=== PATIENT | female | born 1950 | race Caucasian/White ===

== ENCOUNTER → 2022-03-08 15:12 | Outpatient (POV) | payer SELFPAY | PROVIDERS: Visit Provider Dermatology | DX: Z00.00 Encounter for general adult medical examination without abnormal findings (principal) ==

== ENCOUNTER → 2022-05-17 15:24 | Outpatient (POV) | payer SELFPAY | PROVIDERS: Visit Provider Dermatology | DX: Z00.00 Encounter for general adult medical examination without abnormal findings (principal) ==

== ENCOUNTER → 2022-08-16 09:55 | Outpatient (POV) | payer SELFPAY | PROVIDERS: Visit Provider Dermatology | DX: Z00.00 Encounter for general adult medical examination without abnormal findings (principal) ==

== ENCOUNTER → 2023-01-04 10:36 | Outpatient (CLI) | payer MEDICARE, SELFPAY | PROVIDERS: PCP Nurse Practitioner; Visit Provider Nurse Practitioner | DX: R01.1 Cardiac murmur, unspecified (principal) | CPT/HCPCS: 93306 ==

== ENCOUNTER 2023-02-28 13:03 | Emergency (ER) | payer MEDICARE, SELFPAY ==
[2023-02-28 13:04] VITALS: BP 136/81; PULSE 87; RESP 16; TEMP 36.6; O2SAT 100; BMI 21.6
--- NOTE | 2023-02-28 13:19 | CT_ITS ---
FINAL REPORT TECHNIQUE: Axial CT images of the face were obtained without contrast. Coronal reformatted images were also obtained. This study was performed with techniques to keep radiation doses as low as reasonably achievable, (ALARA). Individualized dose reduction techniques using automated exposure control or adjustment of mA and/or kV according to the patient''s size were employed. CLINICAL HISTORY: trauma, syncope, hit face on bath tub FINDINGS: There are bilateral nasal bone fractures. The left nasal bone fracture is comminuted and mildly inwardly displaced. The orbits are intact. There is a left maxillary tooth. Moderate degenerative changes are seen of the left TMJ. There is nasal soft tissue swelling. IMPRESSION: Bilateral nasal bone fractures. Reviewed, Interpreted and Dictated by Wilfredo Moncada III, MD Transcribed by Freda Hurtado Authenticated and [facility]
--- NOTE | 2023-02-28 13:19 | CT_ITS ---
FINAL REPORT CLINICAL HISTORY: trauma, syncope, hit face on bath tub FINDINGS: Axial images of the head were obtained without contrast. Coronal reformatted images were also obtained.This study was performed with techniques to keep radiation doses as low as reasonably achievable (ALARA). Individualized dose reduction techniques using automated exposure control or adjustment of mA and/or kV according to the patient's size were employed. There is no evidence of intracranial hemorrhage or mass. The ventricular size is within normal limits. There is no evidence of shift of the midline structures. No abnormal extra axial fluid collection is identified. There is a frontal scalp hematoma. IMPRESSION: No acute intracranial abnormality. Reviewed, Interpreted and Dictated by Wilfredo Moncada III, MD Transcribed by Freda Hurtado Authenticated and [facility]
--- NOTE | 2023-02-28 13:20 | HMH.EDGENADL ---
Discharge Plan Disposition Patient Disposition: Home, Self-Care Chief Complaint: Head Injury Prescriptions Prescriptions: No Action hfdohnilphkqshn-rmaavwaup-FH [Bromfed DM] 2-30-10 mg/5 mL syrup 5 ml PO Q4-6H PRN (Reason: cold symptoms) Qty: 240 0RF fluticasone propionate 50 mcg/actuation spray,suspension 1 spray intranasal DAILY Qty: 16 2RF Rx Instructions: administer into each nostril montelukast 10 mg tablet 10 mg PO DAILY Qty: 30 11RF cetirizine 10 mg tablet 10 mg PO DAILY Qty: 30 11RF moxifloxacin 400 mg tablet 400 mg PO DAILY 7 Days Qty: 7 0RF albuterol sulfate 90 mcg/actuation HFA aerosol inhaler 2 puff inhalation Q4-6H PRN Referrals Follow up/Referrals: Les Aguilar MD [Physician] - 03/07/23 (Patient with bilateral closed nasal bone fracture) Provider,Referral, [Primary Care Provider] - See instructions Clinical Impressions Clinical Impression: Closed fracture nasal bone Instructions Patient Instructions: Skull and Facial Fracture Discharge ED Provider: Juan Carlos Llamas General Adult HPI General Chief complaint: Head Injury Stated complaint: Fall 02/27 Facial bruising head pain Time Seen by Provider: 02/28/23 13:25 History of Present Illness HPI narrative: This is a 72-year-old female who is stated that she had done a bowel prep for colonoscopy became lightheaded fell and struck her face. Patient stated she may have have a momentary loss of consciousness but remembers everything. Patient denies any neck pain chest pain shortness of breath abdominal pain. Patient with bruising to the face and forehead. Patient denies any unilateral neurological deficits. Related Data Home Medications Medication Instructions Recorded Confirmed albuterol sulfate 90 mcg/actuation 2 puff inhalation Q4-6H PRN 01/26/23 01/26/23 aerosol inhaler Previous Rx's Medication Instructions Recorded csgcvdzivxrdwhs-qchtfjvosewhwoe-YR 5 ml PO Q4-6H PRN cold symptoms 01/26/23 2 mg-30 mg-10 mg/5 mL oral syrup #240 mL (Bromfed DM) cetirizine 10 mg tablet 10 mg PO DAILY #30 tabs 01/26/23 fluticasone propionate 50 1 spray intranasal DAILY #16 grams 01/26/23 mcg/actuation nasal spray,suspension montelukast 10 mg tablet 10 mg PO DAILY #30 tabs 01/26/23 moxifloxacin 400 mg tablet 400 mg PO DAILY 7 days #7 tabs 01/26/23 Allergies Allergy/AdvReac Type Severity Reaction Status Date / Time No Known Allergies Allergy Verified 01/26/23 11:26 [facility] Disclaimer: The information contained in this section may have been updated after the patient was seen, as this information can be updated by other users. Medical History Cardiac murmur Social History Smoking Status: Never smoker alcohol intake: never current occupational status: retired Travel in the last 8 weeks: Inside the [place] ROS Obtained: Yes All systems reviewed & no additional complaints except as documented Skin see HPI HEENT no runny nose sore throat Pulmonary no cough or shortness of breath Cardiovascular no chest pain pressure heaviness GI no abdominal pain nausea or vomiting no dysuria pyuria hematuria Musculoskeletal no neck or back pain Endocrine no polydipsia polyuria or polyphasia Psych no SI or HI The rest of the systems were reviewed and found to be negative Physical Exam Narrative Physical exam: Skin: Warm and dry HEENT: Normocephalic extract muscles are intact pupils are equal and reactive to light there is bilateral periorbital and nasal edema there is dried blood in bilateral nares no septal hematoma. Neck: Supple nontender Lungs: Clear to auscultation Heart: Regular rate and rhythm Abdomen: NABS soft nontender Extremities: No clubbing cyanosis or edema Neurologic: No unilateral weakness or numbness Lymphatic: No cervical or inguinal adenopathy Muscu
--- NOTE | 2023-02-28 13:31 | PC.NURSE ---
pt to radiology via wheelchair
[2023-02-28 14:00] VITALS: BP 142/79; PULSE 80; O2SAT 99
[2023-02-28 14:30] VITALS: BP 145/80; PULSE 75; O2SAT 98
--- NOTE | 2023-02-28 14:41 | PC.NURSE ---
rounded on pt and asked if they had any needs. pt had no needs at this time
[2023-02-28 15:00] VITALS: BP 135/71; PULSE 72; O2SAT 97
[2023-02-28 15:28] VITALS: BP 121/74; PULSE 84; RESP 16; TEMP 36.7; O2SAT 98
== END 2023-02-28 15:38 | disposition home or self-care (01) ==
PROVIDERS: Emergency Provider Emergency Medicine
DX: S02.2XXA Fracture of nasal bones, initial encounter for closed fracture (principal); R42 Dizziness and giddiness; W19.XXXA Unspecified fall, initial encounter; R01.1 Cardiac murmur, unspecified
CPT/HCPCS: 70450; 70486; 99284; 99285

== ENCOUNTER → 2023-05-23 09:17 | Outpatient (POV) | payer MEDICARE, SELFPAY | PROVIDERS: Visit Provider Dermatology | DX: Z00.00 Encounter for general adult medical examination without abnormal findings (principal) ==

== ENCOUNTER → 2023-08-29 11:15 | Outpatient (POV) | payer MEDICARE, SELFPAY | PROVIDERS: PCP Nurse Practitioner; Visit Provider Dermatology | DX: Z00.00 Encounter for general adult medical examination without abnormal findings (principal) ==

== ENCOUNTER 2024-08-20 11:00 | Outpatient (POV) | payer MEDICARE, SELFPAY ==
--- OUTSIDE RECORDS SUMMARY | 2024-08-21 07:03 | XMS_ITS | Encounter Summary ---
Author Organization [facility] Address [address] [place] [address] Care Team Providers Care Mica Washer Gluer Name Role Phone Unavailable Primary Care Provider Unavailabl e Reason for Visit * Reason Comments Injections Gelsyn #3 Encounter Details Date Type Department Care Team (Late st Contact Info) Description 08/08/2022 10:15 AM EST Office Visit [facility] [address] [place], [place] [id number] Rusty Quesada MD [address] [place], [place] [id number] Osteoarthritis of right knee, unspecified osteoarthritis type (Primary Dx) Social History Tobacco Use Types Packs/Day Years Used Date Smoking Tobacco: Never Smokeless Tobacco: Never Tobacco Cessation:Counseling Given: Not Answered Comments Unknown Sex and Gender Information Value Date Recorded Sex Assigned at Not on file Legal Sex Female 11:53 AM EDT Gender Identity Not on file Sexual Orientation Not on file documented as of this encounter Last Filed Vital Signs Vital Sign Reading Time Taken Comments Blood Pressure - - Pulse - - Temperature - - Respiratory Rate - - Oxygen Saturation - - Inhaled Oxygen Concentration - - Weight 59 kg (130 lb) 08/08/2022 10:01 AM EST Height 162.6 cm (5' 4 ) 08/08/2022 10:01 AM EST Body Mass Index 22.31 08/08/2022 10:01 AM EST documented in this encounter Progress Notes * Alida Villareal Supervisor [facility] - 08/08/2022 10:15 AM ESTAssociated Order(s): Large Joint Injection/Arthrocentesis: R knee Large Joint Injection/Arthrocentesis: R knee on 08/08/2022 10:15 AM Indications: pain Details: 22 G needle, ultrasound-guided anterolateral approach Medications: 2 mg sodium hyaluronate (viscosup) 16.8 mg/2 mL Outcome: tolerated well, no immediate complications Procedure, treatment alternatives, risks and benefits explained, specific risks discussed. Consent was given by the patient. Patient was prepped and draped in the usual sterile fashion. * Rusty Quesada MD - 08/08/2022 10:15 AM EST Gelsyn-3 No. 3 right knee Osteoarthritis right knee The patient returns today for their third and final right knee Visco supplementation injection. Therisks, benefits, and complications of the injections were again discussed in detail with the patient. The risks discussed include but are not limited to infection, skin reactions, hot swollen joints,and anaphylaxis. The patient gave verbal informed consent for the injection. The patient's skin wasprepped with 3 sterile gauze pads soaked with alcohol solution and the knee joint was injected [id number] intra-articularly under sterile conditions. Technique: Under sterile conditions a Son[employer] ultrasound unit with a variable frequency (6.0-15.0 MHz) linear transducer was used to localize the placement of a 22-gauge needle into the right knee joint. Findings: Successful needle placement for intra-articular Visco supplementation injection. Final images were taken and saved for permanent record. The patient tolerated the injection reasonably well. The patient was given instructions to ice of the knee and avoid strenuous activity for 24-48 hours. The patient was instructed to call the office immediately if there is increased pain, redness, warmth, fever, or chills. We will see the patient back on an as- needed basis from this point. Rusty Quesada MD documented in this encounter Plan of Treatment Not on file documented as of this encounter Procedures Procedure Name Priority Date/Time Associated Diagnosis Comments [place] ARTHROCENTESIS ASPIR&/INJ MAJOR JT/BURSA W/US Routine 08/08/2022 10:15 AM EST Osteoarthritis of right knee, unspecified osteoarthritis type documented in this encounter Results * MO ARTHROCENTESIS ASPIR&/INJ MAJOR JT/BURSA W/US (08/08/2022 10:15 AM EST) Narrative [facility] - 08/08/2022 10:15 AM EST Mono, Alida, Supervisor [facility] ? 08/08/2022 10:37 AM Large Joint Injection/Arthrocentesis: R knee on 08/08/2022 10:15 AM Indications: pain Details: 22 G needle, ultrasound-guided anterolateral approach Medications: 2 mg sodium hyaluronate (viscosup) 16.8 mg/2 mL Outcome: tolerated well, no immediate complications Procedure, treatment alternatives, risks and benefits explained, specific risks discussed. Consent was given by the patient. Patient was prepped and draped in the usual sterile fashion. us Rusty Quesada MD PROCEDURE/MINOR SURGICAL ORDERAB LES Final Result [facility] documented in this encounter Visit Diagnoses Diagnosis Osteoarthritis of right knee, unspecified osteoarthritis type- Primary documented in this encounter Administered Medications Inactive Administered Medications - up to 1 most recent administrations Medication Order MAR Action Action Date Dose Rate Site sodium hyaluronate (viscosup) Syrg 2 mg 2 mg, Intra-articular, ONCE PRN, 1 dose, Starting on Mon08/08/22 at 1015, Until Mon08/08/22 at 1015, Dx: 1. Osteoarthritis of right knee, unspecified osteoarthritis typeIndications:Osteoarthritis of right knee, unspecified osteoarthritis type Given 08/08/2022 10:15 AM EST 2 mg documented in this encounter
--- OUTSIDE RECORDS SUMMARY | 2024-08-21 07:03 | XMS_ITS | Encounter Summary ---
Author Organization [facility] Address [address] [place] [address] Care Team Providers Care Paradichlorobenzene Tender Name Role Phone Unavailable Primary Care Provider Unavailabl e Reason for Visit * Reason Comments Pain Encounter Details Date Type Department Care Team (Late st Contact Info) Description 03/02/2022 10:15 AM EDT Office Visit [facility] [address] [place] [address] Rusty Quesada MD [address] [place] [address] Osteoarthritis of right knee, unspecified osteoarthritis type (Primary Dx) Social History Tobacco Use Types Packs/Day Years Used Date Smoking Tobacco: Never Assessed Comments Unknown Sex and Gender Information Value Date Recorded Sex Assigned at Not on file Legal Sex Female 11:53 AM EDT Gender Identity Not on file Sexual Orientation Not on file documented as of this encounter Progress Notes * Rusty Quesada MD - 03/02/2022 10:15 AM EDTAssociated Order(s): Large Joint Injection/Arthrocentesis: R knee Post-Procedure Diagnose(s): Osteoarthritis of right knee, unspecified osteoarthritis type Large Joint Injection/Arthrocentesis: R knee on 03/02/2022 10:15 AM Indications: pain Details: 22 G needle, ultrasound-guided anterolateral approach Medications: 4 mL bupivacaine HCl 0.25 % (2.5 mg/mL); 80 mg triamcinolone acetonide 40 mg/mL; 4 mL lidocaine 1% 10 mg/mL (1 %) Outcome: tolerated well, no immediate complications Procedure, treatment alternatives, risks and benefits explained, specific risks discussed. Consent was given by the patient. Patient was prepped and draped in the usual sterile fashion. Diagnosis: Right knee osteoarthritis She returns to clinic today for right knee cortisone injection. She has had this treatment in the past with good pain relief. I discussed in detail the risks, benefits and complications of an injection which included but are not limited to infection, skin reactions, hot swollen joint, and anaphylaxis with the patient. The patient verbalized understanding and gave informed consent for the injection. The patient's knee was flexed to 90?? and the skin prepped using sterile alcohol solution. A sterile 22-gauge needle was inserted into the knee and the mixture of I discussed in detail the risks, benefits and complications of an injection which included but are not limited to infection, skin reactions, hot swollen joint, and anaphylaxis with the patient. The patient verbalized understanding and gave informed consent for the injection. The patient's knee was flexed to 90?? and the skin prepped using sterile alcohol solution. A sterile 22-gauge needle was inserted into the knee and the mixture of 4 mL of .25% bupivacaine, 4 mL of 1% lidocaine, and 80 mg of triamcinolone was injected under sterile technique. The needle was withdrawn and the puncture site sealed with a Band-Aid. Technique: Under sterile conditions a Son[employer] TVte ultrasound unit with a variable frequency (6.0-15.0 MHz) linear transducer was used to localize the placement of a 22-gauge needle into the right knee joint. Rusty Quesada MD Findings: Successful needle placement for knee injection. Final images were taken and saved for permanent record. The patient tolerated the injection well. The patient was instructed to call the office immediatelyif there is any pain, redness, warmth, fever, or chills. documented in this encounter Plan of Treatment Not on file documented as of this encounter Procedures Procedure Name Priority Date/Time Associated Diagnosis Comments [place] ARTHROCENTESIS ASPIR&/INJ MAJOR JT/BURSA W/US Routine 03/02/2022 10:15 AM EDT Osteoarthritis of right knee, unspecified osteoarthritis type documented in this encounter Results * [place] ARTHROCENTESIS ASPIR&/INJ MAJOR JT/BURSA W/US (03/02/2022 10:15 AM EDT) Narrative [facility] - 03/02/2022 10:15 AM EDT Rusty Quesada MD ? 03/02/2022 10:48 AM Large Joint Injection/Arthrocentesis: R knee on 03/02/2022 10:15 AM Indications: pain Details: 22 G needle, ultrasound-guided anterolateral approach Medications: 4 mL bupivacaine HCl 0.25 % (2.5 mg/mL); 80 mg triamcinolone acetonide 40 mg/mL; 4 mL lidocaine 1% 10 mg/mL (1 %) Outcome: tolerated well, no immediate complications Procedure, [...] MAR Action Action Date Dose Rate Site bupivacaine HCl (MARCAINE) 0.25 % (2.5 mg/mL) injection 4 mL 4 mL, Intra-articular, ONCE PRN, 1 dose, Starting on Mon03/02/22 at 1015, Until Mon03/02/22 at 1015, Dx: 1. Osteoarthritis of right knee, unspecified osteoarthritis typeIndications:Osteoarthritis of right knee, unspecified osteoarthritis type Given 03/02/2022 10:15 AM EDT 4 mL lidocaine 1% 10 mg/mL (1 %) injection 4 mL 4 mL, Intra-articular, ONCE PRN, 1 dose, Starting on Mon03/02/22 at 1015, Until 03/02/22 at 1015, Dx: 1. Osteoarthritis of right knee, unspecified osteoarthritis typeIndications:Osteoarthritis of right knee, unspecified osteoarthritis type Given 03/02/2022 10:15 AM EDT 4 mL triamcinolone acetonide (KENALOG-40) injection 80 mg 80 mg, Intra-articular, ONCE PRN, 1 dose, Starting on Mon03/02/22 at 1015, Until 6/15/22 at 1015, Dx: 1. Osteoarthritis of right knee, unspecified osteoarthritis typeIndications:Osteoarthritis of right knee, unspecified osteoarthritis type Given 03/02/2022 10:15 AM EDT 80 mg documented in this encounter Historical Medications * This list may reflect changes made after this encounter. predniSONE (DELTASONE) 20 mg Oral Tablet TAKE 1 TABLET BY MOUTH TWICE DAILY FOR 5 DAYS, THEN 1 TABLET ONCE DAILY FOR 5 DAYS 12/27/2021 levoFLOXacin (LEVAQUIN) 500 mg Oral Tablet TAKE 1 TABLET BY MOUTH EVERY 24 HOURS FOR 10 DAYS 12/27/2021 Brompheniramine-Pse udoeph-DM 2-30-10 mg/5 mL Oral Syrup TAKE 5 ML BY MOUTH 4 TIMES DAILY NEEDED FOR COUGH 12/27/2021 benzonatate (TESSALON) 200 mg Oral Capsule Take 200 mg by mouth 3 times daily as needed. for cough 12/27/2021 albuterol-ipratropi um (DUO-NEB) 0.5 mg-3 mg(2.5 mg base)/3 mL Inhl Solution for Nebulization Inhale 3 mL into the lungs. 09/25/2019 ibuprofen (ADVIL;MOTRIN) 200 mg Oral Tablet Take 400 mg by mouth nightly. 06/30/2010 aspirin 325 mg Oral Tablet Take 325 mg by mouth daily. cyanocobalamin 100 mcg Oral Tablet Take 500 mcg by mouth daily. albuterol (PROVENTIL HFA;VENTOLIN HFA) 90 mcg/actuation Inhl HFA Aerosol Inhaler Inhale 2 Puffs into the lungs every 6 hours as needed. 03/12/2019 added in this encounter
--- OUTSIDE RECORDS SUMMARY | 2024-08-21 07:03 | XMS_ITS | Encounter Summary ---
Author Organization [facility] Address [address] [place] [address] Care Team Providers Care Computer Technology Trainer Name Role Phone Unavailable Primary Care Provider Unavailabl e Reason for Visit * Reason Comments Injections last injection was 0 03/06/23 Encounter Details Date Type Department Care Team (Late st Contact Info) Description 06/26/2023 3:00 PM EDT Office Visit [place] [id number] [email or web address] [address] [place] [phone] Rusty Quesada MD [address] [place] [address] Osteoarthritis of right knee, unspecified osteoarthritis type [...] - - Weight 59 kg (130 lb) 06/26/2023 2:58 PM EDT Height 162.6 cm (5' 4 ) 06/26/2023 2:58 PM EDT Body Mass Index 22.31 06/26/2023 2:58 PM EDT documented in this encounter Progress Notes * Rusty Quesada MD - 06/26/2023 3:00 PM EDTAssociated Order(s): Large Joint Injection/Arthrocentesis: R knee Post-Procedure Diagnose(s): Osteoarthritis of right knee, unspecified osteoarthritis type Large Joint Injection/Arthrocentesis: R knee on 06/26/2023 3:00 PM Indications: pain Details: 22 G needle, ultrasound-guided anterolateral approach Medications: 4 mL BUPivacaine HCl 0.25 % (2.5 mg/mL); 80 mg triamcinolone acetonide 40 mg/mL; 4 mL lidocaine 20 mg/mL (2 %) Outcome: tolerated well, no immediate complications Procedure, treatment alternatives, risks and benefits explained, specific risks discussed. Consent was given by the patient. Patient was prepped and draped in the usual sterile fashion. Diagnosis: Right knee osteoarthritis She returns to clinic today for repeat right knee cortisone injection. She tolerates these injections well with good pain relief. Last injection was given in February with good pain relief. I discussed in [...] a Band-Aid. Technique: Under sterile conditions a [employer] ultrasound unit with a variable frequency (6.0-15.0 MHz) linear transducer was used to localize the placement of a 22-gauge needle into the right knee joint. Findings: Successful needle placement for knee injection. Final images were taken and saved for permanent record. The patient tolerated the injection well. The patient was instructed to call the office immediatelyif there is any pain, redness, warmth, fever, or chills. Rusty Quesada MD documented in this encounter Plan of Treatment Not on file documented as of this encounter Procedures Procedure Name Priority Date/Time Associated Diagnosis Comments [place] ARTHROCENTESIS ASPIR&/INJ MAJOR JT/BURSA W/US Routine 06/26/2023 3:00 PM EDT Osteoarthritis of right knee, unspecified osteoarthritis type documented in this encounter Results * [place] ARTHROCENTESIS ASPIR&/INJ MAJOR JT/BURSA W/US (06/26/2023 3:00 PM EDT) Narrative [facility] - 06/26/2023 3:00 PM EDT Rusty Quesada MD ? 06/26/2023 ??3:10 PM Large Joint Injection/Arthrocentesis: R knee on 06/26/2023 3:00 PM Indications: pain Details: 22 G needle, ultrasound-guided anterolateral approach Medications: 4 mL BUPivacaine HCl 0.25 % (2.5 mg/mL); 80 mg triamcinolone acetonide 40 mg/mL; 4 mL lidocaine 20 mg/mL (2 %) Outcome: tolerated well, no immediate complications [...] MAR Action Action Date Dose Rate Site BUPivacaine HCl (MARCAINE) 0.25 % (2.5 mg/mL) injection 4 mL 4 mL, Intra-articular, ONCE PRN, 1 dose, Starting on Mon06/26/23 at 1500, Until Mon06/26/23 at 1500, Dx: 1. Osteoarthritis of right knee, unspecified osteoarthritis typeIndications:Osteoarthritis of right knee, unspecified osteoarthritis type Given 06/26/2023 3:00 PM EDT 4 mL Right Knee lidocaine 20 mg/mL (2 %) injection 4 mL 4 mL, Intramuscular, ONCE PRN, 1 dose, Starting on Mon06/26/23 at 1500, Until Mon06/26/23 at 1500, Dx: 1. Osteoarthritis of right knee, unspecified osteoarthritis typeIndications:Osteoarthritis of right knee, unspecified osteoarthritis type Given 06/26/2023 3:00 PM EDT 4 mL Right Knee triamcinolone acetonide (KENALOG-40) injection 80 mg 80 mg, Intra-articular, ONCE PRN, 1 dose, Starting on Mon06/26/23 at 1500, Until Mon06/26/23 at 1500, Dx: 1. Osteoarthritis of right knee, unspecified osteoarthritis typeIndications:Osteoarthritis of right knee, unspecified osteoarthritis type Given 06/26/2023 3:00 PM EDT 80 mg Right Knee documented in this encounter Historical Medications * This list may reflect changes made after this encounter. montelukast (SINGULAIR) 10 mg Oral Tablet Take 10 mg by mouth daily. 05/30/2023 hydroxychloroquine (PLAQUENIL) 200 mg Oral Tablet Take 200 mg by mouth 2 times daily. 05/23/2023 cetirizine (ZYRTEC) 10 mg Oral Tablet Take 10 mg by mouth daily. 05/30/2023 added in this encounter
--- OUTSIDE RECORDS SUMMARY | 2024-08-21 07:03 | XMS_ITS | Encounter Summary ---
Author Organization [facility] Address [address] [place] [address] Care Team Providers Care Gravure Printing Machinist Name Role Phone Unavailable Primary Care Provider Unavailabl e Reason for Visit * Reason Comments Injections Encounter Details Date Type Department Care Team (Late st Contact Info) Description 06/21/2021 9:15 AM EDT Office Visit Massiel Pierre [address] [place] [address] Leonora Guzman PA [address] [place] [address] Acute pain of right knee (Primary Dx); Osteoarthritis of right knee, unspecified osteoarthritis type Social History Tobacco Use Types Packs/Day Years Used Date Smoking Tobacco: Never Assessed Comments Unknown Sex and Gender Information Value Date Recorded Sex Assigned at Not on file Legal Sex Female 11:53 AM EDT Gender Identity Not on file Sexual Orientation Not on file documented as of this encounter Progress Notes * Leonora Menjivar PA - 06/21/2021 9:15 AM EDT Chief Complaint Patient presents with ??? Right Knee - Injections Karlie Love returns to the clinic today for repeat right knee cortisone injection Diagnosis: Osteoarthritis right knee Updated x-rays of the right knee were taken today. 3 x-rays of the right knee taken today reveal moderate tricompartmental osteoarthritis with mild medial joint space narrowing and more advanced joint space narrowing to the patellofemoral compartment. Jfvq-cx-[id number] findings are seen at the patellofemoral compartment. Orders Placed This Encounter Procedures ??? XR KNEE RIGHT AP LATERAL AND SUNRISE STANDING Standing Status: Future Number of Occurrences: 1 Standing Expiration Date: 06/21/2022 Order Specific Question: Release to Patient Answer: Immediate ? ? [place] ARTHROCENTESIS ASPIR&/INJ MAJOR JT/BURSA W/US I discussed in detail the risks, benefits [...] and the mixture of 4 mL of 2% Carbocaine, 4 mL of 0.25% Marcaine, and 80 mg of Depo-Medrol was injected under sterile technique. The needle was withdrawn and the puncture site sealed with a Band-Aid. Technique: Under sterile conditions a [employer] ultrasound unit with a variable frequency (6.0-15.0 [...] documented in this encounter Plan of Treatment Scheduled Orders Name Type Priority Associated Diagnoses Orde r Schedule [place] ARTHROCENTESIS ASPIR&/INJ MAJOR JT/BURSA W/US [place] Charge Routine Acute pain of right knee Osteoarthritis of right knee, unspecified osteoarthritis type Ordered: 06/21/2021 documented as of this encounter Results * XR KNEE RIGHT AP LATERAL AND SUNRISE STANDING (06/21/2021 9:19 AM EDT) Arin Abdul - 06/21/2021 9:19 AM EDT Please see physician's note from office encounter for x-ray imaging result Result [facility] us Leonora HAWKINS IMBob DIAGNOSTIC IMAGING ORDERA BLES Final Result documented in this encounter Visit Diagnoses Diagnosis Acute pain of right knee- Primary Osteoarthritis of right knee, unspecified osteoarthritis type Acute pain of right knee documented in this encounter Administered Medications Inactive Administered Medications - up to 1 most recent administrations Medication Order MAR Action Action Date Dose Rate Site bupivacaine HCl (MARCAINE) 0.25 % (2.5 mg/mL) injection 10 mg 10 mg (4 mL), Intra-articular, ONCE, 1 dose, On Mon06/21/21 at 0930, Dx: 1. Osteoarthritis of right knee, unspecified osteoarthritis typeIndications:Osteoarthritis of right knee, unspecified osteoarthritis type Given 06/21/2021 9:56 AM EDT 10 mg lidocaine 1% 10 mg/mL (1 %) injection 4 mL 4 mL, Infiltration, ONCE, 1 dose, On Mon06/21/21 at 0930, Dx: 1. Osteoarthritis of right knee, unspecified osteoarthritis typeIndications:Osteoarthritis of right knee, unspecified osteoarthritis type Given 06/21/2021 9:56 AM EDT 4 mL triamcinolone acetonide (KENALOG-40) injection 80 mg 80 mg, Intra-articular, ONCE, 1 dose, On Mon06/21/21 at 0930, Dx: 1. Osteoarthritis of right knee, unspecified osteoarthritis typeIndications:Osteoarthritis of right knee, unspecified osteoarthritis type Given 06/21/2021 9:56 AM EDT 80 mg documented in this encounter
--- OUTSIDE RECORDS SUMMARY | 2024-08-21 07:03 | XMS_ITS | Encounter Summary ---
Author Organization [facility] Address [address] [place] [address] Care Team Providers Care Rapid Extractor Operator Name Role Phone Unavailable Primary Care Provider Unavailabl e Encounter Details Date Type Department Care Team (Late st Contact Info) Description 06/21/2021 9:30 AM EDT Ancillary Procedure Massiel Pierre [address] [place] [address] Leonora Guzman PA [address] [facility] [place] [address] Acute pain of right knee Social History Tobacco Use Types Packs/Day Years Used Date Smoking Tobacco: Never Assessed Comments Unknown Sex and Gender Information Value Date Recorded Sex Assigned at Not on file Legal Sex Female 11:53 AM EDT Gender Identity Not on file Sexual Orientation Not on file documented as of this encounter Plan of Treatment Not on file documented as of this encounter Procedures Procedure Name Priority Date/Time Associated Diagnosis Comments XR KNEE RIGHT AP LATERAL AND SUNRISE STANDING Routine 06/21/2021 9:19 AM EDT Acute pain of right knee documented in this encounter Results * XR KNEE RIGHT AP LATERAL AND SUNRISE STANDING (06/21/2021 9:19 AM EDT) Narrative Arin Mathias - 06/21/2021 9:19 AM EDT Please see physician's note from office encounter for x-ray imaging result Leonora HAWKINS IMG DIAGNOSTIC IMAGING ORDERA BLES Final Result documented in this encounter Visit Diagnoses Diagnosis Acute pain of right knee documented in this encounter
--- OUTSIDE RECORDS SUMMARY | 2024-08-21 07:03 | XMS_ITS | Encounter Summary ---
Author Organization [facility] Address [address] [place] [address] Care Team Providers Care Retail Presentation Specialist Name Role Phone Unavailable Primary Care Provider Unavailabl e Reason for Visit * Reason Comments Injections would like cortisone inj Encounter Details Date Type Department Care Team (Late st Contact Info) Description 03/01/2021 10:15 AM EDT Office Visit Massiel Pierre [address] [place] [address] Rusty Quesada MD [address] [place] [address] Osteoarthritis of right knee, unspecified osteoarthritis type (Primary Dx); Primary osteoarthritis of right knee Social History Tobacco Use Types Packs/Day Years Used Date Smoking Tobacco: Never Assessed Comments Unknown Sex and Gender Information Value Date Recorded Sex Assigned at Not on file Legal Sex Female 11:53 AM EDT Gender Identity Not on file Sexual Orientation Not on file documented as of this encounter Progress Notes * Rusty Quesada MD - 03/01/2021 10:15 AM EDT Chief Complaint Patient presents with ??? Right Knee - Injections would like cortisone inj Karlie Love returns to the clinic today for repeat right knee cortisone injection. She last receivedthis injection back in March 2020. This provided her with excellent pain relief. Diagnosis: Osteoarthritis right knee Orders Placed This Encounter Procedures ? ? [place] ARTHROCENTESIS ASPIR&/INJ MAJOR JT/BURSA W/US I discussed [...] a Band-Aid. Technique: Under sterile conditions a [employer] ultrasound unit with a variable frequency (6.0-15.0 [...] Type Priority Associated Diagnoses Orde r Schedule [place] ARTHROCENTESIS ASPIR&/INJ MAJOR JT/BURSA W/US [place] Charge Routine Osteoarthritis of right knee, unspecified osteoarthritis type Ordered: 03/01/2021 documented as of this encounter Visit Diagnoses Diagnosis Osteoarthritis of right knee, unspecified osteoarthritis type- Primary documented in this encounter Administered Medications Inactive Administered Medications - up to 1 most recent administrations Medication Order MAR Action Action Date Dose Rate Site bupivacaine HCl (MARCAINE) 0.5 % (5 mg/mL) injection 20 mg 20 mg (4 mL), Intra-articular, ONCE, 1 dose, On Mon03/01/21 at 1015, Dx: 1. Osteoarthritis of right knee, unspecified osteoarthritis typeIndications:Osteoarthritis of right knee, unspecified osteoarthritis type Given 03/01/2021 10:00 AM EDT 20 mg lidocaine 1% 10 mg/mL (1 %) injection 4 mL 4 mL, Intra-articular, ONCE, 1 dose, On Mon03/01/21 at 1015, Dx: 1. Osteoarthritis of right knee, unspecified osteoarthritis typeIndications:Osteoarthritis of right knee, unspecified osteoarthritis type Given 03/01/2021 10:01 AM EDT 4 mL triamcinolone acetonide (KENALOG-40) injection 80 mg 80 mg, Intra-articular, ONCE PRN, 1 dose, Starting on Mon03/01/21 at 1000, Until Mon03/01/21 at 1001, Inflammation, Dx: 1. Osteoarthritis of right knee, unspecified osteoarthritis typeIndications:Osteoarthritis of right knee, unspecified osteoarthritis type Given 03/01/2021 10:01 AM EDT 80 mg documented in this encounter
--- OUTSIDE RECORDS SUMMARY | 2024-08-21 07:03 | XMS_ITS | Encounter Summary ---
Author Organization [facility] Address [address] [place] [address] Care Team Providers Care Sales Assistants And Salespersons Name Role Phone Unavailable Primary Care Provider Unavailabl e Reason for Visit * Reason Comments Injections Encounter Details Date Type Department Care Team (Late st Contact Info) Description 09/22/2021 9:30 AM EST Office Visit Massiel Pierre [address] [place] [address] Rusty Quesada MD [address] [place] [address] Acute pain of right knee (Primary Dx); [...] Progress Notes * Rusty Quesada MD - 09/22/2021 9:30 AM EST Chief Complaint Patient presents with ??? Right Knee - Injections Karlie Love returns to the clinic today for repeat right knee cortisone injection. She has received these in the past with good pain relief. Her most recent injection was performed 3 months ago Diagnosis: Osteoarthritis right knee Orders Placed This Encounter Procedures ? ? [place] ARTHROCENTESIS ASPIR&/INJ MAJOR JT/BURSA W/US I discussed [...] a Band-Aid. Technique: Under sterile conditions a [employer] ultrasound unit with a variable frequency (6.0-15.0 [...] any pain, redness, warmth, fever, or chills. We also discussed viscosupplementation injections and she may return to begin these in the future if desired. Rusty Quesada MD documented in this encounter Plan of Treatment Scheduled Orders Name Type Priority Associated Diagnoses Orde r Schedule [place] ARTHROCENTESIS ASPIR&/INJ MAJOR JT/BURSA W/US [place] Charge Routine Acute pain of right knee Osteoarthritis of right knee, unspecified osteoarthritis type Ordered: 09/22/2021 documented as of this encounter Visit Diagnoses Diagnosis Acute pain of right knee- Primary Osteoarthritis of right knee, unspecified osteoarthritis type documented in this encounter Administered Medications Inactive Administered Medications - up to 1 most recent administrations Medication Order MAR Action Action Date Dose Rate Site bupivacaine HCl (MARCAINE) 0.25 % (2.5 mg/mL) injection 10 mg 10 mg (4 mL), Intra-articular, ONCE, 1 dose, On Mon09/22/21 at 0930, Dx: 1. Osteoarthritis of right knee, unspecified osteoarthritis typeIndications:Osteoarthritis of right knee, unspecified osteoarthritis type Given 09/22/2021 9:20 AM EST 10 mg lidocaine 1% 10 mg/mL (1 %) injection 4 mL 4 mL, Intra-articular, ONCE, 1 dose, On Mon09/22/21 at 0930, Dx: 1. Osteoarthritis of right knee, unspecified osteoarthritis typeIndications:Osteoarthritis of right knee, unspecified osteoarthritis type Given 09/22/2021 9:19 AM EST 4 mL triamcinolone acetonide (KENALOG-40) injection 80 mg 80 mg, Intra-articular, ONCE, 1 dose, On Mon09/22/21 at 0930, Dx: 1. Osteoarthritis of right knee, unspecified osteoarthritis typeIndications:Osteoarthritis of right knee, unspecified osteoarthritis type Given 09/22/2021 9:19 AM EST 80 mg documented in this encounter
--- OUTSIDE RECORDS SUMMARY | 2024-08-21 07:03 | XMS_ITS | Encounter Summary ---
Author Organization [facility] Address [address] [place] [address] Care Team Providers Care Security Assistant Name Role Phone Unavailable Primary Care Provider Unavailabl e Reason for Visit * Reason Onset Date Comments Injections 07/20/2022 Encounter Details Date Type Department Care Team (Late st Contact Info) Description 07/20/2022 [facility]phone [facility] [employer] [address] [place] [address] Alida Villareal Athletic Trainer Injections Social History Tobacco Use Types Packs/Day Years Used Date Smoking Tobacco: Never Smokeless Tobacco: Never Comments Unknown Sex and Gender Information Value Date Recorded Sex Assigned at Not on file Legal Sex Female 11:53 AM EDT Gender Identity Not on file Sexual Orientation Not on file documented as of this encounter Miscellaneous Notes * Telephone Encounter - Alida Villareal Athletic Trainer - 07/20/2022 12:19 PM EDT LVM for patient she was approved for right knee gelsyn. She can call back at her convenience to schedule her appointment documented in this encounter Plan of Treatment Not on file documented as of this encounter Visit Diagnoses Not on filedocumented in this encounter
--- OUTSIDE RECORDS SUMMARY | 2024-08-21 07:03 | XMS_ITS | Referral Summary ---
Author Organization [facility] Phone Care Team Providers Care Online Marketing Director Name Role Phone Unavailable Primary Care Provider Unavailabl e Encounters Date Type Department Care Team Description 06/12/2024 2:15 PM EDT Office Visit Massiel Pierre [address] [place] [address] Leonora Guzman PA Osteoarthritis of right knee, unspecified osteoarthritis type (Primary Dx) from Last 3 Months Allergies No known active allergies Medications albuterol (PROVENTIL HFA;VENTOLIN HFA) 90 mcg/actuation Inhl HFA Aerosol Inhaler Inhale 2 Puffs into the lungs every 6 hours as needed. 03/12/2019 Active cyanocobalamin 100 mcg Oral Tablet Take 500 mcg by mouth daily. Active aspirin 325 mg Oral Tablet Take 325 mg by mouth daily. Active ibuprofen (ADVIL;MOTRIN) 200 mg Oral Tablet Take 400 mg by mouth nightly. 06/30/2010 Active albuterol-ipratro pium (DUO-NEB) 0.5 mg-3 mg(2.5 mg base)/3 mL Inhl Solution for Nebulization Inhale 3 mL into the lungs. 09/25/2019 Active benzonatate (TESSALON) 200 mg Oral Capsule Take 200 mg by mouth 3 times daily as needed. for cough 12/27/2021 Active Brompheniramine-P seudoeph-DM 2-30-10 mg/5 mL Oral Syrup TAKE 5 ML BY MOUTH 4 TIMES DAILY NEEDED FOR COUGH 12/27/2021 Active levoFLOXacin (LEVAQUIN) 500 mg Oral Tablet TAKE 1 TABLET BY MOUTH EVERY 24 HOURS FOR 10 DAYS 12/27/2021 Active predniSONE (DELTASONE) 20 mg Oral Tablet TAKE 1 TABLET BY MOUTH TWICE DAILY FOR 5 DAYS, THEN 1 TABLET ONCE DAILY FOR 5 DAYS 12/27/2021 Active cetirizine (ZYRTEC) 10 mg Oral Tablet Take 10 mg by mouth daily. 05/30/2023 Active hydroxychloroquin e (PLAQUENIL) 200 mg Oral Tablet Take 200 mg by mouth 2 times daily. 05/23/2023 Active montelukast (SINGULAIR) 10 mg Oral Tablet Take 10 mg by mouth daily. 05/30/2023 Active codeine-guaiFENes in (ROBITUSSIN AC) 10-100 mg/5 mL Oral Liquid Take 5 mL by mouth every 6 hours as needed. 10/19/2023 Active Active Problems Problem Noted Date Diagnosed Date Bronchiectasis without complication 03/01/2022 Primary osteoarthritis of right knee 06/06/2017 Abnormal uterine bleeding 08/04/2011 Immunizations Name Administration Dates Next Due Influenza High Dose 06/14/2021,06/14/2017,2015 Influenza Seasonal Injectable PF 06/03/2020 Influenza Vaccine Trivalent Adjuvanted PF 2018,07/03/2018 Pneumococcal Conjugate Vaccine 13 Valent 019 Pneumococcal Polysaccharide 23 Valent 01/09/2018 Quadrivalent Influenza High Dose 06/08/2021 Tdap 06/14/2017,10/25/2012 Zoster Recombinant 01/09/2018 Social History Tobacco Use Types Packs/Day Years Used Date Smoking Tobacco: Never Smokeless Tobacco: Never Tobacco Cessation:Counseling Given: Not Answered Comments Unknown Sex and Gender Information Value Date Recorded Sex Assigned at Not on file Legal Sex Female 11:53 AM EDT Gender Identity Not on file Sexual Orientation Not on file Last Filed Vital Signs Vital Sign Reading Time Taken Comments Blood Pressure - - Pulse - - Temperature - - Respiratory Rate - - Oxygen Saturation - - Inhaled Oxygen Concentration - - Weight 59 kg (130 lb) 06/12/2024 2:06 PM EDT Height 162.6 cm (5' 4 ) 06/12/2024 2:06 PM EDT Body Mass Index 22.31 06/12/2024 2:06 PM EDT Plan of Treatment Not on file Procedures Procedure Name Priority Date/Time Associated Diagnosis Comments [place] ARTHROCENTESIS ASPIR&/INJ MAJOR JT/BURSA W/US Routine 06/12/2024 2:15 PM EDT Osteoarthritis of right knee, unspecified osteoarthritis type from Last 3 Months Results * [place] ARTHROCENTESIS ASPIR&/INJ MAJOR JT/BURSA W/US (06/12/2024 2:15 PM EDT) Narrative [facility] - 06/12/2024 2:15 PM EDT Mono, Alida, Bevel Operator ? 06/12/2024 ??2:18 PM Large Joint Injection/Arthrocentesis: R knee on 06/12/2024 2:15 PM Indications: pain Details: 22 G needle, [...] and draped in the usual sterile fashion. Leonora HAWKINS PROCEDURE/MINOR SURGICAL HUNTER AMBROSE Final Result [facility] from Last 3 Months Insurance [place]ICARE [place] PART B CLAIMS [facility]
--- OUTSIDE RECORDS SUMMARY | 2024-08-21 07:03 | XMS_ITS | Encounter Summary ---
Author Organization [facility] Address [address] [place] [address] Care Team Providers Care Police Investigator Name Role Phone Unavailable Primary Care Provider Unavailabl e Encounter Details Date Type Department Care Team (Late st Contact Info) Description 01/12/2024 9:00 AM EDT Ancillary Procedure [place] [id number] [employer] [address] [place] [phone] Leonora Guzman PA [address] [place], [place] [id number] Osteoarthritis of right knee, unspecified osteoarthritis type [...] RIGHT AP LATERAL AND SUNRISE STANDING Routine 01/12/2024 9:07 AM EDT Osteoarthritis of right knee, unspecified osteoarthritis type documented in this encounter Results * XR KNEE RIGHT AP LATERAL AND SUNRISE STANDING (01/12/2024 9:07 AM EDT) Arin Abdul - 01/12/2024 9:07 AM EDT Please see physician's note from office encounter for x-ray imaging result Leonora HAWKINS IMG DIAGNOSTIC IMAGING ORDERA BLES Final Result documented in this encounter Visit Diagnoses Diagnosis Osteoarthritis of right knee, unspecified osteoarthritis type documented in this encounter
--- OUTSIDE RECORDS SUMMARY | 2024-08-21 07:03 | XMS_ITS | Encounter Summary ---
Author Organization [facility] Address [address] [place] [address] Care Team Providers Care Railways Assistant Name Role Phone Unavailable Primary Care Provider Unavailabl e Reason for Visit * Reason Comments Follow-up Patient received cor tisone injection on 06/01/22. She states this provided relief till about 2 weeks ago the pain returned and reports having swelling in the knee. She states been having constant pain over anteromedial aspect of her patella and radiates down her leg into her foot. Encounter Details Date Type Department Care Team (Late st Contact Info) Description 07/18/2022 3:45 PM EDT Office Visit [address] [phone] Rusty Quesada MD [address] [place], [place] [id number] Osteoarthritis of right knee, unspecified osteoarthritis type [...] - - Weight 59 kg (130 lb) 07/18/2022 3:56 PM EDT Height 162.6 cm (5' 4 ) 07/18/2022 3:56 PM EDT Body Mass Index 22.31 07/18/2022 3:56 PM EDT documented in this encounter Progress Notes * Rusty Quesada MD - 07/18/2022 3:45 PM EDT CHIEF COMPLAINT: Chief Complaint Patient presents with ??? Right Knee - Follow-up Patient received cortisone injection on 06/01/22. She states this provided relief till about 2 weeks ago the pain returned and reports having swelling in the knee. She states been having constant pain over anteromedial aspect of her patella and radiates down her leg into her foot. HISTORY OF PRESENT ILLNESS: The patient is a 72 y.o. female This is a pleasant lady who we know very well. She has known osteoarthritis of her knees. She got aright knee injection back on 06/01/2022. It worked good for about 6 weeks but now is worn off. She having ongoing return of her medial sided knee pain she points directly medial femoral condyle as a site of discomfort. The contralateral leg is relatively good with minimal discomfort. She denies any low back pain. She denies any radiating pain. No past medical history on file. Work Status: The pain assessment was noted & is as follows: PAIN ASSESSMENT: Severity of Pain: 7 Quality of Pain: Aching, Dull Duration of Pain: Persistent Frequency of Pain: Constant Aggravating Factors: Exercise, Walking, Stairs Limiting Behavior: Some Relieving Factors: Ice, Rest Result of Injury: No] Work Status/Functionality: Past Medical History: Medical historyform was reviewed today & can be found in the media tab No past medical history on file. Past Surgical History: No past surgical history on file. Current Medications: Current Outpatient Medications: ??? albuterol (PROVENTIL HFA;VENTOLIN HFA) 90 mcg/actuation Inhl HFA Aerosol Inhaler, Inhale 2 Puffs into the lungs every 6 hours as needed., Disp: , Rfl: ??? albuterol-ipratropium (DUO-NEB) 0.5 mg-3 mg(2.5 mg base)/3 mL Inhl Solution for Nebulization, Inhale 3 mL into the lungs., Disp: , Rfl: ??? aspirin 325 mg Oral Tablet, Take 325 mg by mouth daily., Disp: , Rfl: ??? benzonatate (TESSALON) 200 mg Oral Capsule, Take 200 mg by mouth 3 times daily as needed. for cough, Disp: , Rfl: ??? Vftsbfuidhmqowc-Bgzklugpk-UK 2-30-10 mg/5 mL Oral Syrup, TAKE 5 ML BY MOUTH 4 TIMES DAILY NEEDED FOR COUGH, Disp: , Rfl: ??? cyanocobalamin 100 mcg Oral Tablet, Take 500 mcg by mouth daily., Disp: , Rfl: ??? ibuprofen (ADVIL;MOTRIN) 200 mg Oral Tablet, Take 400 mg by mouth nightly., Disp: , Rfl: ??? levoFLOXacin (LEVAQUIN) 500 mg Oral Tablet, TAKE 1 TABLET BY MOUTH EVERY 24 HOURS FOR 10 DAYS, Disp: , Rfl: ??? predniSONE (DELTASONE) 20 mg Oral Tablet, TAKE 1 TABLET BY MOUTH TWICE DAILY FOR 5 DAYS, THEN 1TABLET ONCE DAILY FOR 5 DAYS, Disp: , Rfl: Allergies: Patient has no known allergies. Social History: reports that she has never smoked. She has never used smokeless tobacco. Family History: No family history on file. REVIEW OF SYSTEMS: For new problems, a full review of systems will be foundscanned in the patient's chart. CONSTITUTIONAL: Denies unexplained weight loss, fevers, chills NEUROLOGICAL: Denies unsteady gait or progressive weakness SKIN: Denies skin changes, delayed healing,rash, itching PHYSICAL EXAM: Vitals: Height 5' 4 (1.626 m), weight 130 lb (59 kg). GENERAL EXAM: ?? General Apparence:Patient is adequately groomed with no evidence of malnutrition. ?? Orientation: The patient is oriented to time, place and person. ?? Mood & Affect:The patient's mood and affect are appropriate Right knee PHYSICAL EXAMINATION: ?? Inspection: Petite individual. She does have 1+ effusion. Mild varus alignment. ?? Palpation: She is tender directly on the medial femoral condyle and medial joint space. Nothing much laterally around the patella. ?? Range of Motion: Well-maintained at 0 to 135 degrees ?? Strength: 5/5 ?? Special Tests: No ligamentous instability ?? Skin: There are no rashes, ulcerations or lesions. ?? There are no distal dysvascular changes Gait & station: No ambulatory aid Additional Examinations: The left knee is good. No tenderness. No effusion. Good alignment. Normal stability. Diagnostic Testing: The following x rays were read and interpreted by myself 1. Previous x-rays demonstrate significant degenerative joint joint disease medial compartment. Orders No orders of the defined types were placed in this encounter. Assessment / Treatment Plan: 1. Advanced osteoarthritis of the right knee. Unfortunate the steroid just did not give her enough relief. Total treatment options and the next step in the algorithm would be to try some viscosupplementation injections. Were to go ahead and get her authorized for this. When she is authorized we will get all set to get those shots. 2. I did show her varus alignment to the knee and she understands the anatomy here. 3. Rusty Quesada MD documented in this encounter Plan of Treatment Not on file documented as of this encounter Visit Diagnoses Diagnosis Osteoarthritis of right knee, unspecified osteoarthritis type- Primary documented in this encounter
--- OUTSIDE RECORDS SUMMARY | 2024-08-21 07:03 | XMS_ITS | Encounter Summary ---
Author Organization [facility] Address [address] [place] [address] Care Team Providers Care Hogshead Dumper Name Role Phone Unavailable Primary Care Provider Unavailabl e Reason for Visit * Reason Comments Follow-up Patient received cor tisone injection last on 03/02/2022. Encounter Details Date Type Department Care Team (Late st Contact Info) Description 06/01/2022 10:15 AM EDT Office Visit [facility] [address] [place] [address] Rusty Quesada MD [address] [place] [address] Osteoarthritis of right knee, unspecified osteoarthritis type (Primary Dx) Social History Tobacco Use Types Packs/Day Years Used Date Smoking Tobacco: Never Assessed Comments Unknown Sex and Gender Information Value Date Recorded Sex Assigned at Not on file Legal Sex Female 11:53 AM EDT Gender Identity Not on file Sexual Orientation Not on file documented as of this encounter Progress Notes * Alida Villareal Map Colorer - 06/01/2022 10:15 AM EDTAssociated Order(s): Large Joint Injection/Arthrocentesis: R knee Large Joint Injection/Arthrocentesis: R knee on 06/01/2022 10:15 AM Indications: pain Details: 22 G [...] sterile fashion. * Rusty Quesada MD - 06/01/2022 10:15 AM EDT Osteoarthritis right knee I discussed in detail the risks, benefits [...] of 0.25% Marcaine, and 80 mg of triamcinolone was injected under sterile technique. The needle was withdrawn and the puncture site sealed with a Band-Aid. Technique: Under sterile conditions a [employer] ultrasound unit with a variable frequency (6.0-15.0 MHz) linear transducer was used to localize the placement of a 22-gauge needle into the Right knee joint. Findings: Successful needle placement for [...] Procedure Name Priority Date/Time Associated Diagnosis Comments [place] ARTHROCENTESIS ASPIR&/INJ MAJOR JT/BURSA W/US Routine 06/01/2022 10:15 AM EDT Osteoarthritis of right knee, unspecified osteoarthritis type documented in this encounter Results * AR ARTHROCENTESIS ASPIR&/INJ MAJOR JT/BURSA W/US (06/01/2022 10:15 AM EDT) Narrative [facility] - 06/01/2022 10:15 AM EDT Alida Villareal Athletic Trainer ? 06/01/2022 10:45 AM Large Joint Injection/Arthrocentesis: R knee on 06/01/2022 10:15 AM Indications: pain Details: 22 G [...] Intra-articular, ONCE PRN, 1 dose, Starting on Mon06/01/22 at 1015, Until Mon06/01/22 at 1015, Dx: 1. Osteoarthritis of right knee, unspecified osteoarthritis typeIndications:Osteoarthritis of right knee, unspecified osteoarthritis type Given 06/01/2022 10:15 AM EDT 4 mL lidocaine 20 mg/mL (2 %) injection (PF) 4 mL 4 mL, ONCE PRN, 1 dose, Starting on Mon06/01/22 at 1015, Until Mon06/01/22 at 1015, Dx: 1. Osteoarthritis of right knee, unspecified osteoarthritis typeIndications:Osteoarthritis of right knee, unspecified osteoarthritis type Given 06/01/2022 10:15 AM EDT 4 mL triamcinolone acetonide (KENALOG-40) injection 80 mg 80 mg, Intra-articular, ONCE PRN, 1 dose, Starting on Mon06/01/22 at 1015, Until Mon06/01/22 at 1015, Dx: 1. Osteoarthritis of right knee, unspecified osteoarthritis typeIndications:Osteoarthritis of right knee, unspecified osteoarthritis type Given 06/01/2022 10:15 AM EDT 80 mg documented in this encounter
--- OUTSIDE RECORDS SUMMARY | 2024-08-21 07:03 | XMS_ITS | Encounter Summary ---
Author Organization [facility] Address [address] [place] [address] Care Team Providers Care Shirring Machine Operator Automatic Name Role Phone Unavailable Primary Care Provider Unavailabl e Reason for Visit * Reason Comments Follow-up Encounter Details Date Type Department Care Team (Late st Contact Info) Description 03/06/2023 9:45 AM EDT Office Visit [facility] [address] [place] [phone] Rusty Quesada MD [address] [place], [place] [phone] Osteoarthritis of right knee, unspecified osteoarthritis type [...] - - Weight 59 kg (130 lb) 03/06/2023 9:43 AM EDT Height 162.6 cm (5' 4 ) 03/06/2023 9:43 AM EDT Body Mass Index 22.31 03/06/2023 9:43 AM EDT documented in this encounter Progress Notes * Rusty Quesada MD - 03/06/2023 9:45 AM EDTAssociated Order(s): Large Joint Injection/Arthrocentesis: R knee Post-Procedure Diagnose(s): Osteoarthritis of right knee, unspecified osteoarthritis type Large Joint Injection/Arthrocentesis: R knee on 03/06/2023 9:45 AM Indications: pain Details: 22 G needle, ultrasound-guided anterolateral approach Medications: 80 mg triamcinolone acetonide 40 mg/mL; 4 mL lidocaine 20 mg/mL (2 %); 4 mL BUPivacaine (PF) 0.25 % (2.5 mg/mL) Outcome: tolerated well, no immediate complications Procedure, treatment alternatives, risks and benefits explained, specific risks discussed. Consent was given by the patient. Patient was prepped and draped in the usual sterile fashion. Diagnosis: Osteoarthritis right knee She returns to clinic today for repeat right knee cortisone injections. Tolerates these injections well. She is also had treatment with viscosupplementation injections which worked for quite some time. I discussed in detail the risks, benefits [...] a Band-Aid. Technique: Under sterile conditions a [employer] ultrasound unit with a variable frequency (6.0-15.0 [...] Procedure Name Priority Date/Time Associated Diagnosis Comments [place] ARTHROCENTESIS ASPIR&/INJ MAJOR JT/BURSA W/US Routine 03/06/2023 9:45 AM EDT Osteoarthritis of right knee, unspecified osteoarthritis type documented in this encounter Results * XR KNEE RIGHT AP LATERAL AND SUNRISE STANDING (03/06/2023 10:03 AM EDT) Narrative RudyuserArin - 03/06/2023 10:03 AM EDT Please see physician's note from office encounter for x-ray imaging result us Rusty Quesada MD IMG DIAGNOSTIC IMAGING ORDERABLE S Final Result * [place] ARTHROCENTESIS ASPIR&/INJ MAJOR JT/BURSA W/US (03/06/2023 9:45 AM EDT) Narrative [facility] - 03/06/2023 9:45 AM EDT Rusty Quesada MD ? 03/06/2023 10:16 AM Large Joint Injection/Arthrocentesis: R knee on 03/06/2023 9:45 AM Indications: pain Details: 22 G needle, ultrasound-guided anterolateral approach Medications: 80 mg triamcinolone acetonide 40 mg/mL; 4 mL lidocaine 20 mg/mL (2 %); 4 mL BUPivacaine (PF) 0.25 % (2.5 mg/mL) Outcome: tolerated well, no immediate complications Procedure, treatment alternatives, risks and benefits explained, specific risks discussed. Consent was given by the patient. Patient was prepped and draped in the usual sterile fashion. us Rusty Quesada MD PROCEDURE/MINOR SURGICAL ORDERAB LES Final Result [facility] documented in this encounter Visit Diagnoses Diagnosis Osteoarthritis of right knee, unspecified osteoarthritis type- Primary Osteoarthritis of right knee, unspecified osteoarthritis type documented in this encounter Administered Medications Inactive Administered Medications - up to 1 most recent administrations Medication Order MAR Action Action Date Dose Rate Site BUPivacaine (PF) (MARCAINE) 0.25 % (2.5 mg/mL) injection 4 mL 4 mL, Intra-articular, ONCE PRN, 1 dose, Starting on Mon03/06/23 at 0945, Until Mon03/06/23 at 0945, Dx: 1. Osteoarthritis of right knee, unspecified osteoarthritis typeIndications:Osteoarthritis of right knee, unspecified osteoarthritis type Given 03/06/2023 9:45 AM EDT 4 mL Right Knee lidocaine 20 mg/mL (2 %) injection 4 mL 4 mL, Intramuscular, ONCE PRN, 1 dose, Starting on Mon03/06/23 at 0945, Until Mon03/06/23 at 0945, Dx: 1. Osteoarthritis of right knee, unspecified osteoarthritis typeIndications:Osteoarthritis of right knee, unspecified osteoarthritis type Given 03/06/2023 9:45 AM EDT 4 mL Right Knee triamcinolone acetonide (KENALOG-40) injection 80 mg 80 mg, Intra-articular, ONCE PRN, 1 dose, Starting on Mon03/06/23 at 0945, Until Mon03/06/23 at 0945, Dx: 1. Osteoarthritis of right knee, unspecified osteoarthritis typeIndications:Osteoarthritis of right knee, unspecified osteoarthritis type Given 03/06/2023 9:45 AM EDT 80 mg Right Knee documented in this encounter
--- OUTSIDE RECORDS SUMMARY | 2024-08-21 07:03 | XMS_ITS | Encounter Summary ---
Author Organization [facility] Address [address] [place] [address] Care Team Providers Care Warehouse Lead Name Role Phone Unavailable Primary Care Provider Unavailabl e Reason for Visit * Reason Comments Follow-up 1st Gelsyn Encounter Details Date Type Department Care Team (Late st Contact Info) Description 08/01/2022 10:15 AM EST Office Visit Massiel Pierre [address] [place], [place] [phone] Rusty Quesada MD [address] [place], [place] [phone] Osteoarthritis of right knee, unspecified osteoarthritis type [...] - - Weight 59 kg (130 lb) 08/01/2022 10:05 AM EST Height 162.6 cm (5' 4 ) 08/01/2022 10:05 AM EST Body Mass Index 22.31 08/01/2022 10:05 AM EST documented in this encounter Progress Notes * Alida Villareal Greenkeeper - 08/01/2022 10:15 AM ESTAssociated Order(s): Large Joint Injection/Arthrocentesis: R knee Large Joint Injection/Arthrocentesis: R knee on 08/01/2022 10:15 AM Indications: pain Details: 22 G needle, ultrasound-guided anterolateral approach Medications: 2 mg sodium hyaluronate (viscosup) 16.8 mg/2 mL Outcome: tolerated well, no immediate complications Procedure, treatment alternatives, risks and benefits explained, specific risks discussed. Consent was given by the patient. Patient was prepped and draped in the usual sterile fashion. * Rusty Quesada MD - 08/01/2022 10:15 AM EST Gelsyn-3 No. 2 right knee Osteoarthritis right knee The patient returns today for their second right knee Visco supplementation injection. The risks, benefits, and complications of the injections were again discussed in detail with the patient. The risks discussed included but are not limited to infection, skin reactions, hot swollen joints, and anaphylaxis. The patient gave verbal informed consent for the injection. The patient skin was prepped with 3 sterile gauze pads soaked with alcohol solution and the knee joint was injected with 2cc Gelsyn-3 intra-articularly under sterile conditions . Technique: Under sterile conditions a [employer] ultrasound unit with a variable frequency (6.0-15.0 MHz) linear transducer was used to localize the placement of a 22-gauge needle into the right knee joint. Findings: Successful needle placement for intra-articular Visco supplementation injection. Final images were taken and saved for permanent record. The patient tolerated the injection reasonably well. The patient was given instructions to ice the the knee and avoid strenuous activities for 24-48 hours. The patient was instructed to call the office immediately if there is increased pain, redness, warmth, fever, or chills. We will see the patient back in one week for the third injection. Rusty Quesada MD documented in this encounter Plan of Treatment Not on file documented as of this encounter Procedures Procedure Name Priority Date/Time Associated Diagnosis Comments [place] ARTHROCENTESIS ASPIR&/INJ MAJOR JT/BURSA W/US Routine 08/01/2022 10:15 AM EST Osteoarthritis of right knee, unspecified osteoarthritis type documented in this encounter Results * AL ARTHROCENTESIS ASPIR&/INJ MAJOR JT/BURSA W/US (08/01/2022 10:15 AM EST) Narrative [facility] - 08/01/2022 10:15 AM EST Leonora Berrios, Greenkeeper ? 08/01/2022 10:29 AM Large Joint Injection/Arthrocentesis: R knee on 08/01/2022 10:15 AM Indications: pain Details: 22 G [...] Intra-articular, ONCE PRN, 1 dose, Starting on Mon08/01/22 at 1015, Until Mon08/01/22 at 1015, Dx: 1. Osteoarthritis of right knee, unspecified osteoarthritis typeIndications:Osteoarthritis of right knee, unspecified osteoarthritis type Given 08/01/2022 10:15 AM EST 2 mg documented in this encounter
--- OUTSIDE RECORDS SUMMARY | 2024-08-21 07:03 | XMS_ITS | Encounter Summary ---
Author Organization [facility] Address [address] [place] [address] Care Team Providers Care Child Psychology Teacher Name Role Phone Unavailable Primary Care Provider Unavailabl e Reason for Visit * Reason Comments Follow-up Encounter Details Date Type Department Care Team (Late st Contact Info) Description 06/12/2024 2:15 PM EDT Office Visit Massiel Pierre [address] [place] [address] Leonora Guzman PA [address] [place], [place] [phone] Osteoarthritis of right knee, unspecified osteoarthritis type [...] Mass Index 22.31 06/12/2024 2:06 PM EDT documented in this encounter Progress Notes * Leonora Guzman PA - 06/12/2024 2:15 PM EDTAssociated Order(s): Large Joint Injection/Arthrocentesis: R knee Post-Procedure Diagnose(s): Osteoarthritis of right knee, unspecified osteoarthritis type Large Joint Injection/Arthrocentesis: R knee on 06/12/2024 [...] knee cortisone injection. She tolerates these injections well. Last injection was given in December with good pain relief. I discussed in [...] a Band-Aid. Technique: Under sterile conditions a [employer] ultrasound unit with a variable frequency (6.0-15.0 [...] type documented in this encounter Results * [place] ARTHROCENTESIS ASPIR&/INJ MAJOR JT/BURSA W/US (06/12/2024 2:15 PM EDT) Narrative [facility] - 06/12/2024 2:15 PM EDT Alida Villareal, Barrel Stave Inspector ? 06/12/2024 ??2:18 PM Large Joint Injection/Arthrocentesis: [...] usual sterile fashion. Leonora HAWKINS PROCEDURE/MINOR SURGICAL ORDE ARNOL Final Result [facility] documented in this encounter Visit Diagnoses Diagnosis Osteoarthritis of right knee, unspecified osteoarthritis type- Primary documented in this encounter Administered Medications Inactive Administered Medications - up to 1 most recent administrations Medication Order MAR Action Action Date Dose Rate Site BUPivacaine HCl (MARCAINE) 0.25 % (2.5 mg/mL) injection 4 mL 4 mL, Intra-articular, ONCE PRN, 1 dose, Starting on Mon06/12/24 at 1415, Until Mon06/12/24 at 1415, Dx: 1. Osteoarthritis of right knee, unspecified osteoarthritis typeIndications:Osteoarthritis of right knee, unspecified osteoarthritis type Given 06/12/2024 2:15 PM EDT 4 mL Right Knee lidocaine 20 mg/mL (2 %) injection 4 mL 4 mL, Intramuscular, ONCE PRN, 1 dose, Starting on Mon06/12/24 at 1415, Until Mon06/12/24 at 1415, Dx: 1. Osteoarthritis of right knee, unspecified osteoarthritis typeIndications:Osteoarthritis of right knee, unspecified osteoarthritis type Given 06/12/2024 2:15 PM EDT 4 mL Right Knee triamcinolone acetonide (KENALOG-40) injection 80 mg 80 mg, Intra-articular, ONCE PRN, 1 dose, Starting on Mon06/12/24 at 1415, Until Mon06/12/24 at 1415, Dx: 1. Osteoarthritis of right knee, unspecified osteoarthritis typeIndications:Osteoarthritis of right knee, unspecified osteoarthritis type Given 06/12/2024 2:15 PM EDT 80 mg Right Knee documented in this encounter
--- OUTSIDE RECORDS SUMMARY | 2024-08-21 07:03 | XMS_ITS | Clinical Summary ---
Author Organization [facility] Phone Care Team Providers Care Educational Paraprofessional Name Role Phone Unavailable Primary Care Provider Unavailabl e Allergies No known active allergies Medications albuterol [...] right knee 06/06/2017 Abnormal uterine bleeding 08/04/2011 Encounters Date Type Department Care Team Description 06/12/2024 2:15 PM EDT Office Visit Massiel Pierre [address] [place] [phone] Leonora Guzman PA Osteoarthritis of right knee, unspecified osteoarthritis type (Primary Dx) from Last 3 Months Immunizations Name Administration Dates Next Due Influenza [...] on file Sexual Orientation Not on file Obstetrics History Last Filed Vital Signs Vital Sign Reading Time Taken Comments Blood Pressure - - Pulse - - Temperature - - Respiratory Rate - - Oxygen Saturation - - Inhaled Oxygen Concentration - - Weight 59 kg (130 lb) 06/12/2024 2:06 PM EDT Height 162.6 cm (5' 4 ) 06/12/2024 2:06 PM EDT Body Mass Index 22.31 06/12/2024 2:06 PM EDT Plan of Treatment Health Maintenance Due Date Last Done Comments Wellness Exam Medicare 1952 Hepatitis C Screening 1968 Cologuard 1995 Colon Cancer Screening 1995 Colonoscopy 1995 FIT 1995 Sigmoidoscopy 1995 Virtual Colonography 1995 Bone Density Screening 2015 COVID-19 Vaccine ( season) 2024 08/14/2023, 07/11/2022, 08/27/2021, Additional history exists Influenza Vaccine (#1) 2024 , 06/07/2022, 06/14/2021, Additional history exists Breast Cancer Screening 01/03/2026 01/04/20 24, 01/04/2024, 07/15/2022, Additional history exists DTaP/TDaP/Td (3 - Td or Tdap) 06/14/2027 06/14/2017, 10/25/2012 Pneumococcal Vaccine 65+ Completed 01/30/2019, 12/18 Zoster Completed 08/14/2023, 01/09/2018 Hepatitis B Vaccine Aged Out No longe r eligible based on patient's age to complete this topic Procedures Procedure Name Priority Date/Time Associated Diagnosis Comments [place] ARTHROCENTESIS ASPIR&/INJ MAJOR JT/BURSA W/US Routine 06/12/2024 2:15 PM EDT Osteoarthritis of right knee, unspecified osteoarthritis type from Last 3 Months Results * [place] ARTHROCENTESIS ASPIR&/INJ MAJOR JT/BURSA W/US (06/12/2024 2:15 PM EDT) Narrative [facility] - 06/12/2024 2:15 PM EDT Alida Villareal, Security Public Safety Officer ? 06/12/2024 ??2:18 PM Large Joint Injection/Arthrocentesis: [...] Insurance MEDICARE [place] PART B [address]S [id number] [place] [address] [facility]
--- OUTSIDE RECORDS SUMMARY | 2024-08-21 07:03 | XMS_ITS | Encounter Summary ---
Author Organization [facility] Address [address] [place] [address] Care Team Providers Care Chronic Specialist Name Role Phone Unavailable Primary Care Provider Unavailabl e Reason for Visit * Reason Comments Injections last injection 06/26 Encounter Details Date Type Department Care Team (Late st Contact Info) Description 01/12/2024 8:45 AM EDT Office [facility] [employer] [address] [place] [phone] Leonora Guzman PA [address] [place] [address] Osteoarthritis of right knee, unspecified osteoarthritis type [...] - - Weight 59 kg (130 lb) 01/12/2024 8:49 AM EDT Height 162.6 cm (5' 4 ) 01/12/2024 8:49 AM EDT Body Mass Index 22.31 01/12/2024 8:49 AM EDT documented in this encounter Progress Notes * Leonora Guzman PA - 01/12/2024 8:45 AM EDTAssociated Order(s): Large Joint Injection/Arthrocentesis: R knee Post-Procedure Diagnose(s): Osteoarthritis of right knee, unspecified osteoarthritis type Large Joint Injection/Arthrocentesis: R knee on 01/12/2024 8:45 AM Indications: pain Details: 22 G needle, [...] clinic today for right knee cortisone injection. Last injection was given in June I discussed in detail the risks, benefits [...] a Band-Aid. Technique: Under sterile conditions a [employer] ultrasound unit with a variable frequency (6.0-15.0 [...] Procedure Name Priority Date/Time Associated Diagnosis Comments [place] ARTHROCENTESIS ASPIR&/INJ MAJOR JT/BURSA W/US Routine 01/12/2024 8:45 AM EDT Osteoarthritis of right knee, unspecified osteoarthritis type documented in this encounter Results * XR KNEE RIGHT AP LATERAL AND SUNRISE STANDING (01/12/2024 9:07 AM EDT) Narrative Arin Mathias - 01/12/2024 9:07 AM EDT Please see physician's note from office encounter for x-ray imaging result Leonora HAWKINS IMG DIAGNOSTIC IMAGING ORDERA BLES Final Result * [place] ARTHROCENTESIS ASPIR&/INJ MAJOR JT/BURSA W/US (01/12/2024 8:45 AM EDT) Narrative [facility] - 01/12/2024 8:45 AM EDT Leonora Guzman PA ? 01/12/2024 ??9:11 AM Large Joint Injection/Arthrocentesis: R knee on 01/12/2024 8:45 AM Indications: pain Details: 22 G needle, [...] draped in the usual sterile fashion. us Leonora HAWKINS PROCEDURE/MINOR SURGICAL ORDE RABLES Final Result [facility] documented in this encounter [...] Intra-articular, ONCE PRN, 1 dose, Starting on Mon01/12/24 at 0845, Until Mon01/12/24 at 0845, Dx: 1. Osteoarthritis of right knee, unspecified osteoarthritis typeIndications:Osteoarthritis of right knee, unspecified osteoarthritis type Given 01/12/2024 8:45 AM EDT 4 mL Right Knee lidocaine 20 mg/mL (2 %) injection 4 mL 4 mL, Intramuscular, ONCE PRN, 1 dose, Starting on Mon01/12/24 at 0845, Until Mon01/12/24 at 0845, Dx: 1. Osteoarthritis of right knee, unspecified osteoarthritis typeIndications:Osteoarthritis of right knee, unspecified osteoarthritis type Given 01/12/2024 8:45 AM EDT 4 mL Right Knee triamcinolone acetonide (KENALOG-40) injection 80 mg 80 mg, Intra-articular, ONCE PRN, 1 dose, Starting on Mon01/12/24 at 0845, Until Mon01/12/24 at 0845, Dx: 1. Osteoarthritis of right knee, unspecified osteoarthritis typeIndications:Osteoarthritis of right knee, unspecified osteoarthritis type Given 01/12/2024 8:45 AM EDT 80 mg Right Knee documented in this encounter Historical Medications * This list may reflect changes made after this encounter. codeine-guaiFENesi n (ROBITUSSIN AC) 10-100 mg/5 mL Oral Liquid Take 5 mL by mouth every 6 hours as needed. 10/19/2023 added in this encounter
--- OUTSIDE RECORDS SUMMARY | 2024-08-21 07:03 | XMS_ITS | Encounter Summary ---
Author Organization [facility] Address [address] [place] [address] Care Team Providers Care Gastroenterologist Name Role Phone Unavailable Primary Care Provider Unavailabl e Encounter Details Date Type Department Care Team (Late st Contact Info) Description 03/06/2023 10:00 AM EDT Ancillary Procedure [facility] [address] [place] [address] Rusty Quesada MD [address] [place] [address] Osteoarthritis of right knee, unspecified osteoarthritis type [...] RIGHT AP LATERAL AND SUNRISE STANDING Routine 03/06/2023 10:03 AM EDT Osteoarthritis of right knee, unspecified osteoarthritis type documented in this encounter Results * XR KNEE RIGHT AP LATERAL AND SUNRISE STANDING (03/06/2023 10:03 AM EDT) Narrative Arin Mathias - 03/06/2023 10:03 AM EDT Please see physician's note from office encounter for x-ray imaging result Rusty Quesada MD IMG DIAGNOSTIC IMAGING ORDERABLE S Final Result documented in this encounter Visit Diagnoses Diagnosis Osteoarthritis of right knee, unspecified osteoarthritis type documented in this encounter
--- OUTSIDE RECORDS SUMMARY | 2024-08-21 07:03 | XMS_ITS | Encounter Summary ---
Author Organization [facility] Address [address] [place] [address] Care Team Providers Care Policy Issue Clerk Name Role Phone Unavailable Primary Care Provider Unavailabl e Reason for Visit * Reason Comments Injections Gelsyn #1 Encounter Details Date Type Department Care Team (Late st Contact Info) Description 07/25/2022 10:45 AM EST Office Visit [facility] [address] [place], [place] [phone] Rusty Quesada MD [address] [place], [place] [phone] Osteoarthritis of right knee, unspecified osteoarthritis type [...] - - Weight 59 kg (130 lb) 07/25/2022 10:45 AM EST Height 162.6 cm (5' 4 ) 07/25/2022 10:45 AM EST Body Mass Index 22.31 07/25/2022 10:45 AM EST documented in this encounter Progress Notes * Alida Villareal Certified Pharmacy Technician - 07/25/2022 10:45 AM ESTAssociated Order(s): Large Joint Injection/Arthrocentesis: R knee Large Joint Injection/Arthrocentesis: R knee on 07/25/2022 10:45 AM Indications: pain Details: 22 G needle, ultrasound-guided anterolateral approach Medications: 2 mg sodium hyaluronate (viscosup) 16.8 mg/2 mL Outcome: tolerated well, no immediate complications Procedure, treatment alternatives, risks and benefits explained, specific risks discussed. Consent was given by the patient. Patient was prepped and draped in the usual sterile fashion. * Rusty Quesada MD - 07/25/2022 10:45 AM EST The patient is symptomatic from osteoarthritis of the right knee joint with documented radiologicalsigns of arthritis. The patient has also failed 3 months of conservative treatment including home exercise, education, Tylenol and/or NSAIDs use. The patient was offered a Visco supplementation today. Risks, benefits, and alternatives to the injections were discussed in detail with the patient. Therisks discussed included but are not limited to infection, skin reactions, hot swollen joints, and anaphylaxis. The patient gave verbal informed consent for the injection. The patient's skin was prepped with 3 sterile gauze pads soaked with alcohol solution and the knee joint was injected with 2cc G elsyn intra-articularly under sterile conditions. Technique: Under sterile conditions a [employer] ultrasound unit with a variable frequency (6.0-15.0 MHz) linear transducer was used to localize the placement of a 22-gauge needle into the right knee joint. Findings: Successful needle placement for intra-articular Visco supplementation injection. Final images were taken and saved for permanent record. The patient tolerated the injection reasonably well. The patient was given instructions to ice the kne and avoid strenuous activities for 24-48 hours. The patient was instructed to call the office immediately if there is increased pain, redness, warmth, fever, or chills. We will see the patient back in one week for their second injection. Rusty Quesada MD documented in this encounter Plan of Treatment Not on file documented as of this encounter Procedures Procedure Name Priority Date/Time Associated Diagnosis Comments GA ARTHROCENTESIS ASPIR&/INJ MAJOR JT/BURSA W/US Routine 07/25/2022 10:45 AM EST Osteoarthritis of right knee, unspecified osteoarthritis type documented in this encounter Results * GA ARTHROCENTESIS ASPIR&/INJ MAJOR JT/BURSA W/US (07/25/2022 10:45 AM EST) Narrative [facility] - 07/25/2022 10:45 AM EST Mono, Alida, Certified Pharmacy Technician ? 07/25/2022 11:50 AM Large Joint Injection/Arthrocentesis: R knee on 07/25/2022 10:45 AM Indications: pain Details: 22 G needle, [...] Intra-articular, ONCE PRN, 1 dose, Starting on Mon07/25/22 at 1045, Until Mon07/25/22 at 1045, Dx: 1. Osteoarthritis of right knee, unspecified osteoarthritis typeIndications:Osteoarthritis of right knee, unspecified osteoarthritis type Given 07/25/2022 10:45 AM EST 2 mg documented in this encounter
--- OUTSIDE RECORDS SUMMARY | 2024-08-21 07:03 | XMS_ITS | Clinical Summary ---
Author Organization [facility] Address [address] [place] [address] Care Team Providers Care Process Development Associate Name Role Phone None, None Primary Care Provider Yoav e Lyle Draper MD Unavailable Allergies No known active allergies Medications aspirin 325 mg PO tablet Take 325 mg by mouth daily. Active [place]-3 Fatty Acids-Vitamin E (FISH OIL) 1,000 mg PO Cap Take by mouth daily. Active ERGOCALCIFEROL, VITAMIN D2, (VITAMIN D PO) Take by mouth daily. Active MULTIVITAMIN PO Take by mouth daily. Active Active Problems Problem Noted Date Diagnosed Date Abnormal uterine bleeding 08/04/2011 Family History Medical History Relation Name Comments Anesthesia Complications Neg Hx Heart Problems Neg Hx Social History Tobacco Use Types Packs/Day Years Used Date Smoking Tobacco: Never Smokeless Tobacco: Never Alcohol Use Standard Drinks/Week Comments No 0 (1 standard drink = 0.6 oz pur e alcohol) Comments Unknown Sex and Gender Information Value Date Recorded Sex Assigned at Not on file Legal Sex Female 6:58 PM EST Gender Identity Not on file Sexual Orientation Not on file Last Filed Vital Signs Vital Sign Reading Time Taken Comments Blood Pressure 144/84 01/09/2012 12:47 PM EDT Pulse 64 01/09/2012 12:47 PM EDT Temperature 36.6 ??C (97.8 ??F) 08/04/2011 10:[address] Respiratory Rate 16 08/04/2011 10:53 AM EST Oxygen Saturation 100% 08/04/2011 10:53 AM EST Inhaled Oxygen Concentration - - Weight 57.2 kg (126 lb) 01/09/2012 12:47 PM EDT Height 162.6 cm (5' 4 ) 01/09/2012 12:47 PM EDT Body Mass Index 21.63 01/09/2012 12:47 PM EDT Plan of Treatment Not on [place] [address] AET Care Teams Process Development Associate Relationship Specialty Start Date End Date None, None [address] [place] [address] PCP - General 07/03/18 Lyle Draper MD [address] [facility] [place] [address] Obstetrics & Gynecology 09/25/22
--- OUTSIDE RECORDS SUMMARY | 2024-08-21 07:04 | XMS_ITS | Encounter Summary ---
Author Organization [facility] Address [address] [place] [address] Care Team Providers Care Promotions Assistant Name Role Phone Vinicio Calvert MD Primary Care Provider [phone] Reason for Visit * Reason Comments Follow-up 1 yr Bronchiectasis Encounter Details Date Type Department Care Team (Latest Contact Info) Description 03/09/2023 11:00 AM EDT Office Visit [facility] Pulmonary Critical Care and Sleep [address] [place] [phone] Salvador Woodard MD [address] [place] [phone] Bronchiectasis without complication (HCC) (Primary Dx); Mild intermittent asthma without complication Social History Tobacco Use Types Packs/Day Years Used Date Smoking Tobacco: Never Smokeless Tobacco: Never Tobacco Cessation:Counseling Given: Not Answered Alcohol Use Standard Drinks/Week Comments Yes 1 (1 standard drink = 0.6 oz pur e alcohol) Ocas AUDIT-C Answer Date Recorded Q1: How often do you have a drink containing alc ohol? Monthly or less 01/20/2022 Q2: How many drinks containi ng alcohol do you have on a typical day when you are drinking? 1 or 2 01/20/2022 Q3: How often do you have si x or more drinks on one occasion? Never 01/20/2022 Overall Financial Resource Strain (CARDIA) Answe r Date Recorded How hard is it for you to pa y for the very basics like food, housing, medical care, and heating? Not hard at all 01/20/2022 PHQ-2 Answer Date Recorded PHQ-9 Total Score 0 01/20/2022 Exercise Vital Sign Answer Date Recorde d On average, how many days pe r week do you engage in moderate to strenuous exercise (like a brisk walk)? 5 days 01/20/2022 On average, how many minutes do you engage in exercise at this level? 20 min 01/20/2022 Hunger Vital Sign Answer Date Recorded Within the past 12 months, y ou worried that your food would run out before you got the money to buy more. Never true 01/21/20 Within the past 12 months, t he food you bought just didn't last and you didn't have money to get more. Never true 01/20/2022 Sex and Gender Information Value Date Recorded Sex Assigned at Not on file Gender Identity Female 02/21/2022 9:41 AM EDT Sexual Orientation Not on file documented as of this encounter Last Filed Vital Signs Vital Sign Reading Time Taken Comments Blood Pressure 157/80 03/09/2023 10:54 AM EDT Pulse 63 03/09/2023 10:54 AM EDT Temperature 36.5 ??C (97.7 ??F) 03/09/2023 10:54 AM E DT Respiratory Rate 16 03/09/2023 10:54 AM EDT Oxygen Saturation 95% 03/09/2023 10:54 AM EDT RA Inhaled Oxygen Concentration - - Weight 59.1 kg (130 lb 6.4 oz) 03/09/2023 10:54 AM EDT Height 162.6 cm (5' 4 ) 03/09/2023 10:54 AM EDT Body Mass Index 22.38 03/09/2023 10:54 AM EDT documented in this encounter Patient Instructions * Patient Instructions* Tanna Baugh MA - 03/09/2023 11:15 AM EDT [facility] Communication: The following orders are received by verbal communication from Salvador Woodard MD Follow up [address] Woodard * Attachments The following attachments cannot be sent through Care Everywhere. * Bronchiectasis (Frisian) documented in this encounter Progress Notes * Tanna Baugh MA - 03/09/2023 11:15 AM EDT [facility] Communication: The following orders are received by verbal communication from Salvador Woodard MD Follow up [address] Woodard * Salvador Woodard MD - 03/09/2023 11:00 AM EDT [facility] Pulmonary Follow-up [address] [place] [address] Karlie Love (: 1950 ) is a 72 y.o. female here for an evaluation of Chief Complaint Patient presents with Follow-up 1 yr Bronchiectasis SUBJECTIVE/OBJECTIVE: Patient is a 72-year-old female with significant past medical history of bronchiectasis and mild intermittent asthma that presents to [facility] pulmonary clinic for follow-up visit. Patient has no complaints today. She denies any fever, chills, chest pain, shortness of breath, cough, nausea, vo miting, abdominal pain. She is only used her rescue inhaler 1-2 times in the past month. She has a history of bronchiectasis, she says that at times she will have cough with productive brownish sputum. She denies any blood in her sputum. She gets a respiratory infection once per year in which she will need steroids and antibiotics. She has no other complaints today. Per Dr. Bolden: Karlie is a 71 y.o. year old female here for follow-up. Her PCP is Dr. Vinicio Calvert. Karlie was being seen for bronchiectasis by Dr. Perez, last saw him on 02/23/2021. She was told to continue bronchodilators as needed, was told she would have a chronic cough. Antibiotic and steroid wasto be given as needed. She is a lifelong non-smoker. Her other medical issues include DJD of the right knee, colon polyps. Karlie lives with her in [place], [place]. 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 The patient is a non-smoker, lives locally with alcohol. He has moved from [place] and [place]. He thinks bronchiectasis was diagnosed by a concrete smoother in [place], [place]. The patient does not member having undergone CT chest or bronchoscopy, he thinks she had PFT. She thinks this resulted from a bad cold that started in her lungs and caused her bronchiectasis. The patient had another bout of infection, was seen by her primary care physician and underwent CXR and CT chest, was referred to Dr. Perez for bronchiectasis work-up. He had normal alpha-1 antitrypsin levels, immunog lobulin levels were normal. Allergy profile was positive, IgE was normal. The patient usually has no shortness of breath, has rare cough. She was in [place] between September and December. She developed respiratory infection in December, was treated with antibiotics 1 per PCP in [place], [place]. He was given 10 days of antibiotics and prednisone, then given prednisone and probably Advair Diskus. She feels well now. She denies allergic rhinitis or GE reflux. She eats well, denies weight gain or weight loss. She sleeps well. The rest of her ROS is negative. There is no other change in her medical orsurgical history since her last visit. Review of Systems Constitutional: Negative for activity change, appetite change, chills, diaphoresis and fatigue. HENT: Negative for congestion, sore throat and trouble swallowing. Eyes: Negative for pain, discharge, redness and itching. Respiratory: Negative for cough, shortness of breath, wheezing and stridor. Cardiovascular: Negative for chest pain, palpitations and leg swelling. Gastrointestinal: Negative for abdominal distention, abdominal pain, constipation, diarrhea, nauseaand vomiting. Endocrine: Negative for polydipsia, polyphagia and polyuria. Genitourinary: Negative for difficulty urinating. Musculoskeletal: Negative for back pain, myalgias and neck pain. Skin: Negative for color change. Neurological: Negative for dizziness, weakness and light-headedness. Psychiatric/Behavioral: Negative for agitation and behavioral problems. Vitals: 03/09/23 1054 BP: (!) 157/80 Pulse: 63 Resp: 16 Temp: 97.7 ??F (36.5 ??C) TempSrc: Temporal SpO2: 95% Weight: 130 lb 6.4 oz (59.1 kg) Height: 5' 4 (1.626 m) Physical Exam Constitutional: General: She is not in acute distress. Appearance: She is not toxic-appearing. HENT: Head: Normocephalic and atraumatic. Nose: Nose normal. Mouth/Throat: Pharynx: No oropharyngeal exudate. Eyes: General: No scleral icterus. Right eye: No discharge. Left eye: No discharge. Cardiovascular: Rate and Rhythm: Normal rate and regular rhythm. Heart sounds: No murmur heard. No friction rub. No gallop. Pulmonary: Effort: Pulmonary effort is normal. No respiratory distress. Breath sounds: No wheezing or rales. Abdominal: General: Abdomen is flat. Bowel sounds are normal. Palpations: Abdomen is soft. Musculoskeletal: General: Normal range of motion. Cervical back: Normal range of motion. Skin: General: Skin is warm and dry. Neurological: General: No focal deficit present. Mental Status: She is alert and oriented to person, place, and time. Psychiatric: Mood and Affect: Mood normal. Data CT chest with contrast 09/20/2019 No lymphadenopathy. No pericardial or pleural effusions. The lingula and right middle lobe bronchiectasis. PFT 02/13/2019 The FEV1 is 1.43 L or 61% predicted. The FEV1 to FVC ratio is 61. Postbronchodilator, the FEV1 changed to 1.6 L or 69% predicted. Total lung capacity is 108% predicted and diffusion is 78% predicted. ASSESSMENT: Encounter Diagnoses Name Primary? Bronchiectasis without complication (HCC) Yes Mild intermittent asthma without complication Plan: - Symptoms well-controlled currently for bronchiectasis. No repeat imaging needed at this time. Cont to monitor - Asthma mild, she has an Albuterol inhaler PRN for SOB, her symptoms are well controlled. - Has received Prevnar, Pneumovax, 2 doses of COVID-19 vaccine and 1 booster dose. Recommend annualflu shots - 1 year f/u Salvador Woodard MD documented in this encounter Plan of Treatment Upcoming Encounters Date Type Department Care Team (Late st Contact Info) Description 04/01/2025 10:00 AM EDT Office Visit [facility] Pulmonary Critical Care and Sleep [address] [place] [address] Salvador Woodard MD [address] [place], [place] [phone] 1 YFU lungs 04/21/2025 9:30 AM EDT Office Visit [facility] [address] [place] [place], [place] [phone] Vinicio Calvert MD [address] [place], [place] [phone] awv documented as of this encounter Visit Diagnoses Diagnosis Bronchiectasis without complication (HCC)- Primary Bronchiectasis without acute exacerbation Mild intermittent asthma without complication Unspecified asthma documented in this encounter Additional Health Concerns Assessment Noted Time A fall risk assessment has been complete d for the patient 01/20/2022 9:06 AM EDT documented as of this encounter Care Teams Promotions Assistant Relationship Specialty Start Date End Date Vinicio Calvert MD PCP - General Family Medicine 06/03/21 documented as of this encounter
--- OUTSIDE RECORDS SUMMARY | 2024-08-21 07:04 | XMS_ITS | Encounter Summary ---
Author Organization [facility] Address [address] [place] [address] Care Team Providers Care Invasive Physician Name Role Phone OVinicio Lutz MD Primary Care Provider [phone] Reason for Visit * Reason Onset Date Comments Cancelled Appointment 01/17/2022 Encounter Details Date Type Department Care Team (Late Contact Info) Description 01/17/2022 Telephone [facility] Pulmonary Critical Care and Sleep [address] [facility] [address] [place] [address] Dilia Perez MD Cancelled Appointment Social History Tobacco Use Types Packs/Day Years Used Date Smoking Tobacco: Never Smokeless Tobacco: Never Alcohol Use Standard Drinks/Week Comments Yes 1 (1 standard drink = 0.6 oz pur e alcohol) Ocas PHQ-2 Answer Date Recorded PHQ-9 Total Score 0 06/21/2021 Sex and Gender Information Value Date Recorded Sex Assigned at Not on file Gender Identity Female 02/21/2022 9:41 AM EDT Sexual Orientation Not on file COVID-19 Exposure Response Date Recorded In the last 10 days, have yo u been in contact with someone who was confirmed or suspected to have Coronavirus/COVID-19? No / Unsure 01/17/2022 9:40 AM EDT documented as of this encounter Plan of Treatment Upcoming Encounters Date Type Department Care Team (Late Contact Info) Description 04/01/2025 10:00 AM EDT Office Visit [facility] Pulmonary Critical Care and Sleep [address] [place], [place] [phone] Salvador Woodard MD [address] [place] [address] 1 YFU lungs 04/21/2025 9:30 AM EDT Office Visit [facility] [address] [facility] [facility] [place], [place] [phone] Vinicio Calvert MD [address] [place], [place] [phone] awv documented as of this encounter Visit Diagnoses Not on filedocumented in this encounter Additional Health Concerns Assessment Noted Time A fall risk assessment has been complete d for the patient 06/21/2021 10:50 AM EDT documented as of this encounter Care Teams Invasive Physician Relationship Specialty Start Date End Date Vinicio Calvert MD PCP - General Family Medicine 06/03/21 documented as of this encounter
--- OUTSIDE RECORDS SUMMARY | 2024-08-21 07:04 | XMS_ITS | Encounter Summary ---
Author Organization [facility] Address [address] [place] [address] Care Team Providers Care Onboarding Specialist Name Role Phone None, None Primary Care Provider Unavailabl e Encounter Details Date Type Department Care Team (Latest Contact Info) Description 01/27/2010 11:57 AM EDT - 01/27/2010 11:59 PM EDT Hospital Encounter [facility] Medical Office Building, [address] [place], [place] [phone] Lyle Draper MD [address] [facility] [place], [place] [phone] Screening Discharge Disposition: Home or Self Care Social History Tobacco Use Types Packs/Day Years [...] Procedure Name Priority Date/Time Associated Diagnosis Comments MAMM-SCREENING DIRECT DIGITAL Routine 01/27/2010 12:54 PM EDT Screening documented in this encounter Results * MAMM-SCREENING DIRECT DIGITAL (01/27/2010 12:54 PM EDT) Anatomical Region Laterality Modality Bilateral Mammography 02/01/2010 12:3 4 PM EDT Narrative 02/01/2010 3:48 PM EDT SCREENING MAMMOGRAM: 01/27/10 CLINICAL INDICATION: ??Screening, no current complaint. COMPARISON: ??Films dated 10/24/06 and 12/26/07 from [facility] in [place], [place]. Full field digital mammography was performed of both breasts. The study is reviewed with the R2 image frickertron checker. Bilateral Breast Findings: The breasts are heterogeneously dense, which lowers the sensitivity of mammography. There are no significant masses, calcifications or other abnormalities. Impression: Negative, no evidence of malignancy. Routine annual mammography is recommended. /cg Procedure Note Tana Strauss - 02/01/2010 SCREENING MAMMOGRAM: 01/27/10 CLINICAL INDICATION: Screening, no current complaint. COMPARISON: Films dated 10/24/06 and 12/26/07 from [facility] in [place], [place]. Full field digital mammography was performed of both breasts. The study isreviewed with the R2 image frickertron checker. Bilateral Breast Findings: The breasts are heterogeneously dense, which lowers the sensitivity ofmammography. There are no significant masses, calcifications or other abnormalities. Impression: Negative, no evidence of malignancy. Routine annual mammography isrecommended. /cg Lyle Draper MD IMG MAMMO ORDERABLES Anastasia l Result documented in this encounter Visit Diagnoses Diagnosis Screening Screening for unspecified condition documented in this encounter Care Teams Onboarding Specialist Relationship Specialty Start Date End Date None, None [address] [facility] [place] [address] PCP - General 01/27/10 07/25/11 documented as of this encounter
--- OUTSIDE RECORDS SUMMARY | 2024-08-21 07:04 | XMS_ITS | Encounter Summary ---
Author Organization [facility] Address [address] [place] [address] Care Team Providers Care Nurse Coordinator Name Role Phone Stewart Tejeda MD Primary Care Provider +1- [phone] Encounter Details Date Type Department Care Team (Latest Contact Info) Description 10/17/2013 10:43 AM EST - 10/17/2013 11:59 PM [facility] Hospital Encounter [facility], [address] [address] Other screening mammogram Discharge Disposition: Home or Self Care Social [...] on file documented as of this encounter Medications at Time of Discharge aspirin 325 mg PO tablet Take 325 mg by mouth daily. ERGOCALCIFEROL, VITAMIN D2, (VITAMIN D PO) Take by mouth daily. MULTIVITAMIN PO Take by mouth daily. [place]-3 Fatty Acids-Vitamin E (FISH OIL) 1,000 mg PO Cap Take by mouth daily. documented as of this encounter Plan of Treatment Not on file documented as of this encounter Procedures Procedure Name Priority Date/Time Associated Diagnosis Comments MAMM-SCREENING DIRECT DIGITAL Routine 10/17/2013 11:01 AM EST Other screening mammogram documented in this encounter Results * MAMM-SCREENING DIRECT DIGITAL (10/17/2013 11:01 AM EST) Anatomical Region Laterality Modality Bilateral Mammography Impressions 10/18/2013 11:09 AM EST ABNORMAL SCREENING MAMMOGRAM. ACR: ??0 LEFT ??NEED ADDITIONAL IMAGING WE WILL CONTACT THE PATIENT REGARDING THIS RECOMMENDATION THE CASE WAS DOUBLE READ BY THE IMAGE INTERVENTIONAL CARDIOLOGIST. ?? /gf Narrative 10/18/2013 11:09 AM EST 10/17/2013 BILATERAL DIGITAL SCREENING MAMMOGRAM: ?? COMPARISON: ??01/27/2010. The breasts are heterogeneously dense which limits the sensitivity of mammography. No change in a few faint microcalcifications in both breasts. ??No abnormal clusters of microcalcifications in either breast. ?? Partially imaged irregularity posterior along chest wall inner left breast on CC view without corresponding abnormality on MLO view and not seen on prior mammograms, uncertain if located in the breast or if only part of the left chest wall included on the CC view. ??The remainder of the bilateral mammogram is normal and unchanged. ?? Recommend additional diagnostic mammograms left breast to consist of exaggerated inner CC view and/or Catia view and 60 degree MLO view to attempt to include this region of the left breast in the orthogonal projection. ?? Procedure Note Peterson Frias MD - 10/18/2013 10/17/2013 BILATERAL DIGITAL SCREENING MAMMOGRAM: COMPARISON: 01/27/2010. The breasts are heterogeneously dense which limits the sensitivity ofmammography. No change in a few faint microcalcifications in both breasts. No abnormalclusters of microcalcifications in either breast. Partially imaged irregularity posterior along chest wall inner left breaston CC view without corresponding abnormality on MLO view and not seen onprior mammograms, uncertain if located in the breast or if only part ofthe left chest wall included on the CC view. The remainder of thebilateral mammogram is normal and unchanged. Recommend additional diagnostic mammograms left breast to consist ofexaggerated inner CC view and/or Catia view and 60 degree MLO view toattempt to include this region of the left breast in the orthogonalprojection. IMPRESSION: ABNORMAL SCREENING MAMMOGRAM. ACR: 0 LEFT NEED ADDITIONAL IMAGING WE WILL CONTACT THE PATIENT REGARDING THIS RECOMMENDATION THE CASE WAS DOUBLE READ BY THE IMAGE INTERVENTIONAL CARDIOLOGIST. /gf us Lyle Draper MD IMG MAMMO ORDERABLES Anastasia l Result documented in this encounter Visit Diagnoses Diagnosis Other screening mammogram documented in this encounter Care Teams Nurse Coordinator Relationship Specialty Start Date End Date Stewart Tejeda MD [address] [facility]. [facility] [place] [address] PCP - General Family Medicine 10/16/13 07/02/18 documented as of this encounter
--- OUTSIDE RECORDS SUMMARY | 2024-08-21 07:04 | XMS_ITS | Encounter Summary ---
Author Organization [facility] (Formerly [facility]) Address [address] [place] [address] Care Team Providers Care Accessioner Name Role Phone Pineda Cheema MD Primary Care Provider [phone]- [phone] Reason for Visit * Auth/Cert - Closed Specialty Diagnoses / Procedures Referred By Jean Claude hallman Referred To Contact Diagnoses Postmenopausal bleeding PMB Procedures HYSTEROSCOPY,W/ENDO BX Periop 8 Floor [address] [place] [address] Phone: tel: fax: Referral ID Status Reason Start Date Expiration Date Visits Re quested Visits Authorized [id number] Closed 1 1 Encounter Details Date Type Department Care Team (Latest Contact Info) Description 08/04/2011 12:10 AM [facility] - 08/04/2011 11:12 AM [facility] Encounter 8 Floor Same Day Surgery [address] [place] [address] Rani Diaz MD [address] [place], [place] [id number] Discharge Disposition: Home or Self Care Social [...] Sign Reading Time Taken Comments Blood Pressure 118/78 08/04/2011 10:53 AM EST Pulse 56 08/04/2011 10:53 AM EST Temperature 36.6 ??C (97.8 ??F) 08/04/2011 10:[address] Respiratory Rate 16 08/04/2011 10:53 AM EST Oxygen Saturation 100% 08/04/2011 10:53 AM EST Inhaled Oxygen Concentration - - Weight 56.2 kg (124 lb) 08/04/2011 7:33 AM EST Height 162.6 cm (5' 4 ) 08/04/2011 7:33 AM EST Body Mass Index 21.28 08/04/2011 7:33 AM EST documented in this encounter Discharge Summaries * Onbase, Scan - 08/05/2011 9:10 PM EST documented in this encounter Discharge Instructions * Discharge Instructions* Noemi South RN - 08/04/2011 10:[address] Rani Diaz at phone number [phone] Schedule your follow-up appointment for 1 month post-op. Call your doctor for any unusual problems or questions. Examples are: ?? Temperature above 100 degrees ?? Hives, rash, or itching ?? Inability to urinate ?? Unrelieved pain ?? Bleeding or discharge ?? A responsible person must accompany you home. ?? Do not drive for 24 hours. ?? Do not consume alcohol, tranquilizers, or sleeping pills for 24 hours, unless advised by your doctor to do so. ?? If your doctor did not prescribe a special diet, you may start with small amounts of liquids andadvance to a regular diet. If nausea or vomiting occurs, don't eat or drink for 2 hours, then progress slowly with liquids. ?? If you have received a scopolamine patch to prevent nausea, please remove in 24 hours. If you experience dizziness or blurred vision, remove patch. Restrictions on Activity: Rest 24-48 hours No tub baths, intercourse or tampons for 2 weeks Incision/Dressing Care: You may have some vaginal bleeding or spotting for 3-7 days Change pad as needed Call if saturating a pad in 30-60 minutes or less Other: Call with any questions or concerns Prescription given for Anaprox for pain/cramping. No Smoking. Information regarding smoking cessation and/or risk factors associated with tobacco products given. In order to promote a safe environment for all our patients, we are providing a list of the signs or symptoms that may occur as a result of a blood transfusion. You may or may not have received a transfusion during your hospital stay. Although rare, some people have a reaction to blood transfusions. Please call your doctor if you have any of the following signs or symptoms located on the back of this form. Post-Transfusion Instructions Acute reactions within 12-24 hours of transfusion: ?? Difficulty in breathing or swelling of the face and/or neck - Go to the nearest emergency room and tell the staff you have just had a blood transfusion. Please call your doctor if you have any of the signs or symptoms listed below: ?? Fever (report temperature 101 degrees F or above), chills, or shivering ?? Itching, rash, hives ?? Headache ?? Nausea, vomiting or diarrhea Delayed reactions up to 6 weeks after transfusion: ?? Redness, swelling or inflammation at the IV site ?? Sudden onset of cough ?? Backache or less urine output than is normal for you ?? Bruising or wounds that bleed (not present before transfusion) ?? Achy joints or muscle aches not related to exercise ?? Dizziness or confusion ?? Symptoms of post-transfusion hepatitis may not occur for weeks. Signs include jaundice (yellowing of skin or whites of eyes), nausea, loss of appetite, chest pain, vomiting, or abdominal pain. ?? Blood in urine, or any red or brown discoloration of urine If you have been diagnosed with Heart Failure, make a follow-up appointment with your physician or specialist. Incorporate activity and exercise into your schedule daily; weigh yourself daily; followa low sodium / low salt diet OR follow the specific activity, exercise, diet, and fluid restrictioninstructions given to you by your physician or specialist. Contact your physician or specialist if you notice worsening heart failure symptoms of difficulty breathing; increased swelling in your feet, ankles, legs, or belly; weight gain of 3 pounds or more in 24 hours OR you gain 5 pounds or more in 5 days. documented in this encounter Medications at Time of Discharge aspirin 325 mg PO tablet Take 325 mg by mouth daily. documented as of this encounter Progress Notes * On, 08/05/2011 9:10 PM EST documented in this encounter H&P Notes * On08/05/2011 9:10 PM EST documented in this encounter Miscellaneous Notes * Diagnostics - 08/07/2011 12:24 PM EST * Correspondence - 08/06/2011 10:02 PM EST * Orders - On08/05/2011 9:10 PM EST * Orders - 08/05/2011 9:10 PM EST * Labs - 08/05/2011 9:10 PM EST * Correspondence - 08/05/2011 9:10 PM EST * Consents - On08/05/2011 9:10 PM EST * Labs - On08/05/2011 12:11 PM EST * Op Note - Rani Diaz MD - 08/04/2011 9:28 AM EST [facility] PATIENT NAME: MARIAJOSE MCCARTHY MR #: [id number] DATE OF : 1950 ADMITTING: JOE Olsen ROOM #: 8 SDS ATTENDING: JOE Olsen NURSING UNIT: C8N SERVICE: GENESSI ADMIT DATE: 08/04/2011 PRIMARY: NONE NONE DISCHARGE DATE: REFERRING: DICTATED BY: RANI DIAZ DATE OF OPERATION: 08/04/2011 This report contains protected health information protected by law. If received in error please call [phone]. OPERATIVE REPORT PREOPERATIVE DIAGNOSIS: 1. Postmenopausal bleeding and fibroids. POSTOPERATIVE DIAGNOSIS: 1. Postmenopausal bleeding and fibroids. 2. Uterine polyps. PROCEDURES: 1. Dilatation and curettage. 2. Diagnostic hysteroscopy. 3. Polypectomy. DOUGHNUT FRYER: Rani Diaz M.D. ANESTHESIA: General. DETAILS OF PROCEDURE: The patient was brought to the operating room, where a general anesthetic wasadministered. She was then prepped and draped in the usual fashion for vaginal surgery. The uterus sounds to 10 cm in an anteflexed position. It is easily dilated. The hysteroscope was then used to visualize the entire endometrial cavity. Both tubal ostia are visualized. There does appear to be a polyp adjacent to the patient's left tubal ostia and evidence of uterine scarring for reasons unknown. The tissue itself otherwise appears to be normal. The polyp was removed and a curettage was then performed. There were no complications to any of these procedures, and the patient left the operatingroom to the recovery area with vital signs stable. Dict: *RANI LEA MD Auth: [email or web address] Orig. [facility] c: *RANI LEA MD, <Dictator> NONE NONE, <Primary Care> documented in this encounter Plan of Treatment Not on file documented as of this encounter Procedures Procedure Name Priority Date/Time Associated Diagnosis Comments DILATION AND CURETTAGE; HYSTEROSCOPY 08/04/2011 9:03 AM EST SAME PATH - SURGICAL PATHOLOGY 08/04/2011 12:00 AM EST documented in this encounter Results * PATH - SURGICAL PATHOLOGY (08/04/2011 12:00 AM EST) 08/04/2011 08/04/2011 Narrative [facility] - 08/05/2011 3:11 PM EST CASE: [id number] PATIENT: MARIAJOSE MCCARTHY Clinical History: ?? None Given Pre-Operative Diagnosis: PMB Post-Operative Diagnosis: ? Same Specimen(s) Submitted: ?? A. Endometrial curettings CPT Code(s): ?? 94092 X 1 Office Info: ?? [id number] FINAL DIAGNOSIS: Endometrium, curetting: - Simple hyperplasia showing no evidence of atypia or malignancy. 28140 WT/mr Gross Description: Received in formalin, labeled with the patient's name, is a 2.9 x 2.5 x 0.4-cm aggregate of [place] tissue, mucus and blood. Entirely submitted in 1 cassette. ? AG/dlw Microscopic Description: Microscopic examination was performed. Performing location for professional component: ??[facility], [address] [place] [address] RANI BRAVO MD Electronically signed 08/05/2011 Rani Diaz MD PATHOLOGY/CYTOLOGY [facility] Final Result [facility] [address] [place] [address] documented in this encounter Visit Diagnoses Diagnosis Abnormal uterine bleeding Unspecified disorder of menstruation and other abnormal bleeding from female genital tract documented in this encounter Administered Medications Inactive Administered Medications - up to 3 most recent administrations Medication Order MAR Action Action Date Dose Rate Site ketorolac (TORADOL) injection 30 mg 30 mg, Intravenous, PRE-OP ONCE, Starting on Hui 08/04/11 at 0000, For 1 day Given 08/04/2011 8:27 AM EST 30 mg lactated ringers irrigation solution 1,000 mL Irrigation, INTRA-OP (ON TRAY), Starting on Hui 08/04/11 at 0854, Until Hui 08/04/11 at 0929 Given 08/04/2011 9:17 AM EST 1,000 mL sodium chloride 0.9 % irrigation 1,000 mL Irrigation, INTRA-OP (ON TRAY), Starting on Hui 08/04/11 at 0854, Until Hui 08/04/11 at 0929 Given 08/04/2011 9:17 AM EST 1,000 mL sodium chloride infusion 0.9% 1,000 mL, Intravenous, PRE-OP CONTINUOUS, Starting on Hui 08/04/11 at 0000 New Bag 08/04/2011 7:59 AM EST 1,000 mL 125 mL/ hr documented in this encounter Active and Recently Administered Medications Times are shown in EST. Scheduled Medication Order 08/02/2011 08/03/2011 08/04/2011 ketorolac (TORADOL) injection 30 mg (CANCELED) 30 mg, Intravenous, PRE-OP ONCE, Starting on Hui 08/04/11 at 0000, For 1 day 0827 (Given - Provid er: Anastasiia Ibarra RN) lactated ringers irrigation solution 1,000 mL (CANCELED) Irrigation, INTRA-OP (ON TRAY), Starting on Hui 08/04/11 at 0854, Until Hui 08/04/11 at 0929 0917 (Given - Provid er: Any Crisostomo, RN - Comment: for hysteroscopy) sodium chloride 0.9 % irrigation 1,000 mL (CANCELED) Irrigation, INTRA-OP (ON TRAY), Starting on Hui 08/04/11 at 0854, Until Hui 08/04/11 at 0929 0917 (Given - Provid er: Any Crisostomo, RN - Comment: back table) Continuous Medication Order 08/02/2011 08/03/2011 08/04/2011 sodium chloride infusion 0.9% (CANCELED) 1,000 mL, Intravenous, PRE-OP CONTINUOUS, Starting on Hui 08/04/11 at 0000 0759 (New Bag - Prov ider: Anastasiia Ibarra RN)0905 (Volume Recorded - Provider: Elida Kwong CRNA)0929 (Volume Recorded - Provider: Elida Kwong CRNA) documented in this encounter Care Teams Accessioner Relationship Specialty Start Date End Date Pineda Cheema MD [address] [id number] PCP - General Family Medicine 07/26/11 10/15/13 documented as of this encounter
--- OUTSIDE RECORDS SUMMARY | 2024-08-21 07:04 | XMS_ITS | Encounter Summary ---
Author Organization [facility] Address [facility] [place] [address] Care Team Providers Care Liquor Blender Name Role Phone Pineda Cheema MD Primary Care Provider +1- [phone] Reason for Visit * Auth/Cert - Closed Specialty Diagnoses / Procedures Referred By Jean Claude hallman Referred To Contact Diagnoses Postmenopausal bleeding PMB Procedures HYSTEROSCOPY,W/ENDO BX Periop 8 Floor [address] [place] [address] Phone: tel: fax: Referral ID Status Reason Start Date Expiration Date Visits Re quested Visits Authorized [id number] Closed 1 1 Encounter Details Date Type Department Care Team (Late st Contact Info) Description 08/04/2011 9:10 AM EST - 08/04/2011 9:40 AM EST Surgery Periop 8 Floor [address] [place] [address] Rani Diaz MD [address] [facility] [place], [place] [id number] DILATON AND CURETTAGE; DIAGNOSTIC HYSTEROSCOPY Social History Tobacco Use Types Packs/Day Years [...] Sign Reading Time Taken Comments Blood Pressure 115/66 08/04/2011 9:32 AM EST Pulse 55 08/04/2011 9:32 AM EST Temperature 36.4 ??C (97.5 ??F) 08/04/2011 9:32 AM ES T Respiratory Rate 18 08/04/2011 9:32 AM EST Oxygen Saturation 100% 08/04/2011 9:32 AM EST Inhaled Oxygen Concentration - - [...] Call Dr. Rani Diaz at phone number [phone] Schedule your follow-up appointment for 1 month [...] On08/05/2011 9:10 PM EST * Orders - On, 08/05/2011 9:10 PM EST * Labs - 08/05/2011 9:10 PM EST * Correspondence - 08/05/2011 9:10 PM EST * Consents - On - 08/05/2011 9:10 PM EST * Labs - On08/05/2011 12:11 PM EST * Op Note - Rani Diaz MD - 08/04/2011 9:28 AM EST [facility] PATIENT NAME: MARIAJOSE MCCARTHY MR #: [id number] DATE OF : 1950 ADMITTING: JOE Olsen ROOM #: 8 SDS ATTENDING: JOE Olsen NURSING UNIT: C8N SERVICE: GENESIS ADMIT DATE: 08/04/2011 PRIMARY: NONE NONE DISCHARGE DATE: REFERRING: DICTATED BY: RANI DIAZ DATE OF OPERATION: 08/04/2011 This report contains protected health information protected by law. If received in error please call [phone]. OPERATIVE REPORT PREOPERATIVE DIAGNOSIS: 1. Postmenopausal bleeding and fibroids. POSTOPERATIVE DIAGNOSIS: 1. Postmenopausal bleeding and fibroids. 2. Uterine polyps. PROCEDURES: 1. Dilatation and curettage. 2. Diagnostic hysteroscopy. 3. Polypectomy. POLISHER EYEGLASS FRAMES: Rani Diaz M.D. ANESTHESIA: General. DETAILS OF [...] Dict: *RANI LEA MD Auth: [email or web address] Orig. [facility] c: *RANI LEA MD, <Dictator> [...] (08/04/2011 12:00 AM EST) 08/04/2011 08/04/2011 Narrative [facility] - 08/05/2011 3:11 PM EST CASE: [id number] PATIENT: MARIAJOSE MCCARTHY Clinical History: ?? None Given Pre-Operative Diagnosis: PMB Post-Operative Diagnosis: ? Same Specimen(s) Submitted: ?? A. Endometrial curettings CPT Code(s): ?? 18243 X 1 Office Info: ?? [id number] FINAL DIAGNOSIS: Endometrium, curetting: - Simple hyperplasia showing no evidence of atypia or malignancy. [id number] WT/mr Gross Description: Received in formalin, labeled with the patient's name, is a 2.9 x 2.5 x 0.4-cm aggregate of [place] tissue, mucus and blood. Entirely submitted in 1 cassette. ? AG/dlw Microscopic Description: Microscopic examination was performed. Performing location for professional component: ??[facility], [address] [place] [address] RANI BRAVO MD Electronically signed 08/05/2011 Rani Diaz MD PATHOLOGY/CYTOLOGY [facility] Final Result [facility] [address] [place] [address] documented in this encounter Visit Diagnoses Not on filedocumented in this encounter Administered Medications Inactive Administered [...] mL Irrigation, INTRA-OP (ON TRAY), Starting on Hiu 08/04/11 at 0854, Until Hui 08/04/11 at [...] CRNA) documented in this encounter Care Teams Liquor Blender Relationship Specialty Start Date End Date Pineda Cheema MD [address] [place] [address] PCP - General Family Medicine 07/26/11 10/15/13 documented as of this encounter
--- OUTSIDE RECORDS SUMMARY | 2024-08-21 07:04 | XMS_ITS | Encounter Summary ---
Author Organization [facility]habbir [facility] Address [address] [place] [address] Care Team Providers Care Throat Cutter Name Role Phone OVinicio Lutz MD Primary Care Provider [phone] Reason for Referral * Imaging (Routine) - Closed Specialty Diagnoses / Procedures Referred By Contac t Referred To Contact Radiology Diagnoses Encounter for screening mammogram for breast cancer Procedures HOUSTON DIGITAL SCREEN W OR WO CAD BILATERAL Lyle Draper MD [address] [facility] [address] [place] [address] Referral ID Status Reason Start Date Expiration Date Visits Re quested Visits Authorized [id number] Closed 07/15/2022 07/15/2023 1 1 Reason for Visit * Imaging (Routine) - Closed Specialty Diagnoses / Procedures Referred By Contac t Referred To Contact Radiology Diagnoses Encounter for screening mammogram for breast cancer Procedures HOUSTON DIGITAL SCREEN W OR WO CAD BILATERAL Lyle Draper MD [address] [facility] [address] [place] [address] Referral ID Status Reason Start Date Expiration Date Visits Re quested Visits Authorized [id number] Closed 07/15/2022 07/15/2023 1 1 Encounter Details Date Type Department Care Team (Latest Contact Info) Description 07/15/2022 8:48 AM EDT - 07/15/2022 11:59 PM EDT Hospital Encounter [facility] [place] [address] [place] [address] Encounter for screening mammogram for breast cancer Discharge Disposition: Home or Self Care Social [...] money to buy more. Never true 01/21/20 22 Within the past 12 months, t he food you bought just didn't last and you didn't have money to get more. Never true 01/20/2022 Sex and Gender Information Value Date Recorded Sex Assigned at Not on file Gender Identity Female 02/21/2022 9:41 AM EDT Sexual Orientation Not on file documented as of this encounter Medications at Time of Discharge Medication Sig Dispensed Refills Start Date End Date albuterol sulfate HFA (PROVENTIL HFA) 108 (90 Base) MCG/ACT inhalerIndications:Mild intermittent asthma without complication Inhale 2 puffs into the lungs every 6 hours as needed for Wheezing or Shortness of Breath 1 each 5 02/23/2022 Probiotic Product (PRO-BIOTIC BLEND PO) Take by mouth vitamin B-12 (CYANOCOBALAMIN) 100 MCG tablet Take 5 tablets by mouth daily ibuprofen (ADVIL;MOTRIN) 200 MG tablet Take 2 tablets by mouth nightly 06/30/2010 calcium carbonate (OSCAL) 500 MG TABS tablet Take 500 mg by mouth daily 03/09/2023 ipratropium-albuterol (DUONEB) 0.5-2.5 (3) MG/3ML SOLN nebulizer solutionIndications:Bron chiectasis with (acute) exacerbation (HCC) Inhale 3 mLs into the lungs every 6 hours as needed for Shortness of Breath 360 mL 11 09/25/2019 04/01/2024 Multiple Vitamin (MULTIVITAMIN PO) Take by mouth. 04/01/20 24 documented as of this encounter Plan of Treatment Upcoming Encounters Date Type Department Care Team (Late st Contact Info) Description 04/01/2025 10:00 AM EDT Office Visit [facility] Pulmonary Critical Care and Sleep [address] [facility] [address] [place] [address] Salvador Woodard MD [address] [address] 1 YFU lungs 04/21/2025 9:30 AM EDT Office Visit [facility] [address] [place] [address] O'Rosalba, Vinicio Brown MD [address] [place] [address] awv documented as of this encounter Procedures Procedure Name Priority Date/Time Associated Diagnosis Comments HOUSTON DIGITAL SCREEN W OR WO CAD BILATERAL Routine 07/15/2022 9:02 AM EDT Encounter for screening mammogram for breast cancer documented in this encounter Results * HOUSTON DIGITAL SCREEN W OR WO CAD BILATERAL (07/15/2022 9:02 AM EDT) Anatomical Region Laterality Modality Breast Bilateral Mammography 07/15/2022 1:23 PM EDT Impressions 07/15/2022 1:25 PM EDT Right breast: No mammographic evidence for malignancy. Left breast: No mammographic evidence for malignancy. BIRADS: BIRADS - CATEGORY 1 Negative, no evidence of malignancy. ??Normal interval follow-up is recommended in 12 months. OVERALL ASSESSMENT - NEGATIVE A letter of notification will be sent to the patient regarding the results. The [employer] recommends annual mammograms for women 40 years and older. Narrative 07/15/2022 1:25 PM EDT EXAMINATION: BILATERAL DIGITAL SCREENING MAMMOGRAM, 07/15/2022 TECHNIQUE: CC and MLO views of the left and right breasts were obtained. ??Computer aided detection was utilized in the interpretation of this exam. COMPARISON: 2020, 2019, 2017 HISTORY: Screening. FINDINGS: Breast density: The breasts are extremely dense, which lowers the sensitivity of mammography. Right breast: There is no dominant mass, suspicious microcalcification, or area of architectural distortion. Left breast: There is no dominant mass, suspicious microcalcification, or area of architectural distortion. Lyle Draper MD IMG MAMMOGRA PHY ORDERABLES documented in this encounter Visit Diagnoses Diagnosis Encounter for screening mammogram for breast cancer documented in this encounter Additional Health Concerns Assessment Noted Time A fall risk assessment has been complete d for the patient 01/20/2022 9:06 AM EDT documented as of this encounter Care Teams Throat Cutter Relationship Specialty Start Date End Date Vinicio Calvert MD PCP - General Family Medicine 06/03/21 documented as of this encounter
--- OUTSIDE RECORDS SUMMARY | 2024-08-21 07:04 | XMS_ITS | Encounter Summary ---
Author Organization [facility] Address [address] [place] [address] Care Team Providers Care Collar Turner Operator Name Role Phone Vinicio Calvert MD Primary Care Provider [phone] Reason for Referral * Other (Routine) - Closed Specialty Diagnoses / Procedures Referred By Contsheila hallman Referred To Contact Radiology Diagnoses Encounter for screening mammogram for malignant neoplasm of breast Procedures HOUSTON ROLA DIGITAL SCREEN BILATERAL Vinicio Calvert MD [address] [place] [address] Referral ID Status Reason Start Date Expiration Date Visits Re quested Visits Authorized [id number] Closed 01/04/2024 01/03/2025 1 1 Reason for Visit * Other (Routine) - Closed Specialty Diagnoses / Procedures Referred By Contsheila t Referred To Contact Radiology Diagnoses Encounter for screening mammogram for malignant neoplasm of breast Procedures HOUSTON ROLA DIGITAL SCREEN BILATERAL Vinicio Calvert MD [address] [place] [address] Referral ID Status Reason Start Date Expiration Date Visits Re quested Visits Authorized [id number] Closed 01/04/2024 01/03/2025 1 1 Encounter Details Date Type Department Care Team (Latest Contact Info) Description 01/04/2024 3:22 PM EDT - 01/04/2024 11:59 PM EDT Hospital Encounter [facility] [address] [place] [phone] Encounter for screening mammogram for malignant neoplasm of breast Discharge Disposition: Home or Self Care Social History Tobacco Use Types Packs/Day Years Used Date Smoking Tobacco: Never Smokeless Tobacco: Never Alcohol Use Standard Drinks/Week Comments Yes 1 (1 standard drink = 0.6 oz pur e alcohol) Ocas AUDIT-C Answer Date Recorded Q1: How often do you have a drink containing alc ohol? 2-3 times a week 03/16/2023 Q2: How many drinks containi ng alcohol do you have on a typical day when you are drinking? 1 or 2 03/16/2023 Q3: How often do you have si x or more drinks on one occasion? Never 03/16/2023 Overall Financial Resource Strain (CARDIA) Answe r Date Recorded How hard is it for you to pa y for the very basics like food, housing, medical care, and heating? Not hard at all 01/20/2022 PHQ-2 Answer Date Recorded PHQ-9 Total Score 0 03/16/2023 Exercise Vital Sign Answer Date Recorde d On average, how many days pe r week do you engage in moderate to strenuous exercise (like a brisk walk)? 2 days 03/16/2023 On average, how many minutes do you engage in exercise at this level? 30 min 03/16/2023 Hunger Vital Sign Answer Date Recorded Within [...] - - Weight 59 kg (130 lb) 01/04/2024 3:32 PM EDT Height 162.6 cm (5' 4 ) 01/04/2024 3:32 PM EDT Body Mass Index 22.31 01/04/2024 3:32 PM EDT documented in this encounter Medications at Time [...] Take 2 tablets by mouth nightly 06/30/2010 cetirizine (ZYRTEC) 10 MG tablet Take 1 tablet by mouth daily 02/21/2023 04/01/2024 montelukast (SINGULAIR) 10 MG tablet Take 1 tablet by mouth daily 02/21/2023 04/01/2024 ipratropium-albuterol (DUONEB) 0.5-2.5 (3) MG/3ML SOLN nebulizer [...] Description 04/01/2025 10:00 AM EDT Office Visit [facility] Pulmonary Critical Care and Sleep [address] [facility] [address] [place] [address] Salvador Woodard MD [address] [facility] [address] [place] [address] 1 YFU lungs 04/21/2025 9:30 AM EDT Office Visit [facility] [address] [place] [address] Vinicio Calvert MD [address] [place] [address] awv documented as of this encounter Procedures Procedure Name Priority Date/Time Associated Diagnosis Comments HOUSTON ROLA DIGITAL SCREEN BILATERAL Routine 01/04/2024 3:43 PM EDT Encounter for screening mammogram for malignant neoplasm of breast documented in this encounter Results * HOUSTON ROLA DIGITAL SCREEN BILATERAL (01/04/2024 3:43 PM EDT) Anatomical Region Laterality Modality Breast Bilateral Mammography 01/04/2024 3:47 PM EDT Impressions 01/04/2024 4:03 PM EDT No definite mammographic evidence of malignancy. BIRADS: BIRADS - CATEGORY 1 Negative, no evidence of malignancy. Normal interval follow-up is recommended in 12 months. OVERALL ASSESSMENT - NEGATIVE A letter of notification will be sent to the patient regarding the results. The [employer] and the [employer] recommend annual mammograms for women 40 years and older. Narrative 01/04/2024 4:03 PM EDT EXAMINATION: SCREENING DIGITAL BILATERAL MAMMOGRAM WITH TOMOSYNTHESIS, 01/04/2024 TECHNIQUE: Screening mammography of the bilateral breasts was performed with tomosynthesis. ??2D standard and 3D tomosynthesis combination imaging performed through both breasts in the MLO and CC projection. ??Computer aided detection was utilized in the interpretation of this exam. COMPARISON: [id number] HISTORY: Screening. FINDINGS: The breasts are heterogenously dense, which may obscure small masses. There are no suspicious abnormalities. There has been no significant interval change. Vinicio Calvert MD IMG MAMMOGRAPHY ORDSlick AMBROSE documented in this encounter Visit Diagnoses Diagnosis Encounter for screening mammogram for malignant neoplasm of breast Other screening mammogram documented in this encounter Additional Health Concerns Assessment Noted Time A fall risk assessment has been complete d for the patient 03/16/2023 9:11 AM EDT documented as of this encounter Care Teams Collar Turner Operator Relationship Specialty Start Date End Date Vinicio Calvert MD PCP - General Family Medicine 06/03/21 documented as of this encounter
--- OUTSIDE RECORDS SUMMARY | 2024-08-21 07:04 | XMS_ITS | Encounter Summary ---
Author Organization [facility] Address [address] [place] [address] Care Team Providers Care Rn Emergency Room Name Role Phone OVinicio Lutz MD Primary Care Provider [phone] Reason for Visit * Reason Comments Medicare AWV Encounter Details Date Type Department Care Team (Late st Contact Info) Description 01/20/2022 9:00 AM EDT Telemedicine [facility] [address] [place] [phone] Mariano Nevarez MD [address] [place] [phone] Medicare annual wellness visit, subsequent (Primary Dx) Social History Tobacco Use Types [...] AM EDT documented as of this encounter Patient Instructions * Patient Instructions* Harper Zhang LPN - 01/20/2022 9:04 AM EDT Personalized Preventive Plan for Karlie Love - 01/20/2022 Medicare offers a range of preventive health benefits. Some of the tests and screenings are paid infull while other may be subject to a deductible, co- insurance, and/or copay. Some of these benefits include a comprehensive review of your medical history including lifestyle, illnesses that may run in your family, and various assessments and screenings as appropriate. After reviewing your medical record and screening and assessments performed today your provider mayhave ordered immunizations, labs, imaging, and/or referrals for you. A list of these orders (if applicable) as well as your Preventive Care list are included within your After Visit Summary for your review. Other Preventive Recommendations: ?? A preventive eye exam performed by an eyelet punch operator is recommended every 1-2 years to screen for glaucoma; cataracts, macular degeneration, and other eye disorders. ?? A preventive dental visit is recommended every 6 months. ?? Try to get at least 150 minutes of exercise per week or 10,000 steps per day on a pedometer . ?? Order or download the FREE Exercise & Physical Activity: Your Everyday Guide from [employer] [place] [employer]. Call or search [employer] [place] [employer] online. ?? You need 6828-4993 mg of calcium and 0332-7543 IU of vitamin D per day. It is possible to meet your calcium requirement with diet alone, but a vitamin D supplement is usually necessary to meet this goal. ?? When exposed to the sun, use a sunscreen that protects against both UVA and UVB radiation with an SPF of 30 or greater. Reapply every 2 to 3 hours or after sweating, drying off with a towel, or swimming. ?? Always wear a seat belt when traveling in a car. Always wear a helmet when riding a bicycle or motorcycle. documented in this encounter Progress Notes * Mariano Nevarez MD - 01/20/2022 9:04 AM EDT Medicare Annual Wellness Visit Karlie Love is here for Medicare AWV Assessment & Plan Medicare annual wellness visit, subsequent Recommendations for Preventive Services Due: see orders and patient instructions/AVS. Recommended screening schedule for the next 5-10 years is provided to the patient in written form: see Patient Instructions/AVS. No follow-ups on file. Subjective Patient's complete Health Risk Assessment and screening values have been reviewed and are found in Flowsheets. The following problems were reviewed today and where indicated follow up appointments were made and/or referrals ordered. Positive Risk Factor Screenings with Interventions: General Health and ACP: General In general, how would you say your health is?: Very Good In the past 7 days, have you experienced any of the following: New or Increased Pain, New or Increased Fatigue, Loneliness, Social Isolation, Stress or Anger?: No Do you get the social and emotional support that you need?: Yes Do you have a Living Will?: Yes Advance Directives Power of Hvac Tech Living Will ACP-Advance Directive ACP-Power of Hvac Tech Not on File Not on File Not on File Not on File General Health Risk Interventions: No Living Will: ACP documents already completed- patient asked to provide copy to the office Objective Patient-Reported Vitals Patient-Reported Systolic (Top): 130 mmHg Patient-Reported Diastolic (Bottom): 76 mmHg Patient-Reported Pulse: 74 Patient-Reported Weight: 128 lbs No Known Allergies Prior to Visit Medications Medication Sig Taking? Authorizing Provider calcium carbonate (OSCAL) 500 MG TABS tablet Take 500 mg by mouth daily Historical ProviderMD Probiotic Product (PRO-BIOTIC BLEND PO) Take by mouth Historical ProviderMD ipratropium-albuterol (DUONEB) 0.5-2.5 (3) MG/3ML SOLN nebulizer solution Inhale 3 mLs into the lungs every 6 hours as needed for Shortness of Breath Dilia Perez MD albuterol sulfate HFA (PROVENTIL HFA) 108 (90 Base) MCG/ACT inhaler Inhale 2 puffs into the lungs every 6 hours as needed for Wheezing or Shortness of Breath Analia William MD Multiple Vitamin (MULTIVITAMIN PO) Take by mouth. Historical Provider, vitamin B-12 (CYANOCOBALAMIN) 100 MCG tablet Take 500 mcg by mouth daily. Historical Provider, ibuprofen (ADVIL;MOTRIN) 200 MG tablet Take 400 mg by mouth nightly. Historical Provider, MD [place] (Including outside providers/suppliers regularly involved in providing care): Patient Care Team: Vinicio Calvert MD as PCP - General (Family Medicine) Lyle Draper as PCP - OBGYN (Obstetrics & Gynecology) Vinicio Calvert MD as PCP - [facility] Empaneled Provider Reviewed and updated this visit: Allergies Meds Karlie A Kate, was evaluated through a synchronous (real-time) telephone encounter. The patient (or guardian if applicable) is aware that this is a billable service. Verbal consent to proceed has beenobtained within the past 12 months. The visit was conducted pursuant to the emergency declaration under the [place] Act and the National Emergencies Act, 1135 waiver authority and the Coronavirus Preparedness and Response Supplemental Appropriations Act. Patient identification was verified, and a caregiver was present when appropriate. The patient was located in a state where the provider was credentialed to provide care. --Harper Zhang LPN on 01/20/2022 at 9:14 AM An electronic signature was used to authenticate this note. I, Harper Zhang LPN, 01/20/2022, performed the documented evaluation under the direct supervision of the attending physician. This encounter was performed under MARIANO parra MD???s, direct supervision, 01/20/2022. documented in this encounter Plan of Treatment Upcoming Encounters Date Type Department Care Team (Late st Contact Info) Description 04/01/2025 10:00 AM EDT Office Visit [facility] Pulmonary Critical Care and Sleep [address] [facility] [address] [place] [phone] Salvador Woodard MD [address] [facility] [address] [place] [address] 1 YFU lungs 04/21/2025 9:30 AM EDT Office Visit [facility] [address] [place] [address] Vinicio Calvert MD [address] [place], [place] [phone] awv documented as of this encounter Visit Diagnoses Diagnosis Medicare annual wellness visit, subsequent- Primary Routine general medical examination at a health care facility documented in this encounter Additional Health Concerns Assessment Noted Time A fall risk assessment has been complete d for the patient 01/20/2022 9:06 AM EDT documented as of this encounter Care Teams Rn Emergency Room Relationship Specialty Start Date End Date Vinicio Calvert MD PCP - General Family Medicine 06/03/21 documented as of this encounter
--- OUTSIDE RECORDS SUMMARY | 2024-08-21 07:04 | XMS_ITS | Encounter Summary ---
Author Organization [facility] Address [address] [place] [address] Care Team Providers Care Nozzle Worker Name Role Phone Pineda Cheema MD Primary Care Provider [phone] Reason for Visit * Auth/Cert - Closed Specialty Diagnoses / Procedures Referred By Jean Claude hallman Referred To Contact Diagnoses Postmenopausal bleeding PMB Procedures HYSTEROSCOPY,W/ENDO BX Periop 8 Floor [address] [place] [address] Phone: tel: fax: Referral ID Status Reason Start Date Expiration Date Visits Re quested Visits Authorized [id number] Closed 1 1 Encounter Details Date Type Department Care Team (Late st Contact Info) Description 08/04/2011 9:06 AM EST Anesthesia Event Periop 8 Floor [address] [place] [address] Juan Carlos Jha MD [address] [facility] Anesthesia Department [place], [place] [id number] Anesthesia Record Procedure Summary Procedure Name Responsible Anesthesiologist Anesthesia Start Time Anesthesia Stop Time DILATON AND CURETTAGE; DIAGNOSTIC HYSTEROSCOPY Juan Carlos Jha MD 08/04/11 0906 08/04/11 0933 Events Date Time Event Comment 08/04/2011 0821 0906 An Start 0907 An Start Data 0908 An Induction 0909 LMA 0917 Procedure Start 09 Procedure End 09 an stop data 0933 An End Meds Name Total fentanyl 50 mcg propofol 200 mg lidocaine 2% 60 mg ondansetron (PF) 4 mg dexamethasone 8 mg sodium chloride infusion 0.9% 400 mL * Agents Name O2 N2O Air Sevoflurane (exp) * Blood No blood administrations on file. Lines, Drains, and Airways Type Details Placement Removal Surgical Incision Nursing Assessment (LDA) 08/04/11; Vagina; 10/18/13; 0653 08/04/11 0000 by Any Crisostomo RN 10/18/13 0653 by Autodiscontinue, Discharge Peripheral IV Size: 20 G; Length: 1.16 inches; Orientation: Right; Location: Antecubital; Inserted by: brenden; Attempts: 1; Local anesthetic: None 08/04/11 0758 by Anastasiia Ibarra RN 08/04/11 1057 by Noemi South RN documented in this encounter Social History Tobacco Use Types Packs/Day Years [...] on file documented as of this encounter OR Notes * Anesthesia Postprocedure Evaluation - Elida Kwong CRNA - 08/04/2011 9:33 AM EST Post Anesthesia Evaluation Anesthesia Type: general Date of Surgery: 08/04/2011 Surgeon(s): Lyle Draper MD [facility] is stable with no current apparent anesthetic complications. Vitals reviewed and accepted. [x] Cardiorespiratory status is acceptable. [x] Pt responding verbally and following commands to acceptable level. [x] Temperature acceptable [x] Hydration status is acceptable [x] Patient's pain is being adequately managed [x] Patient is nausea free * Anesthesia Preprocedure Evaluation - Juan Carlos Jha MD - 08/04/2011 8:20 AM EST Date of Surgery: 08/04/2011 Surgeon(s): Lyle Draper MD Scheduled Procedure(s): DILATION AND CURETTAGE; HYSTEROSCOPY Patient summary reviewed and Nursing notes reviewed Anesthesia type: general Risks, benefits, and alternatives discussed with patient. No hx of anesthetic complications patient appropriate for plan NPO status reinforced Mallampati: II ASA 2 documented in this encounter Plan of Treatment Not on file documented as of this encounter Visit Diagnoses Not on filedocumented in this encounter Administered Medications Inactive Administered Medications - up to 3 most recent administrations Medication Order MAR Action Action Date Dose Rate Site ANESTHESIA-PROPOFOL 10 MG/ML INJECTION INTRA-OP PRN, Starting on Hui 08/04/11 at 0908, Anesthesia Intra-op, FOR ANESTHESIA USE ONLY Given 08/04/2011 9:08 AM EST 200 mg dexamethasone (DECADRON) injection INTRA-OP PRN, Starting on Hui 08/04/11 at 0911, Anesthesia Intra-op Given 08/04/2011 9:11 AM EST 8 mg fentanyl (SUBLIMAZE) injection INTRA-OP PRN, Severe Pain Intensity (7-10), Starting on Hui 08/04/11 at 0908, Anesthesia Intra-op Given 08/04/2011 9:08 AM EST 50 mcg lidocaine 2 % injection INTRA-OP PRN, Starting on Hui 08/04/11 at 0908, Anesthesia Intra-op Given 08/04/2011 9:08 AM EST 60 mg ondansetron (PF) (ZOFRAN) injection INTRA-OP PRN, Starting on Hui 08/04/11 at 0920, Anesthesia Intra-op Given 08/04/2011 9:20 AM EST 4 mg documented in this encounter Care Teams Nozzle Worker Relationship Specialty Start Date End Date Pineda Cheema MD [address] [place], [place] [phone] PCP - General Family Medicine 07/26/11 10/15/13 documented as of this encounter
--- OUTSIDE RECORDS SUMMARY | 2024-08-21 07:04 | XMS_ITS | Encounter Summary ---
Author Organization [facility] Address [address] [place] [id number] Care Team Providers Care Electronic News Gathering Editor Name Role Phone Stewart Tejeda MD Primary Care Provider [phone] Encounter Details Date Type Department Care Team (Latest Contact Info) Description 03/28/2016 10:00 AM EDT - 03/28/2016 11:59 PM EDT Hospital Encounter [facility], [place] [address] [place] [address] [phone] Lyle Draper MD [address] [place], [place] [phone] Visit for screening mammogram Discharge Disposition: Home or Self [...] daily. MULTIVITAMIN PO Take by mouth daily. Edwards-3 Fatty Acids-Vitamin E (FISH OIL) 1,000 mg PO Cap Take by mouth daily. documented as of this encounter Plan of Treatment Not on file documented as of this encounter Procedures Procedure Name Priority Date/Time Associated Diagnosis Comments MAMM-SCREENING DIRECT DIGITAL Routine 03/28/2016 10:21 AM EDT Visit for screening mammogram documented in this encounter Results * MAMM-SCREENING DIRECT DIGITAL (03/28/2016 10:21 AM EDT) Anatomical Region Laterality Modality Bilateral Mammography Impressions 03/29/2016 3:23 PM EDT NEGATIVE MAMMOGRAM. BI-RADS CATEGORY: 2. RECOMMENDATION: ROUTINE MAMMOGRAPHIC FOLLOWUP. THE STUDY WAS REVIEWED WITH COMPUTER-AIDED DETECTION. /skb Narrative 03/29/2016 3:23 PM EDT 03/28/2016 MAMMOGRAM WITH CAD: Parenchyma are heterogeneously dense, limiting mammographic sensitivity. There are some benign-appearing calcifications of both breasts. No suspicious mass or clustered microcalcifications have developed in either breast when compared to prior studies, the most recent 02/11/2015. Lyle Draper MD IMG MAMMO ORDERABLES Anastasia l Result documented in this encounter Visit Diagnoses Diagnosis Visit for screening mammogram Other screening mammogram documented in this encounter Care Teams Electronic News Gathering Editor Relationship Specialty Start Date End Date Stewart Tejeda MD [address] [place] [address] [place] [address] PCP - General Family Medicine 10/16/13 07/02/18 documented as of this encounter
--- OUTSIDE RECORDS SUMMARY | 2024-08-21 07:04 | XMS_ITS | Encounter Summary ---
Author Organization [facility] Address [address] [place] [address] Care Team Providers Care Script Manager Name Role Phone OVinicio Lutz MD Primary Care Provider [phone] Encounter Details Date Type Department Care Team (Late st Contact Info) Description 03/16/2023 Orders Only [facility] Drawsite [address] [place] [address] Loretta Rios Screening, lipid; Medicare annual wellness visit, subsequent Social History Tobacco Use Types Packs/Day Years [...] Description 04/01/2025 10:00 AM EDT Office Visit [facility] Pulmonary Critical Care and Sleep [address] [facility] [address] [place] [address] Salvador Woodard MD [address] [facility] [address] [place] [address] 1 YFU lungs 04/21/2025 9:30 AM EDT Office Visit [facility] [address] [facility] [address] O'Rosalba, Vinicio Brown MD [address] [place] [address] awv documented as of this encounter Procedures Procedure Name Priority Date/Time Associated Diagnosis Comments LIPID, FASTING Routine 03/16/2023 9:54 AM EDT Screening, lipid COMPREHENSIVE METABOLIC PANEL Routine 03/16/2023 9:54 AM EDT Medicare annual wellness visit, subsequent documented in this encounter Results * Comprehensive Metabolic Panel (03/16/2023 9:54 AM EDT) Sodium 139 136 - 145 mmol/L 03/16/2023 4:54 PM [facility] Potassium 4.3 3.5 - 5.1 mmol/L 03/16/2023 4:54 PM [facility] Chloride 101 99 - 110 mmol/L 03/16/2023 4:54 PM [facility] CO2 28 21 - 32 mmol/L 03/16/2023 4:54 PM [facility] Anion Gap 10 3 - 16 03/16/2023 4:54 PM [facility] Glucose 90 70 - 99 mg/dL 03/16/2023 4:54 PM [facility] BUN 10 7 - 20 mg/dL 03/16/2023 4:54 PM [facility] Creatinine 0.8 0.6 - 1.2 mg/dL 03/16/2023 4:54 PM [facility] Est, Glom Filt Rate >60 >60 03/16/2023 4:54 PM [facility] Comment: Pediatric calculator link https://www.kidney.org/professionals/kdoqi/gfr_calculatorped Effective Jun 20, 2022 These results are not intended for use in patients <18 years of age. ??eGFR results are calculated without a race factor using the 2020 CKD-EPI equation. ??Careful clinical correlation is recommended, particularly when comparing to results calculated using previous equations. The CKD-EPI equation is less accurate in patients with extremes of muscle mass, extra-renal metabolism of creatinine, excessive creatinine ingestion, or following therapy that affects renal tubular secretion. Calcium 9.4 8.3 - 10.6 mg/dL 03/16/2023 4:54 PM [facility] Total Protein 6.8 6.4 - 8.2 g/dL 03/16/2023 4:54 PM [facility] Albumin 4.6 3.4 - 5.0 g/dL 03/16/2023 4:54 PM [facility] Albumin/Globulin Ratio 2.1 1.1 - 2.2 03/16/2023 4:54 PM [facility] Total Bilirubin 0.5 0.0 - 1.0 mg/dL 03/16/2023 4:54 PM EDT [facility] Alkaline Phosphatase 92 40 - 129 U/L 03/16/2023 4:54 PM EDT [facility] ALT 29 10 - 40 U/L 03/16/2023 4:54 PM EDT [facility] AST 21 15 - 37 U/L 03/16/2023 4:54 PM EDT [facility] BLOOD SPECIMEN / Unknown 03/16/2023 9:54 AM EDT 03/16/2023 3:19 PM EDT Vinicio Calvert MD CHEMISTRY ORDERABLES [facility] [address] [phone] * (ABNORMAL) Lipid, Fasting (03/16/2023 9:54 AM EDT) Cholesterol, Fasting 283(H) 0 - 199 mg/dL 03/16/2023 4:54 PM EDT [facility] Triglyceride, Fasting 165(H) 0 - 150 mg/dL 03/16/2023 4:54 PM EDT [facility] HDL 66(H) 40 - 60 mg/dL 03/16/2023 4:54 PM EDT [facility] LDL Calculated 184(H) <100 mg/dL 03/16/2023 4:54 PM EDT [facility] VLDL Cholesterol Calculated 33 Not Established mg/dL 03/16/2023 4:54 PM EDT [facility] BLOOD SPECIMEN / Unknown 03/16/2023 9:54 AM EDT 03/16/2023 3:19 PM EDT Vinicio Calvert MD CHEMISTRY ORDERABLES [facility] [address] [phone] documented in this encounter Visit Diagnoses Diagnosis Screening, lipid Screening for lipoid disorders Medicare annual wellness visit, subsequent Routine general medical examination at a health care facility documented in this encounter Additional Health Concerns Assessment Noted Time A fall risk assessment has been complete d for the patient 03/16/2023 9:11 AM EDT documented as of this encounter Care Teams Script Manager Relationship Specialty Start Date End Date Vinicio Calvert MD PCP - General Family Medicine 06/03/21 documented as of this encounter
--- OUTSIDE RECORDS SUMMARY | 2024-08-21 07:04 | XMS_ITS | Clinical Summary ---
Author Organization [facility] Address [address] [place] [address] Care Team Providers Care Chemical Laboratory Technician Name Role Phone Vinicio Calvert MD Primary Care Provider [phone] Allergies No known active allergies Medications Medication Sig Dispensed Refills Start Date End Date Status vitamin B-12 (CYANOCOBALAMIN) 100 MCG tablet Take 5 tablets by mouth daily Active ibuprofen (ADVIL;MOTRIN) 200 MG tablet Take 2 tablets by mouth nightly 06/30/2010 Active Probiotic Product (PRO-BIOTIC BLEND PO) Take by mouth Active albuterol sulfate HFA (PROVENTIL HFA) 108 (90 Base) MCG/ACT inhalerIndications:Mil d intermittent asthma without complication Inhale 2 puffs into the lungs every 6 hours as needed for Wheezing or Shortness of Breath 1 each 5 02/23/2022 Active fluticasone (FLONASE) 50 MCG/ACT nasal spray USE 1 SPRAY(S) IN EACH NOSTRIL ONCE DAILY 03/06/2024 Active Active Problems Problem Noted Date Diagnosed Date Primary osteoarthritis of right knee 06/06/2017 Bronchiectasis without complication Encounters Date Type Department Care Team Description 05/22/2024 9:30 AM EDT Procedure visit [facility] [address] [place] [address] Vinicio Calvert MD Skin tags, multiple acquired (Primary Dx); Screen for colon cancer; Pain, unspecified from Last 3 Months Immunizations Name Administration Dates Next Due COVID-19, PFIZER PURPLE top, DILUTE for use, (age 12 y+), 30mcg/0.3mL 01/21/2021,12/31/2020 Hepatitis A Adult (Vaqta) 06/26/2017 Influenza Vaccine, unspecified formulation 06/17 Influenza Whole 06/18/2010 Influenza, FLUAD, (age 65 y+ ), IM, Trivalent PF, 0.5mL 06/26/2019,07/03/2018 Influenza, FLUZONE High Dose , (age 65 y+), IM, Trivalent PF, 0.5mL 06/14/2021,06/14/2017,06/17/2016 Pneumococcal, PCV-13, PREVNA R 13, (age 6w+), IM, 0.5mL 01/30/2019 Pneumococcal, PPSV23, PNEUMO VAX 23, (age 2y+), SC/IM, 0.5mL 01/09/2018 TDaP, ADACEL (age 10y-64y), BOOSTRIX (age 10y+), IM, 0.5mL 06/14/2017,10/25/2012 Zoster Recombinant (Shingrix) 01/09/2018 Family History Medical History Relation Name Comments High Blood Pressure Brother Fantasma Wolff Other Father Fantasma Wolff Respiratory i ssues Breast Cancer Mother Saray Wolff Cancer Mother Saray Wolff Breast Diabetes Mother Saray Wolff High Blood Pressure Mother Saray Wolff High Blood Pressure Sister Lise Wolff Relation Name Status Comments Brother Fantasma Wolff Father Fantasma Wolff (Age 72) Mother Saray Wolff (Age 85) s/p fall w ith brain hemorrhage Sister Lise Wolff Social History Tobacco Use Types Packs/Day Years Used Date Smoking Tobacco: Never Smokeless Tobacco: Never Tobacco Cessation:Counseling Given: Not Answered Alcohol Use Standard Drinks/Week Comments Yes 1 (1 standard drink = 0.6 oz pur e alcohol) Ocas AUDIT-C Answer Date Recorded Q1: How often do you have a drink containing alc ohol? Monthly or less 04/15/2024 Q2: How many drinks containi ng alcohol do you have on a typical day when you are drinking? 1 or 2 04/15/2024 Q3: How often do you have si x or more drinks on one occasion? Never 04/15/2024 Overall Financial Resource Strain (CARDIA) Answe r Date Recorded How hard is it for you to pa y for the very basics like food, housing, medical care, and heating? Not hard at all 04/15/2024 PHQ-2 Answer Date Recorded PHQ-9 Total Score 0 04/15/2024 Exercise Vital Sign Answer Date Recorde d On average, how many days pe r week do you engage in moderate to strenuous exercise (like a brisk walk)? 4 days 04/15/2024 On average, how many minutes do you engage in exercise at this level? 30 min 04/15/2024 Hunger Vital Sign Answer Date Recorded Within the past 12 months, y ou worried that your food would run out before you got the money to buy more. Never true 04/15/20 24 Within the past 12 months, t he food you bought just didn't last and you didn't have money to get more. Never true 04/15/2024 PRAPARE - Transportation Answer Date Re corded Lack of Transportation (Medical) Not on file 04/15/2024 In the past 12 months, has l ack of transportation kept you from meetings, work, or from getting things needed for daily living? No 04/15/2024 Housing Stability Vital Sign Answer Adan e Recorded Unable to Pay for Housing in the Last Year Not o n file 04/15/2024 Number of Places Lived in the Last Year Not on f ile 04/15/2024 In the last 12 months, was t here a time when you did not have a steady place to sleep or slept in a fci (including now)? No 04/15/2024 Food Insecurity Answer Date Recorded Within the past 12 months, y ou worried that your food would run out before you got the money to buy more. 1 04/15/2024 Within the past 12 months, t he food you bought just didn't last and you didn't have money to get more. 1 04/15/2024 Sex and Gender Information Value Date Recorded Sex Assigned at Not on file Gender Identity Female 02/21/2022 9:41 AM EDT Sexual Orientation Not on file Last Filed Vital Signs Vital Sign Reading Time Taken Comments Blood Pressure 144/62 05/22/2024 9:30 AM EDT Pulse 75 05/22/2024 9:30 AM EDT Temperature 36.4 ??C (97.5 ??F) 04/01/2024 12:58 PM E DT Respiratory Rate 16 04/01/2024 12:58 PM EDT Oxygen Saturation 97% 05/22/2024 9:30 AM EDT Inhaled Oxygen Concentration - - Weight 57.6 kg (127 lb) 05/22/2024 9:30 AM EDT Height 162.6 cm (5' 4 ) 05/22/2024 9:30 AM EDT Body Mass Index 21.8 05/22/2024 9:30 AM EDT Plan of Treatment Upcoming Encounters Date Type Department Care Team (Late st Contact Info) Description 04/01/2025 10:00 AM EDT Office Visit [facility] Pulmonary Critical Care and Sleep [address] [facility] [address] [place] [address] [phone] Salvador Woodard MD [address] [facility] [address] [place] [address] [phone] 1 YFU lungs 04/21/2025 9:30 AM EDT Office Visit [facility] [address] [place], [place] [id number] O'Rosalba, Vinicio Brown MD [address] [facility] [place], [place] [phone] awv Health Maintenance Due Date Last Done Comments FIT/FOBT: Average risk 1995 Fecal-DNA (Cologuard): Average risk 1995 Sigmoidoscopy/CT colonography 1995 Colonoscopy 08/01/2021 08/01/2011 (Prev iously completed), 08/01/2011 Colorectal Cancer Screen 08/01/2021 Flu vaccine (#1) 04/18/2024 06/07/2023, , 06/07/2022, Additional history exists COVID-19 Vaccine ( season) 2024 08/14/2023, 07/11/2022, 01/21/2021, Additional history exists Breast cancer screen 01/03/2025 01/04/2024, 07/15/2022, 06/03/2021, Additional history exists Depression Screen 04/15/2025 04/15/2024, 04/15/2024 Annual Wellness Visit (Medicare) 04/18/2025 04/17/2024, 03/16/2023, 01/20/2022 DTaP/Tdap/Td vaccine (3 - Td or Tdap) 06/14/2027 06/14/2017, 10/25/2012 Lipids 04/17/2029 04/17/2024, 02/17, 01/30/2019, Additional history exists DEXA (modify frequency per FRAX score) Addressed 11/16/2015 (Postponed) Overridden with t he intention of not completing the topic Hepatitis A vaccine Aged Out 06/26/2017 No longe r eligible based on patient's age to complete this topic Hepatitis C screen Completed 06/26/2017 Pneumococcal 65+ years Vaccine Completed 01/30/2019, 01/09/2018 Respiratory Syncytial Virus (RSV) or age 60 yrs+ Completed 08/14/2023 Shingles vaccine Completed 08/14/2023, 01/09/2018 Hepatitis B vaccine Aged Out No longe r eligible based on patient's age to complete this topic Hib vaccine Aged Out No longer eligi ble based on patient's age to complete this topic Meningococcal (ACWY) vaccine Aged Out No longer eligible based on patient's age to complete this topic Polio vaccine Aged Out No longer elig ible based on patient's age to complete this topic Procedures Procedure Name Priority Date/Time Associated Diagnosis Comments REMOVAL OF SKIN TAGS Routine 05/22/2024 3:19 PM EDT Skin tags, multiple acquired Pain, unspecified LIPID, FASTING Routine 04/17/2024 10:03 AM EDT Screening, lipid [place] [facility] DIGITAL SCREEN BILATERAL Routine 01/04/2024 3:43 PM EDT Encounter for screening mammogram for malignant neoplasm of breast HEPATITIS PANEL, ACUTE Routine 06/26/2017 11:49 AM EDT Encounter for hepatitis C screening test for low risk patient from Last 3 Months or Most Recently Relevant to Health Maintenance Results * (ABNORMAL) Lipid, Fasting (04/17/2024 10:03 AM EDT) Cholesterol, Fasting 247(H) 0 - 199 mg/dL 04/17/2024 4:38 PM EDT [facility] Triglyceride, Fasting 109 0 - 150 mg/dL 04/17/2024 4:38 PM EDT [facility] HDL 82(H) 40 - 60 mg/dL 04/17/2024 4:38 PM EDT [facility] LDL Cholesterol 143(H) <100 mg/dL 4:38 PM EDT [facility] VLDL Cholesterol Calculated 22 Not Established mg/dL 04/17/2024 4:38 PM EDT [facility] Blood BLOOD SPECIMEN / Unknown 04/17/2024 10:03 AM EDT 04/17/2024 4:06 PM EDT Vinicio Calvert MD CHEMISTRY ORDERABLES [facility] [address] [phone] * [place]A DIGITAL SCREEN BILATERAL (01/04/2024 [...] to the patient regarding the results. The [place] [employer] and the [place] [employer] recommend annual mammograms for [...] in the interpretation of this exam. COMPARISON: 2014 [id number] HISTORY: Screening. FINDINGS: The breasts are heterogenously dense, which may obscure small masses. There are no suspicious abnormalities. There has been no significant interval change. Vinicio Calvert MD IMG MAMMOGRAPHY [facility] * HEPATITIS PANEL, ACUTE (06/26/2017 11:49 AM EDT) Hep A IgM Non-reacti ve Non-reacti ve 06/26/2017 10:07 PM EDT [facility] Hep B Core Ab, IgM Non-reacti ve Non-reacti ve 06/29/2017 5:46 AM EDT [facility] Hep B S Ag Interp Non-reacti ve Non-reacti ve 06/26/2017 10:07 PM EDT [facility] Hep C Ab Interp Non-reacti ve Non-reacti ve 06/29/2017 5:46 AM EDT [facility] BLOOD SPECIMEN / Unknown 06/26/2017 11:49 AM EDT 06/26/2017 3:28 PM EDT Narrative [facility] - 06/29/2017 6:05 AM EDT Performed at: [facility] [address] [facility] ??[place] [address] ?? Stewart Tejeda MD IMMUNOLOGY ORDERABL ES [facility] [place] [address], [facility] [phone] from Last 3 Months or Most Recently Relevant to Health Maintenance Advance Directives Healthcare Agents on File Name Relationship Healthcare Agent Relationship Communication Fantasma Love Spouse Primary Decision Maker [email or web address] Desirae Mayfield Child Secondary Decision Maker Care Teams Chemical Laboratory Technician Relationship Specialty Start Date End Date ONelda, Vinicio Brown MD PCP - General Family Medicine 06/03/21
--- OUTSIDE RECORDS SUMMARY | 2024-08-21 07:04 | XMS_ITS | Encounter Summary ---
Author Organization [facility] Address [address] [place] [address] Care Team Providers Care Bolt Sorter Name Role Phone OVinicio Lutz MD Primary Care Provider [phone] Reason for Referral * Medication Prior Authorization - Closed Specialty Diagnoses / Procedures Referred By Jean Claude hallman Referred To Contact Diagnoses Mild intermittent asthma without complication Kenji Bolden MD [address] [place] [address] Referral ID Status Reason Start Date Expiration Date Visits Re quested Visits Authorized [id number] Closed 1 1 Reason for Visit * Reason Comments Follow-up 6 mo FU Bronchiectas is former Chris pt. Encounter Details Date Type Department Care Team (Late st Contact Info) Description 02/23/2022 2:00 PM EDT Office Visit [facility] Critical Care and Sleep [address] [place] [address] Kenji Bolden MD [address] [place] [address] Bronchiectasis without complication (HCC) (Primary Dx); Mild [...] Sign Reading Time Taken Comments Blood Pressure 137/74 02/23/2022 1:45 PM EDT Pulse 75 02/23/2022 1:45 PM EDT Temperature 36 ??C (96.8 ??F) 02/23/2022 1:45 PM EDT Respiratory Rate 16 02/23/2022 1:45 PM EDT Oxygen Saturation 96% 02/23/2022 1:45 PM EDT RA Inhaled Oxygen Concentration - - Weight 58.8 kg (129 lb 9.6 oz) 02/23/2022 1:45 P M EDT Height 162.6 cm (5' 4 ) 02/23/2022 1:45 PM EDT Body Mass Index 22.25 02/23/2022 1:45 PM EDT documented in this encounter Patient Instructions * Patient Instructions* Nicole Ch LPN - 02/23/2022 2:43 PM EDT Remember to bring a list of pulmonary medications and any CPAP or BiPAP machines to your next appointment with the office. Please keep all of your future appointments scheduled by [facility] office. Out of respect for other patients and providers, you may be asked to reschedule your appointment if you arrive later than your scheduled appointment time. Appointments cancelled less than 24hrs in advance will be considered a no show. Patients with three missed appointments within 1 year or four missed appointments within 2 years can be dismissed from the practice. Please be aware that our physicians are required to work in the Intensive Care Unit at [facility]. Your appointment may need to be rescheduled if they are designated to work during your appointment time. You may receive a survey regarding the care you received during your visit. Your input is valuable to us. We encourage you to complete and return your survey. We hope you will choose us in the future for your healthcare needs. Pt instructed of all future appointment dates & times, including radiology, labs, procedures & referrals. If procedures were scheduled preparation instructions provided. Instructions on future appointments with [facility] were given. documented in this encounter Progress Notes * Nicole Ch LPN - 02/23/2022 2:43 PM EDT MA Communication: The following orders are received by verbal communication from Kenji Bolden MD Orders include: FU 1 yr * Kenji Bolden MD - 02/23/2022 1:44 PM EDT Pulmonary Outpatient Note Kenji Bolden MD 02/23/2022 1. Bronchiectasis without complication (HCC) 2. Mild intermittent asthma without complication ASSESSMENT/PLAN: Bronchiectasis. Likely idiopathic. Does have intermittent infections/flares. CT images reviewed with the patient. Mild asthma. Mild intermittent wheezing, could be related to bronchiectasis. He does not use bronchodilators. Her nebulizer solution has but he has not been using it. Refill her albuterol inhaler which he also uses uncomplicated Prophylaxis. Has received Prevnar, Pneumovax, 2 doses of COVID-19 vaccine and 1 booster dose. Recommend second booster dose when due, annual flu shots RTC 1 year, call earlier if symptomatic No orders of the defined types were placed in this encounter. Return in about 1 year (around 02/23/2023). Chief Complaint: Follow-up (6 mo FU Bronchiectasis former Chris pt.) HPI: Karlie is a 71 y.o. year old [...] colon polyps. Karlie lives with her in [place], [place]. 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 The patient is a non-smoker, lives locally with alcohol. He has moved from [place] and [place]. He thinks bronchiectasis was diagnosed by a industrial gas servicer supervisor in [place], [place]. The patient does not member having [...] breath, has rare cough. She was in [place] between September and December. She developed respiratory infection in December, was treated with antibiotics 1 per PCP in [place], [place]. He was given 10 days of antibiotics and prednisone, then given prednisone and probably Advair Diskus. She feels well now. She denies allergic rhinitis or GE reflux. She eats well, denies weight gain or weight loss. She sleeps well. The rest of her ROS is negative. There is no other change in her medical orsurgical history since her last visit. CT chest 10/03/2019 Mediastinum: Mild prominence of the central pulmonary arteries. ??No mediastinal adenopathy. ??Central airways appear clear. ?? Lungs/pleura: Chronic bronchiectasis within the inferior lingula with volume loss. ??This appears worsened in the interval. ??Volume loss is present within the medial segment of the right middle lobe. ??There are innumerable centrilobular type central airways nodules present throughout the right lung. Similar-appearing centrilobular type nodules are seen throughout the left lung. ??Multifocal peripheral areas of mild consolidation or volume loss within the posterior subpleural dependent aspect of the left lower lobe. Focal mild patchy consolidation posterior left upper lobe adjacent to the uppermost portion of the major fissure. ??Mild bronchiectasis anteroinferior left upper lobe with peripheral mucus plugging. ?? Upper Abdomen: Limited evaluation without acute finding detected. ?? Soft Tissues/Bones: Mild degenerative changes about the spine. ??No axillary adenopathy is appreciated. ? Impression When compared to prior CT scan referenced above, bronchiectasis within the right middle lobe and lingula has worsened. ??There is bronchiectasis in the periphery of the anteroinferior left upper lobe with mucus plugging. ?? Innumerable scattered centrilobular type nodules are present bilaterally in the lungs. ??This suggest a chronic airways mediated infectious or inflammatory process. ??Focal mild area of patchy consolidation posterior left upper lobe. ??Left lower lobe subpleural opacities may represent atelectasis or areas of consolidation. ?? Considering the constellation of findings described above, atypical infection such as LUKAS is considered. ??Fungal infection is considered. ??Clinical correlation is recommended. ??Consider pulmonology consultation. ?? PFT 02/13/2019 The FEV1 is 1.43 L or 61% predicted. The FEV1 to FVC ratio is 61. Postbronchodilator, the FEV1 changed to 1.6 L or 69% predicted. Total lung capacity is 108% predicted and diffusion is 78% predicted. Past Medical History: Diagnosis Date ??? Bronchiectasis 2005 PFT 06/27 with mild obsctruction and not reversible ??? Colon polyp 2006 q 3 years Past Surgical History: Procedure Laterality Date ??? APPENDECTOMY ??? COLONOSCOPY ??? COLONOSCOPY 08/01/11 normal ??? HERNIA REPAIR inguinal Social History Tobacco Use ??? Smoking status: Never Smoker ??? Smokeless tobacco: Never Used Substance Use Topics ??? Alcohol use: Yes Alcohol/week: 1.0 standard drink Types: 1 Glasses of wine per week Comment: Ocas Family History Problem Relation Age of Onset ??? Cancer Mother 71 Breast ??? Diabetes Mother ??? High Blood Pressure Mother ??? Breast Cancer Mother ??? Other Father Respiratory issues ??? High Blood Pressure Sister ??? High Blood Pressure Brother Current Outpatient Medications: ??? albuterol sulfate HFA (PROVENTIL HFA) 108 (90 Base) MCG/ACT inhaler, Inhale 2 puffs into the lungs every 6 hours as needed for Wheezing or Shortness of Breath, Disp: 1 each, Rfl: 5 ??? calcium carbonate (OSCAL) 500 MG TABS tablet, Take 500 mg by mouth daily, Disp: , Rfl: ??? Probiotic Product (PRO-BIOTIC BLEND PO), Take by mouth, Disp: , Rfl: ??? ipratropium-albuterol (DUONEB) 0.5-2.5 (3) MG/3ML SOLN nebulizer solution, Inhale 3 mLs into the lungs every 6 hours as needed for Shortness of Breath, Disp: 360 mL, Rfl: 11 ??? Multiple Vitamin (MULTIVITAMIN PO), Take by mouth., Disp: , Rfl: ??? vitamin B-12 (CYANOCOBALAMIN) 100 MCG tablet, Take 500 mcg by mouth daily., Disp: , Rfl: ??? ibuprofen (ADVIL;MOTRIN) 200 MG tablet, Take 400 mg by mouth nightly., Disp: , Rfl: Patient has no known allergies. Vitals: 02/23/22 1345 BP: 137/74 Site: Left Upper Arm Position: Sitting Cuff Size: Medium Adult Pulse: 75 Resp: 16 Temp: 96.8 ??F (36 ??C) TempSrc: Temporal SpO2: 96% Weight: 129 lb 9.6 oz (58.8 kg) Height: 5' 4 (1.626 m) Review of Systems Constitutional: Negative for appetite change, chills, diaphoresis, fatigue and fever. HENT: Negative for congestion, nosebleeds, postnasal drip, rhinorrhea, sinus pressure, sneezing, sore throat, trouble swallowing and voice change. Eyes: Negative for discharge, redness, itching and visual disturbance. Respiratory: Positive for cough. Negative for apnea, choking, chest tightness, shortness of breath,wheezing and stridor. Cardiovascular: Negative for chest pain, palpitations and leg swelling. Gastrointestinal: Negative for abdominal distention, abdominal pain, blood in stool, constipation, diarrhea, nausea and vomiting. Endocrine: Negative for polyuria. Genitourinary: Negative for decreased urine volume, difficulty urinating, dysuria, enuresis, frequency, hematuria and urgency. Musculoskeletal: Negative for arthralgias, back pain, gait problem, joint swelling and myalgias. Skin: Negative for rash. Allergic/Immunologic: Negative for environmental allergies and immunocompromised state. Neurological: Negative for dizziness, tremors, seizures, weakness, light- headedness and headaches. Hematological: Does not bruise/bleed easily. Psychiatric/Behavioral: Negative for agitation, behavioral problems, confusion, hallucinations and sleep disturbance. All other systems reviewed and are negative. Physical Exam Vitals reviewed. Constitutional: General: She is not in acute distress. Appearance: She is well-developed. She is not ill-appearing, toxic-appearing or diaphoretic. Comments: Pleasant, small built HENT: Head: Normocephalic and atraumatic. Nose: Nose normal. No congestion or rhinorrhea. Mouth/Throat: Mouth: Mucous membranes are moist. Pharynx: Oropharynx is clear. No oropharyngeal exudate or posterior oropharyngeal erythema. Comments: Class III airway Eyes: General: No scleral icterus. Right eye: No discharge. Left eye: No discharge. Conjunctiva/sclera: Conjunctivae normal. Pupils: Pupils are equal, round, and reactive to light. Neck: Thyroid: No thyromegaly. Vascular: No JVD. Trachea: No tracheal deviation. Cardiovascular: Rate and Rhythm: Normal rate and regular rhythm. Heart sounds: Murmur (Soft ejection systolic murmur left lower sternal region) heard. No friction rub. No gallop. Pulmonary: Effort: Pulmonary effort is normal. No respiratory distress. Breath sounds: Normal breath sounds. No stridor. No wheezing or rales (Few scattered crackles). Abdominal: Palpations: Abdomen is soft. Tenderness: There is no abdominal tenderness. There is no guarding or rebound. Musculoskeletal: Right lower leg: No edema. Left lower leg: No edema. Lymphadenopathy: Cervical: No cervical adenopathy. Skin: General: Skin is warm and dry. Coloration: Skin is not jaundiced or pale. Findings: No bruising, erythema, lesion or rash. Neurological: General: No focal deficit present. Mental Status: She is alert and oriented to person, place, and time. Gait: Gait normal. Psychiatric: Mood and Affect: Mood normal. Behavior: Behavior normal. documented in this encounter Plan of Treatment Upcoming Encounters Date Type Department Care Team (Late st Contact Info) Description 04/01/2025 10:00 AM EDT Office Visit [facility] Critical Care and Sleep [address] [place] [id number] Salvador Woodard MD [address] [address] 1 YFU lungs 04/21/2025 9:30 AM EDT Office Visit [facility] [address] [place] [address] Vinicio Calvert MD [address] [place] [address] awv documented as of this encounter Visit Diagnoses Diagnosis Bronchiectasis without complication (HCC)- Primary Bronchiectasis without acute exacerbation Mild intermittent asthma without complication Unspecified asthma documented in this encounter Additional Health Concerns Assessment Noted Time A fall risk assessment has been complete d for the patient 01/20/2022 9:06 AM EDT documented as of this encounter Care Teams Bolt Sorter Relationship Specialty Start Date End Date Vinicio Calvert MD PCP - General Family Medicine 06/03/21 documented as of this encounter
--- OUTSIDE RECORDS SUMMARY | 2024-08-21 07:04 | XMS_ITS | Encounter Summary ---
Author Organization [facility] Address [address] [place] [address] Care Team Providers Care Business Support Associate Name Role Phone Vinicio Calvert MD Primary Care Provider [phone] Reason for Visit * Reason Comments Medicare AWV Encounter Details Date Type Department Care Team (Late st Contact Info) Description 03/16/2023 9:30 AM EDT Office Visit [facility] [address] [place], [place] [id number] Vinicio Calvert MD [address] [place] [address] Medicare annual wellness visit, subsequent (Primary Dx); Screening, lipid Social History Tobacco Use Types Packs/Day Years [...] Sign Reading Time Taken Comments Blood Pressure 138/72 03/16/2023 9:08 AM EDT Pulse 77 03/16/2023 9:08 AM EDT Temperature - - Respiratory Rate - - Oxygen Saturation 96% 03/16/2023 9:08 AM EDT Inhaled Oxygen Concentration - - Weight 59 kg (130 lb) 03/16/2023 9:08 AM EDT Height 162.6 cm (5' 4 ) 03/16/2023 9:08 AM EDT Body Mass Index 22.31 03/16/2023 9:08 AM EDT documented in this encounter Patient Instructions * Patient Instructions* Vinicio Calvert MD - 03/16/2023 9:18 AM EDT Images from the original note were not included. A Healthy Heart: Care Instructions Your Care Instructions Coronary artery disease, also called heart disease, occurs when a substance called plaque builds upin the vessels that supply oxygen-rich blood to your heart muscle. This can narrow the blood vessels and reduce blood flow. A heart attack happens when blood flow is completely blocked. A high-fat diet, smoking, and other factors increase the risk of heart disease. Your doctor has found that you have a chance of having heart disease. You can do lots of things to keep your heart healthy. It may not be easy, but you can change your diet, exercise more, and quit smoking. These steps really work to lower your chance of heart disease. Follow-up care is a stallworth part of your treatment and safety. Be sure to make and go to all appointments, and call your doctor if you are having problems. It's also a good idea to know your test resultsand keep a list of the medicines you take. How can you care for yourself at home? Diet ?? Use less salt when you cook and eat. This helps lower your blood pressure. Taste food before salting. Add only a little salt when you think you need it. With time, your taste buds will adjust to less salt. ?? Eat fewer snack items, fast foods, canned soups, and other high-salt, high- fat, processed foods. ?? Read food labels and try to avoid saturated and trans fats. They increase your risk of heart disease by raising cholesterol levels. ?? Limit the amount of solid fat-butter, margarine, and shortening-you eat. Use olive, peanut, or canola oil when you cook. Bake, broil, and steam foods instead of frying them. ?? Eat a variety of fruit and vegetables every day. Dark green, deep orange, red, or yellow fruits and vegetables are especially good for you. Examples include spinach, carrots, peaches, and berries. ?? Foods high in fiber can reduce your cholesterol and provide important vitamins and minerals. High-fiber foods include whole-grain cereals and breads, oatmeal, beans, brown rice, citrus fruits, andapples. ?? Eat lean proteins. Heart-healthy proteins include seafood, lean meats and poultry, eggs, beans, peas, nuts, seeds, and soy products. ?? Limit drinks and foods with added sugar. These include candy, desserts, and soda pop. Lifestyle changes ?? If your doctor recommends it, get more exercise. Walking is a good choice. Bit by bit, increase the amount you walk every day. Try for at least 30 minutes on most days of the week. You also may want to swim, bike, or do other activities. ?? Do not smoke. If you need help quitting, talk to your doctor about stop- smoking programs and medicines. These can increase your chances of quitting for good. Quitting smoking may be the most important step you can take to protect your heart. It is never too late to quit. ?? Limit alcohol to 2 drinks a day for men and 1 drink a day for women. Too much alcohol can cause health problems. ?? Manage other health problems such as diabetes, high blood pressure, and high cholesterol. If youthink you may have a problem with alcohol or drug use, talk to your doctor. Medicines ?? Take your medicines exactly as prescribed. Call your doctor if you think you are having a problem with your medicine. ?? If your doctor recommends aspirin, take the amount directed each day. Make sure you take aspirinand not another kind of pain reliever, such as acetaminophen (Tylenol). When should you call for help? Call 911 if you have symptoms of a heart attack. These may include: ?? Chest pain or pressure, or a strange feeling in the chest. ?? Sweating. ?? Shortness of breath. ?? Pain, pressure, or a strange feeling in the back, neck, jaw, or upper belly or in one or both shoulders or arms. ?? Lightheadedness or sudden weakness. ?? A fast or irregular heartbeat. After you call 911, the general machine operator may tell you to chew 1 adult-strength or 2 to 4 low-dose aspirin. Wait for an ambulance. Do not try to drive yourself. Watch closely for changes in your health, and be sure to contact your doctor if you have any problems. Where can you learn more? Go to https://www.[employer].net/patientEd and enter F075 to learn more about A Healthy Heart: Care Instructions. Current as of: May 25, 2022?Content Version: 13.7 ?? [employer]. Care instructions adapted under license by [employer]. If you have questions about a medical condition or this instruction, always ask your healthcare professional. [employer] disclaims any warranty or liability for your use of this information. Personalized Preventive Plan for Karlie Love - 03/16/2023 Medicare offers a range of preventive health [...] Summary for your review. Other Preventive Recommendations: A preventive eye exam performed by an customer advisor specialist is recommended every 1-2 years to screen for glaucoma; cataracts, macular degeneration, and other eye disorders. A preventive dental visit is recommended every 6 months. Try to get at least 150 minutes of exercise per week or 10,000 steps per day on a pedometer . Order or download the FREE Exercise & Physical Activity: Your Everyday Guide from [employer]. Call or search [employer] online. You need 1104-3336 mg of calcium and 4652-5118 IU of vitamin D per day. It is possible to meet yourcalcium requirement with diet alone, but a vitamin D supplement is usually necessary to meet this goal. When exposed to the sun, use a sunscreen that protects against both UVA and UVB radiation with an SPF of 30 or greater. Reapply every 2 to 3 hours or after sweating, drying off with a towel, or swimming. Always wear a seat belt when traveling in a car. Always wear a helmet when riding a bicycle or motorcycle. documented in this encounter Progress Notes * Vinicio Calvert MD - 03/16/2023 9:17 AM EDT Medicare Annual Wellness Visit Karlie Love is here for Medicare AWV Assessment & Plan Medicare annual wellness visit, subsequent - Comprehensive Metabolic Panel; Future Screening, lipid - Lipid, Fasting; Future Recommendations for Preventive Services Due: see orders [...] ordered. Positive Risk Factor Screenings with Interventions: Safety: Do you have either shower bars, grab bars, non-slip mats or non-slip surfaces in your shower or bathtub?: (!) No Interventions: See AVS for additional education material See A/P for plan and any pertinent orders Objective Vitals: 03/16/23 0908 BP: 138/72 Pulse: 77 SpO2: 96% Weight: 130 lb (59 kg) Height: 5' 4 (1.626 m) Body mass index is 22.31 kg/m??. General Appearance: alert and oriented to person, place and time, well developed and well- nourished, in no acute distress Skin: warm and dry, no rash or erythema Head: normocephalic and atraumatic Eyes: pupils equal, round, and reactive to light, extraocular eye movements intact, conjunctivae normal ENT: tympanic membrane, external ear and ear canal normal bilaterally, nose without deformity, nasal mucosa and turbinates normal without polyps Neck: supple and non-tender without mass, no thyromegaly or thyroid nodules, no cervical lymphadenopathy Pulmonary/Chest: clear to auscultation bilaterally- no wheezes, rales or rhonchi, normal air movement, no respiratory distress Cardiovascular: normal rate, regular rhythm, normal S1 and S2, no murmurs, rubs, clicks, or gallops, distal pulses intact, no carotid bruits Abdomen: soft, non-tender, non-distended, normal bowel sounds, no masses or organomegaly Extremities: no cyanosis, clubbing or edema Musculoskeletal: normal range of motion, no joint swelling, deformity or tenderness Neurologic: reflexes normal and symmetric, no cranial nerve deficit, gait, coordination and speech normal No Known Allergies Prior to Visit Medications Medication Sig Taking? Authorizing Provider cetirizine (ZYRTEC) 10 MG tablet Take 1 tablet by mouth daily Yes Historical Provider, albuterol sulfate HFA (PROVENTIL HFA) 108 (90 Base) MCG/ACT inhaler Inhale 2 puffs into the lungs every 6 hours as needed for Wheezing or Shortness of Breath Yes Kenji Bolden MD Probiotic Product (PRO-BIOTIC BLEND PO) Take by mouth Yes Historical Provider, Multiple Vitamin (MULTIVITAMIN PO) Take by mouth. Yes Historical Provider, vitamin B-12 (CYANOCOBALAMIN) 100 MCG tablet Take 5 tablets by mouth daily Yes Historical Provider, ibuprofen (ADVIL;MOTRIN) 200 MG tablet Take 2 tablets by mouth nightly Yes Historical Provider, montelukast (SINGULAIR) 10 MG tablet Take 1 tablet by mouth daily Patient not taking: Reported on 03/16/2023 Historical Provider, ipratropium-albuterol (DUONEB) 0.5-2.5 (3) MG/3ML SOLN nebulizer solution Inhale 3 mLs into the lungs every 6 hours as needed for Shortness of Breath Patient not taking: Reported on 03/16/2023 Dilia Perez MD [facility] (Including outside providers/suppliers regularly involved in providing care): Patient Care Team: Vinicio Calvert MD as PCP - General (Family Medicine) Lyle Draper (Inactive) as PCP - OBGYN (Obstetrics & Gynecology) Vinicio Calvert MD as PCP - Empaneled Provider Reviewed and updated this visit: Tobacco Allergies Meds Problems Med Hx Surg Hx Soc Hx Fam Hx documented in this encounter Plan of Treatment Upcoming Encounters Date Type Department Care Team (Late st Contact Info) Description 04/01/2025 10:00 AM EDT Office Visit [facility] Pulmonary Critical Care and Sleep [facility] [address] [place] [id number] Salvador Woodard MD [address] [facility] [address] [place] [id number] YFU lungs 04/21/2025 9:30 AM EDT Office Visit [facility] [address] [facility] [place], [place] [phone] Vinicio Calvert MD [address] [place], [place] [phone] awv documented as of this encounter Results * (ABNORMAL) Lipid, Fasting (03/16/2023 9:54 AM EDT) Cholesterol, Fasting 283(H) 0 - 199 mg/dL 03/16/2023 4:54 PM EDT [facility] Triglyceride, Fasting 165(H) 0 - 150 mg/dL 03/16/2023 4:54 PM EDT [facility] HDL 66(H) 40 - 60 mg/dL 03/16/2023 4:54 PM EDT [facility] LDL Calculated 184(H) <100 mg/dL 03/16/2023 4:54 PM EDT [facility] VLDL Cholesterol Calculated 33 Not Established mg/dL 03/16/2023 4:54 PM EDT [facility] BLOOD SPECIMEN / Unknown 03/16/2023 9:54 AM EDT 03/16/2023 3:19 PM EDT Vinicio Calvert MD CHEMISTRY ORDERABLES [facility] [address] [phone] * Comprehensive Metabolic Panel (03/16/2023 9:54 AM EDT) Sodium 139 136 - 145 mmol/L 03/16/2023 4:54 PM EDT [facility] Potassium 4.3 3.5 - 5.1 mmol/L 03/16/2023 4:54 PM T [facility] Chloride 101 99 - 110 mmol/L 03/16/2023 4:54 PM T [facility] CO2 28 21 - 32 mmol/L 03/16/2023 4:54 PM T [facility] Anion Gap 10 3 - 16 03/16/2023 4:54 PM EDT [facility] Glucose 90 70 - 99 mg/dL 03/16/2023 4:54 PM EDT [facility] BUN 10 7 - 20 mg/dL 03/16/2023 4:54 PM T [facility] Creatinine 0.8 0.6 - 1.2 mg/dL 03/16/2023 4:54 PM [facility] Est, Rene Filt Rate >60 >60 03/16/2023 4:54 PM [facility] Comment: Pediatric calculator link https://www.kidney.org/professionals/kdoqi/gfr_calculatorped Effective [...] 8.3 - 10.6 mg/dL 03/16/2023 4:54 PM [facility] Total Protein 6.8 6.4 - 8.2 g/dL 03/16/2023 4:54 PM [facility] Albumin 4.6 3.4 - 5.0 g/dL 03/16/2023 4:54 PM [facility] Albumin/Globulin Ratio 2.1 1.1 - 2.2 03/16/2023 4:54 PM [facility] Total Bilirubin 0.5 0.0 - 1.0 mg/dL 03/16/2023 4:54 PM [facility] Alkaline Phosphatase 92 40 - 129 U/L 03/16/2023 4:54 PM [facility] ALT 29 10 - 40 U/L 03/16/2023 4:54 PM [facility] AST 21 15 - 37 U/L 03/16/2023 4:54 PM [facility] BLOOD SPECIMEN / Unknown 03/16/2023 9:54 AM EDT 03/16/2023 3:19 PM EDT Vinicio Calvert MD CHEMISTRY ORDERABLES [facility] [address] [facility] [phone] documented in this encounter Visit Diagnoses Diagnosis Medicare annual wellness visit, subsequent- Primary Routine general medical examination at a health care facility Screening, lipid Screening for lipoid disorders documented in this encounter Additional Health Concerns Assessment Noted Time A fall risk assessment has been complete d for the patient 03/16/2023 9:11 AM EDT documented as of this encounter Care Teams Business Support Associate Relationship Specialty Start Date End Date Vinicio Calvert MD PCP - General Family Medicine 06/03/21 documented as of this encounter
--- OUTSIDE RECORDS SUMMARY | 2024-08-21 07:04 | XMS_ITS | Encounter Summary ---
Author Organization [facility] Address [address] [place] [address] Care Team Providers Care Pipe Fitter Gas Pipe Name Role Phone Vinicio Calvert MD Primary Care Provider [phone] Reason for Referral * Eval and Treat (Routine) - Open Specialty Diagnoses / Procedures Referred By Jean Claude hallman Referred To Contact Gastroenterology Diagnoses Screen for colon cancer Vinicio Calvert MD [address] [place] [address] Pablo Jenkins MD [address], [address] [place] [address] Referral ID Status Reason Start Date Expiration Date V isits Requested Visits Authorized [id number] Open Specialty Services Required 05/22/2024 11/18/2024 1 1 Scheduling Instructions [facility] Question Answer Reason For External Referral? Clin[facility] Integrated Network ([facility]A) Referral Reason Screening Colonoscopy Comments The patient can be scheduled with any member of the group, including the provider with the first available appointments. Reason for Visit * Reason Comments Procedure Skin tag removal Encounter Details Date Type Department Care Team (Latest Contact Info) Description 05/22/2024 9:30 AM EDT Procedure visit [facility] [address] [place], [place] [phone] O'Rosalba, Vinicio Brown MD [address] [place] [address] Skin tags, multiple acquired (Primary Dx); Screen for colon cancer; Pain, unspecified Social History Tobacco Use Types Packs/Day Years [...] place to sleep or slept in a intermediate (including now)? No 04/15/2024 Food Insecurity Answer [...] Pulse 75 05/22/2024 9:30 AM EDT Temperature - - Respiratory Rate - - Oxygen Saturation 97% 05/22/2024 9:30 AM EDT Inhaled Oxygen Concentration - - Weight 57.6 kg (127 lb) 05/22/2024 9:30 AM EDT Height 162.6 cm (5' 4 ) 05/22/2024 9:30 AM EDT Body Mass Index 21.8 05/22/2024 9:30 AM EDT documented in this encounter Progress Notes * Vinicio Calvert MD - 05/22/2024 3:18 PM EDT Skin Tag Removal Procedure Note Pre-operative Diagnosis: Classic skin tags (acrochordon) Post-operative Diagnosis: Classic skin tags (acrochordon) Locations:left, right antecubital area Indications: two classic skin tags that are painful and getting caught on items Anesthesia: Lidocaine 1% with epinephrine without added sodium bicarbonate Procedure Details The risks (including bleeding and infection) and benefits of the procedure and Verbal informed consent obtained. Using sterile iris scissors, multiple skin tags were snipped off at their bases after cleansing with Betadine. Bleeding was controlled by pressure. Findings: Pathognomonic benign lesions not sent for pathological exam. Condition: Stable Complications: none. Plan: 1. Instructed to keep the wounds dry and covered for 24-48h and clean thereafter. 2. Warning signs of infection were reviewed. 3. Recommended that the patient use OTC acetaminophen as needed for pain. 4. Return as needed. documented in this encounter Plan of Treatment Upcoming Encounters Date Type Department Care Team (Late st Contact Info) Description 04/01/2025 10:00 AM EDT Office Visit [facility] Pulmonary Critical Care and Sleep [address] [place], [place] [id number] Salvador Woodard MD [address] [facility] [address] [place] [phone] [id number] YFU lungs 04/21/2025 9:30 AM EDT Office Visit [facility] [address] [place], [place] [phone] Vinicio Calvert MD [address] [facility] [place] [address] awv Scheduled Referrals Name Type Priority Associated Diagnoses Orde r Schedule SMILEY - Pablo Jenkins MD, Gastroenterology [facility] Outpatient Referral Routine Screen for colon cancer Ordered: 05/22/2024 documented as of this encounter Procedures Procedure Name Priority Date/Time Associated Diagnosis Comments REMOVAL OF SKIN TAGS Routine 05/22/2024 3:19 PM E DT Skin tags, multiple acquired Pain, unspecified documented in this encounter Visit Diagnoses Diagnosis Skin tags, multiple acquired- Primary Screen for colon cancer Special screening for malignant neoplasms, colon Pain, unspecified documented in this encounter Additional Health Concerns Assessment Noted Time A fall risk assessment has been complete d for the patient 04/15/2024 9:00 AM EDT documented as of this encounter Care Teams Pipe Fitter Gas Pipe Relationship Specialty Start Date End Date Vinicio Calvert MD PCP - General Family Medicine 06/03/21 documented as of this encounter
--- OUTSIDE RECORDS SUMMARY | 2024-08-21 07:04 | XMS_ITS | Encounter Summary ---
Author Organization [facility] Address [address] [place] [address] Care Team Providers Care Semiconductor Development Technician Name Role Phone Pineda Cheema MD Primary Care Provider [phone] Reason for Visit * Auth/Cert - Closed Specialty Diagnoses / Procedures Referred By Jean Claude hallman Referred To Contact Procedures [facility] [address] [place] [address] Phone: tel: fax: Referral ID Status Reason Start Date Expiration Date Visits Re quested Visits Authorized Closed Encounter Details Date Type Department Care Team (Latest Contact Info) Description 01/09/2012 12:13 PM EDT - 01/09/2012 11:59 PM EDT Hospital Encounter [facility] [address] [place] [address] Nonspecific abnormal electrocardiogram (ECG) (EKG) Discharge Disposition: Home or Self Care Social [...] Pulse 64 01/09/2012 12:47 PM EDT Temperature - - Respiratory Rate - - Oxygen Saturation - - Inhaled Oxygen Concentration - - Weight 57.2 kg (126 lb) 01/09/2012 12:47 PM EDT Height 162.6 cm (5' 4 ) 01/09/2012 12:47 PM EDT Body Mass Index 21.63 01/09/2012 12:47 PM EDT documented in this encounter Medications at Time of Discharge aspirin 325 mg PO tablet Take 325 mg by mouth daily. ERGOCALCIFEROL, VITAMIN D2, (VITAMIN D PO) Take by mouth daily. MULTIVITAMIN PO Take by mouth daily. [place]-3 Fatty Acids-Vitamin E (FISH OIL) 1,000 mg PO Cap Take by mouth daily. documented as of this encounter Plan of Treatment Not on file documented as of this encounter Procedures Procedure Name Priority Date/Time Associated Diagnosis Comments EXERCISE STRESS ECHO PRN CONTR/BUBBLE/3D Routine 01/09/2012 1:16 PM EDT Nonspecific abnormal electrocardiogram (ECG) (EKG) documented in this encounter Results * EXERCISE STRESS ECHO PRN CONTR/BUBBLE (01/09/2012 1:16 PM EDT) Anatomical Region Laterality Modality Cardiac Ultrasou nd 01/09/2012 12:3 2 PM EDT Narrative 01/09/2012 1:32 PM EDT [facility] Medical Records Department [address] [place] [address] Office [phone] Fax Stress Echocardiography Patient: ?Kate, Karlie Gender: ? F MR #: ? [id number] Age: ?61 Account: ?[id number] : ?1950 Study Date: 01/09/2012 Room: BP: ? 144 / 84 Referring Physician: Interpreting Physician: Denys Vanegas MD ATTENDING ?? Pineda Cheema ?Denys Vanegas MD PERFORMING ??Denys Vanegas MD CITRIX ARCHITECT ?Elizabeth Steve Procedure:EXERCISE ?? Order:EXERCISE ?? Accession STRESS ECHO PRN ?STRESS ECHO PRN ??Number:[id number] CONTR/BUBBLE ? CONTR/BUBBLE Facility: ??[facility] Indications: ?? Abnormal EKG 794.31. ECG. ? Abnormal. Study data: ?? Study status: ??Routine. ??Consent: ??The risks, benefits, and alternatives to the procedure were explained to the patient and informed consent was obtained. Procedure: ??Initial setup. A baseline ECG was recorded. Intravenous access was obtained. Surface ECG leads and manual cuff blood pressure measurements were monitored. Treadmill exercise testing was performed using the Paco protocol. The patient exercised for 9 min 30 sec, to protocol stage 4, to a maximal work rate of 13.5mets. Exercise was terminated due to achievement of target heart rate. Transthoracic stress echocardiography. Images were captured at baseline, peak exercise, and recovery. ??Study completion: ??There were no complications. ?Paco protocol. Stress echocardiography. ??Height: ??Height: 64in. Weight: ??Weight: 126lb. ??Body mass index: ??BMI: 21.7kg/m^2. Body surface area: ?BSA: 1.61m^2. ??Blood pressure: 144/84. ??Patient status: ??Outpatient. Study Conclusions - Stress ECG conclusions: The stress ECG was negative for ??ischemia. Impressions: ??Negative BRADLEY for evidence of inducible ischemia by ECG or echocardiography Good exercise capacity for age No chest pain with exercise Cardiac Anatomy Baseline ECG: ??Normal. Stress protocol: + +---+---------+--------+ Stage ? HR BP (mmHg) Symptoms + +---+---------+--------+ Baseline ? 64 144/84 ?? None ? + +---+---------+--------+ Stage 1 ? 87 152/74 ?? -------- + +---+---------+--------+ Stage 2 ? 114 164/70 ?? -------- + +---+---------+--------+ Stage 3 ? 154 164/74 ?? -------- + +---+---------+--------+ Stage 4 ? 159 --------- -------- + +---+---------+--------+ Recovery; 2 min 98 168/80 ?? -------- + +---+---------+--------+ Stress results: ?? Maximal heart rate during stress was 159bpm. The maximal predicted heart rate was 143bpm.The target heart rate was achieved. Stress ECG: ?? The stress ECG was negative for ischemia. Baseline: LV size was normal. LV global systolic function was normal. The estimated LV ejection fraction was 55% to 60%. Normal wall motion; no LV regional wall motion abnormalities. Peak stress: LV size was reduced appropriately. LV global systolic function was normal. The estimated LV ejection fraction was >65%. Normal wall motion; no LV regional wall motion abnormalities. Reviewed and confirmed by Denys Vanegas MD [id number] Procedure Note Denys Vanegas MD - 01/09/2012 [facility] Medical Records Department [address] [place] [address] Office [phone] Fax Stress Echocardiography Patient: Karlie Love Gender: F MR #: [id number] Age: 61 Account: [id number] : 1950 Study Date: 01/09/2012 Room: BP: 144 / 84 Referring Physician: Interpreting Physician: Denys Vanegas MD ATTENDING Pineda Cheema ORDERING Denys Vanegas MD PERFORMING Denys Vanegas MD CITRIX ARCHITECT Elizabeth Wilson Procedure:EXERCISE Order:EXERCISE Accession STRESS ECHO PRN STRESS ECHO PRN Number:[id number] CONTR/BUBBLE CONTR/BUBBLE Facility: [facility] Indications: Abnormal EKG 794.31. ECG. Abnormal. Study data: Study status: Routine. Consent: The risks, benefits, and alternatives to the procedure were explained to the patient and informed consent was obtained. Procedure: Initial setup. A baseline ECG was recorded. Intravenous access was obtained. Surface ECG leads and manual cuff blood pressure measurements were monitored. Treadmill exercise testing was performed using the Paco protocol. The patient exercised for 9 min 30 sec, to protocol stage 4, to a maximal work rate of 13.5mets. Exercise was terminated due to achievement of target heart rate. Transthoracic stress echocardiography. Images were captured at baseline, peak exercise, and recovery. Study completion: There were no complications. Paco protocol. Stress echocardiography. Height: Height: 64in. Weight: Weight: 126lb. Body mass index: BMI: 21.7kg/m^2. Body surface area: BSA: 1.61m^2. Blood pressure: 144/84. Patient status: Outpatient. Study Conclusions - Stress ECG conclusions: The stress ECG was negative for ischemia. Impressions: Negative BRADLEY for evidence of inducible ischemia by ECG or echocardiography Good exercise capacity for age No chest pain with exercise Cardiac Anatomy Baseline ECG: Normal. Stress protocol: + +---+---------+--------+ Stage HR BP (mmHg) Symptoms + +---+---------+--------+ Baseline 64 144/84 None + +---+---------+--------+ Stage 1 87 152/74 -------- + +---+---------+--------+ Stage 2 114 164/70 -------- + +---+---------+--------+ Stage 3 154 164/74 -------- + +---+---------+--------+ Stage 4 159 --------- -------- + +---+---------+--------+ Recovery; 2 min 98 168/80 -------- + +---+---------+--------+ Stress results: Maximal heart rate during stress was 159bpm. The maximal predicted heart rate was 143bpm.The target heart rate was achieved. Stress ECG: The stress ECG was negative for ischemia. Baseline: LV size was normal. LV global systolic function was normal. The estimated LV ejection fraction was 55% to 60%. Normal wall motion; no LV regional wall motion abnormalities. Peak stress: LV size was reduced appropriately. LV global systolic function was normal. The estimated LV ejection fraction was >65%. Normal wall motion; no LV regional wall motion abnormalities. Reviewed and confirmed by Denys Vanegas MD [id number] Denys Vanegas MD CARDNT STRESS ORDERABLES Edite d Result - Final documented in this encounter Visit Diagnoses Diagnosis Nonspecific abnormal electrocardiogram (ECG) (EKG) documented in this encounter Care Teams Semiconductor Development Technician Relationship Specialty Start Date End Date Pineda Cheema MD [address] [place], [place] [id number] PCP - General Family Medicine 07/26/11 10/15/13 documented as of this encounter
--- OUTSIDE RECORDS SUMMARY | 2024-08-21 07:04 | XMS_ITS | Encounter Summary ---
Author Organization [facility] Address [address] [place] [address] Care Team Providers Care Phone Operator Name Role Phone None, None Primary Care Provider Unavailabl e Encounter Details Date Type Department Care Team (Latest Contact Info) Description 07/24/2018 9:19 AM EST - 07/24/2018 11:59 PM [facility] Hospital Encounter [facility], [address] [id number] Lyle Draper MD [address] [place] [address] Encounter for screening mammogram for malignant neoplasm [...] daily. MULTIVITAMIN PO Take by mouth daily. [place]-3 Fatty Acids-Vitamin E (FISH OIL) 1,000 mg PO Cap Take by mouth daily. documented as of this encounter Plan of Treatment Not on file documented as of this encounter Procedures Procedure Name Priority Date/Time Associated Diagnosis Comments MAMM-SCREENING DIRECT DIGITAL Routine 07/24/2018 9:48 AM EST Encounter for screening mammogram for malignant neoplasm of breast documented in this encounter Results * MAMM-SCREENING DIRECT DIGITAL (07/24/2018 9:48 AM EST) Anatomical Region Laterality Modality Bilateral Mammography 07/24/2018 3:46 PM EST Impressions 07/24/2018 3:48 PM EST IMPRESSION: No direct or indirect evidence of malignancy is seen on the current study. BI-RADS CATEGORY: 2 - BENIGN RECOMMENDED FOLLOW-UP: Bilateral Follow up Mamm in 1 Yr. This study was performed and interpreted using full-field digital mammographic and computer-aided detection. The [employer] recommends annual screening mammography for women age 40 and above. Please note that mammography is not 100% accurate in diagnosing breast cancer. A routine breast examination is recommended to correlate with mammographic findings. Signed By: Vinicio Gould MD 07/24/2018 3:48 PM EST MAMM-SCREENING DIRECT DIGITAL REASON FOR EXAMINATION: Screening COMPARISON: Prior studies most recent 2016 LIMITATIONS OF EXAM: No significant limitations. DENSITY: The breasts are heterogeneously dense, which may obscure small masses. FINDINGS: Computer aided detection assisted in the interpretation of the mammogram. There are some benign-appearing calcifications both breasts No suspicious mass, architectural distortion or groupings of suspicious calcifications are seen. Procedure Note Vinicio Gould MD - 07/24/2018 MAMM-SCREENING DIRECT DIGITAL REASON FOR EXAMINATION: Screening COMPARISON: Prior studies recent 2016 LIMITATIONS OF EXAM: No significant limitations. DENSITY: The breasts are heterogeneously dense, which may obscure smallmasses. FINDINGS: Computer aided detection assisted in the interpretation of the mammogram.There are some benign-appearing calcifications both breasts No suspiciousmass, architectural distortion or groupings of suspicious calcificationsare seen. IMPRESSION: No direct or indirect evidence of malignancy is seen on the currentstudy. BI-RADS CATEGORY: 2 - BENIGN RECOMMENDED FOLLOW-UP: Bilateral Follow up Mamm in 1 Yr. This study was performed and interpreted using full-field digitalmammographic and computer-aided detection. The [employer] recommends annual screening mammographyfor women age 40 and above. Please note that mammography is not 100% accurate in diagnosing breastcancer. A routine breast examination is recommended to correlate withmammographic findings. Signed By: Vinicio Gould MD Lyle Draper MD IMG MAMMO ORDERABLES Anastasia l Result documented in this encounter Visit Diagnoses Diagnosis Encounter for screening mammogram for malignant neoplasm of breast Other screening mammogram documented in this encounter Care Teams Phone Operator Relationship Specialty Start Date End Date None, None [address] [place] [address] PCP - General 07/03/18 documented as of this encounter
--- OUTSIDE RECORDS SUMMARY | 2024-08-21 07:04 | XMS_ITS | Encounter Summary ---
Author Organization [facility] Address [address] [place] [address] Care Team Providers Care Level Glass Forming Machine Operator Name Role Phone Vinicio Calvert MD Primary Care Provider [phone] Encounter Details Date Type Department Care Team (Late st Contact Info) Description 04/17/2024 Orders Only [facility] Medicine [address] [place] [address] Vinicio Calvert MD [address] [place] [address] Medicare annual wellness visit, subsequent; Screening, lipid Social History Tobacco Use Types [...] place to sleep or slept in a usp (including now)? No 04/15/2024 Food Insecurity Answer [...] Description 04/01/2025 10:00 AM EDT Office Visit [facility] Pulmonary Critical Care and Sleep [address] [place], [place] [id number] Salvador Woodard MD [address] [place] [address] 1 YFU lungs 04/21/2025 9:30 AM EDT Office Visit [facility] [address] [place] [address] Vinicio Calvert MD [address] [place] [address] awv documented as of this encounter Procedures Procedure Name Priority Date/Time Associated Diagnosis Comments LIPID, FASTING Routine 04/17/2024 10:03 AM EDT Screening, lipid COMPREHENSIVE METABOLIC PANEL Routine 04/17/2024 10:03 AM EDT Medicare annual wellness visit, subsequent documented in this encounter Results * (ABNORMAL) Lipid, Fasting (04/17/2024 10:03 AM EDT) Cholesterol, Fasting 247(H) 0 - 199 mg/dL 04/17/2024 4:38 PM EDT [facility] Triglyceride, Fasting 109 0 - 150 mg/dL 04/17/2024 4:38 PM EDT [facility] HDL 82(H) 40 - 60 mg/dL 04/17/2024 4:38 PM EDT [facility] LDL Cholesterol 143(H) <100 mg/dL 4 4:38 PM EDT [facility] VLDL Cholesterol Calculated 22 Not Established mg/dL 04/17/2024 4:38 PM EDT [facility] Blood BLOOD SPECIMEN / Unknown 04/17/2024 10:03 AM EDT 04/17/2024 4:06 PM EDT Vinicio Calvert MD CHEMISTRY ORDERABLES [facility] [address] [facility] [place] [id number] [phone] * Comprehensive Metabolic Panel (04/17/2024 10:03 AM EDT) Sodium 141 136 - 145 mmol/L 04/17/2024 4:38 PM [facility] Potassium 4.1 3.5 - 5.1 mmol/L 04/17/2024 4:38 PM [facility] Chloride 102 99 - 110 mmol/L 04/17/2024 4:38 PM [facility] CO2 27 21 - 32 mmol/L 04/17/2024 4:38 PM [facility] Anion Gap 12 3 - 16 04/17/2024 4:38 PM [facility] Glucose 85 70 - 99 mg/dL 04/17/2024 4:38 PM [facility] BUN 13 7 - 20 mg/dL 04/17/2024 4:38 PM [facility] Creatinine 0.7 0.6 - 1.2 mg/dL 04/17/2024 4:38 PM [facility] Est, Glom Filt Rate >90 >60 04/17/2024 4:38 PM [facility] Comment: Pediatric calculator link https://www.kidney.org/professionals/kdoqi/gfr_calculatorped Effective [...] secretion. Calcium 9.4 8.3 - 10.6 mg/dL 04/17/2024 4:38 PM [facility] Total Protein 6.9 6.4 - 8.2 g/dL 04/17/2024 4:38 PM [facility] Albumin 4.4 3.4 - 5.0 g/dL 04/17/2024 4:38 PM EDT [facility] Albumin/Globulin Ratio 1.8 1.1 - 2.2 04/17/2024 4:38 PM EDT [facility] Total Bilirubin 0.6 0.0 - 1.0 mg/dL 04/17/2024 4:38 PM EDT [facility] Alkaline Phosphatase 83 40 - 129 U/L 04/17/2024 4:38 PM EDT [facility] ALT 19 10 - 40 U/L 04/17/2024 4:38 PM EDT [facility] AST 17 15 - 37 U/L 04/17/2024 4:38 PM EDT [facility] Blood BLOOD SPECIMEN / Unknown 04/17/2024 10:03 AM EDT 04/17/2024 4:06 PM EDT Vinicio Calvert MD CHEMISTRY ORDERABLES [facility] [address] [phone] documented in this encounter Visit Diagnoses Diagnosis Medicare annual wellness visit, subsequent Routine general medical examination at a health care facility Screening, lipid Screening for lipoid disorders documented in this encounter Additional Health Concerns Assessment Noted Time A fall risk assessment has been complete d for the patient 04/15/2024 9:00 AM EDT documented as of this encounter Care Teams Level Glass Forming Machine Operator Relationship Specialty Start Date End Date Vinicio Calvert MD PCP - General Family Medicine 06/03/21 documented as of this encounter
--- OUTSIDE RECORDS SUMMARY | 2024-08-21 07:04 | XMS_ITS | Encounter Summary ---
Author Organization The Address [address] [place] [address] Care Team Providers Care Sack Department Supervisor Name Role Phone Stewart Tejeda MD Primary Care Provider [phone] Encounter Details Date Type Department Care Team (Latest Contact Info) Description 07/04/2017 1:55 PM EDT - 07/04/2017 11:59 PM EDT Hospital Encounter [facility] [address] [place] [phone] Lyle Draper MD [address] [place], [place] [phone] Visit for screening mammogram Discharge Disposition: Home [...] daily. MULTIVITAMIN PO Take by mouth daily. [place]-3 Fatty Acids-Vitamin E (FISH OIL) 1,000 mg PO Cap Take by mouth daily. documented as of this encounter Plan of Treatment Not on file documented as of this encounter Procedures Procedure Name Priority Date/Time Associated Diagnosis Comments MAMM-SCREENING DIRECT DIGITAL Routine 07/04/2017 2:27 PM EDT Visit for screening mammogram documented in this encounter Results * MAMM-SCREENING DIRECT DIGITAL (07/04/2017 2:27 PM EDT) Anatomical Region Laterality Modality Bilateral Mammography Impressions 07/05/2017 10:11 AM EDT NEGATIVE. ?? NORMAL INTERVAL FOLLOW-UP. BI-RADS: 1. RECOMMEND ROUTINE SCREENING MAMMOGRAPHY. THE CASE WAS REVIEWED WITH COMPUTER-AIDED DETECTION. /dw Narrative 07/05/2017 10:11 AM EDT 07/04/2017 SCREENING MAMMOGRAPHY: Compared to 2015 and priors. The breasts are extremely dense, which lowers the sensitivity of mammography. No direct or indirect signs of malignancy. No change is noted. The [employer] and the [employer] recommend annual screening mammography for women age forty and above. us Lyle Draper MD IMG MAMMO ORDERABLES Anastasia l Result documented in this encounter Visit Diagnoses Diagnosis Visit for screening mammogram Other screening mammogram documented in this encounter Care Teams Sack Department Supervisor Relationship Specialty Start Date End Date Stewart Tejeda MD [address] [facility] [place] [address] PCP - General Family Medicine 10/16/13 07/02/18 documented as of this encounter
--- OUTSIDE RECORDS SUMMARY | 2024-08-21 07:04 | XMS_ITS | Encounter Summary ---
Author Organization [facility] Address [address] [place] [address] Care Team Providers Care Ornament Stitcher Name Role Phone Vinicio Calvert MD Primary Care Provider [phone] Reason for Referral * Eval and Treat (Routine) - Closed Specialty Diagnoses / Procedures Referred By Contsheila t Referred To Contact Obstetrics & Gynecology / Obstetrics and Gynecology Diagnoses Medicare annual wellness visit, subsequent Vinicio Calvert MD [address] [place] [address] Payal Edouard, DO [address] [facility] [address] [place] [address] Referral ID Status Reason Start Date Expiration Date V isits Requested Visits Authorized [id number] Closed Specialty Services Required 04/17/2024 04/17/2025 1 1 Scheduling Instructions [facility] Obstetrics and Gynecology Comments The patient can be scheduled with any member of the group, including the provider with the first available appointments. Reason for Visit * Reason Comments Medicare AWV Encounter Details Date Type Department Care Team (Latest Contact Info) Description 04/17/2024 9:30 AM EDT Office Visit [facility] [address] [place] [address] O'Rosalba, Vinicio Brown MD [address] [place] [address] Medicare annual wellness visit, subsequent (Primary Dx); Bronchiectasis without complication (HCC); Primary osteoarthritis of right knee; Screening, lipid Social History Tobacco Use Types [...] place to sleep or slept in a long term (including now)? No 04/15/2024 Food Insecurity Answer [...] Sign Reading Time Taken Comments Blood Pressure 130/70 04/17/2024 9:21 AM EDT Pulse 71 04/17/2024 9:21 AM EDT Temperature - - Respiratory Rate - - Oxygen Saturation 97% 04/17/2024 9:21 AM EDT Inhaled Oxygen Concentration - - Weight 57.2 kg (126 lb) 04/17/2024 9:21 AM EDT Height 162.6 cm (5' 4 ) 04/17/2024 9:21 AM EDT Body Mass Index 21.63 04/17/2024 9:21 AM EDT documented in this encounter Patient Instructions * Patient Instructions* OVinicio Lutz MD - 04/17/2024 9:35 AM EDT Images from the original note were not included. A Healthy Heart: Care Instructions Overview Coronary artery disease, also called heart disease, [...] have a chance of having heart disease. A heart- healthy lifestyle canhelp keep your heart healthy and prevent heart disease. This lifestyle includes eating healthy, being active, staying at a weight that's healthy for you, and not smoking or using tobacco. It also includes taking medicines as directed, managing other health conditions, and trying to get a healthy amount of sleep. Follow-up care is a stallworth part of [...] levels. ?? Limit the amount of solid fat--butter, margarine, and shortening--you eat. Use olive, peanut, orcanola oil when you cook. Bake, broil, and [...] These include candy, desserts, and soda pop. Heart-healthy lifestyle ?? If your doctor recommends it, get more exercise. For many people, walking is a good choice. Or you may want to swim, bike, or do other activities. Bit by bit, increase the time you're active everyday. Try for at least 30 minutes on most days of the week. ?? Try to quit or cut back on using tobacco and other nicotine products. This includes smoking and vaping. If you need help quitting, talk to your doctor about stop-smoking programs and medicines. These can increase your chances of quitting for good. Quitting is one of the most important things youcan do to protect your heart. It is never too late to quit. Try to avoid secondhand smoke too. ?? Stay at a weight that's healthy for you. Talk to your doctor if you need help losing weight. ?? Try to get 7 to 9 hours of sleep each night. ?? Limit alcohol to 2 drinks a [...] irregular heartbeat. After you call 911, the car retarder operator may tell you to chew 1 adult-strength or 2 to 4 low-dose aspirin. Wait for an ambulance. Do not try to drive yourself. Watch closely for changes in your health, and be sure to contact your doctor if you have any problems. Where can you learn more? Go to https://www.[employer].net/patientEd and enter F075 to learn more about A Healthy Heart: Care Instructions. Current as of: March 11, 2023 Content Version: 14.1 ?? [employer]. Care instructions adapted under license by [employer]. If you have questions about a medical condition or this instruction, always ask your healthcare professional. [employer] disclaims any warranty or liability for your use of this information. Personalized Preventive Plan for Karlie Love - 04/17/2024 Medicare offers a range of preventive health [...] A preventive eye exam performed by an eyeglass lens generator is recommended every 1-2 years to screen for glaucoma; cataracts, macular degeneration, and other eye disorders. A preventive dental visit is recommended every 6 months. Try to get at least 150 minutes of exercise per week or 10,000 steps per day on a pedometer . Order or download the FREE Exercise & Physical Activity: Your Everyday Guide from [employer]. Call or search [employer] online. You need 9011-5784 mg of calcium and 5240-8471 IU of vitamin D per day. It [...] Progress Notes * Vinicio Calvert MD - 04/17/2024 9:35 AM EDT Medicare Annual Wellness Visit Karlie Love is here for Medicare AWV Assessment & Plan Medicare annual wellness visit, subsequent - Rachel - Payal Edouard, , Obstetrics, [place] - Comprehensive Metabolic Panel; Future Bronchiectasis without complication (HCC) Primary osteoarthritis of right knee Screening, lipid - Lipid, Fasting; Future Recommendations for Preventive Services Due: see orders and patient instructions/AVS. Recommended screening schedule for the next 5-10 years is provided to the patient in written form: see Patient Instructions/AVS. No follow-ups on file. Subjective The following acute and/or chronic problems were also addressed today: Doing well, does have arthritis of right knee and follows with pulmonary for bronchiectasis. Stable Patient's complete Health Risk Assessment and screening values have been reviewed and are found in Flowsheets. The following problems were reviewed today and where indicated follow up appointments were made and/or referrals ordered. No Positive Risk Factors identified today. Objective Vitals: 04/17/24 0921 BP: 130/70 Pulse: 71 SpO2: 97% Weight: 57.2 kg (126 lb) Height: 1.626 m (5' 4 ) Body mass index is 21.63 kg/m??. General Appearance: alert and oriented to [...] Visit Medications Medication Sig Taking? Authorizing Provider fluticasone (FLONASE) 50 MCG/ACT nasal spray USE 1 SPRAY(S) IN EACH NOSTRIL ONCE DAILY Yes Provider, MD Angelia albuterol sulfate HFA (PROVENTIL HFA) 108 (90 Base) MCG/ACT inhaler Inhale 2 puffs into the lungs every 6 hours as needed for Wheezing or Shortness of Breath Yes Kenji Bolden MD Probiotic Product (PRO-BIOTIC BLEND PO) Take by mouth Yes ProviderAngelia MD vitamin B-12 (CYANOCOBALAMIN) 100 MCG tablet Take 5 tablets by mouth daily Yes ProviderAngelia MD ibuprofen (ADVIL;MOTRIN) 200 MG tablet Take 2 tablets by mouth nightly Yes Provider, MD Angelia CareTeam (Including outside providers/suppliers regularly involved in providing care): Patient Care Team: Vinicio Calvert MD as PCP - General (Family Medicine) Lyle Draper MD as PCP - OBGYN (Obstetrics & Gynecology) Vinicio Calvert MD as PCP - Empaneled Provider Reviewed and updated this visit: Tobacco Allergies Meds Problems Med Hx Surg Hx Soc Hx Fam Hx documented in this encounter Plan of Treatment Upcoming Encounters Date Type Department Care Team (Late st Contact Info) Description 04/01/2025 10:00 AM EDT Office Visit [facility] Pulmonary Critical Care and Sleep [address] [facility] [address] [place] [phone] Salvador Woodard MD [address] [facility] [address] [place] [address] 1 YFU lungs 04/21/2025 9:30 AM EDT Office Visit [facility] Family Medicine [address] [place] [address] Vinicio Calvert MD [address] [place] [address] awv Scheduled Referrals Name Type Priority Associated Diagnoses Orde r Schedule Payal Benitez DO, Obstetrics, [facility] Outpatient Referral Routine Medicare annual wellness visit, subsequent Ordered: 04/17/2024 documented as of this encounter Results * Comprehensive Metabolic Panel (04/17/2024 10:03 AM EDT) Sodium 141 136 - 145 mmol/L 04/17/2024 4:38 PM [facility] Potassium 4.1 3.5 - 5.1 mmol/L 04/17/2024 4:38 PM [facility] Chloride 102 99 - 110 mmol/L 04/17/2024 4:38 PM [facility] CO2 27 21 - 32 mmol/L 04/17/2024 4:38 PM [facility] Anion Gap 12 3 - 16 04/17/2024 4:38 PM [facility] Glucose 85 70 - 99 mg/dL 04/17/2024 4:38 PM [facility] BUN 13 7 - 20 mg/dL 04/17/2024 4:38 PM [facility] Creatinine 0.7 0.6 - 1.2 mg/dL 04/17/2024 4:38 PM [facility] Est, Glom Filt Rate >90 >60 04/17/2024 4:38 PM [facility] Comment: Pediatric calculator link https://www.kidney.org/professionals/kdoqi/gfr_calculatorped Effective [...] 8.3 - 10.6 mg/dL 04/17/2024 4:38 PM [facility] Total Protein 6.9 6.4 - 8.2 g/dL 04/17/2024 4:38 PM [facility] Albumin 4.4 3.4 - 5.0 g/dL 04/17/2024 4:38 PM [facility] Albumin/Globulin Ratio 1.8 1.1 - 2.2 04/17/2024 4:38 PM [facility] Total Bilirubin 0.6 0.0 - 1.0 mg/dL 04/17/2024 4:38 PM EDT [facility] Alkaline Phosphatase 83 40 - 129 U/L 04/17/2024 4:38 PM EDT [facility] ALT 19 10 - 40 U/L 04/17/2024 4:38 PM EDT [facility] AST 17 15 - 37 U/L 04/17/2024 4:38 PM EDT [facility] Blood BLOOD SPECIMEN / Unknown 04/17/2024 10:03 AM EDT 04/17/2024 4:06 PM EDT Vinicio Calvert MD CHEMISTRY ORDERABLES [facility] [address] [phone] * (ABNORMAL) Lipid, Fasting (04/17/2024 10:03 AM EDT) Cholesterol, Fasting 247(H) 0 - 199 mg/dL 04/17/2024 4:38 PM EDT [facility] Triglyceride, Fasting 109 0 - 150 mg/dL 04/17/2024 4:38 PM T [facility] HDL 82(H) 40 - 60 mg/dL 04/17/2024 4:38 PM EDT [facility] LDL Cholesterol 143(H) <100 mg/dL 4:38 PM EDT [facility] VLDL Cholesterol Calculated 22 Not Established mg/dL 04/17/2024 4:38 PM EDT [facility] Blood BLOOD SPECIMEN / Unknown 04/17/2024 10:03 AM EDT 04/17/2024 4:06 PM EDT Vinicio Calvert MD CHEMISTRY ORDERABLES [facility] [address] [phone] documented in this encounter Visit Diagnoses Diagnosis Medicare annual wellness visit, subsequent- Primary Routine general medical examination at a health care facility Bronchiectasis without complication (HCC) Bronchiectasis without acute exacerbation Primary osteoarthritis of right knee Primary localized osteoarthrosis, lower leg Screening, lipid Screening for lipoid disorders documented in this encounter Additional Health Concerns Assessment Noted Time A fall risk assessment has been complete d for the patient 04/15/2024 9:00 AM EDT documented as of this encounter Care Teams Ornament Stitcher Relationship Specialty Start Date End Date Vinicio Calvert MD PCP - General Family Medicine 06/03/21 documented as of this encounter
--- OUTSIDE RECORDS SUMMARY | 2024-08-21 07:04 | XMS_ITS | Encounter Summary ---
Author Organization [facility] Address [address] [place] [address] Care Team Providers Care Associate Dean Name Role Phone Vinicio Calvert MD Primary Care Provider [phone] Reason for Referral * Eval and Treat (Routine) - Closed Specialty Diagnoses / Procedures Referred By Jean Claude hallman Referred To Contact Gastroenterology Diagnoses Screen for colon cancer Vinicio Calvert MD [address] [place] [address] Pablo Jenkins MD [address] [place] [address] [address] [place] [address] Referral ID Status Reason Start Date Expiration Date V isits Requested Visits Authorized [id number] Closed Specialty Services Required 01/17/2022 07/16/2022 1 1 Scheduling Instructions [facility] - Pablo Jenkins MD [address] [place] [address] [address] [place], [place] [address] Question Answer Reason For External Referral? [facility] Integrated Network (PINA) Referral Reason Screening Colonoscopy Comments The patient can be scheduled with any member of the group, including the provider with the first available appointments. Reason for Visit * Reason Comments 6 Month Follow-Up Encounter Details Date Type Department Care Team (Latest Contact Info) Description 01/17/2022 10:00 AM EDT Office Visit [facility] Medicine [address] [facility] [place] [address] Vinicio Calvert MD [address] [place] [address] Bronchiectasis without complication (HCC) (Primary Dx); Screen for colon cancer Social History Tobacco Use Types Packs/Day Years [...] AM EDT documented as of this encounter Last Filed Vital Signs Vital Sign Reading Time Taken Comments Blood Pressure 130/76 01/17/2022 9:47 AM EDT Pulse 74 01/17/2022 9:47 AM EDT Temperature - - Respiratory Rate - - Oxygen Saturation 95% 01/17/2022 9:47 AM EDT Inhaled Oxygen Concentration - - Weight 58.1 kg (128 lb) 01/17/2022 9:47 AM EDT Height 162.6 cm (5' 4 ) 01/17/2022 9:47 AM EDT Body Mass Index 21.97 01/17/2022 9:47 AM EDT documented in this encounter Progress Notes * OVinicio Lutz MD - 01/25/2022 4:16 PM EDT Karlie Love (: 1950) is a 71 y.o. female,Established patient, here for evaluation of the following chief complaint(s): 6 Month Follow-Up ASSESSMENT/PLAN: 1. Bronchiectasis without complication (HCC) Controlled continue current medication 2. Screen for colon cancer - [facility] - Pablo Jenkins [facility] No follow-ups on file. Subjective SUBJECTIVE/OBJECTIVE: Karlie Love is a 71 y.o. female. Patient presents with: 6 Month Follow-Up 71-year-old female who presents for follow-up of bronchiectasis. She has been fairly stable recently. Has not had any significant shortness of breath or productive cough recently. She is stable on her medications. She is denying any other significant issues. She does need screening for colon cancer. The patients PMH, surgical history, family history, medications, allergies were all reviewed and updated as appropriate today. Review of Systems Objective Physical Exam Vitals and nursing note reviewed. Constitutional: Appearance: Normal appearance. She is well-developed. HENT: Head: Normocephalic and atraumatic. Right Ear: External ear normal. Left Ear: External ear normal. Nose: Nose normal. Eyes: Conjunctiva/sclera: Conjunctivae normal. Pupils: Pupils are equal, round, and reactive to light. Cardiovascular: Rate and Rhythm: Normal rate and regular rhythm. Heart sounds: Normal heart sounds. Pulmonary: Effort: Pulmonary effort is normal. Breath sounds: Normal breath sounds. Abdominal: General: Bowel sounds are normal. Palpations: Abdomen is soft. Musculoskeletal: General: Normal range of motion. Cervical back: Normal range of motion and neck supple. Skin: General: Skin is dry. Neurological: Mental Status: She is alert and oriented to person, place, and time. Deep Tendon Reflexes: Reflexes are normal and symmetric. Psychiatric: Behavior: Behavior normal. Thought Content: Thought content normal. Judgment: Judgment normal. An electronic signature was used to authenticate this note. --Vinicio Calvert MD documented in this encounter Plan of Treatment Upcoming Encounters Date Type Department Care Team (Late st Contact Info) Description 04/01/2025 10:00 AM EDT Office Visit [facility] Pulmonary Critical Care and Sleep [address] [facility] [address] [place] [address] Salvador Woodard MD [address] [address] 1 YFU lungs 04/21/2025 9:30 AM EDT Office Visit [facility] [address] [place] [address] Vinicio Calvert MD [address] [place] [address] awv Scheduled Referrals Name Type Priority Associated Diagnoses Orde r Schedule AFL - Pablo Jenkins MD, Gastroenterology [facility] Outpatient Referral Routine Screen for colon cancer Ordered: 01/17/2022 documented as of this encounter Visit Diagnoses Diagnosis Bronchiectasis without complication (HCC)- Primary Bronchiectasis without acute exacerbation Screen for colon cancer Special screening for malignant neoplasms, colon documented in this encounter Additional Health Concerns Assessment Noted Time A fall risk assessment has been complete d for the patient 06/21/2021 10:50 AM EDT documented as of this encounter Care Teams Associate Dean Relationship Specialty Start Date End Date O'Vinicio Navarrete MD PCP - General Family Medicine 06/03/21 documented as of this encounter
--- OUTSIDE RECORDS SUMMARY | 2024-08-21 07:04 | XMS_ITS | Encounter Summary ---
Author Organization [facility] Address [address] [place] [address] Care Team Providers Care Missile Technician Name Role Phone Vinicio Calvert MD Primary Care Provider [phone] Reason for Visit * Reason Comments Follow-up 1 yr Bronchiectasis Encounter Details Date Type Department Care Team (Latest Contact Info) Description 04/01/2024 1:00 PM EDT Office Visit [facility] Pulmonary Critical Care and Sleep [address] [facility] [address] [place] [phone] Salvador Woodard MD [address] [facility] [address] [place] [phone] Bronchiectasis without complication (HCC) (Primary Dx); Mild [...] Sign Reading Time Taken Comments Blood Pressure 168/82 04/01/2024 12:58 PM EDT Pulse 75 04/01/2024 12:58 PM EDT Temperature 36.4 ??C (97.5 ??F) 04/01/2024 12:58 PM E DT Respiratory Rate 16 04/01/2024 12:58 PM EDT Oxygen Saturation 96% 04/01/2024 12:58 PM EDT RA Inhaled Oxygen Concentration - - Weight 56.8 kg (125 lb 4 oz) 04/01/2024 12:58 PM EDT Height 162.6 cm (5' 4 ) 04/01/2024 12:58 PM EDT Body Mass Index 21.5 04/01/2024 12:58 PM EDT documented in this encounter Patient Instructions * Patient Instructions* Karo Pierre MA - 04/01/2024 1:14 PM EDT Remember to bring a list of pulmonary medications and any CPAP or BiPAP machines to your next appointment with the office. Please keep all of your future appointments scheduled by [facility] office. Out of respect for other [...] work in the Intensive Care Unit at [facility]. Your appointment may need to be rescheduled [...] instructions provided. Instructions on future appointments with [facility] were given. In the next few weeks, you will be receiving a survey from [facility] regarding your visit today.We would greatly appreciate it if you would take just a few minutes to fill that out. It is very important to us that our patients receive top notch care and our surveys help keep us accountable. However, if your experience was not a good one, we want to hear about that as well. This is a stallworth way we can keep track of problems and strive to correct any for future visits. Again, we appreciate your time and thank you for choosing [facility]! STEPHANIE Huddleston documented in this encounter Progress Notes * Karo Pierre MA - 04/01/2024 1:14 PM EDT [facility] Communication: The following orders are received by verbal communication from Salvador Woodard MD Orders include: follow up in 1 year * Salvador Woodard MD - 04/01/2024 1:05 PM EDT [facility] Pulmonary Follow-up [address] [place] [address] Karlie Love (: 1950 ) is a 74 y.o. female here for an evaluation of Chief Complaint Patient presents with Follow-up 1 yr Bronchiectasis SUBJECTIVE/OBJECTIVE: Patient is a 74-year-old female with significant past medical history of bronchiectasis and mild intermittent asthma that presents to [facility] pulmonary clinic for follow-up visit. Patient has no complaints today. She denies any fever, chills, chest pain, shortness of breath, cough, nausea, vo miting, abdominal pain. She reports less than 3 infections in the past year for her bronchiectasis.She is still using her albuterol as needed for shortness of breath. She says that she rarely uses her rescue inhaler. Review of Systems Constitutional: Negative for activity [...] Negative for agitation and behavioral problems. Vitals: 04/01/24 1258 BP: (!) 168/82 Pulse: 75 Resp: 16 Temp: 97.5 ??F (36.4 ??C) TempSrc: Oral SpO2: 96% Weight: 56.8 kg (125 lb 4 oz) Height: 1.626 m (5' 4 ) Physical Exam Constitutional: General: She is not [...] - Symptoms well-controlled currently for bronchiectasis. No recent infections - Cont Albuterol PRN for SOB - Has received Prevnar, Pneumovax, Recommend annual flu shots - 1 year f/u Salvador Woodard MD documented in this encounter Plan of Treatment Upcoming Encounters Date Type Department Care Team (Late st Contact Info) Description 04/01/2025 10:00 AM EDT Office Visit [facility] Pulmonary Critical Care and Sleep [address] [facility] [address] [place] [address] Salvador Woodard MD [address] [facility] [address] [place] [phone] 1 YFU lungs 04/21/2025 9:30 AM EDT Office Visit [facility] [address] [facility] [place] [address] O'Rosalba, Vinicio Brown MD [address] [place], [place] [phone] awv documented as of this encounter Visit Diagnoses Diagnosis Bronchiectasis without complication (HCC)- Primary Bronchiectasis without acute exacerbation Mild intermittent asthma without complication Unspecified asthma documented in this encounter Additional Health Concerns Assessment Noted Time A fall risk assessment has been complete d for the patient 03/16/2023 9:11 AM EDT documented as of this encounter Care Teams Missile Technician Relationship Specialty Start Date End Date Vinicio Calvert MD PCP - General Family Medicine 06/03/21 documented as of this encounter
--- OUTSIDE RECORDS SUMMARY | 2024-08-21 07:04 | XMS_ITS | Encounter Summary ---
Author Organization [facility] Address [address] [place] [address] Care Team Providers Care Analytics Architect Name Role Phone Stewart Tejeda MD Primary Care Provider [phone]- [phone] Encounter Details Date Type Department Care Team (Latest Contact Info) Description 02/11/2015 11:13 AM EDT - 02/11/2015 11:59 PM EDT Hospital Encounter [facility], [address] [address] Other screening mammogram Discharge Disposition: [...] daily. MULTIVITAMIN PO Take by mouth daily. [place]-3 Fatty Acids-Vitamin E (FISH OIL) 1,000 mg PO Cap Take by mouth daily. documented as of this encounter Plan of Treatment Not on file documented as of this encounter Procedures Procedure Name Priority Date/Time Associated Diagnosis Comments MAMM-SCREENING DIRECT DIGITAL Routine 02/11/2015 12:00 PM EDT Other screening mammogram documented in this encounter Results * MAMM-SCREENING DIRECT DIGITAL (02/11/2015 12:00 PM EDT) Anatomical Region Laterality Modality Bilateral Mammography Impressions 02/12/2015 8:18 AM EDT ??NEGATIVE MAMMOGRAPHY. ?? ASSESSMENT: ??BI-RADS 1. ?? RECOMMENDATION: ??NORMAL INTERVAL FOLLOWUP. ?? /DB Narrative 02/12/2015 8:18 AM EDT 02/11/2015 FULL FIELD DIGITAL SCREENING MAMMOGRAPHY: ?? FINDINGS: ?? COMPARISON: ??With studies dating back to 01/27/2010. ?? The breasts are heterogeneously dense, which may obscure small masses. ?? There is no suspicious mass or architectural distortion. ?? There are no suspicious groupings of microcalcifications. ?? Scattered benign calcifications are unchanged. ?? The study was reviewed with computer-aided detection. ?? Procedure Note Andrew Graham MD - 02/12/2015 02/11/2015 FULL FIELD DIGITAL SCREENING MAMMOGRAPHY: FINDINGS: COMPARISON: With studies dating back to 01/27/2010. The breasts are heterogeneously dense, which may obscure small masses.There is no suspicious mass or architectural distortion. There are no suspicious groupings of microcalcifications. Scattered benign calcifications are unchanged. The study was reviewed with computer-aided detection. IMPRESSION: NEGATIVE MAMMOGRAPHY. ASSESSMENT: BI-RADS 1. RECOMMENDATION: NORMAL INTERVAL FOLLOWUP. /DB us Services Nonstaff Imaging IMG MAMMO ORDERABLES F inal Result documented in this encounter Visit Diagnoses Diagnosis Other screening mammogram documented in this encounter Care Teams Analytics Architect Relationship Specialty Start Date End Date Stewart Tejeda MD [address] [facility] [place] [address] PCP - General Family Medicine 10/16/13 07/02/18 documented as of this encounter
--- OUTSIDE RECORDS SUMMARY | 2024-08-21 07:04 | XMS_ITS | Encounter Summary ---
Author Organization [facility] Address [address] [place] [address] Care Team Providers Care Class C Driver Name Role Phone OVinicio Lutz MD Primary Care Provider Encounter Details Date Type Department Care Team (Latest Contact Info) Description 01/17/2022 Travel Social History Tobacco Use Types Packs/Day Years [...] Upcoming Encounters Date Type Department Care Team ( st Contact Info) Description 04/01/2025 10:00 AM EDT Office Visit [facility] Pulmonary Critical Care and Sleep [address] [facility] [address] [place], [place] [id number] Salvador Woodard MD [address] [place] [address] 1 YFU lungs 04/21/2025 9:30 AM EDT Office Visit [facility] [address] [facility] [place] [address] Vinicio Calvert MD [address] [place], [place] [id number] awv documented as of this encounter Visit Diagnoses Not on filedocumented in this encounter Additional Health Concerns Assessment Noted Time A fall risk assessment has been complete d for the patient 06/21/2021 10:50 AM EDT documented as of this encounter Care Teams Class C Driver Relationship Specialty Start Date End Date Vinicio Calvert MD PCP - General Family Medicine 06/03/21 documented as of this encounter
--- OUTSIDE RECORDS SUMMARY | 2024-08-21 07:04 | XMS_ITS | Encounter Summary ---
Author Organization [facility] Address [address] [place] [address] Care Team Providers Care Cistern Room Working Supervisor Name Role Phone Stewart Tejeda MD Primary Care Provider [phone]- [phone] Encounter Details Date Type Department Care Team (Latest Contact Info) Description 11/05/2013 12:48 PM EST - 11/05/2013 11:59 PM [facility] Hospital Encounter [facility] Medical Office Building, [address] [place], [place] [id number] Lyle Draper MD [address] [place] [address] Abnormal mammogram Discharge Disposition: Home or Self Care [...] daily. MULTIVITAMIN PO Take by mouth daily. [place]-3 Fatty Acids-Vitamin E (FISH OIL) 1,000 mg PO Cap Take by mouth daily. documented as of this encounter Plan of Treatment Not on file documented as of this encounter Procedures Procedure Name Priority Date/Time Associated Diagnosis Comments MAMM-DIAG LEFT Routine 11/05/2013 1:54 PM EST Abnormal mammogram documented in this encounter Results * MAMM-DIAG DIRECT DIGITAL LT (11/05/2013 1:54 PM EST) Anatomical Region Laterality Modality Left Mammography Impressions 11/05/2013 8:16 PM EST BENIGN FINDINGS. ACR: ??1 RECOMMENDATION: ??Follow up in 1 year. /pac Narrative 11/05/2013 8:16 PM EST 11/05/13 LEFT DIAGNOSTIC MAMMOGRAM: HISTORY: ??Abnormal screening mammogram, additional view, asymmetry. Additional diagnostic mammograms left breast in comparison to the left breast screening mammograms 10/17/13 and 2009 do not confirm an abnormality posterior, inner left breast. Therefore, prior questioned finding consistent with chest wall on prior CC view. No direct or indirect findings of malignancy. ??No significant change. Recommend routine bilateral mammogram in 1 year. Findings and recommendation conveyed to patient at time of current exam. ?? Procedure Note Peterson Frias MD - 11/05/2013 11/05/13 LEFT DIAGNOSTIC MAMMOGRAM: HISTORY: Abnormal screening mammogram, additional view, asymmetry. Additional diagnostic mammograms left breast in comparison to the leftbreast screening mammograms 10/17/13 and 2009 do not confirm anabnormality posterior, inner left breast. Therefore, prior questionedfinding consistent with chest wall on prior CC view. No direct or indirect findings of malignancy. No significant change. Recommend routine bilateral mammogram in 1 year. Findings and recommendation conveyed to patient at time of current exam. IMPRESSION: BENIGN FINDINGS. ACR: 1 RECOMMENDATION: Follow up in 1 year. /pac us Lyle Draper MD IMG MAMMO ORDERABLES Anastasia l Result documented in this encounter Visit Diagnoses Diagnosis Abnormal mammogram Abnormal mammogram, unspecified documented in this encounter Care Teams Cistern Room Working Supervisor Relationship Specialty Start Date End Date Stewart Tejeda MD [address] [place] [address] PCP - General Family Medicine 10/16/13 07/02/18 documented as of this encounter
--- OUTSIDE RECORDS SUMMARY | 2024-08-21 07:05 | XMS_ITS | Encounter Summary ---
Author Organization [facility] Address [address] [place] [address] Care Team Providers Care Bakery Associate Name Role Phone Vinicio Calvert MD Primary Care Provider [phone] Reason for Visit * Reason Comments Established New Doctor ME pt Encounter Details Date Type Department Care Team (Latest Contact Info) Description 06/21/2021 11:00 AM EDT Office Visit [facility] Medicine [address] [place], [place] [phone] Vinicio Calvert MD [address] [place] [address] Bronchiectasis without complication (HCC) Social History Tobacco Use Types Packs/Day Years [...] Exposure Response Date Recorded In the last month, have you been in contact with someone who was confirmed or suspected to have Coronavirus / COVID-19? No / Unsure 06/21/2021 10:39 AM EDT documented as of this encounter Last Filed Vital Signs Vital Sign Reading Time Taken Comments Blood Pressure 138/86 06/21/2021 11:05 AM EDT Pulse 71 06/21/2021 10:48 AM EDT Temperature - - Respiratory Rate - - Oxygen Saturation 97% 06/21/2021 10:48 AM EDT Inhaled Oxygen Concentration - - Weight 57.6 kg (127 lb) 06/21/2021 10:48 AM EDT Height 162.6 cm (5' 4 ) 06/21/2021 10:48 AM EDT Body Mass Index 21.8 06/21/2021 10:48 AM EDT documented in this encounter Progress Notes * O'Rosalba, Vinicio Brown MD - 07/03/2021 7:48 AM EDT Karlie Love (: 1950) is a 71 y.o. female,Established patient, here for evaluation of the following chief complaint(s): Established New Doctor (ME pt ) ASSESSMENT/PLAN: 1. Bronchiectasis without complication (HCC) Stable continue current medications. No follow-ups on file. Subjective SUBJECTIVE/OBJECTIVE: Karlie Love is a 71 y.o. female. Patient presents with: Established New Doctor: ME pt 71-year-old patient who is here to establish care. She was previously a patient of [facility]. She has been doing well recently without significant problems. She does have a history of bronchiectasis. She has been followed by pulmonary. She needs to reestablish with her pulmonary because her previous pulmonary doctor has left. No other significant problems. She currently denies any significant cough shortness of breath or productive sputum. The patients PMH, surgical history, family history, [...] Description 04/01/2025 10:00 AM EDT Office Visit [facility] Pulmonary Critical Care and Sleep [address] [facility] [address] [place] [phone] Salvador Woodard MD [address] [facility] [address] [place] [address] 1 YFU lungs 04/21/2025 9:30 AM EDT Office Visit [facility] [address] [place] [address] Vinicio Calvert MD [address] [place] [address] awv documented as of this encounter Visit Diagnoses Diagnosis Bronchiectasis without complication (HCC) Bronchiectasis without acute exacerbation documented in this encounter Additional Health Concerns Assessment Noted Time A fall risk assessment has been complete d for the patient 06/21/2021 10:50 AM EDT documented as of this encounter Care Teams Bakery Associate Relationship Specialty Start Date End Date Vinicio Calvert MD PCP - General Family Medicine 06/03/21 documented as of this encounter
--- OUTSIDE RECORDS SUMMARY | 2024-08-21 07:05 | XMS_ITS | Encounter Summary ---
Author Organization [facility] Address [address] [facility] [place] [address] Care Team Providers Care Funeral Pre Arrangement Counselor Name Role Phone Analia William MD Primary Care Provider [phone] Reason for Visit * Outpatient Service (Routine) - Closed Specialty Diagnoses / Procedures Referred By Contsheila t Referred To Contact Radiology Procedures HC X-RAY CHEST 2 VIEWS Analia William MD [address] [facility] [address] [place] [address] [facility] Imaging Radiology [address] [place] [address] Referral ID Status Reason Start Date Expiration Date Visits Re quested Visits Authorized [id number] Closed 01/30/2019 01/30/2020 1 1 Encounter Details Date Type Department Care Team (Latest Contact Info) Description 01/30/2019 12:20 PM EDT - 01/30/2019 11:59 PM EDT Hospital Encounter [facility] [place] [facility] Rad[facility] [address] [place] [address] Chronic cough Discharge Disposition: Home or Self Care Social History Tobacco Use Types Packs/Day Years Used Date Smoking Tobacco: Never Smokeless Tobacco: Never Alcohol Use Standard Drinks/Week Comments Yes 1 (1 standard drink = 0.6 oz pur e alcohol) Ocas Sex and Gender Information Value Date Recorded Sex Assigned at Not on file Gender Identity Female 02/21/2022 9:41 AM EDT Sexual Orientation Not on file documented as of this encounter Medications at Time of Discharge Medication Sig Dispensed Refills Start Date End Date vitamin B-12 (CYANOCOBALAMIN) 100 MCG tablet Take 5 tablets by mouth daily ibuprofen (ADVIL;MOTRIN) 200 MG tablet Take 2 tablets by mouth nightly 06/30/2010 Multiple Vitamin (MULTIVITAMIN PO) Take by mouth. 04/01/20 24 documented as of this encounter Plan of Treatment Upcoming Encounters Date Type Department Care Team (Late st Contact Info) Description 04/01/2025 10:00 AM EDT Office Visit [facility] Pulmonary Critical Care and Sleep [address] [facility] [address] [place] [phone] Salvador Woodard MD [address] [facility] [address] [place] [phone] 1 YFU lungs 04/21/2025 9:30 AM EDT Office Visit [facility] [address] [facility] [place], [place] [phone] O'Rosalba, Vinicio Brown MD [address] [place], [place] [phone] awv documented as of this encounter Procedures Procedure Name Priority Date/Time Associated Diagnosis Comments XR CHEST STANDARD TWO VW Routine 01/30/2019 12:25 PM EDT Chronic cough documented in this encounter Results * XR CHEST STANDARD (2 VW) (01/30/2019 12:25 PM EDT) Anatomical Region Laterality Modality Chest Computed Radiogr aphy Thoracic structure (body structure) 01/30/2019 12:59 PM EDT Impressions 01/30/2019 1:01 PM EDT Scarring in the lingula and right mid lung is unchanged dating back to 2014. No acute cardiopulmonary disease. Narrative 01/30/2019 1:01 PM EDT EXAMINATION: TWO XRAY VIEWS OF THE CHEST 01/30/2019 12:20 pm COMPARISON: Radiograph 04/10/2015 HISTORY: ORDERING SYSTEM PROVIDED HISTORY: Chronic cough TECHNOLOGIST PROVIDED HISTORY: Reason for exam:->chronic cough Ordering Physician Provided Reason for Exam: chronic cough FINDINGS: Cardiomediastinal silhouette is within normal limits. ??No pneumothorax or effusion. ??Scarring in the right mid lung and lingula is similar to prior chest CT. ??No acute osseous abnormality. Procedure Note Swapnil Aragon III, MD - 01/30/2019 EXAMINATION: TWO XRAY VIEWS OF THE CHEST 01/30/2019 12:20 pm COMPARISON: Radiograph 04/10/2015 HISTORY: ORDERING SYSTEM PROVIDED HISTORY: Chronic cough TECHNOLOGIST PROVIDED HISTORY: Reason for exam:->chronic cough Ordering Physician Provided Reason for Exam: chronic cough FINDINGS: Cardiomediastinal silhouette is within normal limits. No pneumothoraxor effusion. Scarring in the right mid lung and lingula is similar toprior chest CT. No acute osseous abnormality. IMPRESSION: Scarring in the lingula and right mid lung is unchanged dating back [id number]. No acute cardiopulmonary disease. Analia William MD IMG DIAGNOSTIC IMAG ING ORDERABLES documented in this encounter Visit Diagnoses Diagnosis Chronic cough Cough documented in this encounter Additional Health Concerns Assessment Noted Time A fall risk assessment has been complete d for the patient 06/26/2017 11:24 AM EDT documented as of this encounter Care Teams Funeral Pre Arrangement Counselor Relationship Specialty Start Date End Date Analia William MD PCP - General Family Medicine 01/30/19 06/04/20 documented as of this encounter
--- OUTSIDE RECORDS SUMMARY | 2024-08-21 07:05 | XMS_ITS | Encounter Summary ---
Author Organization [facility] Address [address] [place] [address] Care Team Providers Care Livery Car Driver Name Role Phone Analia William MD Primary Care Provider [phone]- [phone] Reason for Visit * Reason Onset Date Comments Cancelled Appointment 01/17/2020 Encounter Details Date Type Department Care Team (Late st Contact Info) Description 01/17/2020 Telephone [facility] Pulmonary Critical Care and Sleep [address] [place] [address] Dilia Perez MD Cancelled Appointment Social History Tobacco Use Types Packs/Day Years Used Date Smoking Tobacco: Never Smokeless Tobacco: Never Alcohol Use Standard Drinks/Week Comments Yes 1 (1 standard drink = 0.6 oz pur e alcohol) Ocas PHQ-2 Answer Date Recorded PHQ-2 Score 0 03/12/2019 Sex and Gender Information Value Date Recorded Sex Assigned at Not on file Gender Identity Female 02/21/2022 9:41 AM EDT Sexual Orientation Not on file documented as of this encounter Plan of Treatment Upcoming Encounters Date Type Department Care Team (Late st Contact Info) Description 04/01/2025 10:00 AM EDT Office Visit [facility] Pulmonary Critical Care and Sleep [address] [facility] [address] [place], [place] [phone] Salvador Woodard MD [address] [place] [address] 1 YFU lungs 04/21/2025 9:30 AM EDT Office Visit [facility] [address] [place] [address] O'Rosalba, Vinicio Brown MD [address] [place] [address] awv documented as of this encounter Visit Diagnoses Not on filedocumented in this encounter Additional Health Concerns Assessment Noted Time A fall risk assessment has been complete d for the patient 03/12/2019 1:03 PM EDT documented as of this encounter Care Teams Livery Car Driver Relationship Specialty Start Date End Date Analia William MD PCP - General Family Medicine 01/30/19 06/04/20 documented as of this encounter
--- OUTSIDE RECORDS SUMMARY | 2024-08-21 07:05 | XMS_ITS | Encounter Summary ---
Author Organization Juan Raineyshabbir Sell[facility]jah [facility] Address [address] [place] [address] Care Team Providers Care Steamtable Attendant Railroad Name Role Phone Analia William MD Primary Care Provider Encounter Details Date Type Department Care Team (Latest Contact Info) Description 09/25/2019 10:26 AM EST - 09/25/2019 11:59 PM [facility] Hospital Encounter [place] [facility] [address] [place] [address] Bronchiectasis with (acute) exacerbation (HCC); Recurrent respiratory infection Discharge Disposition: Home or Self Care Social [...] Sig Dispensed Refills Start Date End Date Probiotic Product (PRO-BIOTIC BLEND PO) Take by mouth vitamin B-12 (CYANOCOBALAMIN) 100 MCG tablet Take 5 tablets by mouth daily ibuprofen (ADVIL;MOTRIN) 200 MG tablet Take 2 tablets by mouth nightly 06/30/2010 ipratropium-albuterol (DUONEB) 0.5-2.5 (3) MG/3ML SOLN nebulizer solutionIndications:Bro nchiectasis with (acute) exacerbation (HCC) Inhale 3 mLs into the lungs every 6 hours as needed for Shortness of Breath 360 mL 11 09/25/2019 04/01/2024 albuterol sulfate HFA (PROVENTIL HFA) 108 (90 Base) MCG/ACT inhalerIndications:Mild intermittent asthma without complication Inhale 2 puffs into the lungs every 6 hours as needed for Wheezing or Shortness of Breath 1 Inhaler 2 03/12/2019 02/23/2022 Multiple Vitamin (MULTIVITAMIN PO) Take by mouth. 04/01/20 24 documented as of this encounter Plan of Treatment Upcoming Encounters Date Type Department Care Team (Late st Contact Info) Description 04/01/2025 10:00 AM EDT Office Visit [facility] Pulmonary Critical Care and Sleep [address] [phone] Salvador Woodard MD [address] [address] 1 YFU lungs 04/21/2025 9:30 AM EDT Office Visit [facility] [address] [facility] [place], [place] [phone] Vinicio Calvert MD [address] [facility] [place], [place] [phone] awv documented as of this encounter Procedures Procedure Name Priority Date/Time Associated Diagnosis Comments [id number] W/ PHENOTYPE Routine 09/25/2019 10:27 AM EST Bronchiectasis with (acute) exacerbation (HCC) Recurrent respiratory infection RESPIRATORY ALLERGEN PROFILE Routine 09/25/2019 10:27 AM EST Bronchiectasis with (acute) exacerbation (HCC) Recurrent respiratory infection CBC WITH AUTO DIFFERENTIAL Routine 09/25/2019 10:27 AM EST Bronchiectasis with (acute) exacerbation (HCC) Recurrent respiratory infection IGG, IGA, IGM Routine 09/25/2019 10:27 AM EST Bronchiectasis with (acute) exacerbation (HCC) Recurrent respiratory infection documented in this encounter Results * (ABNORMAL) Respiratory allergen profile (09/25/2019 10:27 AM EST) IgE 42 <=214 kU/L 09/27/2019 10:41 AM EST [facility] Comment: REFERENCE INTERVAL: Immunoglobulin E, Serum Access complete set of age- and/or gender-specific reference intervals for this test in the [facility] Test Directory ([employer]). Cat Dander IgE <0.10 <=0.34 kU/L 09/27/2019 10:41 AM EST [facility] Dog Dander IgE <0.10 <=0.34 kU/L 09/27/2019 10:41 AM EST [facility] Allergen Mouse Epithelial <0.10 <=0.34 kU/L 09/27/2019 10:41 AM EST [facility] Aspergillus fumigatus IgE <0.10 <=0.34 kU/L 09/27/2019 10:41 AM EST [facility] Hormodendrum Hordei IgE <0.10 <=0.34 kU/L 09/27/2019 10:41 AM EST [facility] Allergen Fungi/Mold, M. racemosus IGE <0.10 <=0.34 kU/L 09/27/2019 10:41 AM EST [facility] ALLERGEN PENICILLIUM NOTATUM <0.10 <=0.34 kU/L 09/27/2019 10:41 AM EST [facility] Bermuda Grass IgE 0.37(H) <=0.34 kU/L 09/27/2019 10:41 AM EST [facility] Pineda Grass, IgE 0.38(H) <=0.34 kU/L 09/27/2019 10:41 AM EST [facility] Lithuanian Cockroach IgE 0.29 <=0.34 kU/L 09/27/2019 10:41 AM EST [facility] D. farinae IgE <0.10 <=0.34 kU/L 09/27/2019 10:41 AM EST [facility] Mite Dust Pteronyssinus IgE <0.10 <=0.34 kU/L 09/27/2019 10:41 AM EST [facility] Allergen Birch IgE <0.10 <=0.34 kU/L 09/27/2019 10:41 AM EST [facility] Nielsville IgE 0.21 <=0.34 kU/L 09/27/2019 10:41 AM EST [facility] Kerr IgE 0.23 <=0.34 kU/L 09/27/2019 10:41 AM EST [facility] Elm IgE 0.22 <=0.34 kU/L 09/27/2019 10:41 AM EST [facility] Allergen Mountain Iola 0.16 <=0.34 kU/L 09/27/2019 10:41 AM EST [facility] Adamsville Tree IgE 0.28 <=0.34 kU/L 09/27/2019 10:41 AM EST [facility] Pecan Tree IgE 0.15 <=0.34 kU/L 09/27/2019 10:41 AM EST [facility] Allergen Tree [place] 0.32 <=0.34 kU/L 09/27/2019 10:41 AM EST [facility] Pepin Tree IgE 0.26 <=0.34 kU/L 09/27/2019 10:41 AM EST [facility] Allergen, Tree, White Rashad IgE 0.35(H) <=0.34 kU/L 09/27/2019 10:41 AM EST [facility] Allergen White Medora Tree, IGE 0.19 <=0.34 kU/L 09/27/2019 10:41 AM EST [facility] Common-Short Ragweed IgE 0.33 <=0.34 kU/L 09/27/2019 10:41 AM EST [facility] Rough Pigweed IgE 0.33 <=0.34 kU/L 09/27/2019 10:41 AM EST [facility] East Timorese Thistle IgE 0.37(H) <=0.34 kU/L 09/27/2019 10:41 AM EST [facility] Sheep Wynnedale IgE 0.41(H) <=0.34 kU/L 09/27/2019 10:41 AM EST [facility] Comment: Performed by [facility], [facility] [place][note 2] [facility], [facility] [place] [address] [email or web address], Valeriano Butler MD, Lab. Director ALLERGEN SEE NOTE See Note 01/10/2 020 10:43 AM EST [facility] Comment: REFERENCE INTERVAL: Allergen, Interpretation Less than 0.10 kU/L......Class 0.....No significant level detected 0.10-0.34 kU/L...........Class 0/1...Clinical relevance undetermined 0.35-0.70 kU/L...........Class 1.....Low 0.71-3.50 kU/L...........Class 2.....Moderate 3.51-17.50 kU/L..........Class 3.....High 17.51-50.00 kU/L.........Class 4.....Very High 50.01-100.00 kU/L........Class 5.....Very High Greater than 100.00kU/L..Class 6.....Very High Allergen results of 0.10-0.34 kU/L are intended for specialist use as the clinical relevance is undetermined. Even though increasing ranges are reflective of increasing concentrations of allergen-specific IgE, these concentrations may not correlate with the degree of clinical response or skin testing results when challenged with a specific allergen. The correlation of allergy laboratory results with clinical history and in vivo reactivity to specific allergens is essential. A negative test may not rule out clinical allergy or even anaphylaxis. Performed by [facility], [address] [place] [id number] [email or web address], Valeriano Butler MD, Lab. Director BLOOD SPECIMEN / Unknown 09/25/2019 10:27 AM EST 09/25/2019 11:29 AM EST Narrative [facility] - 09/27/2019 12:43 PM EST Referred out by: [facility] [address] [place] [address], ??[place] [address] ?? Dilia Perez MD IMMUNOLOGY ORDERABLE S [facility] [address] [place] [address] [facility] [address] [place] [address] * Lwuki-4-Resqjvbfrjx w Phenotype (09/25/2019 10:27 AM EST) A-1 Antitrypsin 153 90 - 200 mg/dL 09/28/2019 5:59 PM EST [facility] Comment:To convert to umol/L , multiply mg/dL by 0.185 A-1 Antitrypsin Pheno M1M1 09/28/2019 5:59 PM EST [facility] Comment: The patient appears to have a normal phenotype. All M alleles (including subtypes M1, M2, and M3) produce normal serum concentrations of qpmvk-4-ohkflnun inhibitor and are not associated with clinical disease. Caution in interpretation is advised if the patient has been transfused within the previous 21 days. Performed by [facility], [address] [place] [address] [email or web address], Valeriano Butler MD, Lab. Director BLOOD SPECIMEN / Unknown 09/25/2019 10:27 AM EST 09/25/2019 11:29 AM EST Narrative [facility] - 09/28/2019 7:59 PM EST Referred out by: [facility] [address] [place] [address], ??[place] [address] ?? Dilia Perez MD CHEMISTRY ORDERABLES [facility] [address] [place] [address] [facility] [address] [place] [address] * IGG, IGA, IGM (09/25/2019 10:27 AM EST) IgA 168.0 70.0 - 400.0 mg/dL 09/25/2019 4:59 PM EST [facility] IgG 1021.0 700.0 - 1600.0 mg/dL 09/25/2019 4:59 PM [facility] IgM 98.0 40.0 - 230.0 mg/dL 09/25/2019 4:59 PM [facility] BLOOD SPECIMEN / Unknown 09/25/2019 10:27 AM EST 09/25/2019 4:41 PM EST Narrative [facility] - 09/25/2019 5:16 PM EST Performed at: [facility] [address] [facility], ??[place] [address] ?? Dilia Perez MD IMMUNOLOGY ORDERABLE S [facility] [address] [place] [address], [facility] [phone] * CBC Auto Differential (09/25/2019 10:27 AM EST) WBC 6.8 4.0 - 11.0 K/uL 09/25/2019 5:01 PM [facility] RBC 4.56 4.00 - 5.20 M/uL 09/25/2019 5:01 PM [facility] Hemoglobin 14.5 12.0 - 16.0 g/dL 09/25/2019 5:01 PM [facility] Hematocrit 42.7 36.0 - 48.0 % 09/25/2019 5:01 PM [facility] MCV 93.7 80.0 - 100.0 fL 09/25/2019 5:01 PM [facility] MCH 31.7 26.0 - 34.0 pg 09/25/2019 5:01 PM [facility] MCHC 33.8 31.0 - 36.0 g/dL 09/25/2019 5:01 PM [facility] RDW 13.1 12.4 - 15.4 % 09/25/2019 5:01 PM [facility] Platelets 225 135 - 450 K/uL 09/25/2019 5:01 PM [facility] MPV 7.9 5.0 - 10.5 fL 09/25/2019 5:01 PM [facility] Neutrophils % 62.9 % 09/25/2019 5:01 PM [facility] Lymphocytes % 26.1 % 09/25/2019 5:01 PM [facility] Monocytes % 9.1 % 09/25/2019 5:01 PM [facility] Eosinophils % 1.2 % 09/25/2019 5:01 PM [facility] Basophils % 0.7 % 09/25/2019 5:01 PM [facility] Neutrophils Absolute 4.3 1.7 - 7.7 K/uL 09/25/2019 5:01 PM [facility] Lymphocytes Absolute 1.8 1.0 - 5.1 K/uL 09/25/2019 5:01 PM [facility] Monocytes Absolute 0.6 0.0 - 1.3 K/uL 09/25/2019 5:01 PM [facility] Eosinophils Absolute 0.1 0.0 - 0.6 K/uL 09/25/2019 5:01 PM [facility] Basophils Absolute 0.0 0.0 - 0.2 K/uL 09/25/2019 5:01 PM [facility] BLOOD SPECIMEN / Unknown 09/25/2019 10:27 AM EST 09/25/2019 4:47 PM EST Narrative [facility] - 09/25/2019 5:03 PM EST Performed at: [facility] [address] [place] [address], ??[place] [address] ?? Dilia Perez MD HEMATOLOGY ORDERABLE S [facility] [address] [place] [address] documented in this encounter Visit Diagnoses Diagnosis Bronchiectasis with (acute) exacerbation (HCC) Recurrent respiratory infection Other diseases of respiratory system, not elsewhere classified documented in this encounter Additional Health Concerns Assessment Noted Time A fall risk assessment has been complete d for the patient 03/12/2019 1:03 PM EDT documented as of this encounter Care Teams Steamtable Attendant Railroad Relationship Specialty Start Date End Date Analia William MD PCP - General Family Medicine 01/30/19 06/04/20 documented as of this encounter
--- OUTSIDE RECORDS SUMMARY | 2024-08-21 07:05 | XMS_ITS | Encounter Summary ---
Author Organization Juan Raineyshabbir [employer] [facility] Address [address] [place] [address] Care Team Providers Care Manager Environmental Affairs Name Role Phone Analia William MD Primary Care Provider [phone] Encounter Details Date Type Department Care Team (Latest Contact Info) Description 09/23/2019 1:29 PM EST - 09/23/2019 11:59 PM [facility] Hospital Encounter [place] [facility] [address] [place] [address] Bronchiectasis without complication (HCC) Discharge Disposition: Home or Self Care Social [...] Take 2 tablets by mouth nightly 06/30/2010 albuterol sulfate HFA (PROVENTIL HFA) 108 (90 [...] Description 04/01/2025 10:00 AM EDT Office Visit [facility] Pulmonary Critical Care and Sleep [address] [facility] [address] [place] [address] Salvador Woodard MD [address] [facility] [address] [place] [id number] 1 YFU lungs 04/21/2025 9:30 AM EDT Office Visit [facility] [address] [place], [place] [address] Lziz'Vinicio Navarrete MD [address] [place], [place] [phone] awv documented as of this encounter Procedures Procedure Name Priority Date/Time Associated Diagnosis Comments CREATININE STAT 09/23/2019 1:37 PM EST Bronchiectasis without complication (HCC) documented in this encounter Results * Creatinine, Serum (09/23/2019 1:37 PM EST) Creatinine 0.7 0.6 - 1.2 mg/dL 09/23/2019 1:51 PM EST [facility] GFR Non- >60 >60 09/23/2019 1:51 PM EST [facility] Comment: >60 mL/min/1.73m2 EGFR, calc. for ages 18 and older using the MDRD formula (not corrected for weight), is valid for stable renal function. GFR >60 >60 09/23/2019 1:51 PM EST [facility] Comment: Chronic Kidney Disease: less than 60 ml/min/1.73 sq.m. ?Kidney Failure: less than 15 ml/min/1.73 sq.m. Results valid for patients 18 years and older. BLOOD SPECIMEN / Unknown 09/23/2019 1:37 PM EST 09/23/2019 1:44 PM EST Narrative [facility] - 09/23/2019 1:56 PM EST Performed at: [facility] [address] [facility], ??[place] [address] ?? Analia William MD CHEMISTRY ORDERABLE S Performing Organization Address City/State/[facility] Co de Phone Number [facility] [address] [place], [place] [phone] [place] [address] documented in this encounter Visit Diagnoses Diagnosis Bronchiectasis without complication (HCC) Bronchiectasis without acute exacerbation documented in this encounter Additional Health Concerns Assessment Noted Time A fall risk assessment has been complete d for the patient 03/12/2019 1:03 PM EDT documented as of this encounter Care Teams Manager Environmental Affairs Relationship Specialty Start Date End Date Analia William MD PCP - General Family Medicine 01/30/19 06/04/20 documented as of this encounter
--- OUTSIDE RECORDS SUMMARY | 2024-08-21 07:05 | XMS_ITS | Encounter Summary ---
Author Organization [facility] Address [address] [place] [address] Care Team Providers Care Machine Overhauler Name Role Phone Vinicio Calvert MD Primary Care Provider [phone] Encounter Details Date Type Department Care Team (Latest Contact Info) Description 06/21/2021 Travel Social History Tobacco Use Types Packs/Day [...] Encounters Date Type Department Care Team ( Contact Info) Description 04/01/2025 10:00 AM EDT Office Visit [facility] Pulmonary Critical Care and Sleep [address] [place], [place] [phone] Salvador Woodard MD [address] [place], [place] [phone] 1 YFU lungs 04/21/2025 9:30 AM EDT Office Visit [facility] [address] [place] [address] Vinicio Calvert MD [address] [place], [place] [phone] awv documented as of this encounter Visit Diagnoses Not on filedocumented in this encounter Additional Health Concerns Assessment Noted Time A fall risk assessment has been complete d for the patient 06/21/2021 10:50 AM EDT documented as of this encounter Care Teams Machine Overhauler Relationship Specialty Start Date End Date Vinicio Calvert MD PCP - General Family Medicine 06/03/21 documented as of this encounter
--- OUTSIDE RECORDS SUMMARY | 2024-08-21 07:05 | XMS_ITS | Encounter Summary ---
Author Organization [facility] Address [address] [place] [address] Care Team Providers Care Assembly Worker Name Role Phone Unavailable Primary Care Provider Unavailabl e Encounter Details Date Type Department Care Team (Latest Contact Info) Description 02/23/2021 Travel Social History Tobacco Use Types Packs/Day [...] have Coronavirus / COVID-19? No / Unsure 02/23/2021 10:46 AM EDT documented as of this encounter Plan of Treatment Upcoming Encounters Date Type Department Care Team (Late st Contact Info) Description 04/01/2025 10:00 AM EDT Office Visit [facility] Pulmonary Critical Care and Sleep [address] [place] [address] Salvador Woodard MD [address] [place] [address] 1 YFU lungs 04/21/2025 9:30 AM EDT Office Visit [facility] [address] [place], [place] [address] O'Rosalba, Vinicio Brown MD [address] [place] [address] awv documented as of this encounter Visit Diagnoses Not on filedocumented in this encounter Additional Health Concerns Assessment Noted Time A fall risk assessment has been complete d for the patient 03/12/2019 1:03 PM EDT documented as of this encounter
--- OUTSIDE RECORDS SUMMARY | 2024-08-21 07:05 | XMS_ITS | Encounter Summary ---
Author Organization [facility] Address [address] [place] [address] Care Team Providers Care Rental Sales Associate Name Role Phone Unavailable Primary Care Provider Unavailabl e Reason for Visit * Reason Onset Date Comments Cancelled Appointment 09/29/2020 Encounter Details Date Type Department Care Team (Late st Contact Info) Description 09/29/2020 Telephone [facility] Pulmonary Critical Care and Sleep [address] [place] [address] Dilia Perez MD Cancelled Appointment Social History [...] Description 04/01/2025 10:00 AM EDT Office Visit [facility] Pulmonary Critical Care and Sleep [address] [facility] [address] [place], [place] [phone] Salvador Woodard MD [address] [facility] [address] [place], [place] [phone] 1 YFU lungs 04/21/2025 9:30 AM EDT Office Visit [facility] [address] [place] [address] O'Rosalba, Vinicio Brown MD [address] [place] [address] awv documented as of this encounter Visit Diagnoses Not on filedocumented in this encounter Additional Health Concerns Assessment Noted Time A fall risk assessment has been complete d for the patient 03/12/2019 1:03 PM EDT documented as of this encounter
--- OUTSIDE RECORDS SUMMARY | 2024-08-21 07:05 | XMS_ITS | Encounter Summary ---
Author Organization [facility] Address [address] [place] [address] Care Team Providers Care Music Engraver Name Role Phone Analia William MD Primary Care Provider [phone] Reason for Referral * Imaging (Routine) - Closed Specialty Diagnoses / Procedures Referred By Jean Claude hallman Referred To Contact Radiology Diagnoses Primary osteoarthritis of right knee Procedures US ARTHR/ASP/INJ MAJOR JNT/BURSA RIGHT Irmauset, ROSS Gautam [address] [place] [address] Referral ID Status Reason Start Date Expiration Date Visits Re quested Visits Authorized [id number] Closed 03/30/2020 03/30/2021 1 1 Reason for Visit * Reason Comments Injections RIGHT KNEE CORTISONE INJ Encounter Details Date Type Department Care Team (Late st Contact Info) Description 03/30/2020 1:45 PM EDT Nurse Only [facility] [address] [place], [place] [phone] Aileen Gomez PA [address] [place] [address] Primary osteoarthritis of right knee (Primary Dx) Social History Tobacco Use Types [...] on file documented as of this encounter Patient Instructions * Patient Instructions* Aileen Gomez PA - 03/30/2020 1:45 PM EDT I have reviewed the provider's instructions with the patient, answering all questions to her satisfaction. documented in this encounter Progress Notes * Aileen Gomez PA - 03/30/2020 1:44 PM EDT Right knee cortisone injection visit only Osteoarthritis of the RIGHT knee I discussed in detail the risks, [...] a Band-Aid. Technique: Under sterile conditions a SonShoplocal ultrasound unit with a variable frequency (6.0-15.0 [...] Description 04/01/2025 10:00 AM EDT Office Visit [facility] Pulmonary Critical Care and Sleep [address] [facility] [address] [place] [address] Salvador Woodard MD [address] [facility] [address] [place], [place] [phone] 1 YFU lungs 04/21/2025 9:30 AM EDT Office Visit [facility] [address] [place], [place] [phone] O'Rosalba, Vinicio Brown MD [address] [place], [place] [phone] awv documented as of this encounter Procedures Procedure Name Priority Date/Time Associated Diagnosis Comments US ARTHROCENTESIS INJECTION MAJOR JOINT RT Routine 03/30/2020 1:49 PM EDT Primary osteoarthritis of right knee documented in this encounter Results * US ARTHR/ASP/INJ MAJOR JNT/BURSA RIGHT (03/30/2020 1:49 PM EDT) Narrative [facility] - 03/30/2020 1:49 PM EDT Radiology result is complete; follow up with provider / physician office for radiology results Leonora THORNTON US ORDERABLES [facility] documented in this encounter Visit Diagnoses Diagnosis Primary osteoarthritis of right knee- Primary Primary localized osteoarthrosis, lower leg documented in this encounter Administered Medications Inactive Administered Medications - up to 3 most recent administrations Medication Order MAR Action Action Date Dose Rate Site bupivacaine (MARCAINE) 0.25 % injection 75 mg 75 mg (30 mL), Intra-artICUlar, ONCE, 1 dose, On Mon03/30/20 at 1400 Given 03/30/2020 1:36 PM EDT 75 mg Knee Right lidocaine 1 % injection 20 mL 20 mL, Intra-artICUlar, ONCE, 1 dose, On Mon03/30/20 at 1400 Given 03/30/2020 1:37 PM EDT 20 mLs Knee Right methylPREDNISolone acetate (DEPO-MEDROL) injection 80 mg 80 mg, Intra-artICUlar, ONCE, 1 dose, On Mon03/30/20 at 1400 Given 03/30/2020 1:37 PM EDT 80 mg Knee Right documented in this encounter Additional Health Concerns Assessment Noted Time A fall risk assessment has been complete d for the patient 03/12/2019 1:03 PM EDT documented as of this encounter Care Teams Music Engraver Relationship Specialty Start Date End Date Analia William MD PCP - General Family Medicine 01/30/19 06/04/20 documented as of this encounter
--- OUTSIDE RECORDS SUMMARY | 2024-08-21 07:05 | XMS_ITS | Encounter Summary ---
Author Organization [facility] Address [address] [place] [address] Care Team Providers Care Commercial Front Load Driver Name Role Phone Analia William MD Primary Care Provider [phone]- [phone] Reason for Referral * Imaging (Routine) - Closed Specialty Diagnoses / Procedures Referred By Contac t Referred To Contact Radiology Diagnoses Bronchiectasis without complication (HCC) Procedures CT CHEST W CONTRAST Analia William MD [address] [place] [id number] Referral ID Status Reason Start Date Expiration Date Visits Re quested Visits Authorized [id number] Closed 09/20/2019 09/19/2020 1 1 Reason for Visit * Reason Onset Date Comments Other 09/20/2019 Encounter Details Date Type Department Care Team (Late st Contact Info) Description 09/20/2019 Telephone [facility] [address] [place] [address] [address] [place] [address] Analia William MD [address] [place] [address] Other Social History Tobacco Use Types Packs/Day Years [...] 04/01/2025 10:00 AM EDT Office Visit [facility] [address] [facility] [address] [place], [place] [id number] Salvador Woodard MD [address] [facility] [address] [place] [id number] YFU lungs 04/21/2025 9:30 AM EDT Office Visit [facility] [address] [facility] [place], [place] [id number] O'Rosalba, Vinicio Brown MD [address] [facility] [place], [place] [id number] awv documented as of this encounter Results * CT CHEST W CONTRAST (09/23/2019 2:18 PM EST) Anatomical Region Laterality Modality Chest Computed Tomogra phy 09/23/2019 2:26 PM EST Impressions 09/23/2019 5:19 PM EST When compared to prior CT scan referenced above, bronchiectasis within the right middle lobe and lingula has worsened. ??There is bronchiectasis in the periphery of the anteroinferior left upper lobe with mucus plugging. Innumerable scattered centrilobular type nodules are present bilaterally in the lungs. ??This suggest a chronic airways mediated infectious or inflammatory process. ??Focal mild area of patchy consolidation posterior left upper lobe. ??Left lower lobe subpleural opacities may represent atelectasis or areas of consolidation. Considering the constellation of findings described above, atypical infection such as LUKAS is considered. ??Fungal infection is considered. ??Clinical correlation is recommended. ??Consider pulmonology consultation. Narrative 09/23/2019 5:19 PM EST EXAMINATION: CT OF THE CHEST WITH CONTRAST 09/23/2019 2:07 pm TECHNIQUE: CT of the chest was performed with the administration of intravenous contrast. Multiplanar reformatted images are provided for review. Dose modulation, iterative reconstruction, and/or weight based adjustment of the mA/kV was utilized to reduce the radiation dose to as low as reasonably achievable. COMPARISON: 02/22/2016 HISTORY: ORDERING SYSTEM PROVIDED HISTORY: Bronchiectasis without complication (HCC) TECHNOLOGIST PROVIDED HISTORY: Reason for Exam: recent bronchial infection-recurring bronchiectasis-chronic cough Acuity: Acute Type of Exam: Ongoing Additional signs and symptoms: non-smoker Relevant Medical/Surgical History: no surg FINDINGS: Mediastinum: Mild prominence of the central pulmonary arteries. ??No mediastinal adenopathy. ??Central airways appear clear. Lungs/pleura: Chronic bronchiectasis within the inferior lingula [...] left upper lobe with peripheral mucus plugging. Upper Abdomen: Limited evaluation without acute finding detected. Soft Tissues/Bones: Mild degenerative changes about the spine. ??No axillary adenopathy is appreciated. Procedure Note Pablo Asencio MD - 09/23/2019 EXAMINATION: CT OF THE CHEST WITH CONTRAST 09/23/2019 2:07 pm TECHNIQUE: CT of the chest was performed with the administration of intravenous contrast. Multiplanar reformatted images are provided for review. Dose modulation, iterative reconstruction, and/or weight based adjustment ofthe mA/kV was utilized to reduce the radiation dose to as low as reasonably achievable. COMPARISON: 02/22/2016 HISTORY: ORDERING SYSTEM PROVIDED HISTORY: Bronchiectasis without complication(HCC) TECHNOLOGIST PROVIDED HISTORY: Reason for Exam: recent bronchial xipmlinsb-aiwrpnmlbfhaqdfyhpmlfko-jiqfgnx cough Acuity: Acute Type of Exam: Ongoing Additional signs and symptoms: non-smoker Relevant Medical/Surgical History: no surg FINDINGS: Mediastinum: Mild prominence of the central pulmonary arteries. No mediastinal adenopathy. Central airways appear clear. Lungs/pleura: Chronic bronchiectasis within the inferior lingula withvolume loss. This appears worsened in the interval. Volume loss is presentwithin the medial segment of the right middle lobe. There are innumerable centrilobular type central airways nodules present throughout the rightlung. Similar-appearing centrilobular type nodules are seen throughout theleft lung. Multifocal peripheral areas of mild consolidation or volume loss within the posterior subpleural dependent aspect of the left lower lobe. Focal mild patchy consolidation posterior left upper lobe adjacent tothe uppermost portion of the major fissure. Mild bronchiectasisanteroinferior left upper lobe with peripheral mucus plugging. Upper Abdomen: Limited evaluation without acute finding detected. Soft Tissues/Bones: Mild degenerative changes about the spine. Noaxillary adenopathy is appreciated. IMPRESSION: When compared to prior CT scan referenced above, bronchiectasis withinthe right middle lobe and lingula has worsened. There is bronchiectasis inthe periphery of the anteroinferior left upper lobe with mucus plugging. Innumerable scattered centrilobular type nodules are present bilaterallyin the lungs. This suggest a chronic airways mediated infectious or inflammatory process. Focal mild area of patchy consolidation posteriorleft upper lobe. Left lower lobe subpleural opacities may representatelectasis or areas of consolidation. Considering the constellation of findings described above, atypicalinfection such as LUKAS is considered. Fungal infection is considered. Clinical correlation is recommended. Consider pulmonology consultation. Analia William MD IMG CT ORDERABLES documented in this encounter Visit Diagnoses Diagnosis Bronchiectasis without complication (HCC)- Primary Bronchiectasis without acute exacerbation Bronchiectasis without complication (HCC) Bronchiectasis without acute exacerbation documented in this encounter Additional Health Concerns Assessment Noted Time A fall risk assessment has been complete d for the patient 03/12/2019 1:03 PM EDT documented as of this encounter Care Teams Commercial Front Load Driver Relationship Specialty Start Date End Date Analia William MD PCP - General Family Medicine 01/30/19 06/04/20 documented as of this encounter
--- OUTSIDE RECORDS SUMMARY | 2024-08-21 07:05 | XMS_ITS | Encounter Summary ---
Author Organization [facility] Address [address] [address] Care Team Providers Care Team Facilitator Name Role Phone Analia William MD Primary Care Provider [phone]- [phone] Reason for Referral * Imaging (Routine) - Closed Specialty Diagnoses / Procedures Referred By Jean Claude hallman Referred To Contact Radiology Diagnoses Breast cancer screening Procedures HOUSTON DIGITAL SCREEN W OR WO CAD BILATERAL HOUSTON SCREENING W CAD BILATERAL 2 VW Analia William MD [address] [place] [address] Referral ID Status Reason Start Date Expiration Date Visits Re quested Visits Authorized [id number] Closed 09/20/2019 09/19/2020 1 1 Reason for Visit * Imaging (Routine) - Closed Specialty Diagnoses / Procedures Referred By Jean Claude hallman Referred To Contact Radiology Diagnoses Breast cancer screening Procedures HOUSTON DIGITAL SCREEN W OR WO CAD BILATERAL [place]STON SCREENING W CAD BILATERAL 2 VW Analia William MD [address] [place] [address] Referral ID Status Reason Start Date Expiration Date Visits Re quested Visits Authorized [id number] Closed 09/20/2019 09/19/2020 1 1 Encounter Details Date Type Department Care Team (Latest Contact Info) Description 02/26/2020 2:55 PM EDT - 02/26/2020 11:59 PM EDT Hospital Encounter [facility] [address] [place] [address] Breast cancer screening Discharge Disposition: Home or Self Care Social [...] have Coronavirus / COVID-19? No / Unsure 02/26/2020 2:49 PM EDT documented as of this encounter Medications at [...] Description 04/01/2025 10:00 AM EDT Office Visit [facility] Critical Care and Sleep [address] [place] [address] Salvador Woodard MD [address] [facility] [address] [place] [address] 1 YFU lungs 04/21/2025 9:30 AM EDT Office Visit [facility] [address] [place] [address] O'Vinicio Navarrete MD [address] [place] [address] awv documented as of this encounter Procedures Procedure Name Priority Date/Time Associated Diagnosis Comments HOUSTON DIGITAL SCREEN W OR WO CAD BILATERAL Routine 02/26/2020 3:17 PM EDT Breast cancer screening documented in this encounter Results * HOUSTON DIGITAL SCREEN W OR WO CAD BILATERAL (02/26/2020 3:17 PM EDT) Anatomical Region Laterality Modality Breast Bilateral Mammography 02/28/2020 8:22 AM EDT Impressions 02/28/2020 8:24 AM EDT No mammographic evidence of malignancy. BIRADS: BIRADS - CATEGORY 1 Negative, no evidence of malignancy. ??Normal interval follow-up is recommended in 12 months. OVERALL ASSESSMENT - NEGATIVE A letter of notification will be sent to the patient regarding the results. [employer] recommends annual mammograms for women 40 years and older. Narrative 02/28/2020 8:24 AM EDT EXAMINATION: BILATERAL DIGITAL SCREENING MAMMOGRAM 02/26/2020 TECHNIQUE: CC and MLO views of the left and right breasts were obtained. ??Computer aided detection was utilized in the interpretation of this exam. COMPARISON: 2017, 2016, 2016 HISTORY: Screening. FINDINGS: The breasts are heterogeneously dense, which may obscure small masses. Within that limitation, there is no dominant mass, suspicious microcalcification, or area of architectural distortion. Procedure Note Domenica Barron MD - 02/28/2020 EXAMINATION: BILATERAL DIGITAL SCREENING MAMMOGRAM 02/26/2020 TECHNIQUE: CC and MLO views of the left and right breasts were obtained. Computeraided detection was utilized in the interpretation of this exam. COMPARISON: 2017, 2016, 2015 HISTORY: Screening. FINDINGS: The breasts are heterogeneously dense, which may obscure small masses.Within that limitation, there is no dominant mass, suspicious microcalcification,or area of architectural distortion. IMPRESSION: No mammographic evidence of malignancy. BIRADS: BIRADS - CATEGORY 1 Negative, no evidence of malignancy. Normal interval follow-up is recommended in 12 months. OVERALL ASSESSMENT - NEGATIVE A letter of notification will be sent to the patient regarding theresults. [employer] recommends annual mammograms for women40 years and older. Analia William MD IMG MAMMOGRAPHY ORD ERABLES documented in this encounter Visit Diagnoses Diagnosis Breast cancer screening Breast screening, unspecified documented in this encounter Additional Health Concerns Assessment Noted Time A fall risk assessment has been complete d for the patient 03/12/2019 1:03 PM EDT documented as of this encounter Care Teams Team Facilitator Relationship Specialty Start Date End Date Analia William MD PCP - General Family Medicine 01/30/19 06/04/20 documented as of this encounter
--- OUTSIDE RECORDS SUMMARY | 2024-08-21 07:05 | XMS_ITS | Encounter Summary ---
Author Organization [facility] Address [address] [place] [address] Care Team Providers Care Rail Operator Name Role Phone Analia William MD Primary Care Provider [phone]- [phone] Reason for Visit * Reason Comments Results go over pft Encounter Details Date Type Department Care Team (Late st Contact Info) Description 03/12/2019 1:00 PM EDT Office Visit [facility] [address] [facility] [place] [address] Analia William MD [address] [place] [address] Mild intermittent asthma without complication (Primary Dx) Social History Tobacco Use Types [...] Sign Reading Time Taken Comments Blood Pressure 136/70 03/12/2019 12:59 PM EDT Pulse 63 03/12/2019 12:59 PM EDT Temperature 36.6 ??C (97.8 ??F) 03/12/2019 12:59 PM E DT Respiratory Rate - - Oxygen Saturation 98% 03/12/2019 12:59 PM EDT Inhaled Oxygen Concentration - - Weight 57.8 kg (127 lb 6.4 oz) 03/12/2019 12:59 PM EDT Height - - Body Mass Index 21.75 01/30/2019 11:07 AM EDT documented in this encounter Patient Instructions * Patient Instructions* Analia William MD - 03/12/2019 1:40 PM EDT Images from the original note were not included. Patient Education Patient Education Asthma in Adults: Care Instructions Your Care Instructions During an asthma attack, your airways swell and narrow as a reaction to certain things (triggers). This makes it hard to breathe. You may be able to prevent asthma attacks if you avoid the things that set off your asthma symptoms. Keeping your asthma under control and treating symptoms before they get bad can help you avoid severe attacks. If you can control your asthma, you may be able to do all of your normal daily activities. You may also avoid asthma attacks and trips to the hospital. Follow-up care is a stallworth part of your treatment and safety. Be sure to make and go to all appointments, and call your doctor if you are having problems. It's also a good idea to know your test resultsand keep a list of the medicines you take. How can you care for yourself at home? ?? Follow your asthma action plan so you can manage your symptoms at home. An asthma action plan will help you prevent and control airway reactions and will tell you what to do during an asthma attack. If you do not have an asthma action plan, work with your doctor to build one. ?? Take your asthma medicine exactly as prescribed. Medicine plays an important role in controllingasthma. Talk to your doctor right away if you have any questions about what to take and how to takeit. ? Use your quick-relief medicine when you have symptoms of an attack. Quick- relief medicine often is an albuterol inhaler. Some people need to use quick- relief medicine before they exercise. ? Take your controller medicine every day, not just when you have symptoms. Controller medicine is usually an inhaled corticosteroid. The goal is to prevent problems before they occur. Do not use your controller medicine to try to treat an attack that has already started. It does not work fast enough to help. ? If your doctor prescribed corticosteroid pills to use during an attack, take them as directed. They may take hours to work, but they may shorten the attack and help you breathe better. ? Keep your quick-relief medicine with you at all times. ?? Talk to your doctor before using other medicines. Some medicines, such as aspirin, can cause asthma attacks in some people. ?? Check yourself for asthma symptoms to know which step to follow in your action plan. Watch for things like being short of breath, having chest tightness, coughing, and wheezing. Also notice if symptoms wake you up at night or if you get tired quickly when you exercise. ?? If you have a peak flow meter, use it to check how well you are breathing. This can help you predict when an asthma attack is going to occur. Then you can take medicine to prevent the asthma attack or make it less severe. ?? See your doctor regularly. These visits will help you learn more about asthma and what you can do to control it. Your doctor will monitor your treatment to make sure the medicine is helping you. ?? Keep track of your asthma attacks and your treatment. After you have had an attack, write down what triggered it, what helped end it, and any concerns you have about your asthma action plan. Take your diary when you see your doctor. You can then review your asthma action plan and decide if it isworking. ?? Do not smoke or allow others to smoke around you. Avoid smoky places. Smoking makes asthma worse. If you need help quitting, talk to your doctor about stop- smoking programs and medicines. These can increase your chances of quitting for good. ?? Learn what triggers an asthma attack for you, and avoid the triggers when you can. Common triggers include colds, smoke, air pollution, dust, pollen, mold, pets, cockroaches, stress, and cold air. ?? Avoid colds and the flu. Get a pneumococcal vaccine shot. If you have had one before, ask your doctor whether you need a second dose. Get a flu vaccine every fall. If you must be around people with colds or the flu, wash your hands often. When should you call for help? Call 911 anytime you think you may need emergency care. For example, call if: ? You have severe trouble breathing. ??Call your doctor now or seek immediate medical care if: ? Your symptoms do not get better after you have followed your asthma action plan. ? You cough up yellow, dark brown, or bloody mucus (sputum). ??Watch closely for changes in your health, and be sure to contact your doctor if: ? Your coughing and wheezing get worse. ? You need to use quick-relief medicine on more than 2 days a week (unless it is just for exercise). ? You need help figuring out what is triggering your asthma attacks. Where can you learn more? Go to [email or web address] and sign in to your [employer] account. Enter P597 in the Search Health Information box to learn more about Asthma in Adults: Care Instructions. If you do not have an account, please click on the Sign Up Now link. Current as of: May 23, 2018 Content Version: 12.0 ?? [id number] [employer]. Care instructions adapted under license by [employer] [place]. If you have questions about a medical condition or this instruction, always ask your healthcare professional. [employer] disclaims any warranty or liability for your use of this information. albuterol inhalation Pronunciation: zach cee all Brand: ProAir HFA, ProAir RespiClick, Proventil HFA, Ventolin HFA What is the most important information I should know about albuterol inhalation? Follow all directions on your medicine label and package. Tell each of your healthcare providers about all your medical conditions, allergies, and all medicines you use. What is albuterol inhalation? Albuterol inhalation is a bronchodilator that is used to treat or prevent bronchospasm in people with reversible obstructive airway disease. Albuterol is also used to prevent exercise-induced bronchospasm. Albuterol inhalation is for use in adults and children who are at least 4 years old. Albuterol inhalation may also be used for purposes not listed in this medication guide. What should I discuss with my healthcare provider before using albuterol inhalation? You should not use this medicine if you are allergic to albuterol. You should not use ProAir RespiClick if you are allergic to milk proteins. Albuterol inhalation is not approved for use by anyone younger than 4 years old. Albuterol may increase the risk of or hospitalization in people with asthma, but the risk in people with COPD is not known. Tell your doctor if you have ever had: ?? heart disease, high blood pressure; ?? a thyroid disorder; ?? seizures; ?? diabetes; or ?? low levels of potassium in your blood. Tell your doctor if you are or breast-feeding. How should I use albuterol inhalation? Follow all directions on your prescription label and read all medication guides. Use the medicine exactly as directed. Read and carefully follow any Instructions for Use provided with your medicine. Ask your doctor or pharmacist if you do not understand these instructions. Do not allow a young child to use albuterol inhalation without help from an adult. To prevent exercise-induced bronchospasm, use this medicine 15 to 30 minutes before you exercise. The effects of albuterol inhalation should last about 4 to 6 hours. Seek medical attention if your breathing problems get worse quickly, or if you think your asthma medications are not working as well. Do not try to clean or take apart the ProAir RespiClick inhaler device. Always use the new inhaler device provided with your refill. Do not float a medicine canister in water to see if it is empty. Your dose needs may change due to surgery, illness, stress, or a recent asthma attack. Do not change your dose or dosing schedule without your doctor's advice. Store at room temperature away from moisture, heat, or cold temperatures. Keep the cover on your ProAir Respiclick inhaler when not in use. Store Proventil or Ventolin with the mouthpiece down. Keep the inhaler canister away from open flame or high heat. The canister may explode if it gets too hot. Do not puncture or burn an empty inhaler canister. What happens if I miss a dose? Use the medicine as soon as you can, but skip the missed dose if it is almost time for your next dose. Do not use two doses at one time. Get your prescription refilled before you run out of medicine completely. What happens if I overdose? Seek emergency medical attention or call the Poison Help line at . An overdose of albuterol can be fatal. Overdose symptoms may include dry mouth, tremors, chest pain, fast heartbeats, nausea, general ill feeling, seizure (convulsions), feeling light-headed or fainting. What should I avoid while using albuterol inhalation? Rinse with water if this medicine gets in your eyes. What are the possible side effects of albuterol inhalation? Get emergency medical help if you have signs of an allergic reaction: hives; difficult breathing; swelling of your face, lips, tongue, or throat. Call your doctor at once if you have: ?? wheezing, choking, or other breathing problems after using this medicine; ?? chest pain, fast heart rate, pounding heartbeats or fluttering in your chest; ?? severe headache, pounding in your neck or ears; ?? pain or burning when you urinate; ?? high blood sugar --increased thirst, increased urination, dry mouth, fruity breath odor; or ?? low potassium --leg cramps, constipation, irregular heartbeats, increased thirst or urination, numbness or tingling, muscle weakness or limp feeling. Common side effects may include: ?? chest pain, fast or pounding heartbeats; ?? dizziness; ?? feeling shaky or nervous; ?? headache, back pain, body aches; ?? upset stomach; or ?? sore throat, sinus pain, runny or stuffy nose. This is not a complete list of side effects and others may occur. Call your doctor for medical advice about side effects. You may report side effects to FDA at 9-524-LYT-0129. What other drugs will affect albuterol inhalation? Tell your doctor about all your other medicines, especially: ?? any other inhaled medicines or bronchodilators; ?? digoxin; ?? a diuretic or water pill ; ?? an antidepressant --amitriptyline, desipramine, imipramine, doxepin, nortriptyline, and others; ?? a beta florencia --atenolol, carvedilol, labetalol, metoprolol, propranolol, sotalol, and others; or ?? an MAO inhibitor --isocarboxazid, linezolid, methylene blue injection, phenelzine, rasagiline, selegiline, tranylcypromine, and others. This list is not complete. Other drugs may affect albuterol inhalation, including prescription and [id number] medicines, vitamins, and herbal products. Not all possible drug interactions are listed here. Where can I get more information? Your pharmacist can provide more information about albuterol inhalation. Remember, keep this and all other medicines out of the reach of children, never share your medicines with others, and use this medication only for the indication prescribed. Every effort has been made to ensure that the information provided by [employer]') is accurate, up-to-date, and complete, but no guarantee is made to that effect. Drug information contained herein may be time sensitive. [employer] information has been compiled for use by healthcare practitioners and consumers in the [place] and therefore [employer] does not warrant that uses outside of the [place] are appropriate, unless specifically indicated otherwise. [employer] drug information does not endorse drugs, diagnose patients or recommend therapy. [employer] drug information isan informational resource designed to assist licensed healthcare practitioners in caring for their p atients and/or to serve consumers viewing this service as a supplement to, and not a substitute for, the expertise, skill, knowledge and judgment of healthcare practitioners. The absence of a warningfor a given drug or drug combination in no way should be construed to indicate that the drug or drug combination is safe, effective or appropriate for any given patient. [employer] does not assume any responsibility for any aspect of healthcare administered with the aid of information [employer] provides. The information contained herein is not intended to cover all possible uses, directions, precautions, warnings, drug interactions, allergic reactions, or adverse effects. If you have questions about the drugs you are taking, check with your doctor, nurse or pharmacist. Copyright 2689-2545 [employer]. Version: 8.01. Revision date: 08/31/2018. Care instructions adapted under license by [employer] [place]. If you have questions about a medical condition or this instruction, always ask your healthcare professional. [employer] disclaims any warranty or liability for your use of this information. documented in this encounter Progress Notes * Analia William MD - 03/12/2019 1:31 PM EDT Chief Complaint Patient presents with ??? Results go over pft HPI 69 y.o. female presents today to discuss recent pulmonary function test. Hx of bronchiectasis had previous PFTs done in 2009 reviewed and showed mild obstructive lung disease with no improvement after use of bronchodilators. Patient states that she was previously on an inhaler and sob pulmonologists. Did not have any symptoms and treatment was stopped per patient. PFTs done recently she will moderate obstructive lung disease with bronchodilator response and diagnosis of asthma. Patient states since her last visit her breathing and cough has been better. Patient Active Problem List Diagnosis ??? Primary osteoarthritis of right knee Past Medical History: Diagnosis Date ??? Bronchiectasis 2005 PFT 06/27 with mild obsctruction and not reversible ??? Colon polyp 2006 q 3 years Past Surgical History: Procedure Laterality Date ??? APPENDECTOMY ??? COLONOSCOPY ??? COLONOSCOPY 08/01/11 normal ??? HERNIA REPAIR inguinal Most Recent Immunizations Administered Date(s) Administered ??? Hepatitis A Adult (Vaqta) 06/26/2017 ??? Influenza Whole 06/18/2010 ??? Influenza, High Dose (Fluzone 65 yrs and older) 06/14/2017 ??? Influenza, Triv, inactivated, subunit, adjuvanted, IM (Fluad 65 yrs and older) 07/03/2018 ??? Pneumococcal Conjugate 13-valent (Yqhinqi20) 01/30/2019 ??? Pneumococcal Polysaccharide (Gitcoijof03) 01/09/2018 ??? Tdap (Boostrix, Adacel) 06/14/2017 ??? Zoster Recombinant (Shingrix) 01/09/2018 Current Outpatient Medications Medication Sig Dispense Refill ??? albuterol sulfate HFA (PROVENTIL HFA) 108 (90 Base) MCG/ACT inhaler Inhale 2 puffs into the lungs every 6 hours as needed for Wheezing or Shortness of Breath 1 Inhaler 2 ??? Multiple Vitamin (MULTIVITAMIN PO) Take by mouth. ??? vitamin B-12 (CYANOCOBALAMIN) 100 MCG tablet Take 500 mcg by mouth daily. ??? ibuprofen (ADVIL;MOTRIN) 200 MG tablet Take 400 mg by mouth nightly. No current facility-administered medications for this visit. No Known Allergies Social History Socioeconomic History ??? Marital status: Spouse name: Fantasma ??? Number of children: 4 ??? Years of education: 12 ??? Highest education level: Not on file Occupational History Comment: [employer] Comment: At home Social Needs ??? Financial resource strain: Not on file ??? Food insecurity: Worry: Not on file Inability: Not on file ??? Transportation needs: Medical: Not on file Non-medical: Not on file Tobacco Use ??? Smoking status: Never Smoker ??? Smokeless tobacco: Never Used Substance and Sexual Activity ??? Alcohol use: Yes Alcohol/week: 0.6 oz Types: 1 Glasses of wine per week Comment: Ocas ??? Drug use: Never ??? Sexual activity: Not on file Lifestyle ??? Physical activity: Days per week: Not on file Minutes per session: Not on file ??? Stress: Not on file Relationships ??? Social connections: Talks on phone: Not on file Gets together: Not on file Attends restoration service: Not on file Active member of club or organization: Not on file Attends meetings of clubs or organizations: Not on file Relationship status: Not on file ??? Intimate partner violence: Fear of current or ex partner: Not on file Emotionally abused: Not on file Physically abused: Not on file Forced sexual activity: Not on file Other Topics Concern ??? Not on file Social History Narrative ??? Not on file Family History Problem Relation Age of Onset ??? Cancer Mother 71 Breast ??? Diabetes Mother ??? High Blood Pressure Mother ??? Other Father Respiratory issues ??? High Blood Pressure Sister ??? High Blood Pressure Brother Review Of Systems Review of Systems Constitutional: Negative for chills and fever. Respiratory: Negative for shortness of breath. Cardiovascular: Negative for chest pain. PHYSICAL EXAMINATION: BP 136/70 (Site: Left Upper Arm) Pulse 63 Temp 97.8 ??F (36.6 ??C) (Oral) Wt 127 lb 6.4 oz (57.8 kg) SpO2 98% BMI 21.75 kg/m?? Physical Exam Constitutional: She is oriented to person, place, and time. She appears well- developed and well-nourished. No distress. HENT: Head: Normocephalic and atraumatic. Right Ear: External ear normal. Eyes: Conjunctivae and EOM are normal. Cardiovascular: Normal rate, regular rhythm and normal heart sounds. Pulmonary/Chest: Effort normal. No stridor. No respiratory distress. She has no wheezes. Neurological: She is alert and oriented to person, place, and time. Skin: Skin is warm and dry. She is not diaphoretic. Vitals reviewed. ASSESSMENT: Well Adult, See encounter diagnoses Karlie was seen today for results. Diagnoses and all orders for this visit: Mild intermittent asthma without complication Patient has been stable. It appears as if her symptoms are triggered by seasonal changes. Will provide albuterol inhaler, advised to notify me sooner if she is using more than 3-4 times per week. - albuterol sulfate HFA (PROVENTIL HFA) 108 (90 Base) MCG/ACT inhaler; Inhale 2 puffs into the lungs every 6 hours as needed for Wheezing or Shortness of Breath Plan: See orders and medications filed with this encounter. Return in about 3 months (around 06/12/2019). documented in this encounter Plan of Treatment Upcoming Encounters Date Type Department Care Team (Late st Contact Info) Description 04/01/2025 10:00 AM EDT Office Visit [facility] Pulmonary Critical Care and Sleep [address] [facility] [address] [place] [address] Salvador Woodard MD [address] [address] 1 YFU lungs 04/21/2025 9:30 AM EDT Office Visit [facility] Family Medicine [address] [place] [address] O'Rosalba, Vinicio Brown MD [address] [place] [address] awv documented as of this encounter Visit Diagnoses Diagnosis Mild intermittent asthma without complication- Primary Unspecified asthma documented in this encounter Additional Health Concerns Assessment Noted Time A fall risk assessment has been complete d for the patient 03/12/2019 1:03 PM EDT documented as of this encounter Care Teams Rail Operator Relationship Specialty Start Date End Date Analia William MD PCP - General Family Medicine 01/30/19 06/04/20 documented as of this encounter
--- OUTSIDE RECORDS SUMMARY | 2024-08-21 07:05 | XMS_ITS | Encounter Summary ---
Author Organization [facility] Address [address] [place] [address] Care Team Providers Care Primer Expeditor And Drier Name Role Phone Analia William MD Primary Care Provider [phone]- [phone] Reason for Referral * Imaging (Routine) - Closed Specialty Diagnoses / Procedures Referred By Contac t Referred To Contact Radiology Diagnoses Bronchiectasis without complication (HCC) Procedures CT CHEST W CONTRAST Analia William MD [address] [place], [place] [id number] Referral ID Status Reason Start Date Expiration Date Visits Re quested Visits Authorized [id number] Closed 09/20/2019 09/19/2020 1 1 * Imaging (Routine) - Closed Specialty Diagnoses / Procedures Referred By Contac t Referred To Contact Radiology Diagnoses Bronchiectasis without complication (HCC) Procedures CT CHEST W WO CONTRAST Analia William MD [address] [place] [address] Referral ID Status Reason Start Date Expiration Date Visits Re quested Visits Authorized [id number] Closed 09/19/2019 09/18/2020 1 1 Reason for Visit * Imaging (Routine) - Closed Specialty Diagnoses / Procedures Referred By Jean Claude t Referred To Contact Radiology Diagnoses Bronchiectasis without complication (HCC) Procedures CT CHEST W WO CONTRAST Analia William MD [address] [address] Referral ID Status Reason Start Date Expiration Date Visits Re quested Visits Authorized [id number] Closed 09/19/2019 09/18/2020 1 1 Encounter Details Date Type Department Care Team (Latest Contact Info) Description 09/23/2019 1:21 PM EST - 09/23/2019 1:28 PM EST Hospital Encounter [facility] CT Scan [address] [id number] Bronchiectasis without complication (HCC) Discharge Disposition: Home [...] 04/01/20 24 documented as of this encounter Progress Notes * Eduardo Rangel - 09/23/2019 2:00 PM EST Images from the original note were not included. documented in this encounter Plan of Treatment Upcoming Encounters Date Type Department Care Team (Maricarmen Contact Info) Description 04/01/2025 10:00 AM EDT Office Visit [facility] Pulmonary Critical Care and Sleep [address] [facility] [address] [place], [place] [id number] Salvador Woodard MD [address] [facility] [address] [place], [place] [id number] 1 YFU lungs 04/21/2025 9:30 AM EDT Office Visit [facility] [address] [place] [address] O'Vinicio Navarrete MD [address] [place], [place] [id number] awv documented as of this encounter Procedures Procedure Name Priority Date/Time Associated Diagnosis Comments CT CHEST W CONTRAST Routine 09/23/2019 2:18 PM EST Bronchiectasis without complication (HCC) documented in this encounter Results * CT CHEST W [...] PROVIDED HISTORY: Reason for Exam: recent bronchial hscyutzwa-irziquhtdgatnkkhhbnlzgu-ajlkxjv cough Acuity: Acute Type of Exam: Ongoing [...] without acute exacerbation documented in this encounter Administered Medications Inactive Administered Medications - up to 3 most recent administrations Medication Order MAR Action Action Date Dose Rate Site iopamidol (ISOVUE-370) 76 % injection 75 mL 75 mL, IntraVENous, IMG ONCE PRN, 1 dose, Starting on 09/23/19 at 1403, Until Mon09/23/19 at 1419, Other Given 09/23/2019 2:19 PM EST 75 mLs documented in this encounter Additional Health Concerns Assessment Noted Time A fall risk assessment has been complete d for the patient 03/12/2019 1:03 PM EDT documented as of this encounter Care Teams Primer Expeditor And Drier Relationship Specialty Start Date End Date Analia William MD PCP - General Family Medicine 01/30/19 06/04/20 documented as of this encounter
--- OUTSIDE RECORDS SUMMARY | 2024-08-21 07:05 | XMS_ITS | Encounter Summary ---
Author Organization [facility] Address [address] [place] [address] Care Team Providers Care Vice President Investor Relations Name Role Phone Analia William MD Primary Care Provider [phone] Reason for Visit * Reason Onset Date Comments Cancelled Appointment 02/14/2020 Encounter Details Date Type Department Care Team (Late st Contact Info) Description 02/14/2020 Telephone [facility] Pulmonary Critical Care and Sleep [address] [place] [address] Dilia Perez MD Cancelled Appointment Social History [...] Description 04/01/2025 10:00 AM EDT Office Visit [facility] Pulmonary Critical Care and Sleep [address] [facility] [address] [place], [place] [id number] Salvador Woodard MD [address] [place] [address] 1 YFU lungs 04/21/2025 9:30 AM EDT Office Visit [facility] [address] [place] [address] O'Rosalba, Vinicio Brown MD [address] [place] [address] awv documented as of this encounter Visit Diagnoses Not on filedocumented in this encounter Additional Health Concerns Assessment Noted Time A fall risk assessment has been complete d for the patient 03/12/2019 1:03 PM EDT documented as of this encounter Care Teams Vice President Investor Relations Relationship Specialty Start Date End Date Analia William MD PCP - General Family Medicine 01/30/19 06/04/20 documented as of this encounter
--- OUTSIDE RECORDS SUMMARY | 2024-08-21 07:05 | XMS_ITS | Encounter Summary ---
Author Organization [facility] Address [address] [facility] [place] [address] Care Team Providers Care Switchbox Assembler Name Role Phone Analia William MD Primary Care Provider [phone]- [phone] Reason for Visit * Reason Comments Follow-up BRONCHIECTASIS Encounter Details Date Type Department Care Team (Latest Contact Info) Description 04/01/2020 11:15 AM EDT Virtual Visit [facility] Pulmonary Critical Care and Sleep [address] [place] [address] Rachel Perez MD Bronchiectasis without complication (HCC) (Primary Dx) Social History Tobacco Use Types [...] * Patient Instructions* Nicole Ch LPN - 04/01/2020 11:51 AM EDT Remember to bring all pulmonary medications to your next appointment with the office. Please keep all of your future appointments scheduled by [facility] Pulmonary office. Out of respect for other patients and providers, you may be asked to reschedule your appointment if you arrive later than your scheduled appointment time. Appointments cancelled less than 24hrs in advance will be considered a no show. Patients with three missed appointments within 1 year or four missed appointments within 2 years can be dismissed from the practice. You may receive a survey regarding the care you received during your visit. Your input is valuable to us. We encourage you to complete and return your survey. We hope you will choose us in the future for your healthcare needs. documented in this encounter Progress Notes * Nicole Ch LPN - 04/01/2020 11:51 AM EDT MA Communication: The following orders are received by verbal communication from Dr. Rachel Perez. Orders include:6 mo fu * Rachel Perez MD - 04/01/2020 11:12 AM EDT Pulmonary Outpatient Note Rachel Perez MD 04/01/2020 Chief Complaint: Follow-up (BRONCHIECTASIS) HPI: 70 y.o. year old female here for bronchiectasis. Virtual visit through [email or web address] Last seen in September Not had any exacs or respiratory infections since last visit. Labs reviewed, normal IgG, negative allergen panel. CT chest personally reviewed, impacted mucous and bronchiectasis bilaterally. PFTs personally reviewed, moderate obstruction with significant post bronchodilator response. Past Medical History: Diagnosis Date ??? Bronchiectasis [...] ??? Alcohol use: Yes Alcohol/week: 1.0 standard drinks Types: 1 Glasses of wine per week Comment: Ocas Family History Problem Relation Age of Onset ??? Cancer Mother 71 Breast ??? Diabetes Mother ??? High Blood Pressure Mother ??? Other Father Respiratory issues ??? High Blood Pressure Sister ??? High Blood Pressure Brother Current Outpatient Medications: ??? calcium carbonate (OSCAL) 500 MG TABS tablet, Take 500 mg by mouth daily, Disp: , Rfl: ??? Probiotic Product (PRO-BIOTIC BLEND PO), Take by mouth, Disp: , Rfl: ??? ipratropium-albuterol (DUONEB) 0.5-2.5 (3) MG/3ML SOLN nebulizer solution, Inhale 3 mLs into the lungs every 6 hours as needed for Shortness of Breath, Disp: 360 mL, Rfl: 11 ??? albuterol sulfate HFA (PROVENTIL HFA) 108 (90 Base) MCG/ACT inhaler, Inhale 2 puffs into the lungs every 6 hours as needed for Wheezing or Shortness of Breath, Disp: 1 Inhaler, Rfl: 2 ??? Multiple Vitamin (MULTIVITAMIN PO), Take by mouth., Disp: , Rfl: ??? vitamin B-12 (CYANOCOBALAMIN) 100 MCG tablet, Take 500 mcg by mouth daily., Disp: , Rfl: ??? ibuprofen (ADVIL;MOTRIN) 200 MG tablet, Take 400 mg by mouth nightly., Disp: , Rfl: Patient has no known allergies. There were no vitals filed for this visit. Review of Systems Constitutional: Negative for chills, fever and unexpected weight change. HENT: Negative for mouth sores, sore throat and voice change. Eyes: Negative for pain, discharge and itching. Respiratory: Positive for cough and shortness of breath. Negative for choking, chest tightness and stridor. Cardiovascular: Negative for chest pain, palpitations and leg swelling. Gastrointestinal: Negative for abdominal pain, constipation and diarrhea. Endocrine: Negative for cold intolerance, heat intolerance and polydipsia. Genitourinary: Negative for dysuria, frequency and hematuria. Musculoskeletal: Negative for gait problem, joint swelling and neck stiffness. Neurological: Negative for dizziness, numbness and headaches. Psychiatric/Behavioral: Negative for agitation, confusion and hallucinations. ASSESSMENT: 1. Bronchiectasis without complication (HCC) PLAN: -Continue PRN bronchodilators -Low threshold for atb and steroids if she develops acute exacs -Up to date on influenza/pneumonia vaccinations Rachel Love is a 70 y.o. female being evaluated by a Virtual Visit (video visit) encounter to address concerns as mentioned above. A caregiver was present when appropriate. Due to this being a TeleHealth encounter (During COVID-19 public health emergency), evaluation of the following organ systemswas limited: Vitals/Constitutional/EENT/Resp/CV/GI//MS/Neuro/Skin/Qfek-Eqdwk-Cev. Pursuant to theemergency declaration under the [place] Act and the National Emergencies Act, 1135 waiver authority and the Coronavirus Preparedness and Response Supplemental Appropriations Act, this Virtual Visit was conducted with patient's (and/or legal guardian's) consent, to reduce the patient's risk of exposure to COVID-19 and provide necessary medical care. The patient (and/or legal guardian) has also been advised to contact this office for worsening conditions or problems, and seek emergency medical treatment and/or call 911 if deemed necessary. Patient identification was verified at the start of the visit: Yes Total time spent for this encounter: Not billed by time Services were provided through a video synchronous discussion virtually to substitute for in-personclinic visit. Patient and provider were located at their individual homes. --RACHEL PEREZ MD on 04/01/2020 at 11:20 AM An electronic signature was used to authenticate this note. documented in this encounter Plan of Treatment Upcoming Encounters Date Type Department Care Team (Late st Contact Info) Description 04/01/2025 10:00 AM EDT Office Visit [facility] Pulmonary Critical Care and Sleep [address] [facility] [address] [place] [address] Salvador Woodard MD [address] [facility] [address] [place] [address] 1 YFU lungs 04/21/2025 9:30 AM EDT Office Visit [facility] [address] [place] [address] O'Rosalba, Vinicio Brown MD [address] [place] [phone] awv documented as of this encounter Visit Diagnoses Diagnosis Bronchiectasis without complication (HCC)- Primary Bronchiectasis without acute exacerbation documented in this encounter Additional Health Concerns Assessment Noted Time A fall risk assessment has been complete d for the patient 03/12/2019 1:03 PM EDT documented as of this encounter Care Teams Switchbox Assembler Relationship Specialty Start Date End Date Analia William MD PCP - General Family Medicine 01/30/19 06/04/20 documented as of this encounter
--- OUTSIDE RECORDS SUMMARY | 2024-08-21 07:05 | XMS_ITS | Encounter Summary ---
Author Organization [facility] Address [address] [place] [address] Care Team Providers Care Annealing Torch Operator Name Role Phone Unavailable Primary Care Provider Unavailabl e Reason for Visit * Reason Comments Follow-up 6 mo fu Bronchiectas is Encounter Details Date Type Department Care Team (Latest Contact Info) Description 02/23/2021 11:00 AM EDT Office Visit [facility] Pulmonary Critical Care and Sleep [address] [place] [address] Dilia Perez MD Bronchiectasis without complication (HCC) (Primary [...] Sign Reading Time Taken Comments Blood Pressure 151/81 02/23/2021 10:52 AM EDT Pulse 59 02/23/2021 10:47 AM EDT Temperature 36.8 ??C (98.2 ??F) 02/23/2021 10:47 AM E DT Respiratory Rate 16 02/23/2021 10:47 AM EDT Oxygen Saturation 99% 02/23/2021 10:47 AM EDT RA Inhaled Oxygen Concentration - - Weight 59.9 kg (132 lb) 02/23/2021 10:47 AM EDT Height 162.6 cm (5' 4 ) 02/23/2021 10:47 AM EDT Body Mass Index 22.66 02/23/2021 10:47 AM EDT documented in this encounter Patient Instructions * Patient Instructions* Radha Lee MA - 02/23/2021 11:06 AM EDT Remember to bring a list of pulmonary medications and any CPAP or BiPAP machines to your next appointment with the office. Please keep all of your future appointments scheduled by [facility] Pulmonary office. Out of respect for other [...] work in the Intensive Care Unit at [facility]. Your appointment may need to be rescheduled [...] instructions provided. Instructions on future appointments with [facility] Pulmonary were given. documented in this encounter Progress Notes * Dilia Perez MD - 02/24/2021 12:50 PM EDT Images from the original note were not included. Pulmonary Outpatient Note Dilia Perez MD 02/23/2021 Chief Complaint: Follow-up (6 mo fu Bronchiectasis) HPI: 70 y.o. year old female here for follow up of bronchiectasis. Well controlled symptoms Has not had an acute exac since last seen Does have a mild cough that is minimally productive Denies shortness of breath On PRN nebs and albuterol, rarely requires Past Medical History: Diagnosis Date ??? Bronchiectasis [...] Rfl: Patient has no known allergies. Vitals: 02/23/21 1047 02/23/21 1052 BP: (!) 145/75 (!) 151/81 Site: Left Upper Arm Right Upper Arm Position: Sitting Sitting Cuff Size: Medium Adult Medium Adult Pulse: 59 Resp: 16 Temp: 98.2 ??F (36.8 ??C) TempSrc: Oral SpO2: 99% Weight: 132 lb (59.9 kg) Height: 5' 4 (1.626 m) Review of Systems Constitutional: Negative for chills, fever and unexpected weight change. HENT: Negative for mouth sores, sore throat and voice change. Eyes: Negative for pain, discharge and itching. Respiratory: Negative for choking, chest tightness and stridor. [...] Psychiatric/Behavioral: Negative for agitation, confusion and hallucinations. Physical Exam Constitutional: General: She is not in acute distress. Appearance: She is well-developed. She is not diaphoretic. HENT: Head: Normocephalic and atraumatic. Mouth/Throat: Pharynx: No oropharyngeal exudate. Eyes: Pupils: Pupils are equal, round, and reactive to light. Neck: Vascular: No JVD. Cardiovascular: Heart sounds: Normal heart sounds. No murmur heard. No friction rub. No gallop. Pulmonary: Effort: Pulmonary effort is normal. Breath sounds: No wheezing or rales. Abdominal: General: Bowel sounds are normal. There is no distension. Palpations: Abdomen is soft. Tenderness: There is no abdominal tenderness. Musculoskeletal: General: Normal range of motion. Cervical back: Neck supple. Lymphadenopathy: Cervical: No cervical adenopathy. Skin: General: Skin is warm and dry. Findings: No rash. Neurological: Mental Status: She is alert. Cranial Nerves: No cranial nerve deficit. Comments: CN 2-12 grossly intact ASSESSMENT: 1. Bronchiectasis without complication (HCC) PLAN: -Well controlled Bronchiectasis -Continue PRN bronchodilators, she so rarely uses it I advised on checking expiration date to ensure they are not out of date when needed -Will always have a mild cough as part of her disease, can escalate treatment if this becomes an issue -Low threshold for steroids and atb if acute exac symptoms develop Dilia Perez MD * Radha Lee MA - 02/23/2021 11:06 AM EDT OSORIO Communication: The following orders are received by verbal communication from Dr. Dilia Perez. Orders include: 1 yr fu appt scheduled for 02/23/2022 at 10 am documented in this encounter Plan of Treatment Upcoming Encounters Date Type Department Care Team (Late st Contact Info) Description 04/01/2025 10:00 AM EDT Office Visit [facility] Pulmonary Critical Care and Sleep [address] [facility] [address] [place] [address] Salvador Woodard MD [address] [facility] [address] [place] [address] 1 YFU lungs 04/21/2025 9:30 AM EDT Office Visit [facility] [address] [facility] [address] O'Rosalba, Vinicio Brown MD [address] [place] [address] awv documented as of this encounter Visit Diagnoses Diagnosis Bronchiectasis without complication (HCC)- Primary Bronchiectasis without acute exacerbation documented in this encounter Additional Health Concerns Assessment Noted Time A fall risk assessment has been complete d for the patient 03/12/2019 1:03 PM EDT documented as of this encounter
--- OUTSIDE RECORDS SUMMARY | 2024-08-21 07:05 | XMS_ITS | Encounter Summary ---
Author Organization [facility] Address [address] [facility] [place] [address] Care Team Providers Care Ticket Taker Name Role Phone Analia William MD Primary Care Provider Encounter Details Date Type Department Care Team (Latest Contact Info) Description 08/21/2019 3:30 PM EST - 08/21/2019 11:59 PM [facility] Hospital Encounter [facility] [address] [place] [address] Bronchitis, not specified as acute or chronic Discharge Disposition: Home or Self Care Social [...] Description 04/01/2025 10:00 AM EDT Office Visit [facility] Pulmonary Critical Care and Sleep [address] [facility] [address] [place] [address] Salvador Woodard MD [address] [facility] [address] [place] [phone] YFU lungs 04/21/2025 9:30 AM EDT Office Visit [facility] [address] [email or web address] [place], [place] [id number] O'Vinicio Navarrete MD [address] [facility] [place], [place] [address] awv documented as of this encounter Procedures Procedure Name Priority Date/Time Associated Diagnosis Comments XR CHEST STANDARD TWO VW Routine 08/21/2019 3:44 PM EST Bronchitis, not specified as acute or chronic documented in this encounter Results * XR CHEST STANDARD (2 VW) (08/21/2019 3:44 PM EST) Anatomical Region Laterality Modality Chest Computed Radiogr aphy Thoracic structure (body structure) 08/21/2019 5:55 PM EST Impressions 08/21/2019 5:56 PM EST Chronic atypical infectious process which appears slightly worsened over the comparison interval, with chronic right middle lobe and lingular atelectasis Narrative 08/21/2019 5:56 PM EST EXAMINATION: TWO XRAY VIEWS OF THE CHEST 08/21/2019 3:41 pm COMPARISON: 01/30/2019 HISTORY: ORDERING SYSTEM PROVIDED HISTORY: Bronchitis, not specified as acute or chronic TECHNOLOGIST PROVIDED HISTORY: Reason for Exam: bronchitis Acuity: Chronic Type of Exam: Ongoing FINDINGS: Heart size and pulmonary vessels within normal limits. ??Multiple clusters of small irregular opacities scattered throughout both lungs. ??This appears slightly worsened since the comparison exam. ??Chronic airspace disease in the right middle lobe and lingula. ??Costophrenic angles sharp Procedure Note Pablo Yang MD - 08/21/2019 EXAMINATION: TWO XRAY VIEWS OF THE CHEST 08/21/2019 3:41 pm COMPARISON: 01/30/2019 HISTORY: ORDERING SYSTEM PROVIDED HISTORY: Bronchitis, not specified as acute or chronic TECHNOLOGIST PROVIDED HISTORY: Reason for Exam: bronchitis Acuity: Chronic Type of Exam: Ongoing FINDINGS: Heart size and pulmonary vessels within normal limits. Multiple clustersof small irregular opacities scattered throughout both lungs. This appears slightly worsened since the comparison exam. Chronic airspace disease inthe right middle lobe and lingula. Costophrenic angles sharp IMPRESSION: Chronic atypical infectious process which appears slightly worsened overthe comparison interval, with chronic right middle lobe and lingularatelectasis Fantasma Adams MD [facility] ORDERABLES documented in this encounter Visit Diagnoses Diagnosis Bronchitis, not specified as acute or chronic documented in this encounter Additional Health Concerns Assessment Noted Time A fall risk assessment has been complete d for the patient 03/12/2019 1:03 PM EDT documented as of this encounter Care Teams Ticket Taker Relationship Specialty Start Date End Date Analia William MD PCP - General Family Medicine 01/30/19 06/04/20 documented as of this encounter
--- OUTSIDE RECORDS SUMMARY | 2024-08-21 07:05 | XMS_ITS | Encounter Summary ---
Author Organization [facility] Address [address] [place] [address] Care Team Providers Care Golf Club Maker Name Role Phone Analia William MD Primary Care Provider [phone] Reason for Visit * Reason Comments New Patient Ref Analia William abnormal CT * Eval and Treat (Routine) - Closed Specialty Diagnoses / Procedures Referred By Contac t Referred To Contact Pulmonary Disease / Pulmonology Diagnoses Bronchiectasis without complication (HCC) Abnormal CT scan, chest Analia William MD [address] [address] Dilia Perez MD Referral ID Status Reason Start Date Expiration Date V isits Requested Visits Authorized [id number] Closed Specialty Services Required 09/23/2019 09/22/2020 1 1 Encounter Details Date Type Department Care Team (Latest Contact Info) Description 09/25/2019 10:00 AM EST Office Visit [facility] Pulmonary Critical Care and Sleep [address] [place] [address] Dilia Perez MD Bronchiectasis with (acute) exacerbation (HCC) (Primary Dx); Recurrent respiratory infection Social History Tobacco Use Types Packs/Day Years [...] Sign Reading Time Taken Comments Blood Pressure 149/80 09/25/2019 9:41 AM EST 144 /78 Pulse 63 09/25/2019 9:41 AM EST Temperature 36.4 ??C (97.6 ??F) 09/25/2019 9:41 AM ES T Respiratory Rate - - Oxygen Saturation 99% 09/25/2019 9:41 AM EST RA Inhaled Oxygen Concentration - - Weight 58.9 kg (129 lb 12.8 oz) 09/25/2019 9:41 AM EST Height 163 cm (5' 4.17 ) 09/25/2019 9:41 AM EST Body Mass Index 22.16 09/25/2019 9:41 AM EST documented in this encounter Patient Instructions * Patient Instructions* Nicole Ch LPN - 09/25/2019 10:14 AM EST Remember to bring all pulmonary medications to your next appointment with the office. Please keep all of your future appointments scheduled by [facility] [place] [facility] office. Out of respect for other [...] Progress Notes * Dilia Perez MD - 09/25/2019 10:49 AM EST Images from the original note were not included. Pulmonary Outpatient Note Dilia Perez MD 09/25/2019 Chief Complaint: New Patient (Ref Analia Stewart abnormal CT) HPI: 69 y.o. year old female here for further evaluation of bronchiectass. Has had pulmonary issues for over 12 years, typically with acute exacerbations/respiratory infections 2 times a year lasting 3-4 weeks at a time. Over the past month had a severe exacerbation consisting of congestion, daily productive cough, constant mild shortness of breath triggered with min exertion. No relief with albuterol inhaler but she has not used very liberally. Prescribed three courses of atb and steroids without relief. CT chest personally reviewed, impacted mucous and bronchiectasis bilaterally. PFTs personally reviewed, moderate obstruction with significant post bronchodilator response. Past Medical History: Diagnosis Date ??? Bronchiectasis 2005 PFT 06/27 with mild obsctruction and not reversible ??? Colon polyp 2005 q 3 years Past Surgical History: Procedure [...] Blood Pressure Brother Current Outpatient Medications: ??? Probiotic Product (PRO-BIOTIC BLEND PO), Take [...] Rfl: Patient has no known allergies. Vitals: 09/25/19 0941 BP: (!) 149/80 Site: Right Upper Arm Position: Sitting Pulse: 63 Temp: 97.6 ??F (36.4 ??C) TempSrc: Oral SpO2: 99% Weight: 129 lb 12.8 oz (58.9 kg) Height: 5' 4.17 (1.63 m) Review of Systems Constitutional: Negative for [...] equal, round, and reactive to light. Neck: Musculoskeletal: Neck supple. Vascular: No JVD. Cardiovascular: Heart sounds: Normal heart sounds. No murmur. No friction rub. No gallop. Pulmonary: Effort: Pulmonary effort is normal. Breath sounds: No wheezing or rales. Abdominal: General: Bowel sounds are normal. There is no distension. Palpations: Abdomen is soft. Tenderness: There is no tenderness. Musculoskeletal: Normal range of motion. Lymphadenopathy: Cervical: No cervical adenopathy. Skin: General: Skin is warm and dry. Findings: No rash. Neurological: Mental Status: She is alert. Cranial Nerves: No cranial nerve deficit. Comments: CN 2-12 grossly intact ASSESSMENT: 1. Bronchiectasis with (acute) exacerbation (HCC) 2. Recurrent respiratory infection PLAN: -Discussed new diagnosis of bronchiectasis and treatment options -Escalate regimen with nebulized duonebs and a neb device -Offered bronchoscopy, she wanted to hold off -Check labs to clarify nature of her bronchiectasis as listed below -Discussed additional measures including vest device -Pneumonia/influenza vaccines up to date -Return to clinic after testing to review results. Orders Placed This Encounter Procedures ??? Respiratory allergen profile ??? Vcveh-5-[id number] w Phenotype ??? IGG, IGA, IGM ??? CBC Auto Differential ??? Nebulizer continuous Dilia Perez MD * Nicole Ch LPN - 09/25/2019 10:16 AM EST MA Communication: The following orders are received by verbal communication from Dr. Dilia Perez. Orders include: Ordered Nebulizer FU in January Lab work documented in this encounter Plan of Treatment Upcoming Encounters Date Type Department Care Team (Late st Contact Info) Description 04/01/2025 10:00 AM EDT Office Visit [facility] Pulmonary Critical Care and Sleep [address] [facility] [address] [place] [address] [phone] Salvador Woodard MD [address] [facility] [address] [place] [id number] 1 YFU lungs 04/21/2025 9:30 AM EDT Office Visit [facility] [address] [place] [address] O'Rosalba, Vinicio Brown MD [address] [place] [address] awv Scheduled Orders Name Type Priority Associated Diagnoses Orde r Schedule Nebulizer continuous Respiratory Care Routine Bronchiectasis with (acute) exacerbation (HCC) Expected: 10/25/2019, Expires: 09/24/2020 documented as of this encounter Results * CBC Auto Differential (09/25/2019 10:27 AM EST) WBC 6.8 4.0 - 11.0 K/uL 09/25/2019 5:01 PM [facility] RBC 4.56 4.00 - 5.20 M/uL 09/25/2019 5:01 PM [facility] Hemoglobin 14.5 12.0 - 16.0 g/dL 09/25/2019 5:01 PM [facility] Hematocrit 42.7 36.0 - 48.0 % 09/25/2019 5:01 PM [facility] MCV 93.7 80.0 - 100.0 fL 09/25/2019 5:01 PM [facility] MCH 31.7 26.0 - 34.0 pg 09/25/2019 5:01 PM [facility] MCHC 33.8 31.0 - 36.0 g/dL 09/25/2019 5:01 PM [facility] RDW 13.1 12.4 - 15.4 % 09/25/2019 5:01 PM [facility] Platelets 225 135 - 450 K/uL 09/25/2019 5:01 PM [facility] MPV 7.9 5.0 - 10.5 fL 09/25/2019 5:01 PM [facility] Neutrophils % 62.9 % 09/25/2019 5:01 PM [facility] Lymphocytes % 26.1 % 09/25/2019 5:01 PM [facility] Monocytes % 9.1 % 09/25/2019 5:01 PM [facility] Eosinophils % 1.2 % 09/25/2019 5:01 PM [facility] Basophils % 0.7 % 09/25/2019 5:01 PM [facility] Neutrophils Absolute 4.3 1.7 - 7.7 K/uL 09/25/2019 5:01 PM [facility] Lymphocytes Absolute 1.8 1.0 - 5.1 K/uL 09/25/2019 5:01 PM [facility] Monocytes Absolute 0.6 0.0 - 1.3 K/uL 09/25/2019 5:01 PM EST [facility] Eosinophils Absolute 0.1 0.0 - 0.6 K/uL 09/25/2019 5:01 PM EST [facility] Basophils Absolute 0.0 0.0 - 0.2 K/uL 09/25/2019 5:01 PM EST [facility] BLOOD SPECIMEN / Unknown 09/25/2019 10:27 AM EST 09/25/2019 4:47 PM EST [facility] - 09/25/2019 5:03 PM EST Performed at: [facility] [address] [place] [address], ??[place] [address] ?? Dilia Perez MD HEMATOLOGY ORDERABLE S Performing Organization Address City/[facility]/ZIP Co de Phone Number [facility] [address] [place] [address] * IGG, IGA, IGM (09/25/2019 10:27 AM EST) IgA 168.0 70.0 - 400.0 mg/dL 09/25/2019 4:59 PM [facility] IgG 1021.0 700.0 - 1600.0 mg/dL 09/25/2019 4:59 PM EST [facility] IgM 98.0 40.0 - 230.0 mg/dL 09/25/2019 4:59 PM EST [facility] BLOOD SPECIMEN / Unknown 09/25/2019 10:27 AM EST 09/25/2019 4:41 PM EST [facility] - 09/25/2019 5:16 PM EST Performed at: [facility] [address] [place] [address], ??[place] [address] ?? Dilia Perez MD IMMUNOLOGY ORDERABLE S [facility] [address] [facility] [phone] * Pbelh-8-Gduvvmnrnxd w Phenotype (09/25/2019 10:27 AM EST) A-1 Antitrypsin 153 90 - 200 mg/dL 09/28/2019 5:59 PM EST [facility] Comment:To convert to umol/L , multiply mg/dL by 0.185 A-1 Antitrypsin Pheno M1M1 09/28/2019 5:59 PM EST [facility] Comment: The patient appears to have a normal phenotype. All M alleles (including subtypes M1, M2, and M3) produce normal serum concentrations of nyahs-0-lmvegqci inhibitor and are not associated with clinical disease. Caution in interpretation is advised if the patient has been transfused within the previous 21 days. Performed by [employer], [facility] [place] [address] [email or web address], Valeriano Butler MD, Lab. Director BLOOD SPECIMEN / Unknown 09/25/2019 10:27 AM EST 09/25/2019 11:29 AM EST Narrative [facility] - 09/28/2019 7:59 PM EST Referred out by: [facility] [address] [place] [address], ??[place] [address] ?? Dilia Perez MD CHEMISTRY ORDERABLES [facility] [address] [place] [address] [facility] [address] [place] [phone] [place] [address] * (ABNORMAL) Respiratory allergen profile (09/25/2019 10:27 AM EST) IgE 42 <=214 kU/L 09/27/2019 10:41 AM EST [facility] Comment: REFERENCE INTERVAL: Immunoglobulin E, Serum Access complete set of age- and/or gender-specific reference intervals for this test in the [facility] Test Directory ([employer]). Cat Dander IgE <0.10 <=0.34 kU/L 09/27/2019 [...] kU/L 09/27/2019 10:41 AM EST [facility] Irish Cockroach IgE 0.29 <=0.34 kU/L 09/27/2019 10:41 AM EST [facility] D. farinae IgE <0.10 <=0.34 kU/L 09/27/2019 10:41 AM EST [facility] Mite Dust Pteronyssinus IgE <0.10 <=0.34 kU/L 09/27/2019 10:41 AM EST [facility] Allergen Birch IgE <0.10 <=0.34 kU/L 09/27/2019 10:41 AM EST [facility] Canby IgE 0.21 <=0.34 kU/L 09/27/2019 10:41 AM EST [facility] [place] IgE 0.23 <=0.34 kU/L 09/27/2019 10:41 AM EST [facility] Elm IgE 0.22 <=0.34 kU/L 09/27/2019 10:41 AM EST [facility] Allergen Mountain Stovall 0.16 <=0.34 kU/L 09/27/2019 10:41 AM EST [facility] [place] Tree IgE 0.28 <=0.34 kU/L 09/27/2019 10:41 AM EST [facility] Pecan Tree IgE 0.15 <=0.34 kU/L 09/27/2019 10:41 AM EST [facility] Allergen Tree [place] 0.32 <=0.34 kU/L 09/27/2019 10:41 AM EST [facility] [place] Tree IgE 0.26 <=0.34 kU/L 09/27/2019 10:41 AM EST [facility] Allergen, Tree, White Rashad IgE 0.35(H) <=0.34 kU/L 09/27/2019 10:41 AM EST [facility] Allergen White Liberal Tree, IGE 0.19 <=0.34 kU/L 09/27/2019 10:41 AM EST [facility] Common-Short Ragweed IgE 0.33 <=0.34 kU/L 09/27/2019 10:41 AM EST [facility] Rough Pigweed IgE 0.33 <=0.34 kU/L 09/27/2019 10:41 AM EST [facility] Luxembourger Thistle IgE 0.37(H) <=0.34 kU/L 09/27/2019 10:41 AM EST [facility] Sheep [place] IgE 0.41(H) <=0.34 kU/L 09/27/2019 10:41 AM EST [facility] Comment: Performed by [employer], [address] [place] [id number] [email or web address], Valeriano Butler MD, Lab. Director ALLERGEN SEE NOTE See Note 020 10:43 AM EST [facility] Comment: REFERENCE INTERVAL: Allergen, Interpretation Less [...] clinical allergy or even anaphylaxis. Performed by [employer], [address] [place], [place] [id number] [email or web address], Valeriano Butler MD, Lab. Director BLOOD SPECIMEN / Unknown 09/25/2019 10:27 AM EST 09/25/2019 11:29 AM EST Narrative [facility] - 09/27/2019 12:43 PM EST Referred out by: [facility] [address] [place] [address], ??[place] [address] ?? Dilia Perez MD IMMUNOLOGY ORDERABLE S [facility] [address] [place] [address], [facility] [phone] [facility] [address] [place] [id number] [phone] documented in this encounter Visit Diagnoses Diagnosis Bronchiectasis with (acute) exacerbation (HCC)- Primary Recurrent respiratory infection Other diseases of respiratory system, not elsewhere classified Bronchiectasis with (acute) exacerbation (HCC) Recurrent respiratory infection Other diseases of respiratory system, not elsewhere classified documented in this encounter Additional Health Concerns Assessment Noted Time A fall risk assessment has been complete d for the patient 03/12/2019 1:03 PM EDT documented as of this encounter Care Teams Golf Club Maker Relationship Specialty Start Date End Date Analia William MD PCP - General Family Medicine 01/30/19 06/04/20 documented as of this encounter
--- OUTSIDE RECORDS SUMMARY | 2024-08-21 07:05 | XMS_ITS | Encounter Summary ---
Author Organization [facility] Address [address] [place] [address] Care Team Providers Care Teacher Kindergarten Name Role Phone Analia William MD Primary Care Provider [phone] Reason for Visit * Imaging (Routine) - Closed Specialty Diagnoses / Procedures Referred By Jean Claude hallman Referred To Contact Radiology Diagnoses Primary osteoarthritis of right knee Procedures US ARTHR/ASP/INJ MAJOR JNT/BURSA RIGHT Irmauset, ROSS Gautam [address] [place] [address] Referral ID Status Reason Start Date Expiration Date Visits Re quested Visits Authorized [id number] Closed 03/30/2020 03/30/2021 1 1 Encounter Details Date Type Department Care Team (Late st Contact Info) Description 03/30/2020 1:40 PM EDT Ancillary Procedure [facility] [address] [place] [address] Social History Tobacco Use Types Packs/Day Years [...] Hospital Pulmonary Critical Care and Sleep [address] [facility] [address] [place] [address] Salvador Woodard MD [address] [facility] [address] [place] [address] 1 YFU lungs 04/21/2025 9:30 AM EDT Office Visit [facility] [address] [place], [place] [id number] O'Rosalba, Vinicio Brown MD [address] [place], [place] [address] awv documented as of this encounter Procedures Procedure Name Priority Date/Time Associated Diagnosis Comments US ARTHROCENTESIS INJECTION MAJOR JOINT RT Routine 03/30/2020 1:49 PM EDT Primary osteoarthritis of right knee documented in this encounter Results * US ARTHR/ASP/INJ MAJOR JNT/BURSA RIGHT (03/30/2020 1:49 PM EDT) Narrative [facility] RIS CONSOLIDATED - 03/30/2020 1:49 PM EDT Radiology result is complete; follow up with provider / physician office for radiology results Leonora THORNTON US ORDERABLES [facility] RIS CONSOLIDATED documented in this encounter Visit Diagnoses Not on filedocumented in this encounter Additional Health Concerns Assessment Noted Time A fall risk assessment has been complete d for the patient 03/12/2019 1:03 PM EDT documented as of this encounter Care Teams Teacher Kindergarten Relationship Specialty Start Date End Date Analia William MD PCP - General Family Medicine 01/30/19 06/04/20 documented as of this encounter
--- OUTSIDE RECORDS SUMMARY | 2024-08-21 07:05 | XMS_ITS | Encounter Summary ---
Author Organization [facility] Address [address] [place] [address] Care Team Providers Care Preparole Counseling Aide Name Role Phone Analia William MD Primary Care Provider [phone] Reason for Visit * Reason Comments Immunizations FLU Encounter Details Date Type Department Care Team (Late st Contact Info) Description 06/26/2019 10:30 AM EDT Nurse Only [facility] [address] [place] [address] Need for prophylactic vaccination and inoculation against influenza (Primary Dx) Social History Tobacco Use Types [...] as of this encounter Progress Notes * Crystal Borden MA - 06/26/2019 10:36 AM EDT Vaccine Information Sheet, Influenza - Inactivated given to Karlie Love, or parent/legal guardian of Karlie Love and verbalized understanding. Patient responses: Have you ever had a reaction to a flu vaccine? No Do you have any current illness? No Have you ever had Guillian Salcha Syndrome? No Do you have a serious allergy to any of the follow: Neomycin, Polymyxin, Thimerosal, eggs or egg products? No Flu vaccine given per order. Please see immunization tab. Risks and benefits explained. Current VIS given. documented in this encounter Plan of Treatment Upcoming Encounters Date Type Department Care Team (Late st Contact Info) Description 04/01/2025 10:00 AM EDT Office Visit [facility] Pulmonary Critical Care and Sleep [address] [facility] [address] [place], [place] [id number] Salvador Woodard MD [address] [facility] [address] [place] [phone] [id number] YFU lungs 04/21/2025 9:30 AM EDT Office Visit [facility] [address] [place] [address] O'Vinicio Navarrete MD [address] [place] [address] awv documented as of this encounter Visit Diagnoses Diagnosis Need for prophylactic vaccination and inoculation against influenza- Primary documented in this encounter Additional Health Concerns Assessment Noted Time A fall risk assessment has been complete d for the patient 03/12/2019 1:03 PM EDT documented as of this encounter Care Teams Preparole Counseling Aide Relationship Specialty Start Date End Date Analia William MD PCP - General Family Medicine 01/30/19 06/04/20 documented as of this encounter
--- OUTSIDE RECORDS SUMMARY | 2024-08-21 07:05 | XMS_ITS | Encounter Summary ---
Author Organization [facility] Address [address] [place] [address] Care Team Providers Care Molecular Spectroscopist Name Role Phone Analia William MD Primary Care Provider [phone] Reason for Referral * Imaging (Routine) - Closed Specialty Diagnoses / Procedures Referred By Contac t Referred To Contact Radiology Diagnoses Breast cancer screening Procedures HOUSTON DIGITAL SCREEN W OR WO CAD BILATERAL HOUSTON SCREENING W CAD BILATERAL 2 VW Analia William MD [address] [place] [phone] Referral ID Status Reason Start Date Expiration Date Visits Re quested Visits Authorized [id number] Closed 09/20/2019 09/19/2020 1 1 * Imaging (Routine) - Closed Specialty Diagnoses / Procedures Referred By Jean Claude t Referred To Contact Radiology Diagnoses Bronchiectasis without complication (HCC) Procedures CT CHEST W WO CONTRAST Analia William MD [address] [place] [address] Referral ID Status Reason Start Date Expiration Date Visits Re quested Visits Authorized [id number] Closed 09/19/2019 09/18/2020 1 1 Reason for Visit * Reason Comments Other thinks she needs a l ingris biopsy- had a Xray on 08/21 and they suggested that she have a Biopsy done Encounter Details Date Type Department Care Team (Late st Contact Info) Description 09/19/2019 3:00 PM EST Office Visit [facility] [address] [place] [address] Analia William MD [address] [facility] [address] [place] [address] Bronchiectasis without complication (HCC) (Primary Dx); Breast cancer screening Social History Tobacco Use Types Packs/Day Years [...] Reading Time Taken Comments Blood Pressure 130/70 09/19/2019 3:04 PM EST Pulse 68 09/19/2019 3:04 PM EST Temperature - - Respiratory Rate 16 09/19/2019 3:04 PM EST Oxygen Saturation 98% 09/19/2019 3:04 PM EST Inhaled Oxygen Concentration - - Weight 58.2 kg (128 lb 3.2 oz) 09/19/2019 3:04 P M EST Height - - Body Mass Index 21.89 01/30/2019 11:07 AM EDT documented in this encounter Patient Instructions * Patient Instructions* Paul Rainey - 09/19/2019 4:09 PM EST documented in this encounter Progress Notes * Analia William MD - 09/19/2019 3:34 PM EST Chief Complaint Patient presents with ??? Other thinks she needs a lung biopsy- had a Xray on 08/21 and they suggested that she have a Biopsy done HPI 69 y.o. female presents today with above concerns. Patient has history of bronchiectasis. In August patient had recurrent lung infections and saw a doctor where she lives x-ray was ordered and they told her she needed to have a lung biopsy for further evaluation. Patient does have a history of moderate obstructive lung disease shown with recent PFTs. She uses her albuterol inhaler once a week if needed. Today her previous lung infections have since resolved and she really denies any cough fever or chills. Patient Active Problem List Diagnosis ??? Primary osteoarthritis of right knee Past Medical History: Diagnosis Date ??? Bronchiectasis 2006 PFT 06/27 with mild obsctruction and not reversible ??? Colon polyp 2006 q 3 years Past Surgical History: Procedure Laterality Date ??? APPENDECTOMY ??? COLONOSCOPY ??? COLONOSCOPY 08/01/11 normal ??? HERNIA REPAIR inguinal Most Recent Immunizations Administered Date(s) Administered ??? Hepatitis A Adult (Vaqta) 06/26/2017 ??? Influenza Vaccine, unspecified formulation 06/17/2016 ??? Influenza Whole 06/18/2010 ??? Influenza, High Dose (Fluzone 65 yrs and older) 06/14/2017 ??? Influenza, Triv, inactivated, subunit, adjuvanted, IM (Fluad 65 yrs and older) 06/26/2019 ??? Pneumococcal Conjugate 13-valent ([id number]) 01/30/2019 ??? Pneumococcal Polysaccharide ([id number]) 01/09/2018 ??? Tdap (Boostrix, Adacel) 06/14/2017 ??? [...] of education: 12 ??? 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 Financial resource strain: None ??? Food insecurity: Worry: None Inability: None ??? Transportation needs: Medical: None Non-medical: None Tobacco Use ??? Smoking status: Never Smoker ??? Smokeless tobacco: Never Used Substance and Sexual Activity ??? Alcohol use: Yes Alcohol/week: 1.0 standard drinks Types: 1 Glasses of wine per week Comment: Ocas ??? Drug use: Never ??? Sexual activity: None Lifestyle ??? Physical activity: Days per week: None Minutes per session: None ??? Stress: None Relationships ??? Social connections: Talks on phone: None Gets together: None Attends jainism service: None Active member of club or organization: None Attends meetings of clubs or organizations: None Relationship status: None ??? Intimate partner violence: Fear of current or ex partner: None Emotionally abused: None Physically abused: None Forced sexual activity: None Other Topics Concern ??? None Social History Narrative ??? None Family History Problem Relation Age of Onset ??? Cancer Mother 71 Breast ??? Diabetes Mother ??? High Blood Pressure Mother ??? Other Father Respiratory issues ??? High Blood Pressure Sister ??? High Blood Pressure Brother Review Of Systems Review of Systems Constitutional: Negative for chills and fever. Respiratory: Negative for cough and shortness of breath. Cardiovascular: Negative for chest pain. PHYSICAL EXAMINATION: BP 130/70 Pulse 68 Resp 16 Wt 128 lb 3.2 oz (58.2 kg) SpO2 98% BMI 21.89 kg/m?? Physical Exam Constitutional: Appearance: Normal appearance. HENT: Head: Normocephalic and atraumatic. Eyes: Extraocular Movements: Extraocular movements intact. Conjunctiva/sclera: Conjunctivae normal. Cardiovascular: Rate and Rhythm: Normal rate and regular rhythm. Heart sounds: Normal heart sounds. Pulmonary: Effort: Pulmonary effort is normal. Breath sounds: Normal breath sounds. Skin: General: Skin is warm and dry. Neurological: General: No focal deficit present. Mental Status: She is alert and oriented to person, place, and time. ASSESSMENT: Well Adult, See encounter diagnoses Karlie was seen today for other. Diagnoses and all orders for this visit: Bronchiectasis without complication (HCC) Recommended first doing a CT of her chest to further evaluate her lung parenchyma. Based on results we will determine if she needs to see pulmonology for evaluation. - CT CHEST W WO CONTRAST; Future - Cancel: Basic Metabolic Panel; Future - Creatinine, Serum; Future Breast cancer screening - HOUSTON SCREENING W CAD BILATERAL 2 VW; Future Plan: See orders and medications filed with this encounter. Return if symptoms worsen or fail to improve. documented in this encounter Plan of Treatment Upcoming Encounters Date Type Department Care Team (Late st Contact Info) Description 04/01/2025 10:00 AM EDT Office Visit [facility] Pulmonary Critical Care and Sleep [address] [facility] [address] [place] [phone] Salvador Woodard MD [address] [facility] [address] [place] [address] 1 YFU lungs 04/21/2025 9:30 AM EDT Office Visit [facility] [address] [place], [place] [address] O'Rosalba, Vinicio Brwon MD [address] [place], [place] [phone] awv documented as of this encounter Results * HOUSTON DIGITAL SCREEN [...] to the patient regarding the results. The [employer] recommends annual mammograms for [...] sent to the patient regarding theresults. The [employer] recommends annual mammograms for women40 years and older. Analia William MD IMG MAMMOGRAPHY ORD ERABLES * Creatinine, Serum (09/23/2019 1:37 PM EST) Creatinine 0.7 0.6 - 1.2 mg/dL 09/23/2019 1:51 PM EST [facility] GFR Non- >60 >60 09/23/2019 1:51 PM EST [facility] Comment: >60 mL/min/1.73m2 EGFR, calc. for ages 18 and older using the MDRD formula (not corrected for weight), is valid for stable renal function. GFR >60 >60 09/23/2019 1:51 PM EST [facility] Comment: Chronic Kidney Disease: less than 60 ml/min/1.73 sq.m. ?Kidney Failure: less than 15 ml/min/1.73 sq.m. Results valid for patients 18 years and older. BLOOD SPECIMEN / Unknown 09/23/2019 1:37 PM EST 09/23/2019 1:44 PM EST Narrative [facility] - 09/23/2019 1:56 PM EST Performed at: [facility] [address], ??[place] [address] ?? Analia William MD CHEMISTRY ORDERABLE S [facility] [address] [place] [address], [facility] [phone] documented in this encounter Visit Diagnoses Diagnosis Bronchiectasis without complication (HCC)- Primary Bronchiectasis without acute exacerbation Breast cancer screening Breast screening, unspecified Bronchiectasis without complication (HCC) Bronchiectasis without acute exacerbation Breast cancer screening Breast screening, unspecified documented in this encounter Additional Health Concerns Assessment Noted Time A fall risk assessment has been complete d for the patient 03/12/2019 1:03 PM EDT documented as of this encounter Care Teams Molecular Spectroscopist Relationship Specialty Start Date End Date Analia William MD PCP - General Family Medicine 01/30/19 06/04/20 documented as of this encounter
--- OUTSIDE RECORDS SUMMARY | 2024-08-21 07:05 | XMS_ITS | Encounter Summary ---
Author Organization Juan Kendy Ramos [facility] Address [address] [place] [address] Care Team Providers Care Hotel Valet Attendant Name Role Phone OVinicio Lutz MD Primary Care Provider [phone] Reason for Referral * Imaging (Routine) - Closed Specialty Diagnoses / Procedures Referred By Contac t Referred To Contact Radiology Diagnoses Screening mammogram, encounter for Procedures HOUSTON DIGITAL SCREEN W OR WO CAD BILATERAL Lyle Draper MD [address] [facility] [address] [place] [address] Referral ID Status Reason Start Date Expiration Date Visits Re quested Visits Authorized [id number] Closed 06/03/2021 06/03/2022 1 1 Reason for Visit * Imaging (Routine) - Closed Specialty Diagnoses / Procedures Referred By Contac t Referred To Contact Radiology Diagnoses Breast cancer screening Procedures HOUSTON DIGITAL SCREEN W OR WO CAD BILATERAL HOUSTON SCREENING W CAD BILATERAL 2 VW Analia William MD [address] [place] [address] Referral ID Status Reason Start Date Expiration Date Visits Re quested Visits Authorized [id number] Closed 09/20/2019 09/19/2020 1 1 Encounter Details Date Type Department Care Team (Latest Contact Info) Description 06/03/2021 3:12 PM EDT - 06/03/2021 11:59 PM EDT Hospital Encounter [facility] [address] [place] [address] Screening mammogram, encounter for Discharge Disposition: Home or Self Care Social [...] Description 04/01/2025 10:00 AM EDT Office Visit [facility] Pulmonary Critical Care and Sleep [address] [facility] [address] [place] [address] Salvador Woodard MD [address] [facility] [address] [place] [address] 1 YFU lungs 04/21/2025 9:30 AM EDT Office Visit [facility] [address] [place] [address] O'Rosalba, Vinicio Brown MD [address] [place] [address] awv documented as of this encounter Procedures Procedure Name Priority Date/Time Associated Diagnosis Comments HOUSTON DIGITAL SCREEN W OR WO CAD BILATERAL Routine 06/03/2021 3:32 PM EDT Screening mammogram, encounter for documented in this encounter Results * HOUSTON DIGITAL SCREEN W OR WO CAD BILATERAL (06/03/2021 3:32 PM EDT) Anatomical Region Laterality Modality Breast Bilateral Mammography 06/04/2021 9:29 AM EDT Impressions 06/04/2021 9:35 AM EDT No mammographic evidence of malignancy. BIRADS: BIRADS - CATEGORY 1 Negative, no evidence of malignancy. ??Normal interval follow-up is recommended in 12 months. OVERALL ASSESSMENT - NEGATIVE A letter of notification will be sent to the patient regarding the results. The [employer] recommends annual mammograms for women 40 years and older. Narrative 06/04/2021 9:35 AM EDT EXAMINATION: BILATERAL DIGITAL SCREENING MAMMOGRAM 06/03/2021 TECHNIQUE: CC and MLO views of the left and right breasts were obtained. ??Computer aided detection was utilized in the interpretation of this exam. COMPARISON: 2017-2015 HISTORY: Screening. FINDINGS: The breasts are heterogeneously dense, which may obscure small masses. Within that limitation, there is no dominant mass, suspicious microcalcification, or area of architectural distortion. Lyle Draper MD IMG MAMMOGRA PHY ORDERABLES documented in this encounter Visit Diagnoses Diagnosis Screening mammogram, encounter for documented in this encounter Additional Health Concerns Assessment Noted Time A fall risk assessment has been complete d for the patient 03/12/2019 1:03 PM EDT documented as of this encounter Care Teams Hotel Valet Attendant Relationship Specialty Start Date End Date Vinicio Calvert MD PCP - General Family Medicine 06/03/21 documented as of this encounter
--- OUTSIDE RECORDS SUMMARY | 2024-08-21 07:05 | XMS_ITS | Encounter Summary ---
Author Organization Juan Ramos [facility] Address [address] [place] [address] Care Team Providers Care Solutions Architect Consultant Name Role Phone Analia William MD Primary Care Provider [phone] Reason for Visit * Reason Onset Date Comments Other 04/01/2020 vv consent Encounter Details Date Type Department Care Team (Late st Contact Info) Description 04/01/2020 Telephone [facility] Pulmonary Critical Care and Sleep [address] [place] [address] Dilia Perez MD Other (vv consent ) Social History Tobacco Use Types Packs/Day Years [...] System Pulmonary Critical Care and Sleep [address] [facility] [address] [place], [place] [phone] Salvador Woodard MD [address] [place] [address] 1 YFU lungs 04/21/2025 9:30 AM EDT Office Visit [facility] [address] [facility] [place] [address] O'Rosalba, Vinicio Brown MD [address] [place], [place] [phone] awv documented as of this encounter Visit Diagnoses Not on filedocumented in this encounter Additional Health Concerns Assessment Noted Time A fall risk assessment has been complete d for the patient 03/12/2019 1:03 PM EDT documented as of this encounter Care Teams Solutions Architect Consultant Relationship Specialty Start Date End Date Analia William MD PCP - General Family Medicine 01/30/19 06/04/20 documented as of this encounter
--- OUTSIDE RECORDS SUMMARY | 2024-08-21 07:05 | XMS_ITS | Encounter Summary ---
Author Organization Juan Farias [facility] Address [address] [place] [address] Care Team Providers Care Industrial Economics Professor Name Role Phone Analia William MD Primary Care Provider [phone]- [phone] Encounter Details Date Type Department Care Team (Latest Contact Info) Description 02/26/2020 Travel Social History Tobacco Use Types Packs/Day [...] PM EDT documented as of this encounter Plan of Treatment Upcoming Encounters Date Type Department Care Team (Late st Contact Info) Description 04/01/2025 10:00 AM EDT Office Visit [facility] Pulmonary Critical Care and Sleep [address] [facility] [address] [place], [place] [phone] Salvador Woodard MD [address] [facility] [address] [place], [place] [phone] 1 YFU lungs 04/21/2025 9:30 AM EDT Office Visit [facility] [address] [facility] [place] [address] O'Rosalba, Vinicio Brown MD [address] [place] [address] awv documented as of this encounter Visit Diagnoses Not on filedocumented in this encounter Additional Health Concerns Assessment Noted Time A fall risk assessment has been complete d for the patient 03/12/2019 1:03 PM EDT documented as of this encounter Care Teams Industrial Economics Professor Relationship Specialty Start Date End Date Analia William MD PCP - General Family Medicine 01/30/19 06/04/20 documented as of this encounter
--- OUTSIDE RECORDS SUMMARY | 2024-08-21 07:05 | XMS_ITS | Encounter Summary ---
Author Organization Juan [facility]rin [facility] Address [address] [place] [address] Care Team Providers Care Cabinet Maker Name Role Phone OVinicio Lutz MD Primary Care Provider [phone] Reason for Visit * Reason Onset Date Comments Appointment Requested 05/28/2021 Encounter Details Date Type Department Care Team (Late st Contact Info) Description 05/28/2021 Telephone [facility] [address] [place], [place] [phone] Not, On File Appointment Requested Social History Tobacco Use Types Packs/Day Years [...] Description 04/01/2025 10:00 AM EDT Office Visit [facility] Pulmonary Critical Care and Sleep [address] [facility] [place], [place] [phone] Salvador Woodard MD [address] [facility] [place], [place] [phone] 1 YFU lungs 04/21/2025 9:30 AM EDT Office Visit [facility] [address] [facility] [place] [address] Vinicio Calvert MD [address] [place], [place] [phone] awv documented as of this encounter Visit Diagnoses Not on filedocumented in this encounter Additional Health Concerns Assessment Noted Time A fall risk assessment has been complete d for the patient 03/12/2019 1:03 PM EDT documented as of this encounter Care Teams Cabinet Maker Relationship Specialty Start Date End Date Vinicio Calvert MD PCP - General Family Medicine 05/28/21 05/30/21 documented as of this encounter
--- OUTSIDE RECORDS SUMMARY | 2024-08-21 07:05 | XMS_ITS | Encounter Summary ---
Author Organization Juan Larry [facility] Address [address] [place] [address] Care Team Providers Care Maintenance Supervisor 2Nd Shift Name Role Phone Analia William MD Primary Care Provider [phone] Reason for Referral * Other (Routine) - Closed Specialty Diagnoses / Procedures Referred By Jean Claude hallman Referred To Contact Diagnoses Chronic cough Procedures Full PFT Study With Bronchodilator Analia William MD [address] [place], [place] [phone] Referral ID Status Reason Start Date Expiration Date Visits Re quested Visits Authorized [id number] Closed 02/05/2019 07/29/2019 1 1 Reason for Visit * Other (Routine) - Closed Specialty Diagnoses / Procedures Referred By Jean Claude hallman Referred To Contact Diagnoses Chronic cough Procedures Full PFT Study With Bronchodilator Analia William MD [address] [place] [address] Referral ID Status Reason Start Date Expiration Date Visits Re quested Visits Authorized [id number] Closed 02/05/2019 07/29/2019 1 1 Encounter Details Date Type Department Care Team (Latest Contact Info) Description 02/13/2019 9:21 AM EDT - 02/13/2019 11:59 PM EDT Hospital Encounter [facility] [address] [place] [address] Chronic cough Discharge Disposition: Home or Self [...] Respiratory Rate - - Oxygen Saturation 96% 02/13/2019 10:04 AM EDT Inhaled Oxygen Concentration - - Weight - - Height - - Body Mass Index - - documented in this encounter Medications at Time [...] Description 04/01/2025 10:00 AM EDT Office Visit [facility] Pulmonary Critical Care and Sleep [address] [facility] [address] [place] [address] Salvador Woodard MD [address] [facility] [address] [place] [address] 1 YFU lungs 04/21/2025 9:30 AM EDT Office Visit [facility] [address] [facility] [place] [address] O'Rosalba, Vinicio Brown MD [address] [place] [address] awv documented as of this encounter Procedures Procedure Name Priority Date/Time Associated Diagnosis Comments FULL PFT STUDY WITH BRONCHODILATOR Routine 02/13/2019 11:59 PM EDT Chronic cough MDI TREATMENT Routine 02/13/2019 9:23 AM EDT documented in this encounter Results * Full PFT Study With Bronchodilator (02/13/2019 11:59 PM EDT) FVC-Pre L FVC Pred L FVC %Pred-Pre 77 % FVC-Post L FVC %Pred-Post 71 L FEV1-Pre L FEV1 Pred L FEV1 %Pred-Pre 61 % FEV1-Post L FEV1 %Pred-Post 69 % FEV1/FVC-Pre 61 % FEV1/FVC Pred % FEV1/FVC %Pred-Pre % FEV1/FVC-Post 73 % FEV1/FVC %Pred-Post % FEF 25-75-Pre L/sec FEF 25-75% Pred L/sec FEF 25-75% %Pred-Pre L/sec FEF 25-75-Post L/sec FEF 25-75 Post %Pred % FEF 25-75 %Change Expiratory Time sec Expiratory Time-Post sec PEF-Pre L/sec PEF Pred L/sec PEF %Pred-Pre L/sec PEF-Post L/sec PEF %Pred-Post % PEF %Change MVV-Pre L/min MVV Pred L/min MVV %Pred-Pre % DLCO ml/min/mmH g DLCO Pred ml/min/mmH g DLCO %Pred 78 % DLCO/VA ml/min/mmH g DLCO/VA Pred ml/min/mmH g DLCO/VA %Pred % VA L VA Pred L VA %Pred % Raw cmH2O/L/s Raw Pred cmH2O/L/s Raw %Pred % Gaw L/s/cmH2O GAW PRED L/s/cmH2O Gaw %Pred % SVC L SVC Pred L SVC %Pred % TLC L TLC Pred L TLC Pre %Pred 108 % RV L RV Pred L RV Pre %Pred % IC L IC Pred L IC Pre %Pred % VTG L VTG Pred L VTG %Pred % MIP MEP Narrative Procedure Note Rachel Perez MD - 02/13/2019 11:59 PM EDT [facility] [address] [place] [address] PULMONARY FUNCTION PATIENT NAME: MARIAJOSE MCCARTHY : 1950 MED REC NO: [id number] ROOM: ACCOUNT NO: [id number] ADMIT DATE: 02/13/2019 PROVIDER: Rachel Perez MD DATE OF PROCEDURE: 02/13/2019 This is a 68-year-old female. TEST PERFORMED: 1. Spirometry of flow-volume loops obtained before and after bronchodilation. 2. Lung volumes by plethysmography. 3. Diffusion capacity of carbon monoxide. Test meets ATS criteria and the quality of flow-volume loops is sufficient for interpretation. Good patient effort. The FEV1 is 1.43 L or 61% predicted. The FEV1 to FVC ratio is 61. Postbronchodilator, the FEV1 changed to 1.6 L or 69% predicted. Total lung capacity is 108% predicted and diffusion is 78% predicted. INTERPRETATION: 1. Moderate obstruction with significant postbronchodilator improvement. 2. Normal lung volumes with evidence of air trapping. 3. Mildly impaired diffusion capacity that corrects to normal when adjusted for hypoventilation. 4. Clinical correlation recommended, findings would be consistent with underlying asthma and the patient may benefit from the use of bronchodilator therapies. RACHEL PEREZ MD [id number] Doc#: [id number] CC: Analia William MD PFT ORDERABLES documented in this encounter Visit Diagnoses Diagnosis Chronic cough Cough documented in this encounter Administered Medications Inactive Administered Medications - up to 3 most recent administrations Medication Order MAR Action Action Date Dose Rate Site albuterol sulfate HFA 108 (90 Base) MCG/ACT inhaler 2 puff 2 puff, Inhalation, ONCE, 1 dose, On Mon02/13/19 at 0945 Given 02/13/2019 9:38 AM EDT 2 puffs documented in this encounter Additional Health Concerns Assessment Noted Time A fall risk assessment has been complete d for the patient 06/26/2017 11:24 AM EDT documented as of this encounter Care Teams Maintenance Supervisor 2Nd Shift Relationship Specialty Start Date End Date Analia William MD PCP - General Family Medicine 01/30/19 06/04/20 documented as of this encounter
--- OUTSIDE RECORDS SUMMARY | 2024-08-21 07:05 | XMS_ITS | Encounter Summary ---
Author Organization [facility] Address [address] [place] [address] Care Team Providers Care Retail Salesperson Name Role Phone Analia William MD Primary Care Provider [phone] Reason for Referral * Eval and Treat (Routine) - Closed Specialty Diagnoses / Procedures Referred By Contac t Referred To Contact Pulmonary Disease / Pulmonology Diagnoses Bronchiectasis without complication (HCC) Abnormal CT scan, chest Analia William MD [address] [address] Dilia Perez MD Referral ID Status Reason Start Date Expiration Date V isits Requested Visits Authorized [id number] Closed Specialty Services Required 09/23/2019 09/22/2020 1 1 Scheduling Instructions [facility] Pulmonary, Sleep, & Critical Care - Dilia Perez MD [address] [facility] [address] [place], [place] [address] One of the many advantages of the [facility] is that we all work together closely to make healthcare easy for you. We have contacted the physician practice to inform them we have referred you. For your convenience, their office should call you within a few days to schedule an appointment, but if you would like to call them sooner their information is above Comments The patient can be scheduled with any member of the group, including the provider with the first available appointments. Encounter Details Date Type Department Care Team (Late Contact Info) Description 09/23/2019 Orders Only [facility] [address] [phone] Analia William MD [address] [place] [address] Bronchiectasis without complication (HCC) (Primary Dx); Abnormal CT scan, chest Social History Tobacco Use Types Packs/Day Years [...] Description 04/01/2025 10:00 AM EDT Office Visit [facility] Pulmonary Critical Care and Sleep [address] [facility] [address] [place] [address] [phone] Salvador Woodard MD [address] [facility] [address] [place] [address] 1 YFU lungs 04/21/2025 9:30 AM EDT Office Visit [facility] [address] [place] [address] O'Rosalba, Vinicio Brown MD [address] [place], [place] [phone] awv Scheduled Referrals Name Type Priority Associated Diagnoses Orde r Schedule Dilia Ledesma MD, Pulmonary, [facility] Outpatient Referral Routine Bronchiectasis without complication (HCC) Abnormal CT scan, chest Ordered: 09/23/2019 documented as of this encounter Visit Diagnoses Diagnosis Bronchiectasis without complication (HCC)- Primary Bronchiectasis without acute exacerbation Abnormal CT scan, chest Nonspecific (abnormal) findings on radiological and other examination of other intrathoracic organs documented in this encounter Additional Health Concerns Assessment Noted Time A fall risk assessment has been complete d for the patient 03/12/2019 1:03 PM EDT documented as of this encounter Care Teams Retail Salesperson Relationship Specialty Start Date End Date Analia William MD PCP - General Family Medicine 01/30/19 06/04/20 documented as of this encounter
--- OUTSIDE RECORDS SUMMARY | 2024-08-21 07:06 | XMS_ITS | Encounter Summary ---
Author Organization [facility] Address [address] [place] [address] Care Team Providers Care Clutch Assembler Name Role Phone Unavailable Primary Care Provider Unavailabl e Encounter Details Date Type Department Care Team (Latest Contact Info) Description 10/01/2018 12:45 PM EST Ancillary Procedure [facility] [address] [place] [address] Right knee pain, unspecified chronicity Social History Tobacco Use Types Packs/Day Years [...] 10:00 AM EDT Office Visit [facility] Pulmonary Critical Care and Sleep [address] [place] [address] Salvador Woodard MD [address] [place] [address] 1 YFU lungs 04/21/2025 9:30 AM EDT Office Visit [facility] [address] [place] [address] O'Rosalba, Vinicio Brown MD [address] [place] [address] awv documented as of this encounter Procedures Procedure Name Priority Date/Time Associated Diagnosis Comments XR KNEE RIGHT (3 VIEWS) Routine 10/01/2018 12:45 PM EST Right knee pain, unspecified chronicity documented in this encounter Results * XR KNEE RIGHT (3 VIEWS) (10/01/2018 12:45 PM EST) Narrative [facility] - 10/01/2018 12:45 PM EST Radiology exam is complete. No Radiologist dictation. Please follow up with ordering provider. Rusty Quesada MD IMG DIAGNOSTIC IMAGI NG ORDERABLES [facility] documented in this encounter Visit Diagnoses Diagnosis Right knee pain, unspecified chronicity documented in this encounter Additional Health Concerns Assessment Noted Time A fall risk assessment has been complete d for the patient 06/26/2017 11:24 AM EDT documented as of this encounter
--- OUTSIDE RECORDS SUMMARY | 2024-08-21 07:06 | XMS_ITS | Encounter Summary ---
Author Organization [facility] Address [address] [place] [address] Care Team Providers Care Gun Sealing Machine Operator Name Role Phone Unavailable Primary Care Provider Unavailabl e Reason for Visit * Imaging (Routine) - Closed Specialty Diagnoses / Procedures Referred By Contac t Referred To Contact Radiology Diagnoses Primary osteoarthritis of right knee Procedures US ARTHR/ASP/INJ MAJOR JNT/BURSA RIGHT Pertuset, ROSS Gautam [address] [place] [address] Referral ID Status Reason Start Date Expiration Date Visits Re quested Visits Authorized [id number] Closed 03/06/2018 03/06/2019 1 1 Encounter Details Date Type Department Care Team (Late st Contact Info) Description 03/06/2018 9:50 AM EDT Ancillary Procedure [facility] [address] [place] [address] Social History Tobacco Use Types Packs/Day Years [...] Critical Care and Sleep [address] [place], [place] [phone] Salvador Woodard MD [address] [place], [place] [phone] 1 YFU lungs 04/21/2025 9:30 AM EDT Office Visit [facility] [address] [place], [place] [phone] O'Vinicio Navarrete MD [address] [place], [place] [phone] awv documented as of this encounter Procedures Procedure Name Priority Date/Time Associated Diagnosis Comments US ARTHROCENTESIS INJECTION MAJOR JOINT RT Routine 03/06/2018 9:45 AM EDT Primary osteoarthritis of right knee documented in this encounter Results * US ARTHR/ASP/INJ MAJOR JNT/BURSA RIGHT (03/06/2018 9:45 AM EDT) Narrative [facility] - 03/06/2018 9:45 AM EDT Radiology result is complete; follow up with provider / physician office for radiology results Leonora HAWKINS IMG US ORDERABLES [facility] documented in this encounter Visit Diagnoses Not on filedocumented in this encounter Additional Health Concerns Assessment Noted Time A fall risk assessment has been complete d for the patient 06/26/2017 11:24 AM EDT documented as of this encounter
--- OUTSIDE RECORDS SUMMARY | 2024-08-21 07:06 | XMS_ITS | Encounter Summary ---
Author Organization [facility] Address [address] [place] [address] Care Team Providers Care Out And Out Cigar Maker Hand Name Role Phone Unavailable Primary Care Provider Unavailabl e Reason for Referral * Other (Routine) - Closed Specialty Diagnoses / Procedures Referred By Contac t Referred To Contact Diagnoses Primary osteoarthritis of right knee Procedures [place] METHYLPREDNISOLONE 40 MG INJ Aileen Gomez PA [address] [place] [address] Referral ID Status Reason Start Date Expiration Date Visits Re quested Visits Authorized [id number] Closed 05/08/2018 05/08/2019 1 1 * Imaging (Routine) - Closed Specialty Diagnoses / Procedures Referred By Contac t Referred To Contact Radiology Diagnoses Primary osteoarthritis of right knee Procedures US ARTHR/ASP/INJ MAJOR JNT/BURSA RIGHT Aileen Gomez PA [address] [place] [address] Referral ID Status Reason Start Date Expiration Date Visits Re quested Visits Authorized [id number] Closed 05/08/2018 05/08/2019 1 1 Reason for Visit * Reason Comments Injections RIGHT KNEE CORTISONE INJECTION ONLY Encounter Details Date Type Department Care Team (Late st Contact Info) Description 05/08/2018 1:00 PM EDT Nurse Only Rachel Av[facility] [address] [place] [address] Aileen Gomez PA [address] [place] [address] Primary osteoarthritis of right knee (Primary Dx) [...] * Patient Instructions* Aileen Gomez PA - 05/08/2018 1:01 PM EDT Patient was provided with instructions regarding their diagnosis and treatment today. They voiced understanding of the treatment plan and were instructed on when to return to the clinic. documented in this encounter Progress Notes * Aileen Gomez PA - 05/08/2018 1:01 PM EDT RIGHT knee cortisone injection visit only I discussed in detail the risks, benefits and complications of an injection which included but are not limited to infection, skin reactions, hot swollen joint, and anaphylaxis with the patient. The patient verbalized understanding and gave informed consent for the injection. The patient's RIGHT knee was flexed to 90?? and the skin prepped using sterile alcohol solution. A sterile 22-gauge needle was inserted into the knee and the mixture of 4 mL of 2% Carbocaine, 4 mL of 0.25% Marcaine, and 2mLof 40 mg of Depo-Medrol was injected under sterile technique. The needle was withdrawn and the puncture site sealed with a Band-Aid. Technique: Under sterile conditions a Vycon ultrasound unit with a variable frequency (6.0-15.0 MHz) linear transducer was used to localize the placement of a 22-gauge needle into the knee joint. Findings: Successful needle placement for knee injection. Final images were taken and saved for permanent record. The patient tolerated the injection well. T`he patient was instructed to call the office immediately if there is any pain, redness, warmth, fever, or chills. * Ana Carter - 05/08/2018 12:53 PM EDT 4CC [facility]#-[id number] LOT#- [id number] EXP:10/2018 4CC CARBOCAINE [facility]#-[id number] LOT#- [id number] EXP: 09/2019 2CC DEPO [facility]#-[id number] LOT#- [id number] EXP: 09/2019 SITE: RIGHT KNEE documented in this encounter Plan of Treatment Upcoming Encounters Date Type Department Care Team (Late st Contact Info) Description 04/01/2025 10:00 AM EDT Office Visit [facility] Pulmonary Critical Care and Sleep [address] [facility] [address] [place] [address] Salvador Woodard MD [address] [facility] [address] [place] [address] 1 YFU lungs 04/21/2025 9:30 AM EDT Office Visit [facility] [address] [facility] [place], [place] [phone] O'Rosalba, Vinicio Brown MD [address] [place], [place] [phone] awv documented as of this encounter Procedures Procedure Name Priority Date/Time Associated Diagnosis Comments US ARTHROCENTESIS INJECTION MAJOR JOINT RT Routine 05/08/2018 1:07 PM EDT Primary osteoarthritis of right knee documented in this encounter Results * US ARTHR/ASP/INJ MAJOR JNT/BURSA RIGHT (05/08/2018 1:07 PM EDT) 05/08/2018 1:06 PM EDT Narrative [facility] - 05/08/2018 1:07 PM EDT Radiology result is complete; follow up with provider / physician office for radiology results Aileen THORNTON US ORDERABLES [facility] documented in this encounter Visit Diagnoses Diagnosis Primary osteoarthritis of right knee- Primary Primary localized osteoarthrosis, lower leg documented in this encounter Additional Health Concerns Assessment Noted Time A fall risk assessment has been complete d for the patient 06/26/2017 11:24 AM EDT documented as of this encounter
--- OUTSIDE RECORDS SUMMARY | 2024-08-21 07:06 | XMS_ITS | Encounter Summary ---
Author Organization [facility] Address [address] [place] [address] Care Team Providers Care Academic Guidance Specialist Name Role Phone Unavailable Primary Care Provider Unavailabl e Reason for Referral * Outpatient Service (Routine) - Closed Specialty Diagnoses / Procedures Referred By Contac t Referred To Contact Orthopedic Surgery Diagnoses Right knee pain, unspecified chronicity Primary osteoarthritis of right knee Procedures IL SYNVISC OR SYNVISC-ONE Rusty Quesada MD [address] [place] [address] Referral ID Status Reason Start Date Expiration Date Visits Re quested Visits Authorized [id number] Closed 10/01/2018 10/01/2019 1 1 * Imaging (Routine) - Closed Specialty Diagnoses / Procedures Referred By Contac t Referred To Contact Radiology Diagnoses Right knee pain, unspecified chronicity Primary osteoarthritis of right knee Procedures US ARTHR/ASP/INJ MAJOR JNT/BURSA RIGHT Rusty Quesada MD [address] [place] [address] Referral ID Status Reason Start Date Expiration Date Visits Re quested Visits Authorized [id number] Closed 10/01/2018 10/01/2019 1 1 Reason for Visit * Reason Comments Knee Pain CK RIGHT KNEE OA- DI SCUSS SYNVISC ONE- CORTISONE DID NOT HELP MUCH A MONTH AGO. Encounter Details Date Type Department Care Team (Late st Contact Info) Description 10/01/2018 1:00 PM EST Office Visit [facility] [address] [place] [address] Rusty Quesada MD [address] [place], [place] [id number] Right knee pain, unspecified chronicity (Primary Dx); Primary osteoarthritis of right knee [...] - Inhaled Oxygen Concentration - - Weight 58.5 kg (128 lb 15.5 oz) 019 12:46 PM EST Height 163 cm (5' 4.17 ) 10/01/2018 12: 46 PM EST Body Mass Index 22.02 10/01/2018 12:46 PM EST documented in this encounter Patient Instructions * Patient Instructions* Rusty Quesada MD - 10/01/2018 1:17 PM EST Patient was provided with instructions regarding their diagnosis and treatment today. They voiced understanding of the treatment plan and were instructed on when to return to the clinic. documented in this encounter Progress Notes * Rusty Quesada MD - 10/01/2018 1:14 PM EST Images from the original note were not included. CHIEF COMPLAINT: Chief Complaint Patient presents with ??? Knee Pain CK RIGHT KNEE OA- DISCUSS SYNVISC ONE- CORTISONE DID NOT HELP MUCH A MONTH AGO. HISTORY OF PRESENT ILLNESS: The patient is a 68 y.o. female Past Medical History: Diagnosis Date ??? Bronchiectasis 2006 PFT 06/27 with mild obsctruction and not reversible ??? Colon polyp 2006 q 3 years This is a lady who presents with ongoing right knee pain. She got a cortisone shot about 46 weeks ago which didn't really give her much lasting relief. They had worked in the past. She is getting ready to go to [place] and is interested in other options. She points to the anterior aspect of the knee and anteromedial aspect of the knees the primary site of discomfort. Work Status: The pain assessment was noted & is as follows: Pain Assessment Location of Pain: Knee Location Modifiers: Right Severity of Pain: 8 Quality of Pain: Aching Duration of Pain: Persistent Frequency of Pain: Constant] Work Status/Functionality: Past Medical History: Medical history form was reviewed today & can be found in the media tab Past Medical History: Diagnosis Date ??? Bronchiectasis 2006 PFT 06/27 with mild obsctruction and not reversible ??? Colon polyp 2006 q 3 years Past Surgical History: Past Surgical History: Procedure Laterality Date ??? APPENDECTOMY ??? COLONOSCOPY ??? COLONOSCOPY 08/01/11 normal ??? HERNIA REPAIR inguinal Current Medications: Current Outpatient Prescriptions: ??? PredniSONE 10 MG (21) TBPK, Take 6 pills at once on day one, 5pills on day two, 4 pills on day three, 3 pills on day four, 2 pills on day five, 1 pill on day six., Disp: 21 each, Rfl: 0 ??? promethazine-dextromethorphan (PROMETHAZINE-DM) 6.25-15 MG/5ML syrup, Take 5 mLs by mouth 4 times daily as needed for Cough, Disp: 118 mL, Rfl: 0 ??? Multiple Vitamin (MULTIVITAMIN PO), Take by mouth., Disp: , Rfl: ??? vitamin B-12 (CYANOCOBALAMIN) 100 MCG tablet, Take 500 mcg by mouth daily., Disp: , Rfl: ??? ibuprofen (ADVIL;MOTRIN) 200 MG tablet, Take 400 mg by mouth nightly., Disp: , Rfl: Allergies: Patient has no known allergies. Social History: reports that she has never smoked. She has never used smokeless tobacco. She reports that she drinks about 0.6 oz of alcohol per week . Family History: Family History Problem Relation Age of Onset ??? Cancer Mother 71 Breast ??? Diabetes Mother ??? High Blood Pressure Mother ??? Other Father Respiratory issues ??? High Blood Pressure Sister ??? High Blood Pressure Brother REVIEW OF SYSTEMS: For new problems, a full review of systems will be found scanned in the patient's chart. CONSTITUTIONAL: Denies unexplained weight loss, fevers, chills NEUROLOGICAL: Denies unsteady gait or progressive weakness SKIN: Denies skin changes, delayed healing, rash, itching PHYSICAL EXAM: Vitals: Height 5' 4.17 (1.63 m), weight 128 lb 15.5 oz (58.5 kg), not currently . GENERAL EXAM: ?? General Apparence: Patient is adequately groomed with no evidence of malnutrition. ?? Orientation: The patient is oriented to time, place and person. ?? Mood & Affect:The patient's mood and affect are appropriate Right knee PHYSICAL EXAMINATION: ?? Inspection: 1+ effusion. No erythema or ecchymosis or deformity. ?? Palpation: Tender along the parapatellar region and also along the medial femoral condyle. ?? Range of Motion: 0-135 degrees ?? Strength: No focal motor weakness ?? Special Tests: ACL MCL PCL LCL are all intact. She does have crepitus of patellofemoral joint with range of motion. Mildly tight lateral structures. ?? Skin: There are no rashes, ulcerations or lesions. ?? There are no distal dysvascular changes Gait & station: Additional Examinations: Negative straight leg raise examination. Negative log roll examination. Good hip range of motion. Pulses are normal. Diagnostic Testing: The following x rays were read and interpreted by myself 1. 3 x-ray views of the right knee deficits [id number] patellofemoral arthritis and mild narrowing of the medial lateral joint spaces. Orders Orders Placed This Encounter Procedures ??? XR KNEE RIGHT (3 VIEWS) Standing Status: Future Number of Occurrences: 1 Standing Expiration Date: 10/01/2019 Order Specific Question: Reason for exam: Answer: PAIN ??? US ARTHR/ASP/INJ MAJOR JNT/BURSA RIGHT Order Specific Question: Reason for exam: Answer: PAIN ??? IL SYNVISC OR SYNVISC-ONE Assessment / Treatment Plan: 1. Severe patellofemoral arthritis right knee with more mild medial compartment disease.I discussedwith the patient the nature of osteoarthritis of the knee. We talked about treatment of arthritis and the various options that are involved with this. The patient understands that the treatments can vary from essentially doing nothing to a total joint replacement arthroplasty for arthritis. I then w ent on to describe the utilization of glucosamine and chondroitin sulfate as a joint nutrition product. We talked about the fact that this is essentially a joint vitamin with typically minimal side effects. We also talked about utilization of prescription pmpz-cda-kavgvic anti-inflammatory medications as the next option. We also discussed the possibility of brace wear or orthotic wear if the patient has significant varus alignment. We then went on to discuss the possibility of Visco supplementation with hyaluronate products. We talked about the typical course of this type of treatment and thefact that often times in the treatment for significant arthritis, this is successful less than halfthe time. We also talked about the corticosteroid injections and the fact that this can give a brief window of relief, but does not cure the problem; in fact, the pain often has a rebound effect in 6-10 weeks after the steroid has worn off. We also discussed arthroscopy surgery in attempts to debride the joint, but the fact that this is relatively unreliable treatment in the face of significant ar thritis. It can occasionally be used, particularly if there is significant meniscus pathology. Lastly we discussed total joint replacement arthroplasty as the final and definitive step in treatment of arthritis. Patient realizes the magnitude of this type of treatment as well as having voiced a general understanding to the duration of the prosthesis. The patient voiced understanding to these continuum of treatment options. 2. Given her struggling with the cortisone injection in her getting ready go out of town decision was made to go ahead and pursue a Synvisc one injection today. Right knee injectedThe patient is symptomatic from right osteoarthritis of the knee joint with documented radiological signs of osteoarthritis. The patient has also failed 3 months of conservative treatment including home exercise, educati on, Tylenol and/or NSAIDs use. The patient was offered a Visco supplementation today. Risks, benefits, and alternatives to the injections were discussed in detail with the patient. The risks discussed included but are not limited to infection, skin reactions, hot swollen joints, and anaphylaxis. The patient gave verbal informed consent for the injection. The patient's skin was prepped with 3 sterile gauze pads soaked with alcohol solution and the knee joint was injected with 6 ml of Synvisc 1 intra-articularly under sterile conditions. Technique: Under sterile conditions a [employer] ultrasound unit with a variable frequency (6.0-15.0 [...] in one week for their second injection. 3. I have personally performed and/or participated in the history, exam and medical decision makingand agree with all pertinent clinical information. I have also reviewed and agree with the past medical, family and social history unless otherwise noted. This dictation was performed with a verbal recognition program (makerist) and it was checked for errors. It is possible that there are still dictated errors within this office note. If so, please bringany errors to my attention for an addendum. All efforts were made to ensure that this office note is accurate. Rusty Quesada MD * Ana Carter - 10/01/2018 1:14 PM EST SYNVISC ONE RIGHT KNEE [facility]: [id number] LOT#:[id number] EXP:01/15/2021 documented in this encounter Plan of Treatment Upcoming Encounters Date Type Department Care Team (Late st Contact Info) Description 04/01/2025 10:00 AM EDT Office Visit [facility] Pulmonary Critical Care and Sleep [address] [facility] [address] [place] [address] Salvador Woodard MD [address] [place] [address] 1 YFU lungs 04/21/2025 9:30 AM EDT Office Visit [facility] [address] [place] [address] O'Rosalba, Vinicio Brown MD [address] [place] [address] awv documented as of this encounter Procedures Procedure Name Priority Date/Time Associated Diagnosis Comments US ARTHROCENTESIS INJECTION MAJOR JOINT RT Routine 10/01/2018 1:23 PM EST Right knee pain, unspecified chronicity Primary osteoarthritis of right knee documented in this encounter Results * US ARTHR/ASP/INJ MAJOR JNT/BURSA RIGHT (10/01/2018 1:23 PM EST) Narrative [facility] RIS CONSOLIDATED - 10/01/2018 1:23 PM EST Radiology result is complete; follow up with provider / physician office for radiology results Rusty Quesada MD [facility] US ORDERABLES [facility] RIS CONSOLIDATED * XR KNEE RIGHT (3 VIEWS) (10/01/2018 12:45 PM EST) Narrative [facility] RIS CONSOLIDATED - 10/01/2018 12:45 PM EST Radiology exam is complete. No Radiologist dictation. Please follow up with ordering provider. Rusty Quesada MD IMG DIAGNOSTIC IMAGI NG ORDERABLES [facility] RIS CONSOLIDATED documented in this encounter Visit Diagnoses Diagnosis Right knee pain, unspecified chronicity- Primary Primary osteoarthritis of right knee Primary localized osteoarthrosis, lower leg Right knee pain, unspecified chronicity documented in this encounter Additional Health Concerns Assessment Noted Time A fall risk assessment has been complete d for the patient 06/26/2017 11:24 AM EDT documented as of this encounter
--- OUTSIDE RECORDS SUMMARY | 2024-08-21 07:06 | XMS_ITS | Encounter Summary ---
Author Organization [facility] Address [address] [place] [address] Care Team Providers Care Bottom Cementer Name Role Phone Unavailable Primary Care Provider Unavailabl e Reason for Visit * Reason Comments Cough productive green, R ear pain, head,nasal/chest congestion Encounter Details Date Type Department Care Team (Late st Contact Info) Description 08/19/2016 11:20 AM EST Office Visit [facility] Family Medicine [address] [place] [address] Stewart Tejeda MD [address] [facility] [place] [address] Acute non-recurrent sinusitis, unspecified location (Primary Dx) Social History Tobacco Use Types Packs/Day Years Used Date Smoking Tobacco: Never Tobacco Cessation:Counseling Given: Yes Alcohol Use Standard Drinks/Week Comments Yes 1 (1 standard drink = 0.6 oz pur e alcohol) Ocas Sex and Gender Information Value Date Recorded Sex Assigned at Not on file Gender Identity Female 02/21/2022 9:41 AM EDT Sexual Orientation Not on file documented as of this encounter Last Filed Vital Signs Vital Sign Reading Time Taken Comments Blood Pressure 132/84 08/19/2016 11:31 AM EST Pulse 74 08/19/2016 11:31 AM EST Temperature 36.7 ??C (98 ??F) 08/19/2016 11:31 AM EST Respiratory Rate - - Oxygen Saturation 97% 08/19/2016 11:31 AM EST Inhaled Oxygen Concentration - - Weight 58.1 kg (128 lb) 08/19/2016 11:31 AM EST Height 162.6 cm (5' 4 ) 08/19/2016 11:31 AM EST Body Mass Index 21.97 08/19/2016 11:31 AM EST documented in this encounter Progress Notes * Stewart Tejeda MD - 08/19/2016 11:20 AM EST Subjective: Patient ID: Karlie Love is a 66 y.o. female. Cough This is a new problem. The current episode started in the past 7 days. The problem has been gradually worsening. The problem occurs constantly. The cough is productive of sputum. Associated symptoms include chills, ear congestion, myalgias, nasal congestion, postnasal drip, rhinorrhea, a sore throat and shortness of breath (with coughing). Pertinent negatives include no chest pain, ear pain, fever, headaches, hemoptysis or wheezing. The symptoms are aggravated by lying down. Treatments tried: alkaseltzer plus cold. The treatment provided mild relief. Her past medical history is significant for environmental allergies. There is no history of asthma or COPD. Review of Systems Constitutional: Positive for chills. Negative for fever. HENT: Positive for postnasal drip, rhinorrhea and sore throat. Negative for ear pain. Respiratory: Positive for cough and shortness of breath (with coughing). Negative for hemoptysis and wheezing. Cardiovascular: Negative for chest pain. Musculoskeletal: Positive for myalgias. Allergic/Immunologic: Positive for environmental allergies. Neurological: Negative for headaches. Visit Vitals ??? BP 132/84 (Site: Left Arm, Position: Sitting, Cuff Size: Large Adult) ??? Pulse 74 ??? Temp 98 ??F (36.7 ??C) (Oral) ??? Ht 5' 4 (1.626 m) ??? Wt 128 lb (58.1 kg) ??? SpO2 97% ??? No ??? BMI 21.97 kg/m2 Objective: Physical Exam Constitutional: She appears well-developed and well-nourished. No distress. HENT: Head: Normocephalic and atraumatic. Op erythema. Nasal congestion Sinus tenderness Eyes: Conjunctivae and EOM are normal. Right eye exhibits no discharge. Left eye exhibits no discharge. No scleral icterus. Neck: Normal range of motion. Neck supple. No tracheal deviation present. No thyromegaly present. Cardiovascular: Normal rate, regular rhythm and normal heart sounds. Exam reveals no gallop and no friction rub. No murmur heard. Pulmonary/Chest: Effort normal and breath sounds normal. No respiratory distress. She has no wheezes. She has no rales. She exhibits no tenderness. Lymphadenopathy: She has no cervical adenopathy. Skin: No rash noted. She is not diaphoretic. Nursing note and vitals reviewed. Assessment: See below Plan: supportive care otc Fluids gino Ziegler was seen today for cough. Diagnoses and all orders for this visit: Acute non-recurrent sinusitis, unspecified location Other orders - amoxicillin-clavulanate (AUGMENTIN) 875-125 MG per tablet; Take 1 tablet by mouth 2 times daily for 10 days documented in this encounter Plan of Treatment Upcoming Encounters Date Type Department Care Team (Late st Contact Info) Description 04/01/2025 10:00 AM EDT Office Visit [facility] Pulmonary Critical Care and Sleep [address] [facility] [address] [place] [address] Salvador Woodard MD [address] [facility] [address] [place] [address] 1 YFU lungs 04/21/2025 9:30 AM EDT Office Visit [facility] [address] [facility] [place], [place] [address] O'Rosalba, Vinicio Brown MD [address] [place], [place] [address] awv documented as of this encounter Visit Diagnoses Diagnosis Acute non-recurrent sinusitis, unspecified location- Primary documented in this encounter
--- OUTSIDE RECORDS SUMMARY | 2024-08-21 07:06 | XMS_ITS | Encounter Summary ---
Author Organization [facility] Address [address] [place] [address] Care Team Providers Care Self Propelled Hot Mix Roller Operator Name Role Phone Unavailable Primary Care Provider Unavailabl e Reason for Referral * Other (Routine) - Closed Specialty Diagnoses / Procedures Referred By Contac t Referred To Contact Diagnoses Primary osteoarthritis of right knee Procedures FL METHYLPREDNISOLONE 40 MG INJ Rusty Quesada MD [address] [place] [address] Referral ID Status Reason Start Date Expiration Date Visits Re quested Visits Authorized [id number] Closed 12/28/2018 12/28/2019 1 1 * Imaging (Routine) - Closed Specialty Diagnoses / Procedures Referred By Contac t Referred To Contact Radiology Diagnoses Primary osteoarthritis of right knee Procedures US ARTHR/ASP/INJ MAJOR JNT/BURSA RIGHT Rusty Quesada MD [address] [place] [address] Referral ID Status Reason Start Date Expiration Date Visits Re quested Visits Authorized [id number] Closed 12/28/2018 12/28/2019 1 1 Reason for Visit * Reason Comments Injections RIGHT KNEE CORTISONE INJ Encounter Details Date Type Department Care Team (Latest Contact Info) Description 12/28/2018 11:00 AM EDT Office Visit [facility] [address] [place] [address] Leonora Guzman PA [address] [place] [address] Primary osteoarthritis of right knee (Primary Dx) [...] this encounter Patient Instructions * Patient Instructions* Leonora Menjivar PA - 12/28/2018 11:00 AM EDT Patient was provided with instructions regarding their diagnosis and treatment today. They voiced understanding of the treatment plan and were instructed on when to return to the clinic. documented in this encounter Progress Notes * Leonora Menjivar PA - 12/28/2018 10:59 AM EDT Images from the original note were not included. Chief Complaint Patient presents with ??? Injections RIGHT KNEE CORTISONE INJ Diagnosis: Right knee osteoarthritis She returns to clinic today for repeat right knee cortisone injection. We did attempt viscous augmentation injections however, she feels like the cortisone works better for her. He denies any new injury since last visit Orders Placed This Encounter Procedures ??? US ARTHR/ASP/INJ MAJOR JNT/BURSA RIGHT Order Specific Question: Reason for exam: Answer: PAIN ??? FL METHYLPREDNISOLONE 40 MG INJ I discussed in detail the risks, benefits [...] Carbocaine, 4 mL of 0.25% Marcaine, and 2mL of 40mg of Depo-Medrol was injected under sterile technique. The needle was withdrawn and the puncture site sealed with a Band-Aid. Technique: Under sterile conditions a [employer] Wave [employer] ultrasound unit with a variable frequency (6.0-15.0 [...] any pain, redness, warmth, fever, or chills. MANAV Gloria This dictation was performed with a verbal recognition program ([employer]) and it was checked for errors. It is possible that there are still dictated errors within this office note. If so, please bringany errors to my attention for an addendum. All efforts were made to ensure that this office note is accurate. * Ana Carter - 12/28/2018 10:52 AM EDT 4[facility]#-[id number] LOT#- [id number] EXP:08/2022 4CC [facility]#-[id number] LOT#[id number] EXP: 06/2020 2CC DEPO [facility]#-[id number] LOT#- [id number] EXP: 08/2020 SITE: RIGHT KNEE documented in this encounter Plan of Treatment Upcoming Encounters Date Type Department Care Team (Late st Contact Info) Description 04/01/2025 10:00 AM EDT Office Visit [facility] Pulmonary Critical Care and Sleep [address] [facility] [address] [place] [address] Salvador Woodard MD [address] [facility] [address] [place] [address] 1 YFU lungs 04/21/2025 9:30 AM EDT Office Visit [facility] [address] [place] [address] O'Rosalba, Vinicio Brown MD [address] [place] [address] awv documented as of this encounter Procedures Procedure Name Priority Date/Time Associated Diagnosis Comments US ARTHROCENTESIS INJECTION MAJOR JOINT RT Routine 12/28/2018 11:09 AM EDT Primary osteoarthritis of right knee documented in this encounter Results * US ARTHR/ASP/INJ MAJOR JNT/BURSA RIGHT (12/28/2018 11:09 AM EDT) Narrative [facility] RIS CONSOLIDATED - 12/28/2018 11:10 AM EDT Radiology result is complete; follow up with provider / physician office for radiology results Rusty Quesada MD IMG US ORDERABLES [facility] documented in this encounter Visit Diagnoses Diagnosis Primary osteoarthritis of right knee- Primary Primary localized osteoarthrosis, lower leg documented in this encounter Additional Health Concerns Assessment Noted Time A fall risk assessment has been complete d for the patient 06/26/2017 11:24 AM EDT documented as of this encounter
--- OUTSIDE RECORDS SUMMARY | 2024-08-21 07:06 | XMS_ITS | Encounter Summary ---
Author Organization [facility] Address [address] [place] [address] Care Team Providers Care Fur Pointer Name Role Phone Unavailable Primary Care Provider Unavailabl e Reason for Referral * Imaging (Routine) - Closed Specialty Diagnoses / Procedures Referred By Contac t Referred To Contact Radiology Diagnoses Primary osteoarthritis of right knee Procedures US ARTHR/ASP/INJ MAJOR JNT/BURSA RIGHT Pertuset, ROSS Gautam [address] [place] [address] Referral ID Status Reason Start Date Expiration Date Visits Re quested Visits Authorized [id number] Closed 03/06/2018 03/06/2019 1 1 * Other (Routine) - Closed Specialty Diagnoses / Procedures Referred By Contac t Referred To Contact Diagnoses Primary osteoarthritis of right knee Procedures NV METHYLPREDNISOLONE 40 MG INJ Pertuset, ROSS Gautam [address] [place] [address] Referral ID Status Reason Start Date Expiration Date Visits Re quested Visits Authorized [id number] Closed 03/06/2018 03/06/2019 1 1 Reason for Visit * Reason Comments Knee Pain RIGHT KNEE DEYANIRA INJ Encounter Details Date Type Department Care Team (Late st Contact Info) Description 03/06/2018 9:45 AM EDT Nurse Only Rachel [facility] [address] [place] [address] Leonora Guzman PA [address] [place] [address] Primary osteoarthritis of right knee (Primary Dx) [...] * Patient Instructions* Leonora Menjivar PA - 03/06/2018 9:46 AM EDT Patient was provided with instructions regarding their diagnosis and treatment today. They voiced understanding of the treatment plan and were instructed on when to return to the clinic. documented in this encounter Progress Notes * Leonora Menjivar PA - 03/06/2018 9:41 AM EDT Images from the original note were not included. Chief Complaint Patient presents with ??? Knee Pain RIGHT KNEE DEYANIRA INJ Diagnosis: Right knee osteoarthritis She returns today for a right knee cortisone injection. She has had this in the past with good painrelief. . Orders Placed This Encounter Procedures ??? US ARTHR/ASP/INJ MAJOR JNT/BURSA RIGHT Order Specific Question: Reason for exam: Answer: PAIN ??? NV METHYLPREDNISOLONE 40 MG INJ I discussed in [...] a Band-Aid. Technique: Under sterile conditions a [employer] ultrasound unit with a variable frequency (6.0-15.0 [...] was performed with a verbal recognition program (JustBook) and it was checked for errors. It is possible that there are still dictated errors within this office note. If so, please bringany errors to my attention for an addendum. All efforts were made to ensure that this office note is accurate. * Susannah Galvan MA - 03/06/2018 9:39 AM EDT 4CC BUPIVACAINE [facility]#-[id number] LOT#- [id number] EXP:10/[address] [facility]#-[id number] LOT#- [id number] EXP: 09/[address] [facility]#-[id number] LOT#- [id number] EXP: 04/2020 SITE: RIGHT KNEE documented in this encounter Plan of Treatment Upcoming Encounters Date Type Department Care Team (Late st Contact Info) Description 04/01/2025 10:00 AM EDT Office Visit [facility] Pulmonary Critical Care and Sleep [address] [facility] [address] [place] [address] Salvador Woodard MD [address] [facility] [address] [place] [address] 1 YFU lungs 04/21/2025 9:30 AM EDT Office Visit [facility] [address] [place] [address] O'Rosalba, Vinicio Brown MD [address] [place] [address] awv documented as of this encounter Procedures [...] for radiology results Leonora THORNTON US ORDERABLES [facility] documented in this encounter Visit Diagnoses Diagnosis Primary osteoarthritis of right knee- Primary Primary localized osteoarthrosis, lower leg documented in this encounter Additional Health Concerns Assessment Noted Time A fall risk assessment has been complete d for the patient 06/26/2017 11:24 AM EDT documented as of this encounter
--- OUTSIDE RECORDS SUMMARY | 2024-08-21 07:06 | XMS_ITS | Encounter Summary ---
Author Organization Juan Larry [employer] [facility] Address [address] [place] [address] Care Team Providers Care Air Traffic Controller Name Role Phone Unavailable Primary Care Provider Unavailabl e Reason for Visit * Reason Comments Cough productive green and sore throat x3 weeks Encounter Details Date Type Department Care Team (Late st Contact Info) Description 02/22/2016 10:40 AM EDT Office Visit [facility] [address] [place] [address] Stewart Tejeda MD [address] [address] [place] [address] Cough (Primary Dx); Pulmonary nodules; Seasonal allergies Social History Tobacco Use Types Packs/Day Years [...] Sign Reading Time Taken Comments Blood Pressure 136/80 02/22/2016 10:36 AM EDT Pulse 76 02/22/2016 10:36 AM EDT Temperature 36.9 ??C (98.4 ??F) 02/22/2016 10:36 AM E DT Respiratory Rate - - Oxygen Saturation 96% 02/22/2016 10:36 AM EDT Inhaled Oxygen Concentration - - Weight 58.1 kg (128 lb) 02/22/2016 10:36 AM EDT Height 162.6 cm (5' 4 ) 02/22/2016 10:36 AM EDT Body Mass Index 21.97 02/22/2016 10:36 AM EDT documented in this encounter Progress Notes * Stewart Tejeda MD - 02/23/2016 7:13 PM EDT Subjective: Patient ID: Karlie Love is a 65 y.o. female. HPI: 65 y.o. in for Chief Complaint Patient presents with ??? Cough productive green and sore throat x3 weeks Going on 5-6 weeks, saw me 3 weeks ago. Got abx, helped while she was taking it. stopped it and thesx's returned. Tons of PND, congestion, rhinorrhea and scratchy sore throat. Had ct sc an that showed tiny pulm nodules last April, due for repeat scan. No smoking hx. No hx of allergies. [place]. Review of Systems Constitutional: Negative for fever, chills, fatigue and unexpected weight change. HENT: Positive for congestion, postnasal drip, rhinorrhea and sore throat. Negative for ear pain, hearing loss and sinus pressure. Eyes: Negative for pain. Respiratory: Negative for chest tightness, shortness of breath, wheezing and stridor. Cardiovascular: Negative for chest pain and palpitations. Gastrointestinal: Negative. Negative for abdominal pain. Musculoskeletal: Negative. Negative for neck pain. Skin: Negative for rash. BP 136/80 mmHg Pulse 76 Temp(Src) 98.4 ??F (36.9 ??C) (Oral) Ht 5' 4 (1.626 m) Wt 128 lb (58.06 kg) BMI 21.96 kg/m2 SpO2 96% ? No Objective: Physical Exam Constitutional: She appears well-developed and well-nourished. No distress. HENT: Head: Normocephalic and atraumatic. op erythema cw pnd Lungs clear Eyes: Conjunctivae and EOM are normal. Right [...] and vitals reviewed. Assessment: See below Plan: Possible allergies rather than infectious cause. Due for ct; will check this Trial of IM depomedrol Start flonase. If trip resolved sx's then allergies are likely Karlie was seen today for cough. Diagnoses and associated orders for this visit: Cough Pulmonary nodules - Cancel: CT Chest WO Contrast Seasonal allergies - methylPREDNISolone acetate (DEPO-MEDROL) injection 160 mg; Inject 2 mLs into the muscle once Other Orders - fluticasone (FLONASE) 50 MCG/ACT nasal spray; 4 sprays by Nasal route daily (2 SPRAYS UP EACH NOSTRIL) documented in this encounter Plan of Treatment Upcoming Encounters Date Type Department Care Team (Late st Contact Info) Description 04/01/2025 10:00 AM EDT Office Visit [facility] Pulmonary Critical Care and Sleep [address] [facility] [address] [place] [address] Salvador Woodard MD [address] [facility] [address] [place] [address] 1 YFU lungs 04/21/2025 9:30 AM EDT Office Visit [facility] [address] [facility] [place], [place] [address] O'Rosalba, Vinicio Brown MD [address] [facility] [place], [place] [address] awv documented as of this encounter Visit Diagnoses Diagnosis Cough- Primary Pulmonary nodules Other nonspecific abnormal finding of lung field Seasonal allergies Allergic rhinitis, cause unspecified documented in this encounter Administered Medications Inactive Administered Medications - up to 3 most recent administrations Medication Order MAR Action Action Date Dose Rate Site methylPREDNISolone acetate (DEPO-MEDROL) injection 160 mg 160 mg, IntraMUSCular, ONCE, 1 dose, On Mon02/22/16 at 1130 Given 02/22/2016 11:03 AM EDT 160 mg Right Upper Outer Quadrant documented in this encounter
--- OUTSIDE RECORDS SUMMARY | 2024-08-21 07:06 | XMS_ITS | Encounter Summary ---
Author Organization [facility] Address [address] [place] [address] Care Team Providers Care Jinrikisha Driver Name Role Phone Unavailable Primary Care Provider Unavailabl e Encounter Details Date Type Department Care Team (Late st Contact Info) Description 08/21/2017 1:45 PM EST Ancillary Procedure [facility] [address] [place] [address] Social History Tobacco Use Types [...] Center Pulmonary Critical Care and Sleep [address] [facility] [address] [place] [address] Salvador Woodard MD [address] [facility] [address] [place] [address] 1 YFU lungs 04/21/2025 9:30 AM EDT Office Visit [facility] [address] [place] [address] O'Rosalba, Vinicio Brown MD [address] [place] [address] awv documented as of this encounter Procedures Procedure Name Priority Date/Time Associated Diagnosis Comments US GUIDED NEEDLE PLACEMENT Routine 08/21/2017 2:16 PM EST Primary osteoarthritis of right knee documented in this encounter Results * US Guided Needle Placement (08/21/2017 2:16 PM EST) 08/21/2017 2:15 PM EST Narrative [facility] RADIANT - 08/21/2017 2:16 PM EST Radiology result is complete; follow up with provider / physician office for radiology results Rusty Quesada MD IMG US ORDERABLES DOMINGO NEELY documented in this encounter Visit Diagnoses Not on filedocumented in this encounter Additional Health Concerns Assessment Noted Time A fall risk assessment has been complete d for the patient 06/26/2017 11:24 AM EDT documented as of this encounter
--- OUTSIDE RECORDS SUMMARY | 2024-08-21 07:06 | XMS_ITS | Encounter Summary ---
Author Organization Juan Ramos [facility] Address [address] [place] [address] Care Team Providers Care Insulation Machine Operator Name Role Phone Unavailable Primary Care Provider Unavailabl e Reason for Visit * Imaging (Routine) - Closed Specialty Diagnoses / Procedures Referred By Contac t Referred To Contact Radiology Diagnoses Primary osteoarthritis of right knee Procedures US ARTHR/ASP/INJ MAJOR JNT/BURSA RIGHT Aileen Gomez PA [address] [facility] [place] [address] Referral ID Status Reason Start Date Expiration Date Visits Re quested Visits Authorized [id number] Closed 05/08/2018 05/08/2019 1 1 Encounter Details Date Type Department Care Team (Late st Contact Info) Description 05/08/2018 12:55 PM EDT Ancillary Procedure [facility] [address] [place], [place] [phone] Social History Tobacco Use Types Packs/Day Years [...] Description 04/01/2025 10:00 AM EDT Office Visit [facility] Pulmonary Critical Care and Sleep [address] [place], [place] [phone] Salvador Woodard MD [address] [place], [place] [phone] 1 YFU lungs 04/21/2025 9:30 AM EDT Office Visit [facility] [address] [place] [address] O'Rosalba, Vinicio Brown MD [address] [place], [place] [phone] awv documented as of this encounter Procedures [...] / physician office for radiology results Aileen HAWKINS IMG US ORDERABLES [facility] documented in this encounter Visit Diagnoses Not on filedocumented in this encounter Additional Health Concerns Assessment Noted Time A fall risk assessment has been complete d for the patient 06/26/2017 11:24 AM EDT documented as of this encounter
--- OUTSIDE RECORDS SUMMARY | 2024-08-21 07:06 | XMS_ITS | Encounter Summary ---
Author Organization [facility] Address [address] [place] [address] Care Team Providers Care Sole Conditioner Name Role Phone Analia William MD Primary Care Provider [phone] Reason for Referral * Other (Routine) - Closed Specialty Diagnoses / Procedures Referred By Jean Claude hallman Referred To Contact Diagnoses Chronic cough Procedures Full PFT Study With Bronchodilator Analia William MD [address] [place] [address] Referral ID Status Reason Start Date Expiration Date Visits Re quested Visits Authorized [id number] Closed 02/05/2019 07/29/2019 1 1 Reason for Visit * Reason Comments New Patient Cough ongoing issue since May Encounter Details Date Type Department Care Team (Late st Contact Info) Description 01/30/2019 11:20 AM EDT Office Visit [facility] [address] [place] [address] Analia William MD [address] [place] [phone] Chronic cough (Primary Dx); Lipid screening; Need for vaccination against Streptococcus pneumoniae using pneumococcal conjugate vaccine 13 Social History Tobacco Use Types Packs/Day Years [...] Reading Time Taken Comments Blood Pressure 136/70 01/30/2019 11:07 AM EDT Pulse 66 01/30/2019 11:07 AM EDT Temperature - - Respiratory Rate 18 01/30/2019 11:07 AM EDT Oxygen Saturation 99% 01/30/2019 11:07 AM EDT Inhaled Oxygen Concentration - - Weight 57.2 kg (126 lb) 01/30/2019 11:07 AM EDT Height 163 cm (5' 4.17 ) 01/30/2019 11:07 AM EDT Body Mass Index 21.51 01/30/2019 11:07 AM EDT documented in this encounter Patient Instructions * Patient Instructions* Analia William MD - 01/30/2019 11:40 AM EDT Start taking claritin and flonase daily documented in this encounter Progress Notes * Analia William MD - 01/30/2019 11:24 AM EDT Chief Complaint Patient presents with ??? New Patient ??? Cough ongoing issue since May Cough This is a chronic problem. Episode onset: since may. Progression since onset: gotten a littlebetter. The cough is productive of sputum (clear mucus). Associated symptoms include postnasal drip(sometimes) and shortness of breath. Pertinent negatives include no chest pain, chills, ear congestion, ear pain, fever, heartburn, hemoptysis, nasal congestion, rhinorrhea, sore throat or wheezing. Nothing aggravates the symptoms. Treatments tried: when its bad would take nyquil. Her past medical history is significant for bronchiectasis. There is no history of environmental allergies or pneumonia. 68 y.o. female presents today to establish care. Previous patient of Dr. Stevenson. Hx of bronchiectasis had previous PFTs done in 2009 reviewed and showed mild obstructive lung disease with no improvement after use of bronchodilators. Patient states that she was previously on an inhaler and sob pulmonologists. Did not have any symptoms and treatment was stopped per patient. Patient Active Problem List Diagnosis ??? Primary [...] 65 yrs and older) 07/03/2018 ??? Pneumococcal 13-valent Conjugate ([id number]) 01/30/2019 ??? Pneumococcal Polysaccharide ([id number]) 01/09/2018 ??? Tdap (Boostrix, Adacel) 06/14/2017 ??? Zoster Subunit (Shingrix) 01/09/2018 Current Outpatient Medications Medication Sig Dispense Refill ??? 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 Financial [...] on phone: None Gets together: None Attends oriental orthodox service: None Active member of club or [...] Systems Constitutional: Negative for chills and fever. HENT: Positive for postnasal drip (sometimes). Negative for ear pain, rhinorrhea and sore throat. Respiratory: Positive for cough and shortness of breath. Negative for hemoptysis and wheezing. Cardiovascular: Negative for chest pain. Gastrointestinal: Negative for heartburn. Allergic/Immunologic: Negative for environmental allergies. PHYSICAL EXAMINATION: BP 136/70 Pulse 66 Resp 18 Ht 5' 4.17 (1.63 m) Wt 126 lb (57.2 kg) SpO2 99% BMI 21.51 kg/m?? Physical Exam Constitutional: She is oriented to person, place, and time. She appears well- developed and well-nourished. No distress. HENT: Head: Normocephalic and atraumatic. Right Ear: External ear normal. Left Ear: External ear normal. Eyes: Conjunctivae and EOM are normal. Cardiovascular: Normal rate, regular rhythm and normal heart sounds. Pulmonary/Chest: Effort normal. No stridor. No respiratory distress. She has no wheezes. Neurological: She is alert and oriented to person, place, and time. Skin: Skin is warm and dry. She is not diaphoretic. Vitals reviewed. ASSESSMENT: Well Adult, See encounter diagnoses Mariajose was seen today for new patient and cough. Diagnoses and all orders for this visit: Chronic cough Given patient's history of bronchiectasis recommended repeating PFTs. Discussed various causes of chronic cough including allergic and GERD. She denies any GERD. She does have some allergy symptoms recommended taking Flonase and Claritin daily for 2 weeks. - XR CHEST STANDARD (2 VW); Future - Full PFT Study With Bronchodilator; Future Lipid screening - Lipid Panel - Comprehensive Metabolic Panel Need for vaccination against Streptococcus pneumoniae using pneumococcal conjugate vaccine 13 - PREVNAR 13 IM (Pneumococcal conjugate vaccine 13-valent) Plan: See orders and medications filed with this encounter. Return for follow up after lung testing. documented in this encounter Plan of Treatment Upcoming Encounters Date Type Department Care Team (Late st Contact Info) Description 04/01/2025 10:00 AM EDT Office Visit [facility] Pulmonary Critical Care and Sleep [address] [facility] [address] [place] [phone] Salvador Woodard MD [address] [facility] [address] [place] [phone] YFU lungs 04/21/2025 9:30 AM EDT Office Visit [facility] [address] [place], [place] [address] O'Rosalba, Vinicio Brown MD [address] [place], [place] [phone] awv documented as of this encounter Procedures Procedure Name Priority Date/Time Associated Diagnosis Comments LIPID PANEL Routine 01/30/2019 11:57 AM EDT Lipid screening COMPREHENSIVE METABOLIC PANEL Routine 01/30/2019 11:57 AM EDT Lipid screening documented in this encounter Results * Full [...] Perez MD - 02/13/2019 11:59 PM EDT [address] [phone] PULMONARY FUNCTION PATIENT NAME: MARIAJOSE MCCARTHY : 1950 MED REC NO: [id number] ROOM: ACCOUNT NO: [id number] ADMIT DATE: 02/13/2019 PROVIDER: Rachel Perez MD [...] bronchodilator therapies. RACHEL PEREZ MD [id number] Doc#: [id number] CC: Analia William MD PFT ORDERABLES * XR CHEST STANDARD (2 VW) (01/30/2019 [...] right mid lung is unchanged dating back [id number]. No acute cardiopulmonary disease. Analia William MD IMG DIAGNOSTIC IMAG ING ORDERABLES * (ABNORMAL) Comprehensive Metabolic Panel (01/30/2019 11:57 AM EDT) Sodium 139 136 - 145 mmol/L 01/31/2019 12:11 AM [facility] Potassium 4.6 3.5 - 5.1 mmol/L 01/31/2019 12:11 AM [facility] Chloride 101 99 - 110 mmol/L 01/31/2019 12:11 AM [facility] CO2 28 21 - 32 mmol/L 01/31/2019 12:11 AM [facility] Anion Gap 10 3 - 16 01/31/2019 12:11 AM [facility] Glucose 94 70 - 99 mg/dL 01/31/2019 12:11 AM [facility] BUN 12 7 - 20 mg/dL 01/31/2019 12:11 AM [facility] Creatinine 0.6 0.6 - 1.2 mg/dL 01/31/2019 12:11 AM [facility] GFR Non- >60 >60 01/31/2019 12:11 AM [facility] Comment: >60 mL/min/1.73m2 EGFR, calc. for ages 18 and older using the MDRD formula (not corrected for weight), is valid for stable renal function. GFR >60 >60 01/31/2019 12:11 AM [facility] Comment: Chronic Kidney Disease: less than 60 ml/min/1.73 sq.m. ?Kidney Failure: less than 15 ml/min/1.73 sq.m. Results valid for patients 18 years and older. Calcium 9.6 8.3 - 10.6 mg/dL 01/31/2019 12:11 AM [facility] Total Protein 7.0 6.4 - 8.2 g/dL 01/31/2019 12:11 AM EDT [facility] Albumin 4.1 3.4 - 5.0 g/dL 01/31/2019 12:11 AM T [facility] Albumin/Globulin Ratio 1.4 1.1 - 2.2 01/31/2019 12:11 AM EDT [facility] Total Bilirubin 0.5 0.0 - 1.0 mg/dL 01/31/2019 12:11 AM EDT [facility] Alkaline Phosphatase 93 40 - 129 U/L 01/31/2019 12:11 AM EDT [facility] ALT 18 10 - 40 U/L 01/31/2019 12:11 AM T [facility] AST 14(L) 15 - 37 U/L 01/31/2019 12:11 AM EDT [facility] Globulin 2.9 g/dL 01/31/2019 12:11 AM T [facility] BLOOD SPECIMEN / Unknown 01/30/2019 11:57 AM EDT 01/30/2019 11:03 PM EDT Narrative [facility] - 01/31/2019 12:24 AM EDT Performed at: [facility] [address] [place] [address], ??[place] [address] ?? Analia William MD CHEMISTRY ORDERABLE S [facility] [address] [place] [address], [facility] [phone] * (ABNORMAL) Lipid Panel (01/30/2019 11:57 AM EDT) Cholesterol, Total 218(H) 0 - 199 mg/dL 01/31/2019 12:11 AM EDT [facility] Triglycerides 127 0 - 150 mg/dL 02/01/20 19 12:11 AM EDT [facility] HDL 61(H) 40 - 60 mg/dL 01/31/2019 12:11 AM EDT [facility] LDL Calculated 132(H) <100 mg/dL 01/31/2019 12:11 AM EDT [facility] VLDL Cholesterol Calculated 25 Not Established mg/dL 01/31/2019 12:11 AM EDT [facility] BLOOD SPECIMEN / Unknown 01/30/2019 11:57 AM EDT 01/30/2019 11:03 PM EDT Narrative [facility] - 01/31/2019 12:24 AM EDT Performed at: [facility] [address] [facility], ??[place] [address] ?? Analia William MD CHEMISTRY ORDERABLE S [facility] [address] [phone] documented in this encounter Visit Diagnoses Diagnosis Chronic cough- Primary Cough Lipid screening Screening for lipoid disorders Need for vaccination against Streptococcus pneumoniae using pneumococcal conjugate vaccine 13 Chronic cough Cough Chronic cough Cough documented in this encounter Additional Health Concerns Assessment Noted Time A fall risk assessment has been complete d for the patient 06/26/2017 11:24 AM EDT documented as of this encounter Care Teams Sole Conditioner Relationship Specialty Start Date End Date Analia William MD PCP - General Family Medicine 01/30/19 06/04/20 documented as of this encounter
--- OUTSIDE RECORDS SUMMARY | 2024-08-21 07:06 | XMS_ITS | Encounter Summary ---
Author Organization [facility] Address [address] [place] [address] Care Team Providers Care Kennel Aide Name Role Phone Unavailable Primary Care Provider Unavailabl e Encounter Details Date Type Department Care Team (Late st Contact Info) Description 02/26/2016 Orders Only [facility] Medicine [address] [place] [address] Stewart Tejeda MD [address] [facility]. [address] [place], [place] [id number] Social History Tobacco Use Types Packs/Day Years Used Date Smoking Tobacco: Never Alcohol Use Standard Drinks/Week Comments [...] Description 04/01/2025 10:00 AM EDT Office Visit [facility] Pulmonary Critical Care and Sleep [address] [facility] [address] [place] [address] Salvador Woodard MD [address] [facility] [address] [place] [address] 1 YFU lungs 04/21/2025 9:30 AM EDT Office Visit [facility] [address] [facility] [facility] [place] [address] O'Rosalba, Vinicio Brown MD [address] [place] [phone] awv documented as of this encounter Visit Diagnoses Not on filedocumented in this encounter
--- OUTSIDE RECORDS SUMMARY | 2024-08-21 07:06 | XMS_ITS | Encounter Summary ---
Author Organization [facility] Address [address] [place] [address] Care Team Providers Care Bellows Charger Assembler Name Role Phone Unavailable Primary Care Provider Unavailabl e Reason for Visit * Imaging (Routine) - Closed Specialty Diagnoses / Procedures Referred By Contac t Referred To Contact Radiology Diagnoses Primary osteoarthritis of right knee Procedures US ARTHR/ASP/INJ MAJOR JNT/BURSA RIGHT Pertuset, ROSS Gautam [address] [place] [address] Referral ID Status Reason Start Date Expiration Date Visits Re quested Visits Authorized [id number] Closed 08/20/2018 08/20/2019 1 1 Encounter Details Date Type Department Care Team (Late st Contact Info) Description 08/20/2018 2:40 PM EST Ancillary Procedure [facility] [address] [place] [address] Social History Tobacco Use Types Packs/Day Years [...] 04/01/2025 10:00 AM EDT Office Visit [facility] Pulmonary Critical Care and Sleep [address] [facility] [place], [place] [phone] Salvador Woodard MD [address] [facility] [address] [place], [place] [phone] 1 YFU lungs 04/21/2025 9:30 AM EDT Office Visit [facility] [address] [place] [address] O'Vinicio Navarrete MD [address] [place], [place] [phone] awv documented as of this encounter Procedures Procedure Name Priority Date/Time Associated Diagnosis Comments US ARTHROCENTESIS INJECTION MAJOR JOINT RT Routine 08/20/2018 2:46 PM EST Primary osteoarthritis of right knee documented in this encounter Results * US ARTHR/ASP/INJ MAJOR JNT/BURSA RIGHT (08/20/2018 2:46 PM EST) Narrative [facility] RIS CONSOLIDATED - 08/20/2018 2:46 PM EST Radiology result is complete; follow up with provider / physician office for radiology results Leonora THORNTON US ORDERABLES [facility] documented in this encounter Visit Diagnoses Not on filedocumented in this encounter Additional Health Concerns Assessment Noted Time A fall risk assessment has been complete d for the patient 06/26/2017 11:24 AM EDT documented as of this encounter
--- OUTSIDE RECORDS SUMMARY | 2024-08-21 07:06 | XMS_ITS | Encounter Summary ---
Author Organization [facility] Address [address] [place] [address] Care Team Providers Care Area Field Worker Name Role Phone Unavailable Primary Care Provider Unavailabl e Reason for Visit * Reason Comments Cough Head Congestion Chest Congestion Encounter Details Date Type Department Care Team (Late st Contact Info) Description 01/09/2018 2:40 PM EDT Office Visit [address] [place] [address] Dasia Ward, AGUILAR - ADITYA Cough (Primary Dx) Social History Tobacco Use Types Packs/Day Years Used Date Smoking Tobacco: Never Smokeless Tobacco: Never Tobacco Cessation:Counseling Given: Yes Alcohol [...] Sign Reading Time Taken Comments Blood Pressure 124/72 01/09/2018 2:28 PM EDT Pulse 78 01/09/2018 2:28 PM EDT Temperature 37.4 ??C (99.3 ??F) 01/09/2018 2:28 PM ED T Respiratory Rate - - Oxygen Saturation 95% 01/09/2018 2:28 PM EDT Inhaled Oxygen Concentration - - Weight 58.5 kg (129 lb) 01/09/2018 2:28 PM EDT Height - - Body Mass Index 22.02 02/01/2017 2:52 PM EDT documented in this encounter Patient Instructions * Patient Instructions* Dasia Ward APRN - CNP - 01/09/2018 2:43 PM EDT Sudafed from pharmacy counter Flonase Mucinex(Guaifenesin) Marti, Zyrtec or Claritin daily documented in this encounter Progress Notes * Dasia Ward APRN - CNP - 01/09/2018 2:37 PM EDT Patient: Karlie Love is a 67 y.o. female who presents today with the following Chief Complaint(s): Chief Complaint Patient presents with ??? Cough ??? Head Congestion ??? Chest Congestion HPI Cough and congestion in chest that started 4-5 days ago. No fever that she is aware of. Symptoms have worsened over the past few days. Taking lion seltzer day and night cold relief. Started with symptoms while traveling. Right ear has been bothering her. Current Outpatient Prescriptions Medication Sig Dispense Refill ??? PredniSONE 10 MG (21) TBPK Take 6 pills at once on day one, 5pills on day two, 4 pills on day three, 3 pills on day four, 2 pills on day five, 1 pill on day six. 21 each 0 ??? promethazine-dextromethorphan (PROMETHAZINE-DM) 6.25-15 MG/5ML syrup Take 5 mLs by mouth 4 times daily as needed for Cough 118 mL 0 ??? Multiple Vitamin (MULTIVITAMIN PO) Take by mouth. ??? vitamin B-12 (CYANOCOBALAMIN) 100 MCG tablet Take 500 mcg by mouth daily. ??? ibuprofen (ADVIL;MOTRIN) 200 MG tablet Take 400 mg by mouth nightly. No current facility-administered medications for this visit. Patient's past medical history, surgical history, family history, medications, and allergies were all reviewed and updated as appropriate today. Review of Systems Constitutional: Negative for fever. HENT: Positive for congestion, ear pain (right), sinus pain and sore throat. Respiratory: Positive for cough, sputum production and shortness of breath. Negative for wheezing. Physical Exam Constitutional: She is oriented to person, place, and time. No distress. HENT: Head: Normocephalic. Right Ear: There is tenderness. Left Ear: Tympanic membrane and ear canal normal. Nose: Rhinorrhea present. Mouth/Throat: Uvula is midline, oropharynx is clear and moist and mucous membranes are normal. Eyes: Conjunctivae are normal. Cardiovascular: Normal rate, regular rhythm and normal heart sounds. Pulmonary/Chest: Effort normal and breath sounds normal. Neurological: She is alert and oriented to person, place, and time. Skin: Skin is warm and dry. She is not diaphoretic. Psychiatric: She has a normal mood and affect. Her behavior is normal. Vitals: 01/09/18 1428 BP: 124/72 Pulse: 78 Temp: 99.3 ??F (37.4 ??C) SpO2: 95% Assessment: Encounter Diagnosis Name Primary? Cough Yes Plan: 1. Cough - PredniSONE 10 MG (21) TBPK; Take 6 pills at once on day one, 5pills on day two, 4 pills on day three, 3 pills on day four, 2 pills on day five, 1 pill on day six. Dispense: 21 each; Refill: 0 - promethazine-dextromethorphan (PROMETHAZINE-DM) 6.25-15 MG/5ML syrup; Take 5 mLs by mouth 4 timesdaily as needed for Cough Dispense: 118 mL; Refill: 0 documented in this encounter Plan of Treatment Upcoming Encounters Date Type Department Care Team (Late st Contact Info) Description 04/01/2025 10:00 AM EDT Office Visit [facility] Pulmonary Critical Care and Sleep [address] [facility] [address] [place] [address] Salvador Woodard MD [address] [facility] [address] [place] [address] 1 YFU lungs 04/21/2025 9:30 AM EDT Office Visit [facility] [address] [facility] [place] [address] O'Rosalba, Vinicio Brown MD [address] [place], [place] [phone] awv documented as of this encounter Visit Diagnoses Diagnosis Cough- Primary documented in this encounter Additional Health Concerns Assessment Noted Time A fall risk assessment has been complete d for the patient 06/26/2017 11:24 AM EDT documented as of this encounter
--- OUTSIDE RECORDS SUMMARY | 2024-08-21 07:06 | XMS_ITS | Encounter Summary ---
Author Organization [facility] Address [address] [facility] [address] Care Team Providers Care Traffic Reporter Name Role Phone Unavailable Primary Care Provider Unavailabl e Reason for Referral * Other (Routine) - Closed Specialty Diagnoses / Procedures Referred By Contac t Referred To Contact Diagnoses Primary osteoarthritis of right knee Procedures MD METHYLPREDNISOLONE 40 MG INJ Aileen Gomez PA [address] [place] [address] Referral ID Status Reason Start Date Expiration Date Visits Re quested Visits Authorized [id number] Closed 11/29/2017 11/29/2018 1 1 * Other (Routine) - Closed Specialty Diagnoses / Procedures Referred By Contac t Referred To Contact Diagnoses Primary osteoarthritis of right knee Procedures MD ARTHROCENTESIS ASPIR&/INJ MAJOR JT/BURSA W/O Aileen Gomez PA [address] [place] [address] Referral ID Status Reason Start Date Expiration Date Visits Re quested Visits Authorized [id number] Closed 11/29/2017 11/29/2018 1 1 * Other (Routine) - Closed Specialty Diagnoses / Procedures Referred By Jean Claude hallman Referred To Contact Diagnoses Primary osteoarthritis of right knee Procedures US Guided Needle Placement Aileen Gomez PA [address] [place] [address] Referral ID Status Reason Start Date Expiration Date Visits Re quested Visits Authorized [id number] Closed 11/29/2017 11/29/2018 1 1 Reason for Visit * Reason Comments Knee Pain RIGHT KNEE DEYANIRA INJ Encounter Details Date Type Department Care Team (Late st Contact Info) Description 11/29/2017 1:30 PM EDT Nurse Only [facility] [address] [place], [place] [phone] Aileen Gomez PA [address] [place], [place] [phone] Primary osteoarthritis of right knee (Primary Dx) [...] * Patient Instructions* Aileen Gomez PA - 11/29/2017 1:26 PM EDT Patient was provided with instructions regarding their diagnosis and treatment today. They voiced understanding of the treatment plan and were instructed on when to return to the clinic. documented in this encounter Progress Notes * Aileen Gomez PA - 11/29/2017 1:26 PM EDT Right Knee cortisone injection visit only Osteoarthritis Right knee I discussed in detail the risks, [...] sterile 22-gauge needle was inserted into the Right knee and the mixture of 4 mL of 2% Carbocaine, 4 mL of 0.25% Marcaine, and 2mLof 40 mg of Depo-Medrol was injected under sterile technique. The needle was withdrawn and the puncture site sealed with a Band-Aid. Technique: Under sterile conditions a SonMarqui ultrasound unit with a variable frequency (6.0-15.0 [...] pain, redness, warmth, fever, or chills. * Susannah Galvan MA - 11/29/2017 1:17 PM EDT [facility] BUPIVACAINE [facility][NOTE 3]#[id number] LOT#- [id number] EXP: 10/2018 4C LIDOCAINE [facility][NOTE 3]#[id number] LOT#- [id number] EXP: 03/2018 2C DEPO [facility][NOTE 3]#[id number] LOT#- [id number] EXP: 12/2019 SITE: RIGHT KNEE documented in this encounter Plan of Treatment Upcoming Encounters Date Type Department Care Team (Late st Contact Info) Description 04/01/2025 10:00 AM EDT Office Visit [facility] Pulmonary Critical Care and Sleep [address] [facility] [address] [place] [address] Salvador Woodard MD [address] [facility] [address] [place] [address] 1 YFU lungs 04/21/2025 9:30 AM EDT Office Visit [facility] [address] [place] [address] O'Rosalba, Vinicio Brown MD [address] [place] [address] awv documented as of this encounter Procedures Procedure Name Priority Date/Time Associated Diagnosis Comments US GUIDED NEEDLE PLACEMENT Routine 11/29/2017 1:31 PM EDT Primary osteoarthritis of right knee documented in this encounter Results * US Guided Needle Placement (11/29/2017 1:31 PM EDT) Narrative DOMINGO NEELY - 11/29/2017 1:31 PM EDT Radiology result is complete; follow up with provider / physician office for radiology results Aileen THORNTON US ORDERABLES [facility] documented in this encounter Visit Diagnoses Diagnosis Primary osteoarthritis of right knee- Primary Primary localized osteoarthrosis, lower leg documented in this encounter Additional Health Concerns Assessment Noted Time A fall risk assessment has been complete d for the patient 06/26/2017 11:24 AM EDT documented as of this encounter
--- OUTSIDE RECORDS SUMMARY | 2024-08-21 07:06 | XMS_ITS | Encounter Summary ---
Author Organization [facility] Address [address] [place] [address] Care Team Providers Care Data Base Design Analyst Name Role Phone Unavailable Primary Care Provider Unavailabl e Reason for Visit * Reason Comments Leg Injury left leg x 2 weeks Encounter Details Date Type Department Care Team (Late st Contact Info) Description 06/26/2017 11:20 AM EDT Office Visit [facility] Medicine [address] [place] [phone] Stewart Tejeda MD [address] [facility] [place], [place] [phone] Hematoma (Primary Dx); Encounter for hepatitis C screening test for low risk patient; Need for hepatitis A vaccination Social History Tobacco Use Types Packs/Day Years [...] Sign Reading Time Taken Comments Blood Pressure 118/70 06/26/2017 11:22 AM EDT Pulse 65 06/26/2017 11:22 AM EDT Temperature - - Respiratory Rate - - Oxygen Saturation 97% 06/26/2017 11:22 AM EDT Inhaled Oxygen Concentration - - Weight 57.6 kg (127 lb) 06/26/2017 11:22 AM EDT Height - - Body Mass Index 21.68 02/01/2017 2:52 PM EDT documented in this encounter Progress Notes * Stewart Tejeda MD - 06/26/2017 10:13 PM EDT Subjective: Patient ID: Karlie Love is a 67 y.o. female. HPI 67 y.o. in for Chief Complaint Patient presents with ??? Leg Injury left leg x 2 weeks patient hit her left lower leg on the edge of a hard object. Instantly got a golf vial size swelling. And it hasn't gone away. She has had no shortness of breath. The bruising has drifted down her leg. There is greenish yellowish discoloring of the skin in a gravity dependent fashion. Review of Systems Constitutional: Negative for fever. HENT: Negative. Respiratory: Negative for shortness of breath. Cardiovascular: Positive for leg swelling. Negative for chest pain and palpitations. Gastrointestinal: Negative for nausea and vomiting. Musculoskeletal: Negative. Negative for gait problem and neck pain. Skin: Negative for rash. Objective: Physical Exam Constitutional: She appears well-developed and well-nourished. No distress. HENT: Head: Normocephalic and atraumatic. Eyes: Conjunctivae and EOM are normal. Right [...] has no rales. She exhibits no tenderness. Musculoskeletal: She exhibits edema, tenderness and deformity. Left lower outer calf. Golf ball sized hematoma. Mobile, rubbery. Tender. Lymphadenopathy: She has no cervical adenopathy. Skin: No rash noted. She is not diaphoretic. Nursing note and vitals reviewed. Assessment: Hematoma Plan: Well, tincture of time. He can take several weeks to months for this to resolve entirely. documented in this encounter Plan of Treatment Upcoming Encounters Date Type Department Care Team (Late st Contact Info) Description 04/01/2025 10:00 AM EDT Office Visit [facility] Pulmonary Critical Care and Sleep [address] [facility] [address] [place], [place] [phone] Salvador Woodard MD [address] [facility] [address] [place] [phone] 1 YFU lungs 04/21/2025 9:30 AM EDT Office Visit [facility] [address] [place], [place] [phone] O'Vinicio Navarrete MD [address] [place], [place] [phone] awv documented as of this encounter Procedures Procedure Name Priority Date/Time Associated Diagnosis Comments HEPATITIS PANEL, ACUTE Routine 06/26/2017 11:49 AM EDT Encounter for hepatitis C screening test for low risk patient documented in this encounter Results * HEPATITIS PANEL, ACUTE (06/26/2017 11:49 AM EDT) Hep A IgM Non-reacti ve Non-reacti ve 06/26/2017 10:07 PM EDT [facility] Hep B Core Ab, IgM Non-reacti ve Non-reacti ve 06/29/2017 5:46 AM EDT [facility] Hep B S Ag Interp Non-reacti ve Non-reacti ve 06/26/2017 10:07 PM EDT [facility] Hep C Ab Interp Non-reacti ve Non-reacti ve 06/29/2017 5:46 AM EDT [facility] BLOOD SPECIMEN / Unknown 06/26/2017 11:49 AM EDT 06/26/2017 3:28 PM EDT Narrative [facility] - 06/29/2017 6:05 AM EDT Performed at: [facility] [address] [facility], ??[place] [address] ?? Stewart Tejeda MD IMMUNOLOGY ORDERABL ES [facility] [address] [place] [address], [facility] [[email or web address]] [phone] documented in this encounter Visit Diagnoses Diagnosis Hematoma- Primary Contusion of unspecified site Encounter for hepatitis C screening test for low risk patient Need for hepatitis A vaccination Need for prophylactic vaccination and inoculation against viral hepatitis documented in this encounter Additional Health Concerns Assessment Noted Time A fall risk assessment has been complete d for the patient 06/26/2017 11:24 AM EDT documented as of this encounter
--- OUTSIDE RECORDS SUMMARY | 2024-08-21 07:06 | XMS_ITS | Encounter Summary ---
Author Organization [facility] Address [address] [place] [address] Care Team Providers Care Spinneret Person Name Role Phone Unavailable Primary Care Provider Unavailabl e Reason for Visit * Imaging (Routine) - Closed Specialty Diagnoses / Procedures Referred By Contac t Referred To Contact Radiology Diagnoses Right knee pain, unspecified chronicity Primary osteoarthritis of right knee Procedures US ARTHR/ASP/INJ MAJOR JNT/BURSA RIGHT Rusty Quesada MD [address] [place] [address] Referral ID Status Reason Start Date Expiration Date Visits Re quested Visits Authorized [id number] Closed 10/01/2018 10/01/2019 1 1 Encounter Details Date Type Department Care Team (Late st Contact Info) Description 10/01/2018 1:20 PM EST Ancillary Procedure [facility] [address] [place] [address] Social History Tobacco Use Types [...] 04/01/2025 10:00 AM EDT Office Visit [facility] Pulmonary Critical Care and Sleep [address] [facility] [address] [place], [place] [phone] Salvador Woodard MD [address] [place] [address] 1 YFU lungs 04/21/2025 9:30 AM EDT Office Visit [facility] [address] [place] [address] O'Rosalba, Vinicio Brown MD [address] [place], [place] [phone] awv documented as of this encounter Procedures Procedure Name Priority Date/Time Associated Diagnosis Comments US ARTHROCENTESIS INJECTION MAJOR JOINT RT Routine 10/01/2018 1:23 PM EST Right knee pain, unspecified chronicity Primary osteoarthritis of right knee documented in this encounter Results * US ARTHR/ASP/INJ MAJOR JNT/BURSA RIGHT (10/01/2018 1:23 PM EST) Narrative [facility] RIS CONSOLIDATED - 10/01/2018 1:23 PM EST Radiology result is complete; follow up with provider / physician office for radiology results Rusty Quesada MD IMG US ORDERABLES [facility] documented in this encounter Visit Diagnoses Not on filedocumented in this encounter Additional Health Concerns Assessment Noted Time A fall risk assessment has been complete d for the patient 06/26/2017 11:24 AM EDT documented as of this encounter
--- OUTSIDE RECORDS SUMMARY | 2024-08-21 07:06 | XMS_ITS | Encounter Summary ---
Author Organization Juan [facility] Address [address] [place] [address] Care Team Providers Care Entertainment Agent Name Role Phone Unavailable Primary Care Provider Unavailabl e Reason for Visit * Reason Comments Cough productive dark in c olor, runny nose, head, nasal and chest congestion, sore throat x10 days Encounter Details Date Type Department Care Team (Late st Contact Info) Description 02/04/2016 11:00 AM EDT Office Visit [facility] Medicine [address] [place] [phone] Stewart Tejeda MD [address] [facility] [place] [phone] URI, acute (Primary Dx) Social History Tobacco Use Types [...] Reading Time Taken Comments Blood Pressure 136/70 02/04/2016 11:23 AM EDT Pulse 68 02/04/2016 11:23 AM EDT Temperature 36.8 ??C (98.2 ??F) 02/04/2016 11:23 AM E DT Respiratory Rate - - Oxygen Saturation 97% 02/04/2016 11:23 AM EDT Inhaled Oxygen Concentration - - Weight 59.4 kg (131 lb) 02/04/2016 11:23 AM EDT Height 162.6 cm (5' 4 ) 02/04/2016 11:23 AM EDT Body Mass Index 22.49 02/04/2016 11:23 AM EDT documented in this encounter Progress Notes * Stewart Tejeda MD - 02/04/2016 12:31 PM EDT Subjective: Patient ID: Karlie Love is a 65 y.o. female. Cough This is a new problem. The current episode started 1 to 4 weeks ago. The problem has been graduallyworsening. The problem occurs constantly. The cough is productive of sputum. Associated symptoms include headaches, nasal congestion, postnasal drip, rhinorrhea and a sore throat. Pertinent negativesinclude no chest pain, chills, ear congestion, fever, hemoptysis, shortness of breath or wheezing. The symptoms are aggravated by lying down. She has tried OTC cough suppressant for the symptoms. Thetreatment provided mild relief. There is no history of asthma, emphysema or pneumonia. : 65 y.o. In for Chief Complaint Patient presents with ??? Cough productive dark in color, runny nose, head, nasal and chest congestion, sore throat x10 days alkaseltzer-cold Review of Systems Constitutional: Negative for fever and chills. HENT: Positive for postnasal drip, rhinorrhea and sore throat. Respiratory: Positive for cough. Negative for hemoptysis, shortness of breath and wheezing. Cardiovascular: Negative for chest pain. Neurological: Positive for headaches. Objective: Physical Exam Constitutional: She appears well-developed and well-nourished. No distress. HENT: Head: Normocephalic and atraumatic. Op erythema cw pnd Productive cough Eyes: Conjunctivae and EOM are normal. Right [...] and vitals reviewed. Assessment: See below Plan: No driving with the cough syrup (take at night) Karlie was seen today for cough. Diagnoses and associated orders for this visit: URI, acute Other Orders - amoxicillin-clavulanate (AUGMENTIN) 875-125 MG per tablet; Take 1 tablet by mouth 2 times daily for 10 days - promethazine-codeine (PHENERGAN WITH CODEINE) 6.25-10 MG/5ML syrup; Take 5 mLs by mouth 4 times daily as needed for Cough documented in this encounter Plan of Treatment Upcoming Encounters Date Type Department Care Team (Late st Contact Info) Description 04/01/2025 10:00 AM EDT Office Visit [facility] Pulmonary Critical Care and Sleep [address] [facility] [address] [place] [address] Salvador Woodard MD [address] [facility] [address] [place] [address] 1 YFU lungs 04/21/2025 9:30 AM EDT Office Visit [facility] Medicine [address] [facility] [place] [address] O'Vinicio Navarrete MD [address] [facility] [address] awv documented as of this encounter Visit Diagnoses Diagnosis URI, acute- Primary Acute upper respiratory infections of unspecified site documented in this encounter
--- OUTSIDE RECORDS SUMMARY | 2024-08-21 07:06 | XMS_ITS | Encounter Summary ---
Author Organization [facility] Address [address] [place] [address] Care Team Providers Care Commercial Lending Relationship Manager Name Role Phone Unavailable Primary Care Provider Unavailabl e Reason for Referral * Other (Routine) - Closed Specialty Diagnoses / Procedures Referred By Contac t Referred To Contact Diagnoses Primary osteoarthritis of right knee Procedures DE METHYLPREDNISOLONE 40 MG INJ Aileen Gomez PA [address] [place] [address] Referral ID Status Reason Start Date Expiration Date Visits Re quested Visits Authorized [id number] Closed 02/01/2017 02/01/2018 1 1 * Other (Routine) - Closed Specialty Diagnoses / Procedures Referred By Contac t Referred To Contact Diagnoses Primary osteoarthritis of right knee Procedures DE ARTHROCENTESIS ASPIR&/INJ MAJOR JT/BURSA W/O Aileen Gomez PA [address] [place] [address] Referral ID Status Reason Start Date Expiration Date Visits Re quested Visits Authorized [id number] Closed 02/01/2017 02/01/2018 1 1 Reason for Visit * Reason Comments Knee Pain R Knee pain, would l vladimir to do a cortisone shot today Encounter Details Date Type Department Care Team (Latest Contact Info) Description 02/01/2017 2:45 PM EDT [facility] [address] [place], [place] [phone] Aileen Gomez PA [address] [place] [address] Primary osteoarthritis of right knee [...] Sign Reading Time Taken Comments Blood Pressure 128/74 02/01/2017 2:52 PM EDT Pulse 71 02/01/2017 2:52 PM EDT Temperature - - Respiratory Rate - - Oxygen Saturation - - Inhaled Oxygen Concentration - - Weight 58.3 kg (128 lb 8.5 oz) 02/01/2017 2:52 P M EDT Height 163 cm (5' 4.17 ) 02/01/2017 2:52 PM EDT Body Mass Index 21.94 02/01/2017 2:52 PM EDT documented in this encounter Patient Instructions * Patient Instructions* Aileen Nunez PA - 02/01/2017 4:57 PM EDT Patient was provided with instructions regarding their diagnosis and treatment today. They voiced understanding of the treatment plan and were instructed on when to return to the clinic. documented in this encounter Progress Notes * Aileen Nunez PA - 02/01/2017 4:57 PM EDT RIGHT knee cortisone injection only I discussed in detail the risks, [...] sterile 22-gauge needle was inserted into the RIGHT knee and the mixture of 4 mL of 2% Carbocaine, 4 mL of 0.25% Marcaine, and 2mLof 40 mg of Depo-Medrol was injected under sterile technique. The needle was withdrawn and the puncture site sealed with a Band-Aid. Technique: Under sterile conditions a SonFNZ ultrasound unit with a variable frequency (6.0-15.0 [...] or chills. * Susannah Galvan MA - 02/01/2017 2:55 PM EDT [facility]#-[id number] LOT#- [id number] EXP: 08/2018 [facility] CARBOCAINE [facility]#-[id number] LOT#- [id number] EXP: 12/2018 [facility] DEPO [facility]#-[id number] LOT#- [id number] EXP: 04/2019 SITE: RIGHT KNEE documented in this encounter Plan of Treatment Upcoming Encounters Date Type Department Care Team (Late st Contact Info) Description 04/01/2025 10:00 AM EDT Office Visit [facility] Pulmonary Critical Care and Sleep [address] [facility] [address] [place] [address] Salvador Woodard MD [address] [facility] [address] [place] [address] 1 YFU lungs 04/21/2025 9:30 AM EDT Office Visit [facility] [address] [place] [address] O'Rosalba, Vinicio Brown MD [address] [place] [address] awv documented as of this encounter Procedures Procedure Name Priority Date/Time Associated Diagnosis Comments US GUIDED NEEDLE PLACEMENT Routine 02/01/2017 3:20 PM EDT Primary osteoarthritis of right knee documented in this encounter Results * US Guided Needle Placement (02/01/2017 3:20 PM EDT) 02/01/2017 3:19 PM EDT Narrative DOMINGO NEELY - 02/01/2017 3:20 PM EDT Radiology result is complete; follow up with provider / physician office for radiology results Aileen THORNTON US ORDERABLES DOMINGO NEELY documented in this encounter Visit Diagnoses Diagnosis Primary osteoarthritis of right knee- Primary Primary localized osteoarthrosis, lower leg documented in this encounter
--- OUTSIDE RECORDS SUMMARY | 2024-08-21 07:06 | XMS_ITS | Encounter Summary ---
Author Organization [facility] Address [address] [place] [address] Care Team Providers Care Art Critic Name Role Phone Unavailable Primary Care Provider Unavailabl e Reason for Visit * Imaging (Routine) - Closed Specialty Diagnoses / Procedures Referred By Contac t Referred To Contact Radiology Diagnoses Primary osteoarthritis of right knee Procedures US ARTHR/ASP/INJ MAJOR JNT/BURSA RIGHT Rusty Quesada MD [address] [place] [address] Referral ID Status Reason Start Date Expiration Date Visits Re quested Visits Authorized [id number] Closed 12/28/2018 12/28/2019 1 1 Encounter Details Date Type Department Care Team (Late Contact Info) Description 12/28/2018 10:55 AM EDT Ancillary Procedure [facility] [address] [place] [address] Social History Tobacco Use Types Packs/Day Years [...] Description 04/01/2025 10:00 AM EDT Office Visit [facility] Pulmonary Critical Care and Sleep [address] [place], [place] [phone] Salvador Woodard MD [address] [place] [address] 1 YFU lungs 04/21/2025 9:30 AM EDT Office Visit [facility] [address] [place] [address] O'Rosalba, Vinicio Brown MD [address] [place] [address] awv documented as of this encounter Procedures Procedure Name Priority Date/Time Associated Diagnosis Comments US ARTHROCENTESIS INJECTION MAJOR JOINT RT Routine 12/28/2018 11:09 AM EDT Primary osteoarthritis of right knee documented in this encounter Results * US ARTHR/ASP/INJ MAJOR JNT/BURSA RIGHT (12/28/2018 11:09 AM EDT) Narrative [facility] CON[facility] - 12/28/2018 11:10 AM EDT Radiology result is complete; follow up with provider / physician office for radiology results Rusty Quesada MD IMG US ORDERABLES [facility] documented in this encounter Visit Diagnoses Not on filedocumented in this encounter Additional Health Concerns Assessment Noted Time A fall risk assessment has been complete d for the patient 06/26/2017 11:24 AM EDT documented as of this encounter
--- OUTSIDE RECORDS SUMMARY | 2024-08-21 07:06 | XMS_ITS | Encounter Summary ---
Author Organization Juan Farias [facility] Address [address] [place] [address] Care Team Providers Care Nutrient Management Specialist Name Role Phone Unavailable Primary Care Provider Unavailabl e Reason for Referral * Consult for Advice and Opinion (Routine) - Closed Specialty Diagnoses / Procedures Referred By Contac t Referred To Contact Rheumatology Diagnoses Rheumatoid arthritis flare (HCC) Stewart Tejeda MD [address] [facility] [place] [address] Peterson Sainz MD [address] [place] [address] Referral ID Status Reason Start Date Expiration Date V isits Requested Visits Authorized [id number] Closed Specialty Services Required 09/20/2016 03/19/[address] Sainz [phone] Question Answer Reason For External Referral? [facility] Comments The patient can be scheduled with any member of the group, including the provider with the first available appointments. Reason for Visit * Reason Comments Rash all over x6 months c onstant Encounter Details Date Type Department Care Team (Late st Contact Info) Description 09/20/2016 10:40 AM EST Office Visit [facility] [address] [place] [phone] Stewart Tejeda MD [address] [facility] [place] [address] Eczema, unspecified type (Primary Dx); Rheumatoid arthritis flare (HCC) Social History Tobacco Use Types Packs/Day [...] Sign Reading Time Taken Comments Blood Pressure 132/86 09/20/2016 10:30 AM EST Pulse 74 09/20/2016 10:30 AM EST Temperature 36.7 ??C (98 ??F) 09/20/2016 10:30 AM EST Respiratory Rate - - Oxygen Saturation 97% 09/20/2016 10:30 AM EST Inhaled Oxygen Concentration - - Weight 58.5 kg (129 lb) 09/20/2016 10:30 AM EST Height 162.6 cm (5' 4 ) 09/20/2016 10:30 AM EST Body Mass Index 22.14 09/20/2016 10:30 AM EST documented in this encounter Progress Notes * Stewart Tejeda MD - 09/20/2016 10:40 AM EST Subjective: Patient ID: Karlie Love is a 66 y.o. female. Rash This is a chronic problem. The current episode started more than 1 month ago. The problem is unchanged. The rash is diffuse (arms, legs, chest. (around elbows and knees). The rash is characterized byitchiness, redness and dryness. She was exposed to nothing. Pertinent negatives include no anorexia, congestion, cough, diarrhea, eye pain, facial edema, fatigue, fever, joint pain, nail changes, rhin orrhea, shortness of breath, sore throat or vomiting. Past treatments include moisturizer. The treatment provided no relief. There is no history of allergies, asthma, eczema or varicella. : 66 y.o. in for Chief Complaint Patient presents with ??? Rash all over x6 months constant Been present off and on for the last 2-3 years. Constant for the last 6 months. Itchy, but mild and intermittently so. No blisters/ pustules. No dc from the rash Location diffuse: arms, legs, back, back, some on the chest No scales Pt uses moisturizers Pt has hx of rheumatoid arthritis. Hand pain swelling has been worseninhg. Has not seen a checking clerk in years. Takes ibuprofen. Helps some. Review of Systems Constitutional: Negative for fatigue and fever. HENT: Negative for congestion, rhinorrhea and sore throat. Eyes: Negative for pain. Respiratory: Negative for cough and shortness of breath. Gastrointestinal: Negative for anorexia, diarrhea and vomiting. Musculoskeletal: Negative for joint pain. Skin: Positive for rash. Negative for nail changes. Visit Vitals ??? BP 132/86 (Site: Right Arm, Position: Sitting, Cuff Size: Large Adult) ??? Pulse 74 ??? Temp 98 ??F (36.7 ??C) (Oral) ??? Ht 5' 4 (1.626 m) ??? Wt 129 lb (58.5 kg) ??? SpO2 97% ??? No ??? BMI 22.14 kg/m2 Objective: Physical Exam Constitutional: She appears [...] Lymphadenopathy: She has no cervical adenopathy. Skin: Rash (m-p. flexural areas) noted. She is not diaphoretic. Nursing note and vitals reviewed. Assessment: eczema Plan: Start triamacinolone prn. Moisturizing regimen Karlie was seen today for rash. Diagnoses and all orders for this visit: Eczema, unspecified type Rheumatoid arthritis flare (HCC) - Amb External Referral To Rheumatology Other orders - triamcinolone (KENALOG) 0.1 % cream; Apply topically 2 times daily. - celecoxib (CELEBREX) 200 MG capsule; Take 1 capsule by mouth 2 times daily documented in this encounter Plan of Treatment Upcoming Encounters Date Type Department Care Team (Late st Contact Info) Description 04/01/2025 10:00 AM EDT Office Visit [facility] Pulmonary Critical Care and Sleep [address] [facility] [address] [place] [phone] Salvador Woodard MD [address] [facility] [address] [place] [phone] 1 YFU lungs 04/21/2025 9:30 AM EDT Office Visit [facility] [address] [facility] [place], [place] [phone] Vinicio Calvert MD [address] [place], [place] [phone] awv Scheduled Referrals Name Type Priority Associated Diagnoses Order Schedule Amb External Referral To Rheumatology Outpatient Referral Routine Rheumatoid arthritis flare (HCC) Ordered: 09/20/2016 documented as of this encounter Visit Diagnoses Diagnosis Eczema, unspecified type- Primary Rheumatoid arthritis flare (HCC) Rheumatoid arthritis documented in this encounter
--- OUTSIDE RECORDS SUMMARY | 2024-08-21 07:06 | XMS_ITS | Encounter Summary ---
Author Organization Juan Ramos [facility] Address [address] [place] [address] Care Team Providers Care Hat Ironer Name Role Phone Unavailable Primary Care Provider Unavailabl e Reason for Visit * Other (Routine) - Closed Specialty Diagnoses / Procedures Referred By Contac t Referred To Contact Diagnoses Primary osteoarthritis of right knee Procedures US Guided Needle Placement Aileen Gomez PA [address] [place] [address] Referral ID Status Reason Start Date Expiration Date Visits Re quested Visits Authorized [id number] Closed 11/29/2017 11/29/2018 1 1 Encounter Details Date Type Department Care Team (Late Contact Info) Description 11/29/2017 1:20 PM EDT Ancillary Procedure [facility] [address] [place] [address] Social History Tobacco Use Types [...] 04/01/2025 10:00 AM EDT Office Visit [facility] Pulmonary Critical Care and Sleep [address] [place], [place] [phone] Salvador Woodard MD [address] [facility] [place], [place] [phone] 1 YFU lungs 04/21/2025 9:30 AM EDT Office Visit [facility] [address] [place] [address] O'Vinicio Navarrete MD [address] [place], [place] [phone] awv documented as of this encounter Procedures Procedure Name Priority Date/Time Associated Diagnosis Comments US GUIDED NEEDLE PLACEMENT Routine 11/29/2017 1:31 PM EDT Primary osteoarthritis of right knee documented in this encounter Results * US Guided Needle Placement (11/29/2017 1:31 PM EDT) Narrative DOMINGO RADIANT - 11/29/2017 1:31 PM EDT Radiology result [...]
--- OUTSIDE RECORDS SUMMARY | 2024-08-21 07:06 | XMS_ITS | Encounter Summary ---
Author Organization Juan Larry [facility] Address [address] [place] [address] Care Team Providers Care Ip Network Architect Name Role Phone Unavailable Primary Care Provider Unavailabl e Reason for Referral * Other (Routine) - Closed Specialty Diagnoses / Procedures Referred By Contac t Referred To Contact Diagnoses Primary osteoarthritis of right knee Procedures CA METHYLPREDNISOLONE 40 MG INJ Rusty Quesada MD [address] [place] [address] Referral ID Status Reason Start Date Expiration Date Visits Re quested Visits Authorized [id number] Closed 08/21/2017 08/21/2018 1 1 * Other (Routine) - Closed Specialty Diagnoses / Procedures Referred By Contac t Referred To Contact Diagnoses Primary osteoarthritis of right knee Procedures CA ARTHROCENTESIS ASPIR&/INJ MAJOR JT/BURSA W/O US Rusty Quesada MD [address] [place] [address] Referral ID Status Reason Start Date Expiration Date Visits Re quested Visits Authorized [id number] Closed 08/21/2017 08/21/2018 1 1 Reason for Visit * Reason Comments Knee Pain RT KNEE DEYANIRA INJ ONL Y Encounter Details Date Type Department Care Team (Latest Contact Info) Description 08/21/2017 2:00 PM EST [facility] [address] [place] [address] Leonora Guzman PA [address] [place] [address] Primary osteoarthritis of right knee (Primary Dx) [...] Progress Notes * Leonora Menjivar PA - 08/21/2017 2:16 PM EST Images from the original note were not included. Right knee osteoarthritis Right knee cortisone injection only She has received these injections without lasting gets excellent relief from her pain. Orders Placed This Encounter Procedures ??? US Guided Needle Placement ? ? CA ARTHROCENTESIS ASPIR&/INJ MAJOR JT/BURSA W/O US ??? CA METHYLPREDNISOLONE 40 MG INJ I discussed in [...] a Band-Aid. Technique: Under sterile conditions a SonDomain Surgical ultrasound unit with a variable frequency (6.0-15.0 [...] was performed with a verbal recognition program (IronGate) and it was checked for errors. It is possible that there are still dictated errors within this office note. If so, please bringany errors to my attention for an addendum. All efforts were made to ensure that this office note is accurate. * Susannah Galvan MA - 08/21/2017 1:41 PM EST 4CC BUPIVACAINE [facility]#-[id number] LOT#- [id number] EXP: 10/2018 4C LIDOCAINE [facility]#-[id number] LOT#- [id number] EXP: 01/2019 2CC DEPO [facility]#-[id number] LOT#- [id number] EXP: 12/2019 SITE: RIGHT KNEE documented in this encounter Plan of Treatment Upcoming Encounters Date Type Department Care Team (Late st Contact Info) Description 04/01/2025 10:00 AM EDT Office Visit [facility] Pulmonary Critical Care [facility] [address] [place] [address] Salvador Woodard MD [address] [facility] [address] [place] [address] 1 YFU lungs 04/21/2025 9:30 AM EDT Office Visit [facility] [address] [facility] [place] [place] [address] Vinicio Calvert MD [address] [place] [address] awv documented as of this encounter Procedures Procedure Name Priority Date/Time Associated Diagnosis Comments US GUIDED NEEDLE PLACEMENT Routine 08/21/2017 2:16 PM EST Primary osteoarthritis of right knee documented in this encounter Results * US Guided Needle Placement (08/21/2017 2:16 PM EST) 08/21/2017 2:15 PM EST Narrative DOMINGO NEELY - 08/21/2017 2:16 PM EST Radiology result [...]
--- OUTSIDE RECORDS SUMMARY | 2024-08-21 07:06 | XMS_ITS | Encounter Summary ---
Author Organization Juan [facility] Address [address] [address] Care Team Providers Care Costume Design Teacher Name Role Phone Unavailable Primary Care Provider Unavailabl e Reason for Referral * Other (Routine) - Closed Specialty Diagnoses / Procedures Referred By Contac t Referred To Contact Diagnoses Primary osteoarthritis of right knee Procedures GA METHYLPREDNISOLONE 40 MG INJ Pertuset, ROSS Gautam [address] [place] [address] Referral ID Status Reason Start Date Expiration Date Visits Re quested Visits Authorized [id number] Closed 08/20/2018 08/20/2019 1 1 * Imaging (Routine) - Closed Specialty Diagnoses / Procedures Referred By Contac t Referred To Contact Radiology Diagnoses Primary osteoarthritis of right knee Procedures US ARTHR/ASP/INJ MAJOR JNT/BURSA RIGHT Pertuset, ROSS Gautam [address] [place] [address] Referral ID Status Reason Start Date Expiration Date Visits Re quested Visits Authorized [id number] Closed 08/20/2018 08/20/2019 1 1 Reason for Visit * Reason Comments Knee Pain RIGHT KNEE DEYANIRA INJ Encounter Details Date Type Department Care Team (Latest Contact Info) Description 08/20/2018 2:30 PM EST Office Visit [facility] [address] [place] [address] Leonora Guzman PA [address] [place] [address] Primary osteoarthritis of right knee (Primary Dx) [...] * Patient Instructions* Leonora Menjivar PA - 08/20/2018 2:43 PM EST Patient was provided with instructions regarding their diagnosis and treatment today. They voiced understanding of the treatment plan and were instructed on when to return to the clinic. documented in this encounter Progress Notes * Leonora Menjivar PA - 08/20/2018 2:39 PM EST Images from the original note were not included. Chief Complaint Patient presents with ??? Knee Pain RIGHT KNEE DEYANIRA INJ Diagnosis: Right knee osteoarthritis She returns to clinic today for right knee cortisone injection only. She was last given an injection back in February which provided her with excellent pain relief. No new injury since last visit. Orders Placed This Encounter Procedures ??? US ARTHR/ASP/INJ MAJOR JNT/BURSA RIGHT Order Specific Question: Reason for exam: Answer: pain ??? GA METHYLPREDNISOLONE 40 MG INJ I discussed in [...] a Band-Aid. Technique: Under sterile conditions a SonoSite ultrasound unit with a variable frequency (6.0-15.0 [...] redness, warmth, fever, or chills. We will updated x-rays of the right knee at her next visit MANAV Gloria This dictation was performed with a verbal recognition program (Joosy) and it was checked for errors. It is possible that there are still dictated errors within this office note. If so, please bringany errors to my attention for an addendum. All efforts were made to ensure that this office note is accurate. documented in this encounter Plan of Treatment Upcoming Encounters Date Type Department Care Team (Late st Contact Info) Description 04/01/2025 10:00 AM EDT Office Visit [facility] Pulmonary Critical Care and Sleep [address] [facility] [address] [place] [address] Salvador Woodard MD [address] [facility] [address] [place] [address] 1 YFU lungs 04/21/2025 9:30 AM EDT Office Visit [facility] [address] [place] [address] O'Vinicio Navarrete MD [address] [place] [address] awv documented as of this encounter Procedures [...] for radiology results Leonora THORNTON US ORDERABLES [facility] documented in this encounter Visit Diagnoses Diagnosis Primary osteoarthritis of right knee- Primary Primary localized osteoarthrosis, lower leg documented in this encounter Additional Health Concerns Assessment Noted Time A fall risk assessment has been complete d for the patient 06/26/2017 11:24 AM EDT documented as of this encounter
--- OUTSIDE RECORDS SUMMARY | 2024-08-21 07:06 | XMS_ITS | Encounter Summary ---
Author Organization [facility] Address [address] [place] [address] Care Team Providers Care Director Of Academic Support Name Role Phone Unavailable Primary Care Provider Unavailabl e Reason for Referral * Other (Routine) - Closed Specialty Diagnoses / Procedures Referred By Contac t Referred To Contact Diagnoses Primary osteoarthritis of right knee Procedures MS METHYLPREDNISOLONE 40 MG INJ Leonora Guzman PA [address] [place] [address] Referral ID Status Reason Start Date Expiration Date Visits Re quested Visits Authorized [id number] Closed 06/06/2017 06/06/2018 1 1 * Other (Routine) - Closed Specialty Diagnoses / Procedures Referred By Contac t Referred To Contact Diagnoses Primary osteoarthritis of right knee Procedures MS ARTHROCENTESIS ASPIR&/INJ MAJOR JT/BURSA W/O US Leonora Guzman PA [address] [place] [address] Referral ID Status Reason Start Date Expiration Date Visits Re quested Visits Authorized [id number] Closed 06/06/2017 06/06/2018 1 1 Reason for Visit * Reason Comments Knee Pain RIGHT KNEE DEYANIRA INJ ONLY Encounter Details Date Type Department Care Team (Late st Contact Info) Description 06/06/2017 10:15 AM EDT Nurse Only [facility] [address] [place] [address] Leonora Guzman PA [address] [place] [address] Primary osteoarthritis of right knee (Primary Dx) [...] * Patient Instructions* Leonora Menjivar PA - 06/06/2017 10:19 AM EDT Patient was provided with instructions regarding their diagnosis and treatment today. They voiced understanding of the treatment plan and were instructed on when to return to the clinic. documented in this encounter Progress Notes * Leonora Menjivar PA - 06/06/2017 10:18 AM EDT Images from the original note were not included. Right knee osteoarthritis Right knee cortisone injection. Orders Placed This Encounter Procedures ??? US Guided Needle Placement ? ? MS ARTHROCENTESIS ASPIR&/INJ MAJOR JT/BURSA W/O US ??? MS METHYLPREDNISOLONE 40 MG INJ I discussed in [...] was performed with a verbal recognition program ([employer]) and it was checked for errors. It is possible that there are still dictated errors within this office note. If so, please bringany errors to my attention for an addendum. All efforts were made to ensure that this office note is accurate. * Susannah Galvan MA - 06/06/2017 9:57 AM EDT [facility] MARCAINE [facility]#-[id number] LOT#- [id number] EXP: 09/2018 [facility] LIDOCAINE [facility]#-[id number] LOT#- [id number] EXP: 05/2018 [facility] DEPO [facility]#-[id number] LOT#- [id number] EXP: 09/2019 SITE: RIGHT KNEE documented in this encounter Plan of Treatment Upcoming Encounters Date Type Department Care Team (Late st Contact Info) Description 04/01/2025 10:00 AM EDT Office Visit [facility] Pulmonary Critical Care and Sleep [address] [facility] [address] [place] [address] Salvador Woodard MD [address] [facility] [address] [facility] [place] [address] 1 YFU lungs 04/21/2025 9:30 AM EDT Office Visit [facility] [address] [place] [address] O'Rosalba, Vinicio Brown MD [address] [place] [address] awv documented as of this encounter Procedures Procedure Name Priority Date/Time Associated Diagnosis Comments US GUIDED NEEDLE PLACEMENT Routine 06/06/2017 10:30 AM EDT Primary osteoarthritis of right knee documented in this encounter Results * US Guided Needle Placement (06/06/2017 10:30 AM EDT) Narrative [facility] RADIANT - 06/06/2017 10:30 AM EDT Radiology result is complete; follow up with provider / physician office for radiology results Leonora THORNTON US ORDERABLES DOMINGO NEELY documented in this encounter Visit Diagnoses Diagnosis Primary osteoarthritis of right knee- Primary Primary localized osteoarthrosis, lower leg documented in this encounter
--- OUTSIDE RECORDS SUMMARY | 2024-08-21 07:06 | XMS_ITS | Encounter Summary ---
Author Organization [facility] Address [address] [place] [address] Care Team Providers Care Wagon Winder Name Role Phone Unavailable Primary Care Provider Unavailabl e Reason for Visit * Reason Comments Knee Pain CK RIGHT KNEE. DEYANIRA LAST VISIT ON 12/28/18- ONLY HELPED A LITTLE. Encounter Details Date Type Department Care Team (Late st Contact Info) Description 01/21/2019 11:00 AM EDT Office Visit [facility] [address] [facility] [place], [place] [id number] Rusty Quesada MD [address] [place], [place] [phone] Primary osteoarthritis of right knee (Primary Dx) [...] 58.5 kg (128 lb 15.5 oz) 019 10:50 AM EDT Height 163 cm (5' 4.17 ) 01/21/2019 10: 50 AM EDT Body Mass Index 22.02 01/21/2019 10:50 AM EDT documented in this encounter Patient Instructions * Patient Instructions* Rusty Quesada MD - 01/21/2019 11:24 AM EDT Patient was provided with instructions regarding their diagnosis and treatment today. They voiced understanding of the treatment plan and were instructed on when to return to the clinic. documented in this encounter Progress Notes * Rusty Quesada MD - 01/21/2019 11:21 AM EDT Images from the original note were not included. CHIEF COMPLAINT: Chief Complaint Patient presents with ??? Knee Pain CK RIGHT KNEE. DEYANIRA LAST VISIT ON 12/28/18- ONLY HELPED A LITTLE. HISTORY OF PRESENT ILLNESS: Patient presents in follow-up for her disabling right knee pain. She's been through a variety of treatments. Her last cortisone shot didn't give her much relief. This was supplementation failed. She's tried a variety of other treatments which have not helped her. No DVT or PE history. The patient is a 68 y.o. female Past Medical History: Diagnosis Date ??? Bronchiectasis 2006 PFT 06/27 with mild obsctruction and not reversible ??? Colon polyp 2005 q 3 years Work Status: The pain assessment was noted & is as follows: Pain Assessment Location of Pain: Knee Location Modifiers: Right Severity of Pain: 7 Quality of Pain: Aching Duration of Pain: Persistent Frequency of Pain: Constant] Work Status/Functionality: Past Medical History: Medical history form was reviewed today & can be found in the media tab Past Medical History: Diagnosis Date ??? Bronchiectasis 2005 PFT 06/27 with mild obsctruction and not reversible ??? Colon polyp 2005 q 3 years Past Surgical History: Past Surgical History: Procedure Laterality Date ??? APPENDECTOMY ??? COLONOSCOPY ??? COLONOSCOPY 08/01/11 normal ??? HERNIA REPAIR inguinal Current Medications: Current Outpatient Medications: ??? PredniSONE 10 MG (21) TBPK, Take [...] drinks about 0.6 oz of alcohol per week. Family History: Family History Problem Relation Age [...] Right knee PHYSICAL EXAMINATION: ?? Inspection: 1+ effusion and mild varus alignment. No abrasions or erythema or previous incisions. ?? Palpation: Palpable crepitus with patellofemoral joint moderate pain in this area as well as pain along the medial joint space ?? Range of Motion: There are-135? Strength: Normal ?? Special Tests: No gross ligamentous instability. Tight lateral structures. ?? Skin: There are no rashes, ulcerations or lesions. ?? There are no distal dysvascular changes Gait & station: Normal Additional Examinations: Negative straight leg raise examination. Negative log roll examination. Excellent range of motion of the hip. Diagnostic Testing: The following x rays were read and interpreted by myself X-ray views of the right knee demonstrates [id number] patellofemoral osteoarthritis. Moderate compartment deterioration as well. Lateral compartment relatively spared. Orders No orders of the defined types were placed in this encounter. Assessment / Treatment Plan: 1. Osteoarthritis of the right knee. The patient is been through a variety of treatments including steroids Visco supplementation physical therapy exercises. She is considering joint replacement surgery. I went through in explicit detail the procedure and recovery. 2. We discussed the risk, benefits, and potential complications of total knee replacement arthroplasty surgery. The patient voiced their understanding to concerns that include infection, deep vein thrombosis, neurological injury, and delayed rehabilitation. The patient also realizes that there are concerns regarding the potential need for manipulation under anesthesia if range of motion proves jan problematic. The patient also understands that there is always a chance of dystrophy and anesthetic complications that would include a stroke, cardiopulmonary pathology, and even . We also discussed the rehabilitation involved with this operation and options that involved not only the hospitalization but then the potential of either going home with visiting home therapy versus going to a rehabilitation facility. We talked about the nuances of each of these treatments. The patient also realizes the need for the hinged knee brace in the rehabilitation process as well as the very significant role that the patient plays in terms of rehabilitation after this type of operation. All questions were answered. 3. She was given all the literature. She is going to go ahead and review this and then get back in touch about when she like to get scheduled. She realizes it is not any particular urgency and she can revisit other nonoperative treatment options should she so desire. I have personally performed and/or participated in the history, exam and medical decision making and agree with all pertinent clinical information. I have also reviewed and agree with the past medical, family and social history unless otherwise noted. This dictation was performed with a verbal recognition program ([employer]) and it was checked for errors. It is possible that there are still dictated errors within this office note. If so, please bringany errors to my attention for an addendum. All efforts were made to ensure that this office note is accurate. Rusty Quesada MD documented in this encounter Plan of Treatment Upcoming Encounters Date Type Department Care Team (Late st Contact Info) Description 04/01/2025 10:00 AM EDT Office Visit [facility] Pulmonary Critical Care and Sleep [address] [facility] [address] [place] [address] Salvador Woodard MD [address] [place] [address] 1 YFU lungs 04/21/2025 9:30 AM EDT Office [facility] [address] [facility] [place] [place], [place] [address] Vinicio Calvert MD [address] [place], [place] [phone] awv documented as of this encounter Visit Diagnoses Diagnosis Primary osteoarthritis of right knee- Primary Primary localized osteoarthrosis, lower leg documented in this encounter Additional Health Concerns Assessment Noted Time A fall risk assessment has been complete d for the patient 06/26/2017 11:24 AM EDT documented as of this encounter
--- OUTSIDE RECORDS SUMMARY | 2024-08-21 07:06 | XMS_ITS | Encounter Summary ---
Author Organization [facility] Address [address] [place] [address] Care Team Providers Care Friction Welding Machine Operator Name Role Phone Unavailable Primary Care Provider Unavailabl e Reason for Visit * Reason Onset Date Comments Results 01/22/2016 Encounter Details Date Type Department Care Team (Late Contact Info) Description 01/22/2016 Telephone [facility] [address] [place], [place] [phone] Stewart Tejeda MD [address] [facility] [place], [place] [phone] Results Social History Tobacco Use Types Packs/Day Years [...] Description 04/01/2025 10:00 AM EDT Office Visit [facility] Pulmonary Critical Care and Sleep [address] [facility] [address] [place] [address] Salvador Woodard MD [address] [facility] [address] [place] [address] 1 YFU lungs 04/21/2025 9:30 AM EDT Office Visit [facility] [address] [facility] [place], [place] [phone] O'Rosalba, Vinicio Brown MD [address] [facility] [place], [place] [phone] awv documented as of this encounter Visit Diagnoses Not on filedocumented in this encounter
--- OUTSIDE RECORDS SUMMARY | 2024-08-21 07:06 | XMS_ITS | Encounter Summary ---
Author Organization [facility] [employer] [facility] Address [address] [place] [address] Care Team Providers Care Iv Therapy Nurse Name Role Phone Unavailable Primary Care Provider Unavailabl e Reason for Visit * Reason Comments Cough congestion x 2 week Pharyngitis Encounter Details Date Type Department Care Team (Late st Contact Info) Description 08/25/2017 1:40 PM EST Office Visit [facility] Medicine [address] [place], [place] [phone] Stewart Tejeda MD [address] [facility] [place], [place] [phone] Acute bacterial sinusitis (Primary Dx); Cough Social History Tobacco Use Types Packs/Day Years [...] Sign Reading Time Taken Comments Blood Pressure 130/78 08/25/2017 1:46 PM EST Pulse 72 08/25/2017 1:46 PM EST Temperature 36.6 ??C (97.9 ??F) 08/25/2017 1:46 PM ES T Respiratory Rate - - Oxygen Saturation 97% 08/25/2017 1:46 PM EST Inhaled Oxygen Concentration - - Weight 58.1 kg (128 lb) 08/25/2017 1:46 PM EST Height - - Body Mass Index 21.85 02/01/2017 2:52 PM EDT documented in this encounter Progress Notes * Stewart Tejeda MD - 08/25/2017 1:59 PM EST Subjective: Patient ID: Karlie Love is a 67 y.o. female. Cough This is a new problem. The current episode started 1 to 4 weeks ago. The problem has been waxing and waning. The problem occurs constantly. The cough is productive of sputum. Associated symptoms include chills, ear congestion, a fever, nasal congestion, postnasal drip, rhinorrhea and a sore throat.Pertinent negatives include no ear pain, headaches, hemoptysis, shortness of breath or wheezing. The symptoms are aggravated by lying down. She has tried OTC cough suppressant (nyquil) for the symptoms. The treatment provided mild relief. Her past medical history is significant for environmental allergies. There is no history of asthma, bronchiectasis or pneumonia. : 67 y.o. in for Chief Complaint Patient presents with ??? Cough congestion x 2 week ??? Pharyngitis Review of Systems Constitutional: Positive for chills and fever. HENT: Positive for postnasal drip, rhinorrhea and sore throat. Negative for ear pain. Respiratory: Positive for cough. Negative for hemoptysis, shortness of breath and wheezing. Allergic/Immunologic: Positive for environmental allergies. Neurological: Negative for headaches. BP 130/78 (Site: Left Arm, Position: Sitting) Pulse 72 Temp 97.9 ??F (36.6 ??C) (Oral) Wt 128lb (58.1 kg) SpO2 97% BMI 21.85 kg/m?? Objective: Physical Exam Constitutional: She appears well-developed and well-nourished. No distress. HENT: Head: Normocephalic and atraumatic. Sinus tenderness to palpation Eyes: Conjunctivae and EOM are normal. Right [...] has no rales. She exhibits no tenderness. Lungs clear Lymphadenopathy: She has no cervical adenopathy. Skin: No rash noted. She is not diaphoretic. Nursing note and vitals reviewed. Assessment: See below Plan: Supportive care plus orders as below. Karlie was seen today for cough and pharyngitis. Diagnoses and all orders for this visit: Acute bacterial sinusitis Cough Other orders - amoxicillin-clavulanate (AUGMENTIN) 875-125 MG per tablet; Take 1 tablet by mouth 2 times daily for 10 days documented in this encounter Plan of Treatment Upcoming Encounters Date Type Department Care Team (Late st Contact Info) Description 04/01/2025 10:00 AM EDT Office Visit [facility] Pulmonary Critical Care and Sleep [address] [facility] [address] [place] [address] Salvador Woodard MD [address] [address] 1 YFU lungs 04/21/2025 9:30 AM EDT Office Visit [facility] Medicine [address] [place] [address] O'Rosalba, Vinicio Brown MD [address] [place] [address] awv documented as of this encounter Visit Diagnoses Diagnosis Acute bacterial sinusitis- Primary Acute sinusitis, unspecified Cough documented in this encounter Additional Health Concerns Assessment Noted Time A fall risk assessment has been complete d for the patient 06/26/2017 11:24 AM EDT documented as of this encounter
--- OUTSIDE RECORDS SUMMARY | 2024-08-21 07:06 | XMS_ITS | Encounter Summary ---
Author Organization [facility] Address [address] [place] [address] Care Team Providers Care Agricultural Chemicals Inspector Name Role Phone Unavailable Primary Care Provider Unavailabl e Encounter Details Date Type Department Care Team (Late st Contact Info) Description 03/29/2016 Orders Only [facility] [address] [place] [address] Provider, MD Angelia Social History Tobacco Use Types Packs/Day Years [...] 04/01/2025 10:00 AM EDT Office Visit [facility] Pulmonary Critical Care and Sleep [address] [facility] [address] [place] [address] Salvador Woodard MD [address] [facility] [address] [place] [address] 1 YFU lungs 04/21/2025 9:30 AM EDT Office Visit [facility] [address] [place] [address] O'Rosalba, Vinicio Brown MD [address] [place] [address] awv documented as of this encounter Procedures Procedure Name Priority Date/Time Associated Diagnosis Comments MAMMOGRAPHY Routine 03/28/2016 documented in this encounter Results * MAMMOGRAPHY (03/28/2016) Anatomical Region Laterality Modality Other Historical Provider MD ADY Kruger documented in this encounter Visit Diagnoses Not on filedocumented in this encounter
--- OUTSIDE RECORDS SUMMARY | 2024-08-21 07:06 | XMS_ITS | Encounter Summary ---
Author Organization [facility] Address [address] [place] [address] Care Team Providers Care Software Recruiter Name Role Phone Unavailable Primary Care Provider Unavailabl e Reason for Referral * Imaging (Routine) - Closed Specialty Diagnoses / Procedures Referred By Jean Claude t Referred To Contact Radiology Diagnoses Pulmonary nodules Procedures CT Chest Wo Contrast Stewart Tejeda MD [address] [place] [address] [place] [address] Referral ID Status Reason Start Date Expiration Date Visits Re quested Visits Authorized [id number] Closed 02/22/2016 02/21/2017 1 1 Reason for Visit * Imaging (Routine) - Closed Specialty Diagnoses / Procedures Referred By Jean Claude hallman Referred To Contact Radiology Diagnoses Pulmonary nodules Procedures CT Chest Wo Contrast Stewart Tejeda MD [address] [place] [address] Referral ID Status Reason Start Date Expiration Date Visits Re quested Visits Authorized [id number] Closed 02/22/2016 02/21/2017 1 1 Encounter Details Date Type Department Care Team (Latest Contact Info) Description 02/22/2016 1:44 PM EDT - 02/22/2016 11:59 PM EDT Hospital Encounter [facility] [address] [place] [address] Stewart Tejeda MD [address] [place] [facility] [place] [address] Pulmonary nodules Discharge Disposition: OP AUTODISCHARGED Social History Tobacco Use Types Packs/Day Years [...] Take 2 tablets by mouth nightly 06/30/2010 fluticasone (FLONASE) 50 MCG/ACT nasal spray 4 sprays by Nasal route daily (2 SPRAYS UP EACH NOSTRIL) 1 Bottle 6 02/22/2016 01/09/2018 Multiple Vitamin (MULTIVITAMIN PO) Take by mouth. 04/01/20 24 vitamin D (CHOLECALCIFEROL) 400 UNIT TABS tablet Take 400 Units by mouth daily. 01/09/2018 documented as of this encounter Plan of Treatment Upcoming Encounters Date Type Department Care Team (Late st Contact Info) Description 04/01/2025 10:00 AM EDT Office Visit [facility] Pulmonary Critical Care and Sleep [address] [facility] [address] [place] [address] Salvador Woodard MD [address] [facility] [address] [place] [address] 1 YFU lungs 04/21/2025 9:30 AM EDT Office Visit [facility] Medicine [address] [place] [address] O'Vinicio Navarrete MD [address] [place] [address] awv documented as of this encounter Procedures Procedure Name Priority Date/Time Associated Diagnosis Comments CT CHEST WO CONTRAST Routine 02/22/2016 2:04 PM EDT Pulmonary nodules documented in this encounter Results * CT Chest Wo Contrast (02/22/2016 2:04 PM EDT) Anatomical Region Laterality Modality Chest Computed Tomogra phy 02/22/2016 2:22 PM EDT Impressions 02/22/2016 2:28 PM EDT IMPRESSION: Multi focal bilateral nodular infiltrate has developed as compared to prior examination, greatest within the upper lobes, suggestive of inflammatory or infectious pneumonitis. ??Metastatic disease is a less likely consideration without predisposing risk factors. ??Right middle lobe and lingular atelectasis. ??Follow-up to resolution is recommended. Narrative 02/22/2016 2:28 PM EDT EXAMINATION: CT OF THE CHEST WITHOUT CONTRAST 02/22/2016 2:04 pm TECHNIQUE: CT of the chest was performed without the administration of intravenous contrast. Multiplanar reformatted images are provided for review. Dose modulation, iterative reconstruction, and/or weight based adjustment of the mA/kV was utilized to reduce the radiation dose to as low as reasonably achievable. COMPARISON: 04/23/2015 HISTORY: ORDERING SYSTEM PROVIDED HISTORY: Pulmonary nodules TECHNOLOGIST PROVIDED HISTORY: Ordering Physician Provided Reason for Exam: F/U for nodule found on CT, Acuity: Acute Type of Exam: Subsequent/Follow-up Relevant Medical/Surgical History: nonsmoker, no surgeries FINDINGS: Mediastinum: Small pericardial effusion. ??Within the mediastinum, no evidence of pathologic lymphadenopathy by size criteria. ??6 mm short axis right peritracheal lymph node near the thoracic inlet. ??Thyroid is symmetric in size. ??No evidence of axillary adenopathy bilaterally. Lungs/pleura: Since the prior examination, patchy nodular infiltrate has developed within the upper lobes bilaterally, within the right lower lobe, and to a lesser extent within the left lower lobe. ??Bandlike opacity within the lingula and right middle lobe, in keeping with atelectasis. ??No evidence of pneumothorax. ??No evidence of pleural effusion. Upper Abdomen: No acute process is seen within the upper-most abdomen. Soft Tissues/Bones: Degenerative change throughout the spine. Procedure Note Yusuf Rogel MD - 02/22/2016 EXAMINATION: CT OF THE CHEST WITHOUT CONTRAST 02/22/2016 2:04 pm TECHNIQUE: CT of the chest was performed without the administration of intravenous contrast. Multiplanar reformatted images are provided for review. Dose modulation, iterative reconstruction, and/or weight based adjustment ofthe mA/kV was utilized to reduce the radiation dose to as low as reasonably achievable. COMPARISON: 04/23/2015 HISTORY: ORDERING SYSTEM PROVIDED HISTORY: Pulmonary nodules TECHNOLOGIST PROVIDED HISTORY: Ordering Physician Provided Reason for Exam: F/U for nodule found on CT, Acuity: Acute Type of Exam: Subsequent/Follow-up Relevant Medical/Surgical History: nonsmoker, no surgeries FINDINGS: Mediastinum: Small pericardial effusion. Within the mediastinum, noevidence of pathologic lymphadenopathy by size criteria. 6 mm short axis right peritracheal lymph node near the thoracic inlet. Thyroid is symmetricin size. No evidence of axillary adenopathy bilaterally. Lungs/pleura: Since the prior examination, patchy nodular infiltrate has developed within the upper lobes bilaterally, within the right lowerlobe, and to a lesser extent within the left lower lobe. Bandlike opacitywithin the lingula and right middle lobe, in keeping with atelectasis. Noevidence of pneumothorax. No evidence of pleural effusion. Upper Abdomen: No acute process is seen within the upper-most abdomen. Soft Tissues/Bones: Degenerative change throughout the spine. IMPRESSION: Multi focal bilateral nodular infiltrate has developed as compared toprior examination, greatest within the upper lobes, suggestive of inflammatoryor infectious pneumonitis. Metastatic disease is a less likelyconsideration without predisposing risk factors. Right middle lobe and lingular atelectasis. Follow-up to resolution is recommended. Stewart Tejeda MD IMG CT ORDERABLES documented in this encounter Visit Diagnoses Diagnosis Pulmonary nodules Other nonspecific abnormal finding of lung field documented in this encounter
--- OUTSIDE RECORDS SUMMARY | 2024-08-21 07:06 | XMS_ITS | Encounter Summary ---
Author Organization [facility] Address [address] [place] [address] Care Team Providers Care It Project Coordinator Name Role Phone Unavailable Primary Care Provider Unavailabl e Encounter Details Date Type Department Care Team (Late st Contact Info) Description 12/26/2016 9:45 AM EDT Nurse Only [facility] [address] [place] [address] [facility] (Primary Dx) Social History Tobacco Use Types [...] [facility] Pulmonary Critical Care and Sleep [address] [facility] [address] [place] [address] Salvador Woodard MD [address] [facility] [address] [place] [address] 1 YFU lungs 04/21/2025 9:30 AM EDT Office Visit 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
--- OUTSIDE RECORDS SUMMARY | 2024-08-21 07:06 | XMS_ITS | Encounter Summary ---
Author Organization [facility] Address [address] [place] [address] Care Team Providers Care Specialist Employee Labor Relations Name Role Phone Unavailable Primary Care Provider Unavailabl e Encounter Details Date Type Department Care Team (Late st Contact Info) Description 07/05/2017 Orders Only [facility] [address] [place] [address] Provider, MD Angelia Social History Tobacco Use [...] Description 04/01/2025 10:00 AM EDT Office Visit [facility] Pulmonary Critical Care and Sleep [address] [facility] [address] [place] [address] Salvador Woodard MD [address] [facility] [address] [facility] [place] [address] 1 YFU lungs 04/21/2025 9:30 AM EDT Office Visit [facility] [address] [place] [address] O'Rosalba, Vinicio Brown MD [address] [place] [address] awv documented as of this encounter Procedures Procedure Name Priority Date/Time Associated Diagnosis Comments MAMMOGRAPHY Routine 07/04/2017 documented in this encounter Results * MAMMOGRAPHY (07/04/2017) Anatomical Region Laterality Modality Other Historical Provider MD ADY Kruger documented in this encounter Visit Diagnoses Not on filedocumented in this encounter Additional Health Concerns Assessment Noted Time A fall risk assessment has been complete d for the patient 06/26/2017 11:24 AM EDT documented as of this encounter
--- OUTSIDE RECORDS SUMMARY | 2024-08-21 07:06 | XMS_ITS | Encounter Summary ---
Author Organization [facility] Address [address] [place] [address] Care Team Providers Care Military Pilot Name Role Phone Unavailable Primary Care Provider Unavailabl e Reason for Referral * Other (Routine) - Closed Specialty Diagnoses / Procedures Referred By Contac t Referred To Contact Diagnoses Primary osteoarthritis of right knee Procedures [place] METHYLPREDNISOLONE 40 MG INJ Pertuset, ROSS Gautam [address] [place] [address] Referral ID Status Reason Start Date Expiration Date Visits Re quested Visits Authorized [id number] Closed 10/26/2016 10/26/2017 1 1 Reason for Visit * Reason Comments Knee Pain RIGHT KNEE PAIN AND SWELLING. NO MARY. Encounter Details Date Type Department Care Team (Late st Contact Info) Description 10/26/2016 2:30 PM EST Office Visit [facility] [address] [place] [address] Rusty Quesada MD [address] [place], [place] [phone] Right knee pain, unspecified chronicity (Primary Dx); [...] - - Weight 58.3 kg (128 lb 9.6 oz) 10/26/2016 1:44 P M EST Height 163 cm (5' 4.17 ) 10/26/2016 1:44 PM EST Body Mass Index 21.96 10/26/2016 1:44 PM EST documented in this encounter Patient Instructions * Patient Instructions* Leonora Menjivar PA - 10/26/2016 2:39 PM EST Patient was provided with instructions regarding their diagnosis and treatment today. They voiced understanding of the treatment plan and were instructed on when to return to the clinic. documented in this encounter Progress Notes * Susannah Galvan MA - 10/26/2016 2:36 PM EST [facility]#-[id number] LOT#- [id number] EXP: 04/2018 [facility] CARBOCAINE [facility]#-[id number] LOT#- [id number] EXP: 12/2018 [facility]PO [facility]#-[id number] LOT#- [id number] EXP: 02/2019 SITE: RIGHT KNEE * Rusty Quesada MD - 10/26/2016 2:36 PM EST Images from the original note were not included. CHIEF COMPLAINT: Chief Complaint Patient presents with ??? Knee Pain RIGHT KNEE PAIN AND SWELLING. NO MARY. HISTORY OF PRESENT ILLNESS: The patient is a 66 y.o. female presents to clinic for evaluation of right knee pain. She states she has had some episodes of knee pain in the past involving this knee however, they usually seem to resolve with time. She has had fluid drawn off of his knee several years ago. She was seen and evaluated by her primary care physician at the end of last year for pain and swelling in the knee. He did obtain a venous Doppler ultrasound to rule out DVT. This was negative. Since that time, her symptomshave improved however, her pain has returned over the past several weeks. She points to the medial aspect of the knee as the primary location of her pain. Pain is worse with activity and relieved by rest. She does admit to some swelling in the knee. Past Medical History Diagnosis Date ??? Bronchiectasis 2005 PFT 06/27 with mild obsctruction and not reversible ??? Colon polyp 2005 q 3 years The pain assessment was noted & is as follows: Pain Assessment Location of Pain: Knee Location Modifiers: Right Severity of Pain: 6 Quality of Pain: Aching, Sharp Duration of Pain: Persistent Frequency of Pain: Constant Aggravating Factors: Walking, Standing, Stairs, Bending, Stretching, Straightening Limiting Behavior: Yes Relieving Factors: Rest Result of Injury: No Work-Related Injury: No Are there other pain locations you wish to document?: No] Work Status/Functionality: Past Medical History: Medical history form was reviewed today & can be found in the media tab Past Medical History Diagnosis Date ??? Bronchiectasis 2006 PFT 06/27 with mild obsctruction and not reversible ??? Colon polyp 2006 q 3 years Past Surgical History: Past Surgical History Procedure Laterality Date ??? Appendectomy ??? Colonoscopy ??? Hernia repair inguinal ??? Colonoscopy 08/01/11 normal Current Medications: Current Outpatient Prescriptions: ??? triamcinolone (KENALOG) 0.1 % cream, Apply topically 2 times daily., Disp: 60 g, Rfl: 1 ??? celecoxib (CELEBREX) 200 MG capsule, Take 1 capsule by mouth 2 times daily, Disp: 60 capsule, Rfl: 3 ??? fluticasone (FLONASE) 50 MCG/ACT nasal spray, 4 sprays by Nasal route daily (2 SPRAYS UP EACH NOSTRIL), Disp: 1 Bottle, Rfl: 6 ??? Multiple Vitamin (MULTIVITAMIN PO), Take by mouth., Disp: , Rfl: ??? vitamin B-12 (CYANOCOBALAMIN) 100 MCG tablet, Take 500 mcg by mouth daily., Disp: , Rfl: ??? vitamin D (CHOLECALCIFEROL) 400 UNIT TABS tablet, Take 400 Units by mouth daily., Disp: , Rfl: ??? ibuprofen (ADVIL;MOTRIN) 200 MG tablet, Take 400 mg by mouth nightly., Disp: , Rfl: Allergies: Review of patient's allergies indicates no known allergies. Social History: reports that she has never smoked. She does not have any smokeless tobacco history on file. She reports that she drinks about 0.6 oz of alcohol per week Family History: Family History Problem Relation Age of Onset ??? Cancer Mother 71 Breast ??? Diabetes Mother ??? High Blood Pressure Mother ??? Other Father Respiratory issues ??? High Blood Pressure Sister ??? High Blood Pressure Brother REVIEW OF SYSTEMS: CONSTITUTIONAL: Denies unexplained weight loss, fevers, chills or fatigue NEUROLOGICAL: Denies unsteady gait or progressive weakness SKIN: Denies skin changes, delayed healing, rash, itching PHYSICAL EXAM: Vitals: Height 5' 4.17 (1.63 m), weight 128 lb 9.6 oz (58.3 kg), not currently . GENERAL EXAM: ?? General Apparence: Patient is adequately groomed with no evidence of malnutrition. ?? Orientation: The patient is oriented to time, place and person. ?? Mood & Affect:The patient's mood and affect are appropriate PHYSICAL EXAMINATION: ?? Inspection: No visible deformity. Mild effusion without erythema or ecchymosis. ?? Palpation: Mild tenderness to palpation along the medial aspect of the knee. ?? Range of Motion: Range of motion normal ?? Strength: No gross strength deficits are noted ?? Special Tests: ligamentous testing is normal. Negative patella apprehension testing. Negative Homans testing. ?? Skin: There are no rashes, ulcerations or lesions. ?? Gait & station: Gait normal ?? Additional Examinations: Left Lower Extremity: Examination of the left lower extremity does not show any tenderness, deformity or injury. Range of motion is unremarkable. There is no gross instability. There are no rashes, ulcerations or lesions. Strength and tone are normal. Diagnostic Testing: Views: 3 Location: Right knee Findings: X-rays taken today reveal moderate right premature arthritic changes with medial joint space narrowing and [id number] findings of the patellofemoral compartment Orders Orders Placed This Encounter Procedures ??? Knee Right 3V [id number] Order Specific Question: Reason for exam: Answer: Pain ??? US Guided Needle Placement ? ? [place] ARTHROCENTESIS ASPIR&/INJ MAJOR JT/BURSA W/O US ??? [place] METHYLPREDNISOLONE 40 MG INJ Assessment / Treatment Plan: 1. Osteoarthritis right knee She was given a cortisone injection to the right knee today and will return to the clinic of her symptoms do not improve with this treatment. I discussed with the patient the nature of osteoarthritis of the knee. We talked about treatment ofarthritis and the various options that are involved with this. The patient understands that the treatments can vary from essentially doing nothing to a total joint replacement arthroplasty for arthritis. I then went on to describe the utilization of glucosamine and chondroitin sulfate as a joint nutrition product. We talked about the fact that this is essentially a joint vitamin with typically minimal side effects. We also talked about utilization of prescription [id number] anti-inflammatory medications as the next option. We also discussed the possibility of brace wear or orthotic wearif the patient has significant varus alignment. We then went on to discuss the possibility of Viscosupplementation with hyaluronate products. We talked about the typical course of this type of treatment and the fact that often times in the treatment for significant arthritis, this is successful less than half the time. We also talked about the corticosteroid injections and the fact that this cangive a brief window of relief, but does not cure the problem; in fact, the pain often has a reboundeffect in 6-10 weeks after the steroid has worn off. We also discussed arthroscopy surgery in attempts to debride the joint, but the fact that this is relatively unreliable treatment in the face of significant arthritis. It can occasionally be used, particularly if there is significant meniscus pathology. Lastly we discussed total joint replacement arthroplasty as the final and definitive step intreatment of arthritis. Patient realizes the magnitude of this type of treatment as well as having voiced a general understanding to the duration of the prosthesis. The patient voiced understanding to these continuum of treatment options. I discussed in detail the risks, benefits [...] a Band-Aid. Technique: Under sterile conditions a [employer] ultrasound unit with a variable frequency (6.0-15.0 [...] any pain, redness, warmth, fever, or chills. I have personally performed and/or participated in the history, exam and medical decision making and agree with all pertinent clinical information. I have also reviewed and agree with the past medical, family and social history unless otherwise noted. This dictation was performed with a verbal recognition program ([employer]) and it was checked for errors. It [...] [facility] [address] [place] [address] Salvador Woodard MD [address] [facility] [address] [place] [address] 1 YFU lungs 04/21/2025 9:30 AM EDT Office Visit [facility] [address] [place] [address] O'Rosalba, Vinicio Brown MD [address] [place] [address] awv documented as of this encounter Procedures Procedure Name Priority Date/Time Associated Diagnosis Comments US GUIDED NEEDLE PLACEMENT Routine 10/26/2016 2:58 PM EST Primary osteoarthritis of right knee XR KNEE RIGHT (3 VIEWS) Routine 10/26/2016 1:44 PM EST Right knee pain, unspecified chronicity documented in this encounter Results * US Guided Needle Placement (10/26/2016 2:58 PM EST) 10/26/2016 2:58 PM EST Narrative [facility] RADIANT - 10/26/2016 2:58 PM EST Radiology result is complete; follow up with provider / physician office for radiology results Leonora HAWKINS IMG US ORDERABLES Performing Organization Address City/[facility] Co de Phone Number [facility] RADIANT * Knee Right 3V (10/26/2016 1:44 PM EST) 10/26/2016 1:44 PM EST Narrative [facility] RADIANT - 10/26/2016 1:44 PM EST Radiology result is complete; follow up with provider / physician office for radiology results Rusty Quesada MD IMG DIAGNOSTIC IMAGI NG ORDERABLES [facility] RADIANT documented in this encounter Visit Diagnoses Diagnosis Right knee pain, unspecified chronicity- Primary Primary osteoarthritis of right knee Primary localized osteoarthrosis, lower leg documented in this encounter
--- OUTSIDE RECORDS SUMMARY | 2024-08-21 07:07 | XMS_ITS | Encounter Summary ---
Author Organization Juan Farias [facility] Address [address] [place] [address] Care Team Providers Care Animal Park Code Enforcement Officer Name Role Phone Stewart Tejeda MD Primary Care Provider Reason for Visit * Reason Onset Date Comments Other 04/09/2015 chest xray Encounter Details Date Type Department Care Team (Late st Contact Info) Description 04/09/2015 Telephone [facility] [address] [place] [address] Stewart Tejeda MD [address] [facility] [place], [place] [id number] Other (chest xray) Social History Tobacco Use Types Packs/Day Years [...] 04/01/2025 10:00 AM EDT Office Visit [facility] Pulmonary Critical Care and Sleep [address] [facility] [address] [place] [address] Salvador Woodard MD [address] [facility] [address] [place] [address] 1 YFU lungs 04/21/2025 9:30 AM EDT Office Visit [facility] [address] [facility] [place] [address] O'Vinicio Navarrete MD [address] [place], [place] [phone] awv Scheduled Orders Name Type Priority Associated Diagnoses Orde r Schedule XR Chest Standard TWO VW Imaging Routine Abnormal CXR Pneumonia Ordered: 04/09/2015 documented as of this encounter Visit Diagnoses Diagnosis Abnormal CXR- Primary Other nonspecific abnormal finding of lung field Pneumonia Pneumonia, organism unspecified documented in this encounter Care Teams Animal Park Code Enforcement Officer Relationship Specialty Start Date End Date Stewart Tejeda MD PCP - General 04/20/15 06/15/15 documented as of this encounter
--- OUTSIDE RECORDS SUMMARY | 2024-08-21 07:07 | XMS_ITS | Encounter Summary ---
Author Organization Juan Ramos [facility] Address [address] [place] [address] Care Team Providers Care Inspector Floor Sub Assembly Name Role Phone Pineda Cheema MD Primary Care Provider [phone] Reason for Visit * Reason Onset Date Comments Med Refill Clerical 01/18/2011 Encounter Details Date Type Department Care Team (Late st Contact Info) Description 01/18/2011 Telephone [facility] [address] [place] [phone] Pineda Cheema MD [address] [place] [phone] Med Refill Clerical Social History Tobacco Use Types Packs/Day Years [...] Description 04/01/2025 10:00 AM EDT Office Visit [facility] Pulmonary Critical Care and Sleep [address] [facility] [address] [place], [place] [phone] Salvador Woodard MD [address] [facility] [address] [place], [place] [phone] 1 YFU lungs 04/21/2025 9:30 AM EDT Office Visit [facility] [address] [facility] [place] [place] [phone] O'Rosalba, Vinicio Brown MD [address] [place] [address] awv documented as of this encounter Visit Diagnoses Not on filedocumented in this encounter Care Teams Inspector Floor Sub Assembly Relationship Specialty Start Date End Date Pineda Cheema MD [address] [place], [place] [phone] PCP - General Family Medicine 06/30/10 10/03/12 documented as of this encounter
--- OUTSIDE RECORDS SUMMARY | 2024-08-21 07:07 | XMS_ITS | Encounter Summary ---
Author Organization Juan Larry [employer] [facility] Address [address] [email or web address] [address] Care Team Providers Care Software Developer Mid Level Name Role Phone Stewart Tejeda MD Primary Care Provider Encounter Details Date Type Department Care Team (Latest Contact Info) Description 10/25/2012 10:24 AM EST - 10/25/2012 11:59 PM [facility] Hospital Encounter [facility] [address] [place], [place] [phone] Stewart Tejeda MD [address] [facility]. [address] [place], [place] [phone] Discharge Disposition: OP AUTODISCHARGED Social History Tobacco [...] Description 04/01/2025 10:00 AM EDT Office Visit [facility] [address] [facility] [address] [place], [place] [phone] Salvador Woodard MD [address] [facility] [address] [place] [address] 1 YFU lungs 04/21/2025 9:30 AM EDT Office Visit [facility] [address] [place] [address] Vinicio Calvert MD [address] [facility] [place], [place] [phone] awv documented as of this encounter Procedures Procedure Name Priority Date/Time Associated Diagnosis Comments URIC ACID Routine 10/25/2012 10:21 AM EST documented in this encounter Results * Uric acid (10/25/2012 10:21 AM EST) Uric Acid 4.4 2.6 - 6.0 mg/dl [facility] BLOOD SPECIMEN / Unknown 10/25/2012 10:21 AM EST 10/25/2012 8:25 PM EST Narrative [facility] - 10/25/2012 9:45 PM EST FASTING-12 FASTING-12 Stewart Tejeda MD CHEMISTRY ORDERABLE S [facility] [address] [place] [id number] [place] [address] documented in this encounter Visit Diagnoses Not on filedocumented in this encounter Care Teams Software Developer Mid Level Relationship Specialty Start Date End Date Stewart Tejeda MD PCP - General Family Medicine 10/04/12 03/25/15 documented as of this encounter
--- OUTSIDE RECORDS SUMMARY | 2024-08-21 07:07 | XMS_ITS | Encounter Summary ---
Author Organization Juan Larry [employer] Address [address] [place] [address] Care Team Providers Care Aba Therapist Name Role Phone Unavailable Primary Care Provider Unavailabl e Reason for Visit * Reason Comments Leg Swelling R knee into calf x7- 10 days, painful Encounter Details Date Type Department Care Team (Late st Contact Info) Description 01/20/2016 2:00 PM EDT Office Visit [facility] [address] [place] [address] Stewart Tejeda MD [address] [facility] [place] [address] Leg edema, right; Right leg pain Social History Tobacco Use Types Packs/Day Years [...] Reading Time Taken Comments Blood Pressure 130/76 01/20/2016 1:48 PM EDT Pulse 62 01/20/2016 1:48 PM EDT Temperature 36.6 ??C (97.8 ??F) 01/20/2016 1:48 PM ED T Respiratory Rate - - Oxygen Saturation 98% 01/20/2016 1:48 PM EDT Inhaled Oxygen Concentration - - Weight 59.9 kg (132 lb) 01/20/2016 1:48 PM EDT Height 162.6 cm (5' 4 ) 01/20/2016 1:48 PM EDT Body Mass Index 22.66 01/20/2016 1:48 PM EDT documented in this encounter Progress Notes * Stewart Tejeda MD - 01/20/2016 2:07 PM EDT Subjective: Patient ID: Karlie Love is a 65 y.o. female. Knee Pain The incident occurred more than 1 week ago. There was no injury mechanism. The pain is present in the right knee. The quality of the pain is described as aching. The pain is moderate. Pertinent negatives include no inability to bear weight, loss of motion, loss of sensation, muscle weakness, numbness or tingling. She reports no foreign bodies present. The symptoms are aggravated by palpation and movement. She has tried nothing for the symptoms. The treatment provided no relief. : 65 y.o. in for Chief Complaint Patient presents with ??? Leg Swelling R knee into calf x7-10 days, painful Pt was recently on an flight. No shortness of breath. No injury Review of Systems Constitutional: Negative for fever. Respiratory: Negative for shortness of breath. Cardiovascular: Negative for chest pain. Neurological: Negative for tingling and numbness. Objective: Physical Exam Constitutional: She appears well-developed [...] no rales. She exhibits no tenderness. Musculoskeletal: Right calf swollen Positive Shaina's 2cm larger than the left calf (5cm below the tibial tuberosity) Lymphadenopathy: She has no cervical adenopathy. Skin: No rash noted. She is not diaphoretic. Nursing note and vitals reviewed. Assessment: See below Plan: R/o clot Discussed risks/benefits of eliquis and coumadin Karlie was seen today for leg swelling. Diagnoses and associated orders for this visit: Leg edema, right - US DOPPLER VENOUS LEG RIGHT Right leg pain - US DOPPLER VENOUS LEG RIGHT documented in this encounter Plan of Treatment Upcoming Encounters Date Type Department Care Team (Late st Contact Info) Description 04/01/2025 10:00 AM EDT Office Visit [facility] Critical [facility] [address] [facility] [address] [place] [phone] Salvador Woodard MD [address] [facility] [address] [place] [address] 1 YFU lungs 04/21/2025 9:30 AM EDT Office Visit [facility] [address] [place] [address] O'Rosalba, Vinicio Brown MD [address] [place], [place] [address] awv Scheduled Orders Name Type Priority Associated Diagnoses Orde r Schedule US DOPPLER VENOUS LEG RIGHT Cardiac Services Routine Leg edema, right Right leg pain Ordered: 01/20/2016 documented as of this encounter Visit Diagnoses Diagnosis Leg edema, right Edema Right leg pain Pain in limb documented in this encounter
--- OUTSIDE RECORDS SUMMARY | 2024-08-21 07:07 | XMS_ITS | Encounter Summary ---
Author Organization Juan Ramos [facility] Address [address] [place] [address] Care Team Providers Care Ferruler Name Role Phone Stewart Tejeda MD Primary Care Provider [phone] Reason for Visit * Reason Onset Date Comments Other 11/30/2012 Encounter Details Date Type Department Care Team (Late st Contact Info) Description 11/30/2012 Telephone [facility] [address] [place] [phone] Stewart Tejeda MD [address] [facility]. [address] [place], [place] [phone] Other Social History Tobacco Use Types Packs/Day [...] 10:00 AM EDT Office Visit [facility] Pul[facility] Critical Care and Sleep [address] [facility] [address] [place], [place] [phone] Salvador Woodard MD [address] [place] [address] 1 YFU lungs 04/21/2025 9:30 AM EDT Office Visit [facility] [address] [place] [address] O'Rosalba, Vinicio Brown MD [address] [place] [address] awv documented as of this encounter Visit Diagnoses Not on filedocumented in this encounter Care Teams Ferruler Relationship Specialty Start Date End Date Stewart Tejeda MD PCP - General Family Medicine 10/04/12 03/25/15 documented as of this encounter
--- OUTSIDE RECORDS SUMMARY | 2024-08-21 07:07 | XMS_ITS | Encounter Summary ---
Author Organization Juan Larry [employer] [facility] Address [address] [place] [address] Care Team Providers Care User Support Specialist Name Role Phone Stewart Tejeda MD Primary Care Provider Reason for Visit * Reason Comments Cough x 1 week Chest Congestion Encounter Details Date Type Department Care Team (Late st Contact Info) Description 01/28/2015 2:15 PM EDT Office Visit [facility] [address] [place] [phone] Stewart Tejeda MD [address] [facility]. [address] [place], [place] [phone] URI (upper respiratory infection) (Primary Dx); Abnormal screening mammogram Social History Tobacco Use Types Packs/Day Years [...] Sign Reading Time Taken Comments Blood Pressure 124/68 01/28/2015 2:05 PM EDT Pulse 75 01/28/2015 2:05 PM EDT Temperature 36.9 ??C (98.5 ??F) 01/28/2015 2:05 PM ED T Respiratory Rate - - Oxygen Saturation 96% 01/28/2015 2:05 PM EDT Inhaled Oxygen Concentration - - Weight 58.1 kg (128 lb) 01/28/2015 2:05 PM EDT Height 162.6 cm (5' 4 ) 01/28/2015 2:05 PM EDT Body Mass Index 21.97 01/28/2015 2:05 PM EDT documented in this encounter Progress Notes * Eduardo Mota MA - 02/12/2015 10:39 AM EDT Results did not link up with order * Stewart Tejeda MD - 01/28/2015 2:44 PM EDT Subjective: Patient ID: Karlie Love is a 64 y.o. female. Cough This is a new problem. The current episode started in the past 7 days. The problem has been unchanged. The problem occurs every few hours. The cough is productive of sputum. Associated symptoms include nasal congestion, postnasal drip and shortness of breath. Pertinent negatives include no ear pain, hemoptysis, myalgias, rash, rhinorrhea, sore throat or wheezing. The symptoms are aggravated by lying down. Risk factors for lung disease include travel. She has tried OTC cough suppressant for the symptoms. The treatment provided moderate relief. Her past medical history is significant for environmental allergies. There is no history of asthma, COPD or pneumonia. : 64 y.o. in for Chief Complaint Patient presents with ??? Cough x 1 week ??? Chest Congestion Review of Systems HENT: Positive for postnasal drip. Negative for ear pain, hearing loss, rhinorrhea and sore throat. Respiratory: Positive for cough and shortness of breath. Negative for hemoptysis, chest tightness, wheezing and stridor. Cardiovascular: Negative for palpitations. Gastrointestinal: Negative for vomiting, abdominal pain, diarrhea, constipation, blood in stool andanal bleeding. Musculoskeletal: Negative. Negative for myalgias and neck pain. Skin: Negative for rash. Allergic/Immunologic: Positive for environmental allergies. BP 124/68 Pulse 75 Temp(Src) 98.5 ??F (36.9 ??C) (Oral) Ht 5' 4 (1.626 m) Wt 128 lb (58.06kg) BMI 21.96 kg/m2 SpO2 96% ? No Objective: Physical Exam Constitutional: She appears well-developed and well-nourished. No distress. HENT: Head: Normocephalic and atraumatic. Mouth/Throat: No oropharyngeal exudate (op erythema). Eyes: Conjunctivae and EOM are normal. Right eye exhibits no discharge. Left eye exhibits no discharge. No scleral icterus. Neck: Normal range of motion. Neck supple. Cardiovascular: Normal rate, regular rhythm and normal heart sounds. Exam reveals no gallop and no friction rub. No murmur heard. Pulmonary/Chest: Effort normal and breath sounds normal. No respiratory distress. She has no wheezes. She has no rales. She exhibits no tenderness. Rhonchi with no wheezing Lymphadenopathy: She has no cervical adenopathy. Skin: No rash noted. She is not diaphoretic. Nursing note and vitals reviewed. Assessment: See below Plan: Bronchitis with hx of RAD. Medrol dose jacinta yanet Ziegler was seen today for cough and chest congestion. Diagnoses and associated orders for this visit: URI (upper respiratory infection) Abnormal screening mammogram - [facility] Digital Screen Bilateral Other Orders - azithromycin (ZITHROMAX) 250 MG tablet; 2 tablets po on day 1 then 1 po daily on days 2-5 - methylPREDNISolone (MEDROL, JACINTA,) 4 MG tablet; Take by mouth. documented in this encounter Plan of Treatment Upcoming Encounters Date Type Department Care Team (Late st Contact Info) Description 04/01/2025 10:00 AM EDT Office Visit [facility] Pulmonary Critical Care and Sleep [address] [facility] [address] [place] [address] Salvador Woodard MD [address] [facility] [address] [place] [address] 1 YFU lungs 04/21/2025 9:30 AM EDT Office Visit [facility] [address] [place] [address] O'Rosalba, Vinicio Brown MD [address] [place] [address] awv Scheduled Orders Name Type Priority Associated Diagnoses Orde r Schedule [facility] Digital Screen Bilateral Imaging Routine Abnormal Screening Mammogram Ordered: 01/28/2015 documented as of this encounter Visit Diagnoses Diagnosis URI (upper respiratory infection)- Primary Acute upper respiratory infections of unspecified site Abnormal screening mammogram documented in this encounter Care Teams User Support Specialist Relationship Specialty Start Date End Date Stewart Tejeda MD PCP - General Family Medicine 10/04/12 03/25/15 documented as of this encounter
--- OUTSIDE RECORDS SUMMARY | 2024-08-21 07:07 | XMS_ITS | Encounter Summary ---
Author Organization Juan Larry [employer] [facility] Address [address] [place] [address] Care Team Providers Care External Grinder Tender Name Role Phone Unavailable Primary Care Provider Unavailabl e Encounter Details Date Type Department Care Team (Latest Contact Info) Description 01/20/2016 2:58 PM EDT - 01/20/2016 11:59 PM EDT Hospital Encounter [facility] [address] [place] [address] Stewart Tejeda MD [address] [facility] [address] Discharge Disposition: OP AUTODISCHARGED Social History Tobacco [...] Pulmonary Critical Care and Sleep [address] [facility] [address] [place], [place] [phone] Salvador Woodard MD [address] [facility] [address] [place], [place] [phone] 1 YFU lungs 04/21/2025 9:30 AM EDT Office Visit [facility] [address] [place], [place] [phone] O'Rosalba, Vinicio Brown MD [address] [place], [place] [phone] awv documented as of this encounter Procedures Procedure Name Priority Date/Time Associated Diagnosis Comments VL EXTREMITY VENOUS RIGHT STAT 01/20/2016 3:22 PM EDT documented in this encounter Results * VL Extremity Venous Right (01/20/2016 3:22 PM EDT) Anatomical Region Laterality Modality Vascular, Thigh, Leg Other 01/20/2016 3:22 PM EDT Narrative 01/22/2016 7:24 AM EDT Lower Extremities DVT Study Demographics Patient Name ?KATE BILLY A Date of Study ? 01/20/2016 ?Gender ?Female Patient Number ?[id number] ?Date of ? 1950 Visit Number ?[id number] ? Age ? 65 year(s) Accession Number ??[id number] ? Room Number ? OP Corporate ID ?[id number] ?Home Mission Worker ? Sadi Lomax RVT Ordering ?Stewart Tejeda ?Interpreting ?Ignacio Vascular Physician ? MD Yuriy ? Physician ? Readers ? Jesus Lynn, ? Procedure Type of Study: Veins:Lower Extremities DVT Study, VL EXTREMITY VENOUS DUPLEX RIGHT. Datacap Developer Report Indications for Study:Leg pain and Edema. Impressions Right Impression 1. There is complete compressibility of all deep and superficial veins throughout the lower extremity. 2. There is normal spontaneous and phasic flow throughout the lower extremity. 3. Incidental finding of a cystic structure at the medial joint space measuring 2.3 X 0.8 cm. Left Impression 1. There is complete compressibility of the common femoral vein. 2. There is normal spontaneous and phasic flow in the common femoral vein. Conclusions Summary 1. There is no evidence of deep or superficial venous thrombosis involving the right lower extremity or left common femoral vein. 2. Incidental finding of a Martinez's cyst at the right medial joint space measuring 2.3 X 0.8 cm. Signature Patient Status:STAT. Study Location:[facility]. Technical Quality:Adequate visualization. ??- Results were reported to:Emeli Minor 01/20/16 15:45. Risk Factors History +---------+ + + !Diagnosis!Date ?!Comments ?! +---------+ + + !Other ?!01/20/2016!Right knee to foot pain and edema for past 7-10 days! +---------+ + + Velocities are measured in cm/s ; Diameters are measured in mm Right Lower Extremities DVT Study Measurements Right 2D Measurements + + + + + !Location ?!Visualized!Compressibility!Thrombosis! + + + + + !Sapheno Femoral Junction!Yes ? !Yes ?!None ?! + + + + + !GSV Thigh ? !Yes ? !Yes ?!None ?! + + + + + !Common Femoral ?!Yes ? !Yes ?!None ?! + + + + + !Femoral ? !Yes ? !Yes ?!None ?! + + + + + !Prox Femoral ?!Yes ? !Yes ?!None ?! + + + + + !Mid Femoral ? !Yes ? !Yes ?!None ?! + + + + + !Dist Femoral ?!Yes ? !Yes ?!None ?! + + + + + !Deep Femoral ?!Yes ? !Yes ?!None ?! + + + + + !Popliteal ? !Yes ? !Yes ?!None ?! + + + + + !GSV Below Knee ?!Yes ? !Yes ?!None ?! + + + + + !Gastroc ? !Yes ? !Yes ?!None ?! + + + + + !PTV ? !Yes ? !Yes ?!None ?! + + + + + !Peroneal ?!Yes ? !Yes ?!None ?! + + + + + !GSV Calf ?!Yes ? !Yes ?!None ?! + + + + + !SSV ? !Yes ? !Yes ?!None ?! + + + + + Right Doppler Measurements + +------+------+ + !Location ?!Signal!Reflux!Reflux (sec)! + +------+------+ + !Sapheno Femoral Junction!Phasic!No ?! ?! + +------+------+ + !Common Femoral ?!Phasic!No ?! ?! + +------+------+ + !Femoral ? !Phasic!No ?! ?! + +------+------+ + !Deep Femoral ?!Phasic!No ?! ?! + +------+------+ + !Popliteal ? !Phasic!No ?! ?! + +------+------+ + Left Lower Extremities DVT Study Measurements Left 2D Measurements + + + + + !Location ?!Visualized!Compressibility!Thrombosis! + + + + + !Sapheno Femoral Junction!Yes ? !Yes ?!None ?! + + + + + !Common Femoral ?!Yes ? !Yes ?!None ?! + + + + + Left Doppler Measurements + +------+------+ + !Location ?!Signal!Reflux!Reflux (sec)! + +------+------+ + !Sapheno Femoral Junction!Phasic!No ?! ?! + +------+------+ + !Common Femoral ?!Phasic!No ?! ?! + +------+------+ + Procedure Note Jesus Lynn MD - 01/22/2016 Lower Extremities DVT Study Demographics Patient Name KATE Machado Date of Study 01/20/2016 Gender Female Patient Number [id number] Date of 1950 Visit Number [id number] Age 65 year(s) Accession Number [id number] Room Number Corporate ID [id number] Home Mission Worker Sadi Lomax,T Ordering Stewart Tejeda Interpreting [facility] Physician MD Yuriy Physician Readers Jesus Larose MD Procedure Type of Study: Veins:Lower Extremities DVT Study, VL EXTREMITY VENOUS DUPLEX RIGHT. Datacap Developer Report Indications for Study:Leg pain and Edema. Impressions Right Impression 1. There is complete compressibility of all deep and superficial veins throughout the lower extremity. 2. There is normal spontaneous and phasic flow throughout the lowerextremity. 3. Incidental finding of a cystic structure at the medial joint space measuring 2.3 X 0.8 cm. Left Impression 1. There is complete compressibility of the common femoral vein. 2. There is normal spontaneous and phasic flow in the common femoralvein. Conclusions Summary 1. There is no evidence of deep or superficial venous thrombosisinvolving the right lower extremity or left common femoral vein. 2. Incidental finding of a Martinez's cyst at the right medial joint space measuring 2.3 X 0.8 cm. Signature Patient Status:STAT. Study Location:[facility]. Technical Quality:Adequate visualization. - Results were reported to:Emeli Minor 01/20/16 15:45. Risk Factors History +---------+ + + !Diagnosis!Date !Comments! +---------+ + + !Other !01/20/2016!Right knee to foot pain and edema for past 7-10days! +---------+ + + Velocities are measured in cm/s ; Diameters are measured in mm Right Lower Extremities DVT Study Measurements Right 2D Measurements + + + + + !Location !Visualized!Compressibility!Thrombosis! + + + + + !Sapheno Femoral Junction!Yes !Yes !None ! + + + + + !GSV Thigh !Yes !Yes !None ! + + + + + !Common Femoral !Yes !Yes !None ! + + + + + !Femoral !Yes !Yes !None ! + + + + + !Prox Femoral !Yes !Yes !None ! + + + + + !Mid Femoral !Yes !Yes !None ! + + + + + !Dist Femoral !Yes !Yes !None ! + + + + + !Deep Femoral !Yes !Yes !None ! + + + + + !Popliteal !Yes !Yes !None ! + + + + + !GSV Below Knee !Yes !Yes !None ! + + + + + !Gastroc !Yes !Yes !None ! + + + + + !PTV !Yes !Yes !None ! + + + + + !Peroneal !Yes !Yes !None ! + + + + + !GSV Calf !Yes !Yes !None ! + + + + + !SSV !Yes !Yes !None ! + + + + + Right Doppler Measurements + +------+------+ + !Location !Signal!Reflux!Reflux (sec)! + +------+------+ + !Sapheno Femoral Junction!Phasic!No ! ! + +------+------+ + !Common Femoral !Phasic!No ! ! + +------+------+ + !Femoral !Phasic!No ! ! + +------+------+ + !Deep Femoral !Phasic!No ! ! + +------+------+ + !Popliteal !Phasic!No ! ! + +------+------+ + Left Lower Extremities DVT Study Measurements Left 2D Measurements + + + + + !Location !Visualized!Compressibility!Thrombosis! + + + + + !Sapheno Femoral Junction!Yes !Yes !None ! + + + + + !Common Femoral !Yes !Yes !None ! + + + + + Left Doppler Measurements + +------+------+ + !Location !Signal!Reflux!Reflux (sec)! + +------+------+ + !Sapheno Femoral Junction!Phasic!No ! ! + +------+------+ + !Common Femoral !Phasic!No ! ! + +------+------+ + Stewart COTTONG VASCULAR ORDERA BLES documented in this encounter Visit Diagnoses Not on filedocumented in this encounter
--- OUTSIDE RECORDS SUMMARY | 2024-08-21 07:07 | XMS_ITS | Encounter Summary ---
Author Organization [facility] Address [address] [address] Care Team Providers Care Cork Cutter Name Role Phone Stewart Tejeda MD Primary Care Provider [phone] Encounter Details Date Type Department Care Team (Latest Contact Info) Description 10/25/2012 10:32 AM EST - 10/25/2012 11:59 PM [facility] Hospital Encounter [facility] [address] [place], [place] [phone] Stewart Tejeda MD [address] [facility] [place], [place] [id number] Discharge Disposition: OP AUTODISCHARGED Social History Tobacco [...] Description 04/01/2025 10:00 AM EDT Office Visit [facility] Pulmonary Critical Care and Sleep [address] [facility] [address] [place], [place] [phone] Salvador Woodard MD [address] [facility] [address] [place] [phone] 1 YFU lungs 04/21/2025 9:30 AM EDT Office Visit [facility] [address] [place], [place] [phone] O'Vinicio Navarrete MD [address] [place], [place] [phone] awv Pending Results Name Type Priority Associated Diagnoses Date /Time ECHO 2D WO Color Doppler Complete Imaging STAT 10/25/2012 10:4 4 AM EST Scheduled Orders Name Type Priority Associated Diagnoses Orde r Schedule ECHO 2D WO Color Doppler Complete Imaging STAT Once for 1 Occu rrences starting 10/25/2012 until 10/25/2012 documented as of this encounter Procedures Procedure Name Priority Date/Time Associated Diagnosis Comments [place]STON DIGITAL SCREEN UNILATERAL Routine 02/11/2015 XR KNEE RIGHT (MIN 4 VIEWS) STAT 10/25/2012 10:38 AM EST documented in this encounter Results * [place]ST[place] Digital Screen Unilateral (02/11/2015) Anatomical Region Laterality Modality Mammography 02/11/2015 Narrative 02/12/2015 8:18 AM EDT Name: MARIAJOSE MCCARTHY Date of : 1950 Date and Time of Service: 02/11/2015 12:00 Attending MD: NO PROVIDER [facility] Ordering MD: SERVICES NONSTAFF IMAGING Exam Performed: MAMM-SCREENING DIRECT DIGITAL Signing MD: GLENDY EVANS JR.} Assessment: Overall: Negative, BIRADS1 Recommendation: Follow Up Mamm in 1 Yr. - Both Due Date: 02/11/2016 02/11/2015 FULL FIELD DIGITAL SCREENING MAMMOGRAPHY: FINDINGS: COMPARISON: ??With studies dating back to 01/27/2010. The breasts are heterogeneously dense, which may obscure small masses. There is no suspicious mass or architectural distortion. There are no suspicious groupings of microcalcifications. Scattered benign calcifications are unchanged. The study was reviewed with computer-aided detection. IMPRESSION: ??NEGATIVE MAMMOGRAPHY. ASSESSMENT: ??BI-RADS 1. RECOMMENDATION: ??NORMAL INTERVAL FOLLOWUP. /DB Procedure Note Result, Unknown Provider - 02/12/2015 Name: MARIAJOSE MCCARTHY Date of : 1950 Date and Time of Service: 02/11/2015 12:00 Attending MD: NO PROVIDER Performing Location: [facility] Ordering MD: SERVICES NONSTAFF IMAGING Exam Performed: MAMM-SCREENING DIRECT DIGITAL Signing MD: GLENDY Nguyen {BLANCA SABILLON} Assessment: Overall: Negative, BIRADS1 Recommendation: Follow Up Mamm in 1 Yr. - Both Due Date: 02/11/2016 02/11/2015 FULL FIELD DIGITAL SCREENING MAMMOGRAPHY: FINDINGS: COMPARISON: With studies dating back to 01/27/2010. The breasts are heterogeneously dense, which may obscure small masses. There is no suspicious mass or architectural distortion. There are no suspicious groupings of microcalcifications. Scattered benign calcifications are unchanged. The study was reviewed with computer-aided detection. IMPRESSION: NEGATIVE MAMMOGRAPHY. ASSESSMENT: BI-RADS 1. RECOMMENDATION: NORMAL INTERVAL FOLLOWUP. /DB Stewart Tejeda MD IMG MAMMOGRAPHY ORD ERABLES * XR Knee Right Standard Extended VW (10/25/2012 10:38 AM EST) Anatomical Region Laterality Modality Thigh, Knee, Leg Radiographic Im aging 10/25/2012 10:2 8 AM EST Narrative 10/25/2012 11:18 AM EST Two view right knee 10/25/2012 COMPARISON- None CLINICAL INDICATION- Pain FINDINGS- No significant joint space narrowing on the right. No significant spur formation is seen medially or laterally. Tiny spurs are seen in the patellofemoral joint. No obvious fracture. No malalignment noted. IMPRESSION- Mild patellofemoral osteoarthritis Dictated on10/25/2012 07-31-27 ? Electronically Read By- RANI SNYDER M.D. ? Electronically Released By- RANI SNYDER M.D. ? Released Date Time- 10/25/12 1118 ? Gear Grinder- RANI SNYDER M.D. Procedure Note Rani Snyder MD - 10/25/2012 Two view right knee 10/25/2012 COMPARISON- None CLINICAL INDICATION- Pain FINDINGS- No significant joint space narrowing on the right. No significant spur formation is seen medially or laterally. Tiny spurs are seen in the patellofemoral joint. No obvious fracture. No malalignment noted. IMPRESSION- Mild patellofemoral osteoarthritis Dictated on10/25/2012 07-31-27 Electronically Read By- RANI SNYDER M.D. Electronically Released By- RANI SNYDER M.D. Released Date Time- 10/25/12 1118 Gear Grinder- RANI SNYDER M.D. Stewart [facility]G ORDERABLES documented in this encounter Visit Diagnoses Not on filedocumented in this encounter Care Teams Cork Cutter Relationship Specialty Start Date End Date Stewart Tejeda MD PCP - General Family Medicine 10/04/12 03/25/15 documented as of this encounter
--- OUTSIDE RECORDS SUMMARY | 2024-08-21 07:07 | XMS_ITS | Encounter Summary ---
Author Organization [facility] Address [address] [place] [address] Care Team Providers Care Concrete Block Mason Name Role Phone Stewart Tejeda MD Primary Care Provider [phone] Reason for Visit * Reason Comments Cough pt c/o cough started 3 weeks ago, sore throat, body aches x 2-3 days Encounter Details Date Type Department Care Team (Late st Contact Info) Description 09/29/2014 11:00 AM EST Office Visit [facility] Medicine [address] [place] [phone] Stewart Tejeda MD [address] [facility]. [address] [place], [place] [phone] Cough (Primary Dx) Social History Tobacco Use [...] Sign Reading Time Taken Comments Blood Pressure 130/72 09/29/2014 11:34 AM EST Pulse 73 09/29/2014 11:34 AM EST Temperature 37.1 ??C (98.7 ??F) 09/29/2014 11:[address] Respiratory Rate - - Oxygen Saturation 97% 09/29/2014 11:34 AM EST RA Inhaled Oxygen Concentration - - Weight 59.9 kg (132 lb) 09/29/2014 11:34 AM EST Height 162.6 cm (5' 4 ) 09/29/2014 11:34 AM EST Body Mass Index 22.66 09/29/2014 11:34 AM EST documented in this encounter Progress Notes * Stewart Tejeda MD - 10/01/2014 8:11 PM EST Subjective: Patient ID: Karlie Love is a 64 y.o. female. Cough This is a new problem. The current episode started 1 to 4 weeks ago. The problem has been unchanged. The problem occurs every few minutes. The cough is non- productive. Associated symptoms include chills, a fever, myalgias, nasal congestion, postnasal drip and a sore throat. Pertinent negatives include no chest pain, ear congestion, ear pain, headaches, hemoptysis, rash, rhinorrhea, shortness of breath, sweats, weight loss or wheezing. The symptoms are aggravated by lying down. She has tried nothing for the symptoms. The treatment provided no relief. Her past medical history is significant forenvironmental allergies. There is no history of asthma, bronchiectasis, bronchitis, COPD, emphysemaor pneumonia. : 64 y.o. in for Chief Complaint Patient presents with ??? Cough pt c/o cough started 3 weeks ago, sore throat, body aches x 2-3 days Review of Systems Constitutional: Positive for fever and chills. Negative for weight loss. HENT: Positive for postnasal drip and sore throat. Negative for ear pain and rhinorrhea. Respiratory: Positive for cough. Negative for hemoptysis, shortness of breath and wheezing. Cardiovascular: Negative for chest pain. Musculoskeletal: Positive for myalgias. Skin: Negative for rash. Allergic/Immunologic: Positive for environmental allergies. Neurological: Negative for headaches. BP 130/72 Pulse 73 Temp(Src) 98.7 ??F (37.1 ??C) (Oral) Ht 5' 4 (1.626 m) Wt 132 lb (59.875 kg) BMI 22.65 kg/m2 SpO2 97% Objective: Physical Exam Constitutional: She appears well-developed [...] and vitals reviewed. Assessment: See below Plan: Fluids/supportive care See orders below Karlie was seen today for cough. Diagnoses and associated orders for this visit: Cough Other Orders - azithromycin (ZITHROMAX) 250 MG tablet; 2 tabs po on day one then 1 tab po daily until finished - promethazine-codeine (PHENERGAN WITH CODEINE) 6.25-10 MG/5ML syrup; Take 5 mLs by mouth 4 times daily as needed for Cough for up to 7 days. - fluticasone (FLONASE) 50 MCG/ACT nasal spray; 1 spray by Nasal route daily. documented in this encounter Plan of Treatment Upcoming Encounters Date Type Department Care Team (Late st Contact Info) Description 04/01/2025 10:00 AM EDT Office Visit [facility] Pulmonary Critical Care and Sleep [address] [facility] [address] [place] [address] Salvador Woodard MD [address] [address] 1 YFU lungs 04/21/2025 9:30 AM EDT Office Visit [facility] [address] [place] [address] O'Rosalba, Vinicio Brown MD [address] [place] [address] awv documented as of this encounter Visit Diagnoses Diagnosis Cough- Primary documented in this encounter Care Teams Concrete Block Mason Relationship Specialty Start Date End Date Stewart Tejeda MD PCP - General Family Medicine 10/04/12 03/25/15 documented as of this encounter
--- OUTSIDE RECORDS SUMMARY | 2024-08-21 07:07 | XMS_ITS | Encounter Summary ---
Author Organization [facility] Address [address] [place] [address] Care Team Providers Care Salon Stylist Name Role Phone Pineda Cheema MD Primary Care Provider [phone] Reason for Referral * Consult for Advice and Opinion (Routine) - Closed Specialty Diagnoses / Procedures Referred By Jean Claude hallman Referred To Contact Cardiology Diagnoses Chest pain Left arm pain Pineda Cheema MD [address] [place] [address] Referral ID Status Reason Start Date Expiration Date Visits Re quested Visits Authorized [id number] Closed 01/02/2012 06/30/2012 1 1 * (Routine) - Closed Specialty Diagnoses / Procedures Referred By Contac t Referred To Contact Diagnoses Chest pain Left arm pain Procedures EKG 12 lead Pineda Cheema MD [address] [place] [address] Referral ID Status Reason Start Date Expiration Date Visits Re quested Visits Authorized [id number] Closed 01/02/2012 06/30/2012 1 1 Reason for Visit * Reason Comments Back Pain radiating down left arm Other had a cold a few day s ago, noticed pain in neck, hurts more into back now Encounter Details Date Type Department Care Team (Late st Contact Info) Description 01/02/2012 11:15 AM EDT Office Visit [facility] [address] [place] [address] Pineda Cheema MD [address] [place], [place] [phone] Chest pain; Left arm pain Social History Tobacco Use Types Packs/Day [...] Reading Time Taken Comments Blood Pressure 124/68 01/02/2012 11:26 AM EDT Pulse 57 01/02/2012 11:26 AM EDT Temperature 36.3 ??C (97.4 ??F) 01/02/2012 11:26 AM E DT Respiratory Rate - - Oxygen Saturation - - Inhaled Oxygen Concentration - - Weight 58.1 kg (128 lb) 01/02/2012 11:26 AM EDT Height - - Body Mass Index 21.97 08/01/2011 10:12 AM EST documented in this encounter Progress Notes * Pineda hCeema MD - 01/02/2012 12:19 PM EDT Karlie Love is a 61 y.o. female who presents today with complaints of 5 days of left arm achiness from the left triceps to the forearm and now the hand. It feels like an ache but at times a harder jolt. She remembers a cold starting a few days prior with cough and head congestion which is a little better. She is without CP/SOB. She has no fever. She is not exerting herself much and has noted no triggers for increased pain in her arm. There is mild bilateral scapular pain and no cervical pain. Turning her head will not worsen her sx's. There is no problem list on file for this patient. Past Medical History Diagnosis Date ??? Bronchiectasis 2006 PFT 06/27 with mild obsctruction and not reversible ??? Colon polyp 2006 q 3 years Current Outpatient Prescriptions Medication Sig Dispense Refill ??? Multiple Vitamin (MULTIVITAMIN PO) Take by mouth. ??? vitamin B-12 (CYANOCOBALAMIN) 100 MCG tablet Take 500 mcg by mouth daily. ??? vitamin D (CHOLECALCIFEROL) 400 UNIT TABS tablet Take 400 Units by mouth daily. ??? ibuprofen (ADVIL;MOTRIN) 200 MG tablet Take 400 mg by mouth nightly. No Known Allergies History Substance Use Topics ??? Smoking status: Never Smoker ??? Smokeless tobacco: Not on file ??? Alcohol Use: 0.6 oz/week 1 Glasses of wine per week Ocas Pertinent items are noted in HPI. OBJECTIVE: BP 124/68 Pulse 57 Temp 97.4 ??F (36.3 ??C) Wt 128 lb (58.06 kg) General appearance: alert, appears stated age and cooperative Head: Normocephalic, without obvious abnormality, atraumatic Eyes: negative findings: lids and lashes normal and corneas clear. Moderate conjunctival erythema without D/C Ears: normal TM's and external ear canals both ears Nose: mild congestion Throat: lips, mucosa, and tongue normal; teeth and gums normal Neck: no adenopathy, supple, symmetrical, trachea midline and thyroid not enlarged, symmetric, no tenderness/mass/nodules Lungs: clear to auscultation bilaterally Heart: regular rate and rhythm, S1, S2 normal, no murmur, click, rub or gallop Extremities: extremities normal, atraumatic, no cyanosis or edema and there is mild tenderness to the left triceps. shoulder full ROM. minimal left lateral epicondyl tenderness Pulses: 2+ and symmetric Neuro: motor, tone, DTR and sensation symmetrical and intact bilateral LE EKG: normal sinus rhythm, Twave inversion V1-V2. In previous EKG 07/29 there was T wave inversions in V1 only. . ASSESSMENT/PLAN Karlie was seen today for back pain and other. Diagnoses and associated orders for this visit: Left arm pain - EKG 12 lead - methylPREDNIsolone (MEDROL DOSPACK) 4 MG tablet; Take as directed per package instructions Possible this is C8 radiculopathy but without clear cause or exam findings to confirm, and with subtle EKG changes noted I have consulted with Dr. Aquino from [facility] and he will see her today toevaluate the heart. Pending this eval will start steroid for possible radiculopathy. I did give heran aspirin 325 in the office. With clinically appearing well and 5 days of sx's with low risk I have elected not to send her to the ER for this. Pt is comfortable with this approach. documented in this encounter Plan of Treatment Upcoming Encounters Date Type Department Care Team (Late st Contact Info) Description 04/01/2025 10:00 AM EDT Office Visit [facility] Pulmonary Critical Care and Sleep [address] [facility] [address] [place] [phone] Salvador Woodard MD [address] [facility] [address] [place] [address] 1 YFU lungs 04/21/2025 9:30 AM EDT Office Visit [facility] [address] [facility] [place], [place] [address] O'Rosalba, Vinicio Brown MD [address] [place] [address] awv Scheduled Referrals Name Type Priority Associated Diagnoses Order Schedule Ambulatory referral to Cardiology Outpatient Referral Routine Chest pain Left arm pain Ordered: 01/02/2012 documented as of this encounter Procedures Procedure Name Priority Date/Time Associated Diagnosis Comments EKG 12-LEAD Routine 01/02/2012 11:53 AM EDT Chest pain Left arm pain documented in this encounter Results * EKG 12 lead (01/02/2012 11:53 AM EDT) 01/02/2012 11:5 3 AM EDT Pineda Cheema MD ECG ORDERABLES documented in this encounter Visit Diagnoses Diagnosis Chest pain Chest pain, unspecified Left arm pain Pain in limb documented in this encounter Care Teams Salon Stylist Relationship Specialty Start Date End Date Pineda Cheema MD [address] [place] [address] PCP - General Family Medicine 06/30/10 10/03/12 documented as of this encounter
--- OUTSIDE RECORDS SUMMARY | 2024-08-21 07:07 | XMS_ITS | Encounter Summary ---
Author Organization [facility] Address [address] [place] [address] Care Team Providers Care Impress Associate Name Role Phone Stewart Tejeda MD Primary Care Provider [phone] Encounter Details Date Type Department Care Team (Latest Contact Info) Description 03/26/2015 11:39 AM EDT - 03/26/2015 11:59 PM EDT Hospital Encounter [facility] [address] [place] [address] Cough; Other bursitis disorders; Pain in joint, pelvic region and thigh Discharge Disposition: OP AUTODISCHARGED Social History Tobacco [...] Take 2 tablets by mouth nightly 06/30/2010 mometasone (NASONEX) 50 MCG/ACT SUSP 4 sprays by Nasal route daily (2 sprays up each nostril) 1 Inhaler 3 03/26/2015 07/30/2015 cyclobenzaprine (FLEXERIL) 5 MG tablet Take 1 tablet by mouth every 8 hours as needed for Muscle spasms 30 tablet 0 03/12/2015 07/30/2015 naproxen (NAPROSYN) 500 MG tablet Take 1 tablet by mouth 2 times daily (with meals) 60 tablet 1 03/12/2015 11/16/2015 Multiple Vitamin (MULTIVITAMIN PO) Take by mouth. 04/01/20 vitamin D (CHOLECALCIFEROL) 400 UNIT TABS tablet Take 400 Units by mouth daily. 01/09/2018 documented as of this encounter Plan of Treatment Upcoming Encounters Date Type Department Care Team (Late st Contact Info) Description 04/01/2025 10:00 AM EDT Office Visit [facility] Pulmonary Critical Care and Sleep [address] [facility] [address] [place] [address] Salvador Woodard MD [address] [facility] [address] [place] [address] 1 YFU lungs 04/21/2025 9:30 AM EDT Office Visit [facility] [address] [facility] [place], [place] [phone] O'Rosalba, Vinicio Brown MD [address] [place], [place] [phone] awv documented as of this encounter Procedures Procedure Name Priority Date/Time Associated Diagnosis Comments XR HIP BILATERAL 2 VW Routine 03/26/2015 12:06 PM EDT Cough Other bursitis disorders Pain in joint, pelvic region and thigh XR CHEST STANDARD TWO VW Routine 03/26/2015 12:06 PM EDT Cough documented in this encounter Results * XR Hip Bilateral 2 VW (03/26/2015 12:06 PM EDT) Anatomical Region Laterality Modality Hip Computed Radiogr aphy 03/26/2015 12:0 6 PM EDT Impressions 03/26/2015 1:49 PM EDT IMPRESSION: Mild degenerative change, left greater than right Narrative 03/26/2015 1:49 PM EDT XR HIP BILATERAL 2 VW 03/26/2015 COMPARISON: None CLINICAL INDICATION: Pain FINDINGS: Mild joint space narrowing is seen within the hips. There is mild spur formation on the left There is mild spur formation in the SI joints. No obvious fracture. No malalignment. There is mild spurring of the greater trochanters bilaterally, , suggesting chronic gluteus medius tendinopathy Procedure Note Lyle Bach MD - 03/26/2015 XR HIP BILATERAL 2 VW 03/26/2015 COMPARISON: None CLINICAL INDICATION: Pain FINDINGS: Mild joint space narrowing is seen within the hips. There is mild spur formation on the left There is mild spur formation in the SI joints. No obvious fracture. No malalignment. There is mild spurring of the greater trochanters bilaterally, , suggesting chronic gluteus medius tendinopathy IMPRESSION: Mild degenerative change, left greater than right Stewart Tejeda MD IMG DIAGNOSTIC IMAG ING ORDERABLES * XR Chest Standard TWO VW (03/26/2015 12:06 PM EDT) Anatomical Region Laterality Modality Chest Computed Radiogr aphy Thoracic structure (body structure) 03/26/2015 12:06 PM EDT Impressions 03/26/2015 2:48 PM EDT IMPRESSION: 1. Nodular opacities bilaterally, greatest at the lingula, may reflect pneumonia given the patient's history of cough. Short-term radiographic followup to complete resolution is recommended to ensure the absence of an underlying pulmonary nodule. If these findings persist at followup, CT would be recommended for further assessment. Narrative 03/26/2015 2:48 PM EDT XR CHEST STANDARD TWO VW COMPARISON: No prior for comparison. CLINICAL INDICATION: Cough FINDINGS: Two views were obtained of the chest. Nodular increased density is seen in lingula, measuring approximately 2.2 cm. An additional 1.1 cm nodular density projects over the anterior right fifth rib. No evidence of pleural effusion. Negative for pneumothorax. Cardiac silhouette is within normal limits in size. Mild lateral curvature of the thoracolumbar spine. Procedure Note Yusuf Rogel MD - 03/26/2015 XR CHEST STANDARD TWO VW COMPARISON: No prior for comparison. CLINICAL INDICATION: Cough FINDINGS: Two views were obtained of the chest. Nodular increased density is seen in lingula, measuring approximately 2.2 cm. An additional 1.1 cm nodular density projects over the anterior right fifth rib. No evidence of pleural effusion. Negative for pneumothorax. Cardiac silhouette is within normal limits in size. Mild lateral curvature of the thoracolumbar spine. IMPRESSION: 1. Nodular opacities bilaterally, greatest at the lingula, may reflect pneumonia given the patient's history of cough. Short-term radiographic followup to complete resolution is recommended to ensure the absence of an underlying pulmonary nodule. If these findings persist at followup, CT would be recommended for further assessment. Stewart Tejeda MD IMG DIAGNOSTIC IMAG ING ORDERABLES documented in this encounter Visit Diagnoses Diagnosis Cough Other bursitis disorders Pain in joint, pelvic region and thigh documented in this encounter Care Teams Impress Associate Relationship Specialty Start Date End Date Stewart Tejeda MD PCP - General Family Medicine 03/26/15 03/26/15 documented as of this encounter
--- OUTSIDE RECORDS SUMMARY | 2024-08-21 07:07 | XMS_ITS | Encounter Summary ---
Author Organization [facility] Address [address] [place] [address] Care Team Providers Care Wig Sales Consultant Name Role Phone Unavailable Primary Care Provider Unavailabl e Reason for Visit * Reason Onset Date Comments Results 01/20/2016 Encounter Details Date Type Department Care Team (Late Contact Info) Description 01/20/2016 Telephone [facility] [address] [place], [place] [phone] Stewart Tejeda MD [address] [facility] [place], [place] [phone] Results Social History Tobacco Use Types Packs/Day [...] Hospital Pulmonary Critical Care and Sleep [address] [facility] [address] [place] [address] Salvador Woodard MD [address] [facility] [address] [place] [address] 1 YFU lungs 04/21/2025 9:30 AM EDT Office Visit [facility] [address] [facility] [place] [place] [phone] O'Rosalba, Vinicio Brown MD [address] [facility] [place], [place] [phone] awv documented as of this encounter Visit Diagnoses Not on filedocumented in this encounter
--- OUTSIDE RECORDS SUMMARY | 2024-08-21 07:07 | XMS_ITS | Encounter Summary ---
Author Organization Juan Larry [employer] [facility] Address [address] [place] [address] Care Team Providers Care Kiln Mechanic Name Role Phone Unavailable Primary Care Provider Unavailabl e Reason for Visit * Reason Comments Hip Pain L hip injection Encounter Details Date Type Department Care Team (Late st Contact Info) Description 11/16/2015 11:30 AM EST Office Visit [facility] Medicine [address] [place] [phone] Stewart Tejeda MD [address] [facility]. [address] [place], [place] [id number] Bursitis, hip, left (Primary Dx); Pain Social History Tobacco Use Types Packs/Day Years [...] Sign Reading Time Taken Comments Blood Pressure 124/78 11/16/2015 11:21 AM EST Pulse 65 11/16/2015 11:21 AM EST Temperature 36.8 ??C (98.2 ??F) 11/16/2015 11:[address] Respiratory Rate - - Oxygen Saturation 98% 11/16/2015 11:21 AM EST Inhaled Oxygen Concentration - - Weight 58.1 kg (128 lb) 11/16/2015 11:21 AM EST Height 162.6 cm (5' 4 ) 11/16/2015 11:21 AM EST Body Mass Index 21.97 11/16/2015 11:21 AM EST documented in this encounter Progress Notes * Stewart Tejeda MD - 11/16/2015 3:58 PM EST 65 y.o. in for Chief Complaint Patient presents with ??? Hip Pain L hip injection Pt has bursitis Last injection was 3-4 months ago. She would like a repeat as the lateral left hip is bothering heragain. BP 124/78 mmHg Pulse 65 Temp(Src) 98.2 ??F (36.8 ??C) (Oral) Ht 5' 4 (1.626 m) Wt 128 lb (58.06 kg) BMI 21.96 kg/m2 SpO2 98% ? No rrr Lungs ctab Left greater trochanter of hip tenderness Procedure only visit LEFT Greater trochanteric bursa injection: After informed consent: 1.5 ml marcaine mixed with 120mg depo-medrol (1.5ml). The patient was placed on the table seated. The injection site was marked with pressure from the needle cap producing a eklutna imprint in the skin. The area was then cleaned with isopropyl alcohol swab and then Beta-Dyne.At the site of maximum tenderness, the solution was injected after inserting the 1.5 inch needle tobone then slightly pulling back.. No resistance occurred. the patient tolerated the procedure well.No bleeding. Bandage was placed. documented in this encounter Plan of Treatment Upcoming Encounters Date Type Department Care Team (Late st Contact Info) Description 04/01/2025 10:00 AM EDT Office Visit [facility] Pulmonary Critical Care and Sleep [address] [facility] [address] [place] [address] Salvador Woodard MD [address] [facility] [address] [place] [address] 1 YFU lungs 04/21/2025 9:30 AM EDT Office Visit [facility] [address] [place] [address] O'Rosalba, Vinicio Brown MD [address] [facility] [place] [address] awv documented as of this encounter Visit Diagnoses Diagnosis Bursitis, hip, left- Primary Pain Generalized pain documented in this encounter Administered Medications Inactive Administered Medications - up to 3 most recent administrations Medication Order MAR Action Action Date Dose Rate Site methylPREDNISolone acetate (DEPO-MEDROL) injection 120 mg 120 mg, Intra-artICUlar, ONCE, 1 dose, On Mon11/16/15 at 1630 Given 11/16/2015 4:16 PM EST 120 mg Other documented in this encounter
--- OUTSIDE RECORDS SUMMARY | 2024-08-21 07:07 | XMS_ITS | Encounter Summary ---
Author Organization [facility] Address [address] [place] [address] Care Team Providers Care Dredge Boat Engineer Name Role Phone Unavailable Primary Care Provider Unavailabl e Reason for Visit * Reason Onset Date Comments Other 11/16/2015 Encounter Details Date Type Department Care Team (Late Contact Info) Description 11/16/2015 Telephone [facility] [address] [place], [place] [phone] Stewart Tejeda MD [address] [facility] [place], [place] [id number] Other Social History Tobacco Use Types Packs/Day [...] Visit [facility] Pulmonary Critical Care and Sleep [address] [facility] [address] [place] [address] Salvador Woodard MD [address] [facility] [address] [place] [address] 1 YFU lungs 04/21/2025 9:30 AM EDT Office Visit [facility] [address] [facility] [place], [place] [phone] O'Rosalba, Vinicio Brown MD [address] [facility] [place], [place] [phone] awv documented as of this encounter Visit Diagnoses Not on filedocumented in this encounter
--- OUTSIDE RECORDS SUMMARY | 2024-08-21 07:07 | XMS_ITS | Encounter Summary ---
Author Organization Juan Larry [employer] [facility] Address [address] [place] [address] Care Team Providers Care Maintainer Plant Name Role Phone Stewart Tejeda MD Primary Care Provider [phone] Encounter Details Date Type Department Care Team (Latest Contact Info) Description 03/26/2015 11:39 AM EDT Hospital Encounter [facility] [address] [place], [place] [phone] Stewart Tejeda MD [address] [facility] [place], [place] [phone] Discharge Disposition: Home or Self Care Social [...] Pulmonary Critical Care and Sleep [address] [facility] [address] [place] [address] Salvador Woodard MD [address] [phone] 1 YFU lungs 04/21/2025 9:30 AM EDT Office Visit [facility] Family Medicine [address] [facility] [place] [address] O'Vinicio Navarrete MD [address] [place] [address] awv documented as of this encounter Visit Diagnoses Not on filedocumented in this encounter Care Teams Maintainer Plant Relationship Specialty Start Date End Date Stewart Tejeda MD PCP - General Family Medicine 03/26/15 03/26/15 documented as of this encounter
--- OUTSIDE RECORDS SUMMARY | 2024-08-21 07:07 | XMS_ITS | Encounter Summary ---
Author Organization Juan Raineyshabbir Ramos [facility] Address [address] [place] [address] Care Team Providers Care Gas Derrick Operator Name Role Phone Pineda Cheema MD Primary Care Provider [phone] Reason for Referral * Imaging (Routine) - Closed Specialty Diagnoses / Procedures Referred By Contsheila t Referred To Contact Radiology Diagnoses Lung nodule Abnormal chest x-ray Procedures CT Chest WO Contrast Stewart Tejeda MD [address] [place] [place] [address] Referral ID Status Reason Start Date Expiration Date Visits Re quested Visits Authorized [id number] Closed 04/13/2015 04/12/2016 1 1 Encounter Details Date Type Department Care Team (Late st Contact Info) Description 04/13/[address] [facility] [address] [place] [phone] Stewart Tejeda MD [address] [place] [phone] Lung nodule (Primary Dx); Abnormal chest x-ray Social History Tobacco Use Types Packs/Day Years [...] and Sleep [address] [facility] [address] [place] [address] Salvador Woodard MD [address] [facility] [address] [place] [phone] 1 YFU lungs 04/21/2025 9:30 AM EDT Office Visit [facility] [address] [facility] [place] [address] Lizz'Vinicio Navarrete MD [address] [place], [place] [phone] awv documented as of this encounter Results * CT Chest WO Contrast (04/23/2015 1:30 PM EDT) Anatomical Region Laterality Modality Chest Computed Tomogra phy 04/23/2015 1:30 PM EDT Impressions 04/23/2015 2:51 PM EDT IMPRESSION: ?? 1. Nodular density within the lingula corresponds to focal parenchymal abnormality suggestive of bronchiectatic scar as described above. 2. Multiple tiny bilateral pulmonary nodules. Largest solid nodule measures 6 mm in transverse diameter within the right lower lobe. Finding could be on the basis of changes of old granulomatous disease. Other etiologies cannot the excluded based on this examination. Followup noncontrast CT the chest in 6 months is recommended for reevaluation. Narrative 04/23/2015 2:[address] OF THE CHEST WITHOUT CONTRAST: ??04/23/2015. COMPARISON: ??Prior plain film examinations of the chest most recent 04/10/2015. CLINICAL INDICATION: ??Pulmonary nodule. Followup. TECHNICAL FACTORS: ??Noncontrast multidetector axial images of the chest were obtained. FINDINGS: ?? 1. In the region of the recently described lingular nodular density, there is a bandlike area of increased density with associated dilated airways. Finding is most consistent with bronchiectatic scar (images 34-43). Similar but less pronounced finding is identified in the medial aspect of the right middle lobe (images 37-50). There is a 6 mm noncalcified nodule within the posteromedial right lower lobe (image 38). Linear densities are identified adjacent to this nodule. In addition, there are several very tiny bilateral noncalcified pulmonary nodules. Very subtle fibronodular densities are identified in the anteromedial aspect of the left upper lobe (images 27-32). There is a 7 mm groundglass nodule within posterior left upper lobe adjacent to the major fissure (image 20). Subtle density in paraspinous portion of right lower lobe likely represents minimal atelectasis/scar (images 37-38). No focal confluent pulmonary traits are identified. No evidence of pleural effusion. 2. There is visualization of several small, subcentimeter mediastinal/paratracheal lymph nodes. No significant hilar or axillary lymphadenopathy is identified. There our calcified hilar lymph nodes consistent with changes of old granulomatous disease. 3. There is very minimal peribronchial cuffing/thickening. Areas of bronchiectasis identified in right middle lobe and lingula as described previously. 4. The thoracic aorta is normal in caliber with no evidence of aneurysm. Minimal pericardial fluid/thickening is identified. 5. Limited imaging of the upper abdomen demonstrates a small splenule along anterior border of the spleen (image 58). Procedure Note Chaim Jacome MD - 04/23/2015 CT OF THE CHEST WITHOUT CONTRAST: 04/23/2015. COMPARISON: Prior plain film examinations of the chest most recent 04/10/2015. CLINICAL INDICATION: Pulmonary nodule. Followup. TECHNICAL FACTORS: Noncontrast multidetector axial images of the chest were obtained. FINDINGS: 1. In the region of the recently described lingular nodular density, there is a bandlike area of increased density with associated dilated airways. Finding is most consistent with bronchiectatic scar (images 34-43). Similar but less pronounced finding is identified in the medial aspect of the right middle lobe (images 37-50). There is a 6 mm noncalcified nodule within the posteromedial right lower lobe (image 38). Linear densities are identified adjacent to this nodule. In addition, there are several very tiny bilateral noncalcified pulmonary nodules. Very subtle fibronodular densities are identified in the anteromedial aspect of the left upper lobe (images 27-32). There is a 7 mm groundglass nodule within posterior left upper lobe adjacent to the major fissure (image 20). Subtle density in paraspinous portion of right lower lobe likely represents minimal atelectasis/scar (images 37-38). No focal confluent pulmonary traits are identified. No evidence of pleural effusion. 2. There is visualization of several small, subcentimeter mediastinal/paratracheal lymph nodes. No significant hilar or axillary lymphadenopathy is identified. There our calcified hilar lymph nodes consistent with changes of old granulomatous disease. 3. There is very minimal peribronchial cuffing/thickening. Areas of bronchiectasis identified in right middle lobe and lingula as described previously. 4. The thoracic aorta is normal in caliber with no evidence of aneurysm. Minimal pericardial fluid/thickening is identified. 5. Limited imaging of the upper abdomen demonstrates a small splenule along anterior border of the spleen (image 58). IMPRESSION: 1. Nodular density within the lingula corresponds to focal parenchymal abnormality suggestive of bronchiectatic scar as described above. 2. Multiple tiny bilateral pulmonary nodules. Largest solid nodule measures 6 mm in transverse diameter within the right lower lobe. Finding could be on the basis of changes of old granulomatous disease. Other etiologies cannot the excluded based on this examination. Followup noncontrast CT the chest in 6 months is recommended for reevaluation. Stewart Tejeda MD IMG CT ORDERABLES documented in this encounter Visit Diagnoses Diagnosis Lung nodule- Primary Solitary pulmonary nodule Abnormal chest x-ray Other nonspecific abnormal finding of lung field Lung nodule Solitary pulmonary nodule Abnormal chest x-ray Other nonspecific abnormal finding of lung field documented in this encounter Care Teams Gas Derrick Operator Relationship Specialty Start Date End Date Pineda Cheema MD [address] [place] [address] PCP - General 03/27/15 04/19/15 documented as of this encounter
--- OUTSIDE RECORDS SUMMARY | 2024-08-21 07:07 | XMS_ITS | Encounter Summary ---
Author Organization Juan Larry [employer] [facility] Address [address] [place] [address] Care Team Providers Care Real Estate Loan Processor Name Role Phone Stewart Tejeda MD Primary Care Provider [phone] Reason for Visit * Reason Comments 2 Week Follow-Up doing better no chil ls or fever. Encounter Details Date Type Department Care Team (Late st Contact Info) Description 09/25/2013 9:30 AM EST Office Visit [facility] Medicine [address] [place] [phone] Stewart Tejeda MD [address] [facility] [place] [address] Constipation (Primary Dx); Hair thinning Social History Tobacco Use Types Packs/Day Years [...] Sign Reading Time Taken Comments Blood Pressure 132/78 09/25/2013 9:30 AM EST Pulse 82 09/25/2013 9:30 AM EST Temperature 36.5 ??C (97.7 ??F) 09/25/2013 9:30 AM ES T Respiratory Rate 18 09/25/2013 9:30 AM EST Oxygen Saturation 98% 09/25/2013 9:30 AM EST Inhaled Oxygen Concentration - - Weight 59.4 kg (131 lb) 09/25/2013 9:30 AM EST Height - - Body Mass Index 22.49 09/05/2013 3:06 PM EST documented in this encounter Progress Notes * Stewart Tejeda MD - 09/27/2013 7:14 PM EST Subjective: Patient ID: Karlie Love is a 63 y.o. female. HPI: 63 y.o. infor Chief Complaint Patient presents with ??? 2 Week Follow-Up doing better no chills or fever. Pt was worried about hypothyroidism bc of fatigue, brittle hair, loose stools. Likely this was a givirus. Pt states that she is feeling much better but is worried about low thyroid because of the hair. The pt's stools are now slightly constipated Denies heat or cold intolerance. Review of Systems Constitutional: Negative for fever, chills, fatigue and unexpected weight change. HENT: Negative for hearing loss, ear pain, neck pain and postnasal drip. Eyes: Negative for pain. Respiratory: Negative for chest tightness, shortness of breath, wheezing and stridor. Cardiovascular: Negative for chest pain and palpitations. Gastrointestinal: Negative for vomiting, abdominal pain, diarrhea, constipation, blood in stool andanal bleeding. Genitourinary: Negative for dysuria and difficulty urinating. Musculoskeletal: Negative. Skin: Negative for rash. BP 132/78 Pulse 82 Temp(Src) 97.7 ??F (36.5 ??C) (Oral) Resp 18 Wt 131 lb (59.421 kg) BMI22.47 kg/m2 SpO2 98% Objective: Physical Exam Nursing note and vitals reviewed. Constitutional: She appears well-developed and well-nourished. No [...] No rash noted. She is not diaphoretic. Assessment: See below Plan: Likely the sx's are not related, but will check tsh to r/o thyroid disease. Pt is feeling better, did have gi virus Karlie was seen today for 2 week follow-up. Diagnoses and associated orders for this visit: Constipation - TSH without Reflex Hair thinning - TSH without Reflex documented in this encounter Plan of Treatment Upcoming Encounters Date Type Department Care Team (Late st Contact Info) Description 04/01/2025 10:00 AM EDT Office Visit [facility] Pulmonary Critical Care and Sleep [address] [facility] [address] [place] [address] Salvador Woodard MD [address] [facility] [address] [place] [address] 1 YFU lungs 04/21/2025 9:30 AM EDT Office Visit [facility] Medicine [address] [place] [address] O'Rosalba, Vinicio Brown MD [address] [place] [address] awv documented as of this encounter Procedures Procedure Name Priority Date/Time Associated Diagnosis Comments TSH Routine 09/25/2013 10:23 AM EST Constipation Hair thinning documented in this encounter Results * TSH without Reflex (09/25/2013 10:23 AM EST) TSH 2.52 0.27 - 4.20 uIU/mL 09/25/2013 5:31 PM EST [facility] BLOOD SPECIMEN / Unknown 09/25/2013 10:23 AM EST 09/25/2013 4:29 PM EST Stewart Tejeda MD CHEMISTRY ORDERABLE S [facility] [address] [place] [address] documented in this encounter Visit Diagnoses Diagnosis Constipation- Primary Unspecified constipation Hair thinning Alopecia, unspecified documented in this encounter Care Teams Real Estate Loan Processor Relationship Specialty Start Date End Date Stewart Tejeda MD PCP - General Family Medicine 10/04/12 03/25/15 documented as of this encounter
--- OUTSIDE RECORDS SUMMARY | 2024-08-21 07:07 | XMS_ITS | Encounter Summary ---
Author Organization [facility] Address [address] [place] [address] Care Team Providers Care Statistical Geneticist Name Role Phone Pineda Cheema MD Primary Care Provider [phone] Encounter Details Date Type Department Care Team (Latest Contact Info) Description 04/10/2015 12:54 PM EDT - 04/10/2015 11:59 PM EDT Hospital Encounter [facility] [address] [place] [address] Abnormal CXR Discharge Disposition: OP AUTODISCHARGED Social History Tobacco [...] 04/01/2025 10:00 AM EDT Office Visit [facility] Pulmonary Critical Care and Sleep [address] [facility] [address] [place] [phone] Salvador Woodard MD [address] [facility] [address] [place] [address] 1 YFU lungs 04/21/2025 9:30 AM EDT Office Visit [facility] [address] [facility] [address] O'Rosalba, Vinicio Brown MD [address] [place], [place] [phone] awv documented as of this encounter Procedures Procedure Name Priority Date/Time Associated Diagnosis Comments XR CHEST STANDARD TWO VW Routine 04/10/2015 12:59 PM EDT Abnormal CXR documented in this encounter Results * XR Chest Standard TWO VW (04/10/2015 12:59 PM EDT) Anatomical Region Laterality Modality Chest Computed Radiogr aphy Thoracic structure (body structure) 04/10/2015 12:59 PM EDT Impressions 04/10/2015 2:01 PM EDT IMPRESSION: A nodule persists on the left. CT is recommended. Please fax this to Dr. Tejeda. Narrative 04/10/2015 2:01 PM EDT CHEST AND LATERAL 04/10/2015: HISTORY: Pneumonia. COMPARISON: 03/26/2015. FINDINGS: Heart size is normal. No pleural effusions. Mild dextroscoliosis. A nodular density within the lingula is unchanged. It is approximately 2 cm in size. Right lung appears clear. No new opacities are seen. Procedure Note Pineda Mark MD - 04/10/2015 CHEST AND LATERAL 04/10/2015: HISTORY: Pneumonia. COMPARISON: 03/26/2015. FINDINGS: Heart size is normal. No pleural effusions. Mild dextroscoliosis. A nodular density within the lingula is unchanged. It is approximately 2 cm in size. Right lung appears clear. No new opacities are seen. IMPRESSION: A nodule persists on the left. CT is recommended. Please fax this to Dr. Tejeda. Stewart Tejeda MD IMG DIAGNOSTIC IMAG ING ORDERABLES documented in this encounter Visit Diagnoses Diagnosis Abnormal CXR Other nonspecific abnormal finding of lung field documented in this encounter Care Teams Statistical Geneticist Relationship Specialty Start Date End Date Pineda Cheema MD [address] [place] [address] PCP - General 03/27/15 04/19/15 documented as of this encounter
--- OUTSIDE RECORDS SUMMARY | 2024-08-21 07:07 | XMS_ITS | Encounter Summary ---
Author Organization [facility] Address [address] [place] [address] Care Team Providers Care Land Commissioner Name Role Phone OVinicio Lutz MD Primary Care Provider [phone] Encounter Details Date Type Department Care Team (Late st Contact Info) Description 07/28/2011 PAT Telephone [facility] [address] [place] [address] Melva Cisneros RN Social History Tobacco Use Types Packs/Day Years [...] 10:00 AM EDT Office Visit [facility] Pulmonary Critical Care and Sleep [address] [place] [address] Salvador Woodard MD [address] [facility] [address] [place] [address] 1 YFU lungs 04/21/2025 9:30 AM EDT Office Visit [facility] [address] [facility] [place] [address] Vinicio Calvert MD [address] [place], [place] [phone] awv documented as of this encounter Visit Diagnoses Not on filedocumented in this encounter Care Teams Land Commissioner Relationship Specialty Start Date End Date Vinicio Calvert MD PCP - General Family Medicine 06/03/21 documented as of this encounter
--- OUTSIDE RECORDS SUMMARY | 2024-08-21 07:07 | XMS_ITS | Encounter Summary ---
Author Organization Juan Raineyshabbir [employer] Address [address] [place] [address] Care Team Providers Care Take Up Operator Name Role Phone Pineda Cheema MD Primary Care Provider [phone] Encounter Details Date Type Department Care Team (Late st Contact Info) Description 08/01/2011 9:15 AM EST - 08/01/2011 11:59 PM EST Hospital Encounter [facility] [address] [place] [phone] Pablo Jenkins MD [address] [facility], [address] [place], [place] [phone] Discharge Disposition: OP AUTODISCHARGED Social History Tobacco [...] Sign Reading Time Taken Comments Blood Pressure 92/76 08/01/2011 11:31 AM EST Pulse 71 08/01/2011 11:31 AM EST Temperature 36.4 ??C (97.5 ??F) 08/01/2011 10:[address] Respiratory Rate 16 08/01/2011 11:31 AM EST Oxygen Saturation 94% 08/01/2011 11:31 AM EST on room air Inhaled Oxygen Concentration - - Weight 54.4 kg (120 lb) 08/01/2011 10:12 AM EST Height 162.6 cm (5' 4 ) 08/01/2011 10:12 AM EST Body Mass Index 20.6 08/01/2011 10:12 AM EST documented in this encounter Discharge Instructions * Discharge Instructions* Kimberly Denise RN - 08/01/2011 11:20 AM EST Images from the original note were not included. ENDOSCOPY: Inspection of any cavity of the body by means of an endoscopy. An endoscope is a flexible tube that allows direct visualization of the cavity. You have had a Colonoscopy Discharge Instructions 1) You may experience some lightheadedness for the next several hours. We suggest you plan on quietrelation for the rest of the day. 2) Because of the sedative drugs in your blood steam, be advised that you should not drive, operateany machinery, or sign contracts for the remainder of the day. 3) You should not take any alcoholic beverages tonight, and only take sleeping medication that has been specifically prescribed for you by your physician. 4) Unless instructed differently, resume your regular diet. Eat smaller portions for your first meal and progress to normal amounts over the rest of the day. 5) If you have any fever, chills, excessive bleeding, uncontrolled pain, increased abdominal bloating, or any other problems, notify your doctor or return to the hospital. 6) Do not expect a normal bowel movement for one to three days due to the cleansing of the large intestine prior to the colonoscopy. 9) Follow high fiber diet instruction paper documented in this encounter Medications at Time [...] daily. 01/09/2018 documented as of this encounter Progress Notes * Zonia Miller - 08/01/2011 11:31 AM EST Discharge instructions reviewed with patient/responsible adult and understanding verbalized. Discharge instructions signed and copies given. Patient discharged home with belongings. documented in this encounter Plan of Treatment Upcoming Encounters Date Type Department Care Team (Late st Contact Info) Description 04/01/2025 10:00 AM EDT Office Visit [facility] Pulmonary Critical Care and Sleep [address] [facility] [address] [place], [place] [phone] Salvador Woodard MD [address] [facility] [address] [place] [phone] 1 YFU lungs 04/21/2025 9:30 AM EDT Office Visit [facility] [address] [facility] [place], [place] [phone] O'Rosalba, Vinicio Brown MD [address] [place], [place] [address] awv Scheduled Orders Name Type Priority Associated Diagnoses Orde r Schedule POC Urine Qual Point of Care Testing Routine One Time for 1 Occurrences starting 08/01/2011 until 08/01/2011 POCT glucose Point of Care Testing Routine One Time for 1 Occurrences starting 08/01/2011 until 08/01/2011 POCT INR Point of Care Testing Routine One Time for 1 Occurrences starting 08/01/2011 until 08/01/2011 documented as of this encounter Procedures Procedure Name Priority Date/Time Associated Diagnosis Comments EKG 12-LEAD Routine 07/29/2011 2:41 PM EST CBC WITH AUTO DIFFERENTIAL Routine 07/29/2011 2:31 PM EST documented in this encounter Results * EKG 12 lead (07/29/2011 2:41 PM EST) Ventricular Rate 59 BPM SWOH MUSE Atrial Rate 59 BPM [facility] MUSE P-R Interval 134 ms SW[facility] MUSE QRS Duration 72 ms [facility] MUSE Q-T Interval 424 ms SW[facility] MUSE QTc Calculation (Bazett) 419 ms SW[facility] MUSE P [place] 10 degrees SWOH MUSE R [place] 50 degrees SW[facility] MUSE T [place] 27 degrees SWOH MUSE Diagnosis Sinus bradycardiaNo previous ECGs availableConfirmed by PARESH KING, RK (1985) on 07/30/2011 6:01:57 PM SWOH MUSE 07/29/2011 2:41 PM EST 07/30/2011 6:01 PM EST Narrative Transcriptions [facility], [facility] - 07/30/2011 1:02 PM EST Pablo Jenkins MD ECG ORDERABLES [facility]Cardio[facility]inet[facility] MUSE * CBC auto differential (07/29/2011 2:31 PM EST) WBC 6.1 4.0 - 11.0 X 1000 RBC 4.19 4.0 - 5.2 X(10)6 Hemoglobin 13.9 12.0 - 16.0 gm/dl Hematocrit 39.6 36.0 - 48.0 % MCV 94.7 80 - 100 fl MCH 33.3 26 - 34 pg MCHC 35.1 31 - 36 gm/dl RDW 12.4 11.5 - 14.5 % Platelets 191 135 - 450 X(10)3 MPV 8.2 5.0 - 10.5 fl Segs Relative 62.2 42.0 - 63.0 % Lymphocytes % 29.1 25.0 - 40.0 % Monocytes % 6.8 0.0 - 12.0 % Eosinophils % 1.4 0.0 - 5.0 % Basophils % 0.5 0.0 - 2.0 % Granulocyte Absolute Count 3.8 1.7 - 7.7 X(10)3 Lymphocytes Absolute 1.8 1.0 - 5.1 X(10)3 Monocytes Absolute 0.4 0.0 - 1.3 X(10)3 Eosinophils Absolute 0.1 0.0 - 0.6 X(10)3 Basophils Absolute 0.0 0.0 - 0.2 X(10)3 Differential Type Auto-K BLOOD SPECIMEN / Unknown 07/29/2011 2:31 PM EST 07/29/2011 3:17 PM EST Pablo Jenkins MD HEMATOLOGY ORDERABLE S documented in this encounter Visit Diagnoses Not on filedocumented in this encounter Administered Medications Inactive Administered Medications - up to 3 most recent administrations Medication Order MAR Action Action Date Dose Rate Site lactated ringers infusion IntraVENous, at 50 mL/hr, ONCE, On Mon08/01/11 at 1030, For 1 dose, Pre-op (day of surgery) New Bag 08/01/2011 10:16 AM EST 50 mL/hr documented in this encounter Care Teams Take Up Operator Relationship Specialty Start Date End Date Pineda Cheema MD [address] [place] [address] PCP - General Family Medicine 06/30/10 10/03/12 documented as of this encounter
--- OUTSIDE RECORDS SUMMARY | 2024-08-21 07:07 | XMS_ITS | Encounter Summary ---
Author Organization Juan Ramos [facility] Address [address] [place] [address] Care Team Providers Care Title Search Manager Name Role Phone Pineda Cheema MD Primary Care Provider [phone] Encounter Details Date Type Department Care Team (Late st Contact Info) Description 01/09/2012 Orders Only [facility] Denys Vanegas MD [address] [facility] [place] [address] [place] [address] Social History Tobacco Use Types Packs/Day Years [...] Description 04/01/2025 10:00 AM EDT Office Visit [facility] Pulmonary Critical Care and Sleep [address] [facility] [address] [place] [address] Salvador Woodard MD [address] [facility] [address] [place] [address] 1 YFU lungs 04/21/2025 9:30 AM EDT [facility] [address] [place] [address] O'Rosalba, Vinicio Brown MD [address] [place] [address] awv documented as of this encounter Procedures Procedure Name Priority Date/Time Associated Diagnosis Comments ECHOCARDIOGRAM EXERCISE STRESS TEST Routine 01/09/2012 12:32 PM EDT documented in this encounter Results * Echocardiogram stress test (01/09/2012 12:32 PM EDT) 01/09/2012 12:3 2 PM EDT Narrative [facility] - 01/09/2012 1:32 PM EDT This document is confidential medical information. ??Unauthorized disclosure or use of this information is prohibited by law. If you are not the intended recipient of this document, please advise us by calling immediately [phone]. [facility] Medical Records Department [address] [place] [address] Office [phone] Fax Stress Echocardiography Patient: ?Karlie Love Gender: ? F MR #: ? [id number] Age: ?61 Account: ?[id number] : ?1950 Study Date: 01/09/2012 Room: BP: ? 144 / 84 Referring Physician: Interpreting Physician: Denys Vanegas MD ATTENDING ?? Pineda Cheema ?Denys Vanegas MD PERFORMING ??Denys Vanegas MD PULP PILER ?Elizabeth Wilson Procedure:EXERCISE ?? Order:EXERCISE ?? Accession STRESS ECHO PRN ?STRESS ECHO PRN ??Number:[id number] CONTR/BUBBLE ? CONTR/BUBBLE Facility: ??[facility] Indications: ?? Abnormal EKG 794.31. ECG. [...] motion abnormalities. Reviewed and confirmed by Denys Vaengas MD [id number] Procedure Note Result, Unknown Provider - 01/09/2012 This document is confidential medical information. Unauthorizeddisclosure or use of this information is prohibited by law. If you are not the intended recipient of this document, please advise usby calling immediately [phone]. [facility] Medical Records Department [address] [place], [place] [address] Office [phone] Fax Stress Echocardiography Patient: Karlie Love Gender: Charity MR #: [id number] Age: 61 Account: [id number] : 1950 Study Date: 01/09/2012 Room: BP: 144 / 84 Referring Physician: Interpreting Physician: Denys Vanegas MD ATTENDING Pineda Cheema MD PERFORMING Denys Vanegas MD PULP PILER Elizabeth Wilson Procedure:EXERCISE Order:EXERCISE Accession STRESS ECHO PRN STRESS ECHO PRN Number:[id number] CONTR/BUBBLE CONTR/BUBBLE Facility: [facility] Indications: Abnormal EKG 794.31. ECG. Abnormal. [...] Reviewed and confirmed by Denys Vanegas MD [id number] Denys Vanegas MD ECHO ORDERABLES Performing Organization Address City/State/[facility] Co de Phone Number [facility] documented in this encounter Visit Diagnoses Not on filedocumented in this encounter Care Teams Title Search Manager Relationship Specialty Start Date End Date Pineda Cheema MD [address] [place] [address] PCP - General Family Medicine 06/30/10 10/03/12 documented as of this encounter
--- OUTSIDE RECORDS SUMMARY | 2024-08-21 07:07 | XMS_ITS | Encounter Summary ---
Author Organization Juan Raine[employer]habbir [employer] [facility] Address [address] [place] [address] Care Team Providers Care Systems Analyst Name Role Phone Pineda Cheema MD Primary Care Provider [phone] Encounter Details Date Type Department Care Team (Latest Contact Info) Description 04/10/2015 12:54 PM EDT - 04/10/2015 12:55 PM EDT Hospital Encounter [facility] [address] [place] [address] Stewart Tejeda MD [address] [facility]. [address] [place] [id number] Discharge Disposition: Home or Self Care Social [...] Description 04/01/2025 10:00 AM EDT Office Visit [facility] Pulmonary Critical Care and Sleep [address] [facility] [address] [place] [address] Salvador Woodard MD [address] [facility] [address] [place] [address] 1 YFU lungs 04/21/2025 9:30 AM EDT Office Visit [facility] [address] [facility] [address] Vinicio Calvert MD [address] [place] [address] awv documented as of this encounter Visit Diagnoses Not on filedocumented in this encounter Care Teams Systems Analyst Relationship Specialty Start Date End Date Pindea Cheema MD [address] [place] [address] PCP - General 03/27/15 04/19/15 documented as of this encounter
--- OUTSIDE RECORDS SUMMARY | 2024-08-21 07:07 | XMS_ITS | Encounter Summary ---
Author Organization Juan Ramos [facility] Address [address] [place] [address] Care Team Providers Care Card Processing Clerk Name Role Phone Pineda Cheema MD Primary Care Provider [phone] Encounter Details Date Type Department Care Team (Late st Contact Info) Description 08/02/2011 Post-op Telephone [facility] [address] [place], [place] [phone] Kimberly Denise RN Social History Tobacco Use Types Packs/Day [...] Description 04/01/2025 10:00 AM EDT Office Visit [facility] Pulmonary Critical Care and Sleep [address] [facility] [address] [place] [address] Salvador Woodard MD [address] [facility] [address] [address] [place] [address] 1 YFU lungs 04/21/2025 9:30 AM EDT Office Visit [facility] [address] [place] [address] O'Rosalba, Vinicio Brown MD [address] [place] [address] awv documented as of this encounter Visit Diagnoses Not on filedocumented in this encounter Care Teams Card Processing Clerk Relationship Specialty Start Date End Date Pineda Cheema MD [address] [place], [place] [phone] PCP - General Family Medicine 06/30/10 10/03/12 documented as of this encounter
--- OUTSIDE RECORDS SUMMARY | 2024-08-21 07:07 | XMS_ITS | Encounter Summary ---
Author Organization Juan Larry [employer] [facility] Address [address] [place] [address] Care Team Providers Care Mill Beam Fitter Name Role Phone Kye Avila MD Primary Care Provider Reason for Visit * Reason Comments Other discuss thyroid, bod y chills and aches, Encounter Details Date Type Department Care Team (Late st Contact Info) Description 09/05/2013 3:00 PM EST Office Visit [facility] Medicine [address] [place] [phone] Kye Avila MD [address] [facility] [place] [address] [place] [address] Chills with fever (Primary Dx); Myalgia; Abnormal urinalysis; Back pain Social History Tobacco Use Types Packs/Day [...] Sign Reading Time Taken Comments Blood Pressure 118/68 09/05/2013 3:06 PM EST Pulse 83 09/05/2013 3:06 PM EST Temperature 36.5 ??C (97.7 ??F) 09/05/2013 3:06 PM ES T Respiratory Rate - - Oxygen Saturation 98% 09/05/2013 3:06 PM EST Inhaled Oxygen Concentration - - Weight 57.3 kg (126 lb 6.4 oz) 09/05/2013 3:06 P M EST Height 162.6 cm (5' 4 ) 09/05/2013 3:06 PM EST Body Mass Index 21.7 09/05/2013 3:06 PM EST documented in this encounter Progress Notes * Kye Avila MD - 09/05/2013 3:34 PM EST Subjective: Patient ID: Karlie Love is a 63 y.o. female. HPI: 63 y.o. in for Chief Complaint Patient presents with ??? Other discuss thyroid, body chills and aches, Pt has been noticing cold intolerance (I feel cold from the inside out). Little bit of weight gain,some hair thinning. Loose stools. Pt has had fever chills, diarrhea, worse today been going on 1 week Review of Systems Constitutional: Positive for fever and chills. Negative for fatigue and unexpected weight change. HENT: Negative for hearing loss, ear pain, neck pain and postnasal drip. Eyes: Negative for pain. Respiratory: Negative for chest tightness, shortness of breath, wheezing and stridor. Cardiovascular: Negative for chest pain and palpitations. Gastrointestinal: Positive for diarrhea. Negative for vomiting. Genitourinary: Negative for dysuria and difficulty urinating. Musculoskeletal: Negative. Skin: Negative for rash. BP 118/68 Pulse 83 Temp(Src) 97.7 ??F (36.5 ??C) (Oral) Ht 5' 4 (1.626 m) Wt 126 lb 6.4 oz(57.335 kg) BMI 21.69 kg/m2 SpO2 98% Objective: Physical Exam Nursing [...] has no rales. She exhibits no tenderness. Abdominal: She exhibits no distension and no mass. There is tenderness (generalized, mild). There is no rebound and no guarding. Skin: No rash noted. She is not diaphoretic. Assessment: See below Plan: UA was abnl Treat with bactrim Will check thyroid function after the pt is feeling better. Karlie was seen today for other. Diagnoses and associated orders for this visit: Chills with fever - POCT Urinalysis no Micro Myalgia Abnormal urinalysis - Urine culture Back pain - POCT Urinalysis no Micro Other Orders - sulfamethoxazole-trimethoprim (BACTRIM;SEPTRA) 400-80 MG per tablet; Take 1 tablet by mouth 2 times daily for 10 days. documented in this encounter Plan of Treatment Upcoming Encounters Date Type Department Care Team (Late st Contact Info) Description 04/01/2025 10:00 AM EDT Office Visit [facility] Pulmonary Critical Care and Sleep [address] [facility] [address] [place] [phone] Salvador Woodard MD [address] [facility] [address] [place] [address] 1 YFU lungs 04/21/2025 9:30 AM EDT Office Visit [facility] [address] [facility] [place] [address] O'Rosalba, Vinicio Brown MD [address] [place], [place] [address] awv documented as of this encounter Procedures Procedure Name Priority Date/Time Associated Diagnosis Comments POCT URINALYSIS DIPSTICK Routine 09/05/2013 4:07 PM EST Chills with fever Back pain CULTURE, URINE Routine 09/05/2013 4:07 PM EST Abnormal urinalysis documented in this encounter Results * POCT Urinalysis no Micro (09/05/2013 4:07 PM EST) Color, UA Yellow Clarity, UA cloudy Glucose, UA POC Neg Bilirubin, UA Neg Ketones, UA Pos Comment:+ Spec Grav, UA 1.010 Blood, UA POC Pos Comment:250 pH, UA 5.0 Protein, UA POC Neg Urobilinogen, UA Neg Leukocytes, UA Neg Nitrite, UA Neg 09/05/2013 4:07 PM EST Kye Avila MD POINT OF CARE TEST ORDERABLES * Urine culture (09/05/2013 4:07 PM EST) URINE SPECIMEN / Unknown 09/05/2013 4:07 PM EST 09/05/2013 10:50 PM EST Narrative [facility] - 09/07/2013 9:20 AM EST ?ORDERED BY: KYE AVILA SOURCE: Urine Clean Catch ?COLLECTED: ??09/05/13 16:07 [facility] AT [place].: ?RECEIVED : ??09/05/13 22:50 Culture, Urine ? FINAL ? 09/07/13 09:20 No growth at 24-48 hours Kye Avila MD MICROBIOLOGY - GENE RAL ORDERABLES [facility] [address] [place] [address] documented in this encounter Visit Diagnoses Diagnosis Chills with fever- Primary Fever, unspecified Myalgia Mylagia and myositis, unspecified Abnormal urinalysis Other nonspecific finding on examination of urine Back pain Backache, unspecified documented in this encounter Care Teams Mill Beam Fitter Relationship Specialty Start Date End Date Kye Avila MD PCP - General Family Medicine 10/04/12 03/25/15 documented as of this encounter
--- OUTSIDE RECORDS SUMMARY | 2024-08-21 07:07 | XMS_ITS | Encounter Summary ---
Author Organization Juan Raine[employer]habbir [employer] [facility] Address [address] [place] [address] Care Team Providers Care Mechanic'S Assistant Name Role Phone Pineda Cheema MD Primary Care Provider Reason for Referral * Physical Medicine (Routine) - Closed Specialty Diagnoses / Procedures Referred By Jean Claude hallman Referred To Contact Physical Therapy Diagnoses Radicular pain in left arm Pineda Cheema MD [address] [place] [address] Referral ID Status Reason Start Date Expiration Date Visits Re quested Visits Authorized [id number] Closed 01/09/2012 07/07/2012 1 1 Comments [facility] [phone] Reason for Visit * Reason Onset Date Comments Other 01/09/2012 Encounter Details Date Type Department Care Team (Late st Contact Info) Description 01/09/2012 Telephone [facility] [address] [place] [address] Pineda Cheema MD [address] [place] [address] Other Social History Tobacco Use Types Packs/Day [...] Description 04/01/2025 10:00 AM EDT [facility] [address] [facility] [address] [place] [address] Salvador Woodard MD [address] [facility] [address] [place] [address] 1 YFU lungs 04/21/2025 9:30 AM EDT Office Visit [facility] [address] [facility] [place] [address] O'Rosalba, Vinicio Brown MD [address] [place] [address] awv Scheduled Referrals Name Type Priority Associated Diagnoses Order Schedule Ambulatory referral to Physical Therapy Outpatient Referral Routine Radicular pain in left arm Ordered: 01/09/2012 documented as of this encounter Visit Diagnoses Diagnosis Radicular pain in left arm- Primary Neuralgia, neuritis, and radiculitis, unspecified documented in this encounter Care Teams Mechanic'S Assistant Relationship Specialty Start Date End Date Pineda Cheema MD [address] [facility] [place] [address] PCP - General Family Medicine 06/30/10 10/03/12 documented as of this encounter
--- OUTSIDE RECORDS SUMMARY | 2024-08-21 07:07 | XMS_ITS | Encounter Summary ---
Author Organization Juan Ramos [facility] Address [address] [place] [address] Care Team Providers Care Wood Miller Name Role Phone Pineda Cheema MD Primary Care Provider [phone] Encounter Details Date Type Department Care Team (Late st Contact Info) Description 04/13/2015 Orders Only [facility] [address] [place] [phone] Pineda Cheema MD [address] [place] [address] Social History Tobacco Use Types Packs/Day Years [...] 10:00 AM EDT Office Visit [facility] Pulmonary Critical Care and Sleep [address] [facility] [address] [place], [place] [phone] Salvador Woodard MD [address] [facility] [address] [place] [address] 1 YFU lungs 04/21/2025 9:30 AM EDT Office Visit [facility] [address] [facility] [place] [address] O'Rosalba, Vinicio Brown MD [address] [place], [place] [phone] awv documented as of this encounter Visit Diagnoses Not on filedocumented in this encounter Care Teams Wood Miller Relationship Specialty Start Date End Date Pineda Cheema MD [address] [place], [place] [phone] PCP - General 03/27/15 04/19/15 documented as of this encounter
--- OUTSIDE RECORDS SUMMARY | 2024-08-21 07:07 | XMS_ITS | Encounter Summary ---
Author Organization Juan Larry [facility] Address [address] [place] [address] Care Team Providers Care Dough Mixer Name Role Phone Stewart Tejeda MD Primary Care Provider Reason for Visit * Reason Comments Establish Care knee problems,was gi kaushik steroids for right knee swelling. fluid is still there though Encounter Details Date Type Department Care Team (Late st Contact Info) Description 10/25/2012 9:00 AM EST Office Visit [facility] Medicine [address] [place] [address] [phone] Stewart Tejeda MD [address] [facility] [place] [place] [address] Knee pain, right (Primary Dx); Need for Tdap vaccination; Screening, lipid Social History Tobacco Use Types [...] Sign Reading Time Taken Comments Blood Pressure 116/78 10/25/2012 9:25 AM EST Pulse 86 10/25/2012 9:25 AM EST Temperature 36.6 ??C (97.8 ??F) 10/25/2012 9:25 AM ES T Respiratory Rate 18 10/25/2012 9:25 AM EST Oxygen Saturation 98% 10/25/2012 9:25 AM EST Inhaled Oxygen Concentration - - Weight 59 kg (130 lb) 10/25/2012 9:25 AM EST Height 162.6 cm (5' 4 ) 10/25/2012 9:25 AM EST Body Mass Index 22.31 10/25/2012 9:25 AM EST documented in this encounter Progress Notes * Jade Davalos - 11/02/2012 2:00 PM EST Results did not link up with order. Completed. * Stewart Tejeda MD - 10/25/2012 9:41 AM EST Subjective: Patient ID: Karlie Love is a 62 y.o. female. HPI: 62 y.o. former pt of Dr Cheema in to establish with me. Pt complaining of right knee pain (but this has mostly resolved. Pt still wanted to establish with me though Past Medical History Diagnosis Date ??? Bronchiectasis 2006 PFT 06/27 with mild obsctruction and not reversible ??? Colon polyp 2005 q 3 years Current Outpatient Prescriptions on File Prior to Visit Medication Sig Dispense Refill ??? Multiple Vitamin (MULTIVITAMIN PO) Take by mouth. ??? vitamin B-12 (CYANOCOBALAMIN) 100 MCG tablet Take 500 mcg by mouth daily. ??? vitamin D (CHOLECALCIFEROL) 400 UNIT TABS tablet Take 400 Units by mouth daily. ??? ibuprofen (ADVIL;MOTRIN) 200 MG tablet Take 400 mg by mouth nightly. No current facility-administered medications on file prior to visit. , feels safe at home, no hx of abuse, nonsmoker, occ wine 1/week, ill: none, no hx. Past Surgical History Procedure Laterality Date ??? Appendectomy ??? Colonoscopy ??? Hernia repair inguinal ??? Colonoscopy 08/01/11 normal Knee: hx of issues with the right knee (filled up with fluid). Pt's got swollen 1 month ago. Went to urgent care, got steroid, swelling resolved. Review of Systems Constitutional: Negative for fever, [...] Negative for dysuria and difficulty urinating. Musculoskeletal: Positive for arthralgias. Skin: Negative for rash. BP 116/78 Pulse 86 Temp(Src) 97.8 ??F (36.6 ??C) (Oral) Resp 18 Ht 5' 4 (1.626 m) Wt 130lb (58.968 kg) BMI 22.3 kg/m2 SpO2 98% Objective: Physical Exam Nursing [...] no rales. She exhibits no tenderness. Musculoskeletal: Normal range of motion. She exhibits no edema and no tenderness. Lymphadenopathy: She has no cervical adenopathy. Skin: No rash noted. She is not diaphoretic. Assessment: Knee pain. Plan: Resolved. Use ice elevation and ibuprofen if this occurs. Will check uric acid level and get xray today. documented in this encounter Plan of Treatment Upcoming Encounters Date Type Department Care Team (Late st Contact Info) Description 04/01/2025 10:00 AM EDT Office Visit [facility] Pulmonary Critical Care and Sleep [address] [facility] [address] [place] [address] Salvador Woodard MD [address] [facility] [address] [place], [place] [id number] 1 YFU lungs 04/21/2025 9:30 AM EDT Office Visit [facility] [address] [place] [address] O'Rosalba, Vinicio Brown MD [address] [place] [address] awv Scheduled Orders Name Type Priority Associated Diagnoses Orde r Schedule X-ray knee right AP and lateral Imaging Routine Knee pain, right Ordered: 10/25/2012 Uric acid Lab Routine Knee pain, right Ordered: 10/25/2012 documented as of this encounter Procedures Procedure Name Priority Date/Time Associated Diagnosis Comments LIPID PANEL Routine 10/25/2012 10:21 AM EST Screening, lipid COMPREHENSIVE METABOLIC PANEL Routine 10/25/2012 10:21 AM EST Screening, lipid documented in this encounter Results * (ABNORMAL) Comprehensive metabolic panel (10/25/2012 10:21 AM EST) Sodium 140 136 - 145 mEq/L [facility] Potassium 4.4 3.5 - 5.1 mEq/L [facility] Chloride 103 99 - 110 mEq/L [facility] CO2 32 21 - 32 mEq/L [facility] Glucose 92 70 - 99 mg/dl [facility] BUN 21(H) 7 - 18 mg/dl [facility] Creatinine 0.9 0.6 - 1.2 mg/dl [facility] Total Protein 7.1 6.4 - 8.2 gm/dl [facility] Albumin 4.3 3.4 - 5.0 gm/dl [facility] Albumin/Globulin Ratio 1.5 1.1 - 2.2 [facility] Total Bilirubin 0.80 0.0 - 1.0 mg/dl [facility] Alkaline Phosphatase 60 45 - 129 U/L [facility] AST 23 15 - 37 U/L [facility] ALT 26 10 - 40 U/L [facility] Calcium 9.7 8.3 - 10.6 mg/dl [facility] Est, Glom Filt Rate >60 >60 mL/min/1.7 3m2 [facility] GFR Est, /Amer >60 SEE BELOW [facility] Comment: >60 mL/min/1.73m2 EGFR, calc. for ages 18 & older using the MDRD formula (not corrected for weight),is valid for stable renal function. Blood (substance) BLOOD SPECIMEN / Unknown 10/25/2012 10:21 AM EST 10/25/2012 4:37 PM EST Narrative [facility] - 10/25/2012 9:46 PM EST FASTING-12 FASTING-12 Stewart Tejeda MD CHEMISTRY ORDERABLE S Performing Organization Address [facility] Co de Phone Number [address] [phone] * (ABNORMAL) Lipid panel (10/25/2012 10:21 AM EST) Cholesterol, Total 231(H) <200 mg/dl [facility] Triglycerides 87 <150 mg/dl [facility] HDL 87(H) 40 - 60 mg/dl [facility] LDL Calculated 127(H) <100 mg/dl [facility] VLDL Cholesterol Calculated 17 Not Established mg/dl [facility] Blood (substance) BLOOD SPECIMEN / Unknown 10/25/2012 10:21 AM EST 10/25/2012 4:37 PM EST Narrative [facility] - 10/25/2012 9:46 PM EST FASTING-12 FASTING-12 Stewart Tejeda MD CHEMISTRY ORDERABLE S Performing Organization Address [facility]/ZIP Co de Phone Number [address] [phone] documented in this encounter Visit Diagnoses Diagnosis Knee pain, right- Primary Pain in joint, lower leg Need for Tdap vaccination Need for prophylactic vaccination with combined ntkteqihox-pniodvb-imwgoddyr (DTP) vaccine Screening, lipid Screening for lipoid disorders documented in this encounter Care Teams Dough Mixer Relationship Specialty Start Date End Date Stewart Tejeda MD PCP - General Family Medicine 10/04/12 03/25/15 documented as of this encounter
--- OUTSIDE RECORDS SUMMARY | 2024-08-21 07:07 | XMS_ITS | Encounter Summary ---
Author Organization Juan Larry [employer] [facility] [employer] Address [address] [place] [address] Care Team Providers Care Studio Artist Name Role Phone Stewart Tejeda MD Primary Care Provider [phone] Reason for Visit * Reason Comments Hip Pain Pt c/o left hip pain x 3 days Encounter Details Date Type Department Care Team (Late st Contact Info) Description 03/12/2015 3:15 PM EDT Office Visit [facility] Medicine [address] [place] [address] [phone] Stewart Tejeda MD [address] [facility] [place] [address] Hip bursitis, left (Primary Dx) Social History Tobacco Use Types [...] Sign Reading Time Taken Comments Blood Pressure 120/78 03/12/2015 3:20 PM EDT Pulse 60 03/12/2015 3:20 PM EDT Temperature 36.8 ??C (98.2 ??F) 03/12/2015 3:20 PM ED T Respiratory Rate - - Oxygen Saturation 90% 03/12/2015 3:20 PM EDT RA Inhaled Oxygen Concentration - - Weight 55.8 kg (123 lb) 03/12/2015 3:20 PM EDT Height 162.6 cm (5' 4 ) 03/12/2015 3:20 PM EDT Body Mass Index 21.11 03/12/2015 3:20 PM EDT documented in this encounter Progress Notes * Stewart Tejeda MD - 03/15/2015 11:42 AM EDT Subjective: Patient ID: Karlie Love is a 65 y.o. female. Hip Pain There was no injury mechanism. The pain is present in the left hip. The quality of the pain is described as aching and shooting. The pain is moderate. The pain has been worsening since onset. Pertinent negatives include no inability to bear weight, loss of motion, loss of sensation, muscle weakness, numbness or tingling. She reports no foreign bodies present. The symptoms are aggravated by movement, palpation and weight bearing. She has tried NSAIDs for the symptoms. The treatment provided mildrelief. : 65 y.o. in for Chief Complaint Patient presents with ??? Hip Pain Pt c/o left hip pain x 3 days Review of Systems Neurological: Negative for tingling and numbness. Objective: [...] She exhibits no tenderness. Musculoskeletal: She exhibits tenderness. Tenderness over the left hip greater trochanter with normal ROM of both hips. Lymphadenopathy: She has no cervical adenopathy. Skin: No rash noted. She is not diaphoretic. Nursing note and vitals reviewed. Assessment: Left hip bursitis with mod 25 for steroid injection Plan: Discussed treatment options Naproxen, rest ice, flexeril (no driving with this) Mod 25 for injection: Left Greater trochanteric bursa injection: After informed consent: 1ml marcaine mixed with 120mg depo-medrol (1.5ml). The patient was placed on the table seated. The injection site was marked with pressure from the needle cap producing a table mountain imprint in the skin. The area was then cleaned with isopropyl alcohol swab and then Beta-Dyne. Atthe site of maximum tenderness, the solution was injected after inserting the 1.5 inch needle to bone then slightly pulling back.. No resistance occurred. the patient tolerated the procedure well. Nobleeding. Bandage was placed. Karlie was seen today for hip pain. Diagnoses and associated orders for this visit: Hip bursitis, left - methylPREDNISolone acetate (DEPO-MEDROL) injection 120 mg; Inject 1.5 mLs into the muscle once - - CO DRAIN/INJECT LARGE JOINT/BURSA Other Orders - cyclobenzaprine (FLEXERIL) 5 MG tablet; Take 1 tablet by mouth every 8 hours as needed for Musclespasms - naproxen (NAPROSYN) 500 MG tablet; Take 1 tablet by mouth 2 times daily (with meals) documented in this encounter Plan of Treatment Upcoming Encounters Date Type Department Care Team (Late st Contact Info) Description 04/01/2025 10:00 AM EDT Office Visit [facility] Pulmonary Critical Care and Sleep [address] [facility] [address] [place] [address] Salvador Woodard MD [address] [facility] [address] [place] [address] 1 YFU lungs 04/21/2025 9:30 AM EDT Office Visit [facility] Medicine [address] [facility] [place] [address] Vinicio Calvert MD [address] [place] [address] awv documented as of this encounter Visit Diagnoses Diagnosis Hip bursitis, left- Primary Enthesopathy of hip region documented in this encounter Administered Medications Inactive Administered Medications - up to 3 most recent administrations Medication Order MAR Action Action Date Dose Rate Site methylPREDNISolone acetate (DEPO-MEDROL) injection 120 mg 120 mg, IntraMUSCular, ONCE, 1 dose, On Hui 03/12/15 at 1700 Given 03/12/2015 4:43 PM EDT 120 mg Other documented in this encounter Care Teams Studio Artist Relationship Specialty Start Date End Date Stewart Tejeda MD PCP - General Family Medicine 10/04/12 03/25/15 documented as of this encounter
--- OUTSIDE RECORDS SUMMARY | 2024-08-21 07:07 | XMS_ITS | Encounter Summary ---
Author Organization Juan Larry [employer] [facility] Address [address] [place] [address] Care Team Providers Care Groover Operator Name Role Phone Stewart Tejeda MD Primary Care Provider [phone] Reason for Visit * Reason Comments Cough 2-3 weeks, green pro ductive cough, had slight sore throat, no fever. Encounter Details Date Type Department Care Team (Late st Contact Info) Description 04/02/2014 9:45 AM EDT Office Visit [facility] Medicine [address] [place] [address] [phone] Stewart Tejeda MD [address] [facility] [place], [place] [id number] URI (upper respiratory infection) (Primary Dx) Social History Tobacco Use Types [...] Sign Reading Time Taken Comments Blood Pressure 112/72 04/02/2014 9:44 AM EDT Pulse 72 04/02/2014 9:44 AM EDT Temperature 36.7 ??C (98 ??F) 04/02/2014 9:44 AM EDT Respiratory Rate 16 04/02/2014 9:44 AM EDT Oxygen Saturation 98% 04/02/2014 9:44 AM EDT Inhaled Oxygen Concentration - - Weight 56.7 kg (125 lb) 04/02/2014 9:44 AM EDT Height - - Body Mass Index 21.46 09/05/2013 3:06 PM EST documented in this encounter Progress Notes * Stewart Tejeda MD - 04/02/2014 10:24 AM EDT Subjective: Patient ID: Karlie Love is a 64 y.o. female. Cough The current episode started 1 to 4 weeks ago. The problem has been gradually worsening. The problemoccurs every few minutes. The cough is productive of sputum. Associated symptoms include chills, a fever, nasal congestion, postnasal drip, rhinorrhea and a sore throat. Pertinent negatives include no ear pain, headaches, shortness of breath or wheezing. The symptoms are aggravated by lying down. She has tried nothing for the symptoms. There is no history of asthma, COPD or pneumonia. : 64 y.o. in for Chief Complaint Patient presents with ??? Cough 2-3 weeks, green productive cough, had slight sore throat, no fever. ear pressure but it resolved. The sx's are about the same Pt saw CUSTOMER PROGRAM MANAGER who gave her sample of symbicort, but the pt states the offal baler said there was no wheezing. Pt still coughing. Has no albuterol, the symbicort does not help. Review of Systems Constitutional: Positive for fever and chills. HENT: Positive for sore throat, rhinorrhea and postnasal drip. Negative for ear pain. Respiratory: Positive for cough. Negative for shortness of breath and wheezing. Neurological: Negative for headaches. Objective: Physical Exam Constitutional: She [...] diaphoretic. Nursing note and vitals reviewed. Assessment: cough Plan: Zpak tessalon, supportive care, fluids Karlie was seen today for cough. Diagnoses and associated orders for this visit: URI (upper respiratory infection) Other Orders - azithromycin (ZITHROMAX) 250 MG tablet; 2 tabs po on day 1, then 1 tab po daily on days 2-5 - benzonatate (TESSALON) 200 MG capsule; Take 1 capsule by mouth 3 times daily as needed for Cough for up to 7 days. documented in this encounter Plan of Treatment Upcoming Encounters Date Type Department Care Team (Late st Contact Info) Description 04/01/2025 10:00 AM EDT Office Visit [facility] Pulmonary Critical Care and Sleep [address] [facility] [address] [place] [address] [phone] Salvador Woodard MD [address] [address] 1 YFU lungs 04/21/2025 9:30 AM EDT Office Visit [facility] Family Medicine [address] [place] [address] O'Rosalba, Vinicio Brown MD [address] [place] [address] awv documented as of this encounter Visit Diagnoses Diagnosis URI (upper respiratory infection)- Primary Acute upper respiratory infections of unspecified site documented in this encounter Care Teams Groover Operator Relationship Specialty Start Date End Date Stewart Tejeda MD PCP - General Family Medicine 1/17/13 7/8/15 documented as of this encounter
--- OUTSIDE RECORDS SUMMARY | 2024-08-21 07:07 | XMS_ITS | Encounter Summary ---
Author Organization Juan Larry [facility] Address [address] [place] [address] Care Team Providers Care Card Punching Machine Operator Name Role Phone Stewart Tejeda MD Primary Care Provider Reason for Referral * Imaging (Routine) - Closed Specialty Diagnoses / Procedures Referred By Laurieac t Referred To Contact Radiology Diagnoses Lung nodule Abnormal chest x-ray Procedures CT Chest WO Contrast Stewart Tejeda MD [address] [place] [address] Referral ID Status Reason Start Date Expiration Date Visits Re quested Visits Authorized [id number] Closed 04/13/2015 04/12/2016 1 1 Reason for Visit * Imaging (Routine) - Closed Specialty Diagnoses / Procedures Referred By Jean Claude hallman Referred To Contact Radiology Diagnoses Lung nodule Abnormal chest x-ray Procedures CT Chest WO Contrast Stewart Tejeda MD [address] [place] [address] Referral ID Status Reason Start Date Expiration Date Visits Re quested Visits Authorized [id number] Closed 04/13/2015 04/12/2016 1 1 Encounter Details Date Type Department Care Team (Latest Contact Info) Description 04/23/2015 12:42 AM EDT - 04/23/2015 11:59 PM EDT Hospital Encounter [facility] Scan [address] [place] [address] Stewart Tejeda MD [address] [facility] [place] [address] Lung nodule; Abnormal chest x-ray Discharge Disposition: OP AUTODISCHARGED Social History Tobacco [...] 04/01/2025 10:00 AM EDT Office Visit [facility] Pulmonary Critical Care and Sleep [address] [facility] [address] [place] [address] Salvador Woodard MD [address] [facility] [place] [address] 1 YFU lungs 04/21/2025 9:30 AM EDT Office Visit [facility] [address] [place] [address] O'Rosalba, Vinicio Brown MD [address] [place], [place] [phone] awv documented as of this encounter Procedures Procedure Name Priority Date/Time Associated Diagnosis Comments CT CHEST WO CONTRAST Routine 04/23/2015 1:30 PM EDT Lung nodule Abnormal chest x-ray documented in this encounter Results * CT Chest WO [...] in this encounter Visit Diagnoses Diagnosis Lung nodule Solitary pulmonary nodule Abnormal chest x-ray Other nonspecific abnormal finding of lung field documented in this encounter Care Teams Card Punching Machine Operator Relationship Specialty Start Date End Date Stewart Tejeda MD PCP - General 04/20/15 06/15/15 documented as of this encounter
--- OUTSIDE RECORDS SUMMARY | 2024-08-21 07:07 | XMS_ITS | Encounter Summary ---
Author Organization Juan Larry [employer] Address [address] [place] [address] Care Team Providers Care Item Repair Manager Name Role Phone Stewart Tejeda MD Primary Care Provider [phone] Reason for Visit * Reason Comments Hip Pain Pt states her hip pa in is flaring up again x 3 days Encounter Details Date Type Department Care Team (Late st Contact Info) Description 03/26/2015 10:15 AM EDT Office Visit [facility] Medicine [address] [place] [phone] Stewart Tejeda MD [address] [facility] [place] [address] Bursitis (Primary Dx); Chronic cough; Hip pain, chronic, left Social History Tobacco Use Types Packs/Day Years [...] Sign Reading Time Taken Comments Blood Pressure 128/78 03/26/2015 10:34 AM EDT Pulse 73 03/26/2015 10:34 AM EDT Temperature 36.8 ??C (98.3 ??F) 03/26/2015 10:34 AM E DT Respiratory Rate - - Oxygen Saturation 96% 03/26/2015 10:34 AM EDT RA Inhaled Oxygen Concentration - - Weight 55.8 kg (123 lb) 03/26/2015 10:34 AM EDT Height 162.6 cm (5' 4 ) 03/26/2015 10:34 AM EDT Body Mass Index 21.11 03/26/2015 10:34 AM EDT documented in this encounter Progress Notes * Stewart Tejeda MD - 03/26/2015 1:19 PM EDT Subjective: Patient ID: Karlie Love is a 65 y.o. female. HPI: 65 y.o. in for Chief Complaint Patient presents with ??? Hip Pain Pt states her hip pain is flaring up again x 3 days Last visit was a couple weeks ago. Left bursitis of the hip was diagnosed and a steroid injection done. Pt got some relief from this but then 3 days ago the same flare seemed to happen again. There was no injury. It is hurting in the same place. Sitting bothers it, but walking/standing makes it better. Moving the hip does not bother her. The flexeril did nothing. The naproxen helped but she is not taking it. And only took it at night (was confused about this one, thought it was habit-forming/sedating) Review of Systems Constitutional: Negative for fever, chills, fatigue and unexpected weight change. Respiratory: Negative for chest tightness, shortness of breath, wheezing and stridor. Cardiovascular: Negative for chest pain and palpitations. Gastrointestinal: Negative for vomiting. Genitourinary: Negative for dysuria and difficulty urinating. Musculoskeletal: Positive for arthralgias. Negative for neck pain. Skin: Negative for rash. BP 128/78 Pulse 73 Temp(Src) 98.3 ??F (36.8 ??C) (Oral) Ht 5' 4 (1.626 m) Wt 123 lb (55.792 kg) BMI 21.10 kg/m2 SpO2 96% Objective: Physical Exam Constitutional: She appears well-developed [...] She exhibits no tenderness. Musculoskeletal: She exhibits tenderness (left greater trochanteric bursa- area tenderness). Lymphadenopathy: She has no cervical adenopathy. Skin: No rash noted. She is not diaphoretic. Nursing note and vitals reviewed. Assessment: Hip pain/ bursitis Plan: Get xrays Hip stretching exercises Take naproxen 500mg bid with food for at least 2 weeks, then prn Ice Chronic cough (been going on 6-8 weeks. Intermittent, non-smoker Get cxr Trial of nasonex and Claritin Karlie was seen today for hip pain. Diagnoses and associated orders for this visit: Bursitis - Cancel: XR Hip Bilateral 2 VW Chronic cough - Cancel: XR Chest Standard TWO VW Hip pain, chronic, left - Cancel: XR Hip Bilateral 2 VW Other Orders - mometasone (NASONEX) 50 MCG/ACT SUSP; 4 sprays by Nasal route daily (2 sprays up each nostril) documented in this encounter Plan of Treatment Upcoming Encounters Date Type Department Care Team (Late st Contact Info) Description 04/01/2025 10:00 AM EDT Office Visit [facility] Pulmonary Critical Care and Sleep [address] [facility] [address] [place] [phone] Salvador Woodard MD [address] [facility] [address] [place] [id number] 1 YFU lungs 04/21/2025 9:30 AM EDT Office Visit [facility] [address] [facility] [place] [address] O'Rosalba, Vinicio Brown MD [address] [place] [address] awv documented as of this encounter Visit Diagnoses Diagnosis Bursitis- Primary Other bursitis disorders Chronic cough Cough Hip pain, chronic, left documented in this encounter Care Teams Item Repair Manager Relationship Specialty Start Date End Date Stewart Tejeda MD PCP - General Family Medicine 03/26/15 03/26/15 documented as of this encounter
--- OUTSIDE RECORDS SUMMARY | 2024-08-21 07:07 | XMS_ITS | Encounter Summary ---
Author Organization Juan [facility] [employer] [facility] Address [address] [place] [address] Care Team Providers Care Human Geography Instructor Name Role Phone Unavailable Primary Care Provider Unavailabl e Reason for Visit * Reason Comments Hip Pain L Encounter Details Date Type Department Care Team (Late st Contact Info) Description 07/30/2015 11:15 AM EST Office Visit [facility] Medicine [address] [place] [address] [phone] Stewart Tejeda MD [address] [facility] [place], [place] [id number] Hip bursitis, left (Primary Dx); Arthralgia of left hip Social History Tobacco Use Types Packs/Day Years [...] Sign Reading Time Taken Comments Blood Pressure 126/78 07/30/2015 11:55 AM EST Pulse 64 07/30/2015 11:55 AM EST Temperature 36.7 ??C (98 ??F) 07/30/2015 11:55 AM EST Respiratory Rate - - Oxygen Saturation 96% 07/30/2015 11:55 AM EST Inhaled Oxygen Concentration - - Weight 57.6 kg (127 lb) 07/30/2015 11:55 AM EST Height 162.6 cm (5' 4 ) 07/30/2015 11:55 AM EST Body Mass Index 21.8 07/30/2015 11:55 AM EST documented in this encounter Progress Notes * Stewart Tejeda MD - 07/30/2015 10:22 PM EST Subjective: Patient ID: Karlie Love is a 65 y.o. female. Hip Pain There was no injury mechanism. The pain is present in the left hip. The quality of the pain is described as cramping and aching. The pain is moderate. The pain has been fluctuating since onset. Pertinent negatives include no inability to bear weight, loss of motion, loss of sensation, muscle weakness, numbness or tingling. She reports no foreign bodies present. The symptoms are aggravated by movement, weight bearing and palpation. She has tried NSAIDs for the symptoms. The treatment provided mild relief. : 65 y.o. in for Chief Complaint Patient presents with ??? Hip Pain L Pt has hx of bursitis. She is having the same lateral hip pain. Requesting a repeat hip injection. Review of Systems Constitutional: Negative for fever. Respiratory: Negative for shortness of breath. Cardiovascular: Negative for chest pain. Gastrointestinal: Negative. Musculoskeletal: Positive for arthralgias. Neurological: Negative for tingling and numbness. BP 126/78 mmHg Pulse 64 Temp(Src) 98 ??F (36.7 ??C) (Oral) Ht 5' 4 (1.626 m) Wt 127 lb (57.607 kg) BMI 21.79 kg/m2 SpO2 96% ? No Objective: Physical [...] exhibits no tenderness. Musculoskeletal: She exhibits tenderness. She exhibits no edema. Left hip with good ROM and tenderness over the greater trochanteric bursa Lymphadenopathy: She has no cervical adenopathy. Skin: No rash noted. She is not diaphoretic. Nursing note and vitals reviewed. Assessment: Hip bursitis with Mod 25 for ursa steroid injection (see note below) Plan: Discussed risks/ benefits. Been over 3 months since the last injection and it worked very well (pain restarted in the last week) See procedure note below. Use otc nsaid and ice as needed Procedure note: Greater trochanteric bursa injection: After informed consent: 1.5ml marcaine mixed with 120 mg depo-medrol (1.5ml). The patient was placed on the table seated. The injection site was marked with pressure from the needle cap producing a [place] imprint in the skin. The area was then cleaned with isopropyl alcohol swab and then Beta-Dyne.At the site of maximum tenderness, the solution was injected after inserting the 1.5 inch needle tobone then slightly pulling back.. No resistance occurred. the patient tolerated the procedure well.No bleeding. Bandage was placed. Karlie was seen today for hip pain. Diagnoses and associated orders for this visit: Hip bursitis, left - - FL DRAIN/INJECT LARGE JOINT/BURSA Arthralgia of left hip - - FL DRAIN/INJECT LARGE JOINT/BURSA Other Orders - methylPREDNISolone acetate (DEPO-MEDROL) injection 120 mg; Inject 1.5 mLs into the articular space once documented in this encounter Plan of Treatment Upcoming Encounters Date Type Department Care Team (Late st Contact Info) Description 04/01/2025 10:00 AM EDT Office Visit [facility] Pulmonary Critical Care and Sleep [address] [facility] [address] [place] [address] Salvador Woodard MD [address] [facility] [address] [place] [address] 1 YFU lungs 04/21/2025 9:30 AM EDT Office Visit [facility] [address] [place] [address] O'Rosalba, Vinicio Brown MD [address] [place] [id number] awv documented as of this encounter Visit Diagnoses Diagnosis Hip bursitis, left- Primary Enthesopathy of hip region Arthralgia of left hip documented in this encounter Administered Medications Inactive Administered Medications - up to 3 most recent administrations Medication Order MAR Action Action Date Dose Rate Site methylPREDNISolone acetate (DEPO-MEDROL) injection 120 mg 120 mg, Intra-artICUlar, ONCE, 1 dose, On Hui 07/30/15 at 2300 Given 08/04/2015 8:46 AM EST 120 mg Left Arm documented in this encounter
--- OUTSIDE RECORDS SUMMARY | 2024-08-21 07:07 | XMS_ITS | Encounter Summary ---
Author Organization [facility] Address [address] [place] [address] Care Team Providers Care Gear Roller Name Role Phone Pineda Cheema MD Primary Care Provider [phone] Encounter Details Date Type Department Care Team (Late st Contact Info) Description 03/27/2015 Orders Only [facility] Medicine [address] [place] [address] [phone] Stewart Tejeda MD [address] [facility]. [address] [place], [place] [id number] Social History Tobacco Use Types Packs/Day Years [...] 10:00 AM EDT Office Visit [facility] Pulmonary Critical Care and Sleep [address] [facility] [address] [place] [address] [phone] Salvador Woodard MD [address] [facility] [address] [place] [address] 1 YFU lungs 04/21/2025 9:30 AM EDT Office Visit [facility] [address] [place] [address] O'Rosalba, Vinicio Brown MD [address] [place], [place] [phone] awv documented as of this encounter Visit Diagnoses Not on filedocumented in this encounter Care Teams Gear Roller Relationship Specialty Start Date End Date Pineda Cheema MD [address] [place], [place] [phone] PCP - General 03/27/15 04/19/15 documented as of this encounter
--- OUTSIDE RECORDS SUMMARY | 2024-08-21 07:08 | XMS_ITS | Encounter Summary ---
Author Organization Juan [employer] [facility] Address [address] [place] [address] Care Team Providers Care Water Resources Engineer Name Role Phone Pineda Cheema MD Primary Care Provider [phone] Reason for Visit * Reason Comments Results PFTs Encounter Details Date Type Department Care Team (Late st Contact Info) Description 07/28/2010 11:00 AM EST Office Visit [facility] Medicine [address] [place] [address] [phone] Pineda Cheema MD [address] [place] [address] [phone] Bronchiectasis; Rash Social History Tobacco Use Types Packs/Day Years [...] Sign Reading Time Taken Comments Blood Pressure 156/76 07/28/2010 11:04 AM EST Pulse 56 07/28/2010 11:04 AM EST Temperature - - Respiratory Rate - - Oxygen Saturation - - Inhaled Oxygen Concentration - - Weight 59 kg (130 lb) 07/28/2010 11:04 AM EST Height - - Body Mass Index - - documented in this encounter Progress Notes * Pineda Cheema MD - 07/28/2010 12:37 PM EST Karlie Love is a 60 y.o. female who presents today with complaints of follow up labs and PFT's. She states she is doing well without complaints. She did have PFT with mild irreversible lung obstruction. She had been on advair in the past and did not tolerate it. She also had labs drawn which were normal and we reviewed today. She still has the rash on her feet that she was the Derm for in the pastand never had a biopsy done. There is no problem list on file for this patient. Past Medical History Diagnosis Date ??? Bronchiectasis 2005 PFT 06/27 with mild obsctruction and not reversible ??? Colon polyp 2006 q 3 years Current outpatient prescriptions Medication Sig Dispense Refill ??? mometasone (ASMANEX 30 METERED DOSES) 220 MCG/INH inhaler Inhale 1 puff into the lungs daily. 1Inhaler 6 ??? Multiple Vitamin (MULTIVITAMIN PO) Take by mouth. ??? vitamin B-12 (CYANOCOBALAMIN) 100 MCG tablet Take 500 mcg by mouth daily. ??? vitamin D (CHOLECALCIFEROL) 400 UNIT TABS tablet Take 400 Units by mouth daily. ??? ibuprofen (ADVIL;MOTRIN) 200 MG tablet Take 400 mg by mouth nightly. No Known Allergies History Substance Use Topics ??? Tobacco Use: Never ??? Alcohol Use: 0.6 oz/week 1 Glasses of wine per week Ocas Pertinent items are noted in HPI. OBJECTIVE: BP 156/76 Pulse 56 Wt 130 lb (58.968 kg) General appearance: alert, appears stated age and cooperative Head: Normocephalic, without obvious abnormality, atraumatic Lungs: clear to auscultation bilaterally Heart: regular rate and rhythm, S1, S2 normal, no murmur, click, rub or gallop Skin: bilateral feet with geographic erythematous macular eruption that banches and is found on thedorsal feet ASSESSMENT/PLAN 1. Bronchiectasis (494.0E) 2. Rash (782.1R) Will follow up if she would like a punch biopsy. Start asmanex for obstructive lung disease and return 6 months. Again encouraged to get a colonoscopy documented in this encounter Plan of Treatment Upcoming Encounters Date Type Department Care Team (Late st Contact Info) Description 04/01/2025 10:00 AM EDT Office Visit [facility] Pulmonary Critical Care and Sleep [address] [facility] [address] [place], [place] [phone] Salvador Woodard MD [address] [facility] [address] [place] [phone] 1 YFU lungs 04/21/2025 9:30 AM EDT Office Visit [facility] [address] [facility] [place], [place] [phone] O'Vinicio Navarrete MD [address] [place], [place] [phone] awv documented as of this encounter Visit Diagnoses Diagnosis Bronchiectasis (HCC) Bronchiectasis without acute exacerbation Rash Rash and other nonspecific skin eruption documented in this encounter Care Teams Water Resources Engineer Relationship Specialty Start Date End Date Pineda Cheema MD [address] [place], [place] [phone] PCP - General Family Medicine 06/30/10 10/03/12 documented as of this encounter
--- OUTSIDE RECORDS SUMMARY | 2024-08-21 07:08 | XMS_ITS | Clinical Summary ---
Author Organization Healthcare Address [address] [place] [address] Care Team Providers Care Screen Making Supervisor Name Role Phone Unavailable Primary Care Provider Unavailabl e Social History Tobacco Use Types Packs/Day Years Used Date Smoking Tobacco: Never Assessed Comments Unknown Sex and Gender Information Value Date Recorded Sex Assigned at Not on file Legal Sex Female 1:04 PM EDT Gender Identity Not on file Sexual Orientation Not on file Plan of Treatment Health Maintenance Due Date Last Done Comments [facility]-Bone Density Scan 1950 [facility]-Depression Screening 1950 [facility]-Infant/Child/Adol SDOH Screenings 1950 [facility]- SDOH Screenings 1968 [facility]-Adult SDOH Screenings 1968 CT Colonography 1995 Colonoscopy 1995 FIT-DNA 1995 FIT 1995 FOBT 1995 Sigmoidoscopy 1995 [facility]-Colorectal Cancer Screening 1995 [facility]-Zoster Vaccines (1 of 2) 2000 AXT-TYNOK-53 Vaccine ( season) 2024 07/11/2022, 08/27/2021, 01/21/2021, Additional history exists [facility]-Influenza Vaccine (#1) 05/19/202406/07, 06/14/2021, 06/08/2021, Additional history exists [facility]-RSV Vaccine: 60+ Years or (1 - 1-dose 75+ series) 2025 [facility]-DTaP,Tdap,and Td Vaccines (3 - Td or Tdap) 06/14/2027 06/14/2017, 10/25/2012 [facility]-Pneumococcal Vaccine: 65+ Years Completed 01/30/2019, 01/09/2018 [facility]-HIB Vaccines Aged Out No longer e ligible based on patient's age to complete this topic [facility]-HPV Vaccines Aged Out No longer e ligible based on patient's age to complete this topic [facility]-Hepatitis A Vaccines Aged Out No longer eligible based on patient's age to complete this topic [facility]-IPV Vaccines Aged Out No longer e ligible based on patient's age to complete this topic [facility]-Rotavirus Vaccines Aged Out No lo nger eligible based on patient's age to complete this topic Insurance MEDICARE [employer]ET[employer]
--- OUTSIDE RECORDS SUMMARY | 2024-08-21 07:08 | XMS_ITS | Encounter Summary ---
Author Organization Juan Larry [employer] [facility] Address [address] [place] [address] Care Team Providers Care Coordinator Of Library Services Name Role Phone Pineda Cheema MD Primary Care Provider [phone] Reason for Visit * Reason Comments Cough Greenish Mucous - X 2 Weeks Chest Congestion Taking Mucinex DM & Tylenol Cold - Also finished Z Monday Encounter Details Date Type Department Care Team (Late st Contact Info) Description 11/18/2010 9:45 AM EST Office Visit [facility] Medicine [address] [place] [address] [phone] Pineda Cheema MD [address] [place] [address] [phone] Bronchitis (Primary Dx) Social History Tobacco Use Types [...] Sign Reading Time Taken Comments Blood Pressure 139/81 11/18/2010 9:51 AM EST Pulse 62 11/18/2010 9:51 AM EST Temperature - - Respiratory Rate - - Oxygen Saturation 100% 11/18/2010 9:51 AM EST Inhaled Oxygen Concentration - - Weight 58.5 kg (129 lb) 11/18/2010 9:51 AM EST Height 162.6 cm (5' 4 ) 11/18/2010 9:51 AM EST Body Mass Index 22.14 11/18/2010 9:51 AM EST documented in this encounter Progress Notes * Pineda Cheema MD - 11/18/2010 10:18 AM EST Subjective: Karlie Love is a 60 y.o. female who presents for evaluation of symptoms of a URI. Symptoms include congestion and cough described as without wheezing, dyspnea or hemoptysis, productive of green/yellowsputum. Onset of symptoms was 2 weeks ago, gradually improving since that time. Treatment to date: decongestants, antibiotics, mucinex. She is s/p ZPACK but sx's have not yet completely creased. There is some improvement. No fever, SOB or wheeze. Not much head congestion. Patient's medications, allergies, past medical, surgical, social and family histories were reviewedand updated as appropriate. Review of Systems Pertinent items are noted in HPI. Objective: BP 139/81 Pulse 62 Ht 5' 4 (1.626 m) Wt 129 lb (58.514 kg) BMI 22.14 kg/m2 SpO2 100% General appearance: alert, appears stated age and [...] no tenderness/mass/nodules Lungs: clear to auscultation bilaterally and reare wheeze in the left low lung field Heart: regular rate and rhythm, S1, S2 normal, no murmur, click, rub or gallop Assessment: bronchitis Plan: Discussed dx and tx of URIs Suggested symptomatic OTC remedies. Nasal saline sprays for congestion. Amoxicillin per orders. RTC prn. Call 1-2 weeks for chest xray. documented in this encounter Plan of Treatment Upcoming Encounters Date Type Department Care Team (Late st Contact Info) Description 04/01/2025 10:00 AM EDT Office Visit [facility] Pulmonary Critical Care and Sleep [address] [facility] [address] [place] [address] Salvador Woodard MD [address] [facility] [address] [place], [place] [phone] 1 YFU lungs 04/21/2025 9:30 AM EDT Office Visit [facility] [address] [facility] [place], [place] [phone] O'Vinicio Navarrete MD [address] [place], [place] [phone] awv documented as of this encounter Visit Diagnoses Diagnosis Bronchitis- Primary Bronchitis, not specified as acute or chronic documented in this encounter Care Teams Coordinator Of Library Services Relationship Specialty Start Date End Date Pineda Cheema MD [address] [place], [place] [phone] PCP - General Family Medicine 06/30/10 10/03/12 documented as of this encounter
--- OUTSIDE RECORDS SUMMARY | 2024-08-21 07:08 | XMS_ITS | Encounter Summary ---
Author Organization [facility] Address [address] [place] [address] Care Team Providers Care Pad Assembler Name Role Phone Pineda Cheema MD Primary Care Provider [phone] Encounter Details Date Type Department Care Team (Late st Contact Info) Description 07/08/2010 2:24 AM EDT - 07/08/2010 11:59 PM EDT Hospital Encounter [facility] [address] [place], [place] [phone] Pineda Cheema MD [address] [place] [address] Discharge Disposition: OP AUTODISCHARGED Social History Tobacco [...] Hospital Pulmonary Critical Care and Sleep [address] [facility] [address] [place], [place] [phone] Salvador Woodard MD [address] [facility] [address] [place] [phone] 1 YFU lungs 04/21/2025 9:30 AM EDT Office Visit [facility] [address] [facility] [address] O'Vinicio Navarrete MD [address] [facility] [place], [place] [phone] awv documented as of this encounter Procedures Procedure Name Priority Date/Time Associated Diagnosis Comments DIAGNOSTIC SCANNED REPORT 07/13/2010 8:20 PM EDT PULMONARY FUNCTION TEST REPORT 07/09/2010 11:44 AM EDT documented in this encounter Results * DIAGNOSTIC SCANNED REPORT (07/13/2010 8:20 PM EDT) Anatomical Region Laterality Modality Radiographic Rose ging Narrative Procedure Note SCANNING, [facility] - 07/13/2010 4:20 PM EDT Hpf Scanning IMG DIAGNOSTIC IMAGI NG ORDERABLES * PULMONARY FUNCTION TEST REPORT (07/09/2010 11:44 AM EDT) Yuriy Bridges MD PFT ORDERABLES documented in this encounter Visit Diagnoses Not on filedocumented in this encounter Care Teams Pad Assembler Relationship Specialty Start Date End Date Pineda Cheema MD [address] [place], [place] [phone] PCP - General Family Medicine 06/30/10 10/03/12 documented as of this encounter
--- OUTSIDE RECORDS SUMMARY | 2024-08-21 07:08 | XMS_ITS | Encounter Summary ---
Author Organization [facility] Address [address] [place] [address] Care Team Providers Care Brakeshoe Repairer Name Role Phone Pineda Cheema MD Primary Care Provider [phone] Encounter Details Date Type Department Care Team (Late st Contact Info) Description 07/06/2010 11:33 AM EDT - 07/06/2010 11:59 PM EDT Hospital Encounter [facility] [address] [place], [place] [id number] Pineda Cheema MD [address] [place], [place] [phone] Discharge Disposition: OP AUTODISCHARGED Social History Tobacco [...] Description 04/01/2025 10:00 AM EDT Office Visit [facility] Pul[facility] Critical Care and Sleep [address] [place], [place] [id number] Salvador Woodard MD [address] [place], [place] [id number] 1 YFU lungs 04/21/2025 9:30 AM EDT Office Visit [facility] [address] [place] [address] O'Vinicio Navarrete MD [address] [place], [place] [phone] awv documented as of this encounter Procedures Procedure Name Priority Date/Time Associated Diagnosis Comments TSH Routine 07/06/2010 11:56 AM EDT CBC WITH AUTO DIFFERENTIAL Routine 07/06/2010 11:30 AM EDT VITAMIN D 25 HYDROXY Routine 07/06/2010 11:30 AM EDT LIPID PANEL Routine 07/06/2010 11:30 AM EDT COMPREHENSIVE METABOLIC PANEL Routine 07/06/2010 11:30 AM EDT documented in this encounter Results * TSH (07/06/2010 11:56 AM EDT) TSH 1.07 0.35 - 5.5 uIU/ml [facility] BLOOD SPECIMEN / Unknown 07/06/2010 11:56 AM EDT 07/06/2010 8:16 PM EDT Pineda Cheema MD CHEMISTRY ORDERABLES Performing Organization Address [facility] Co de Phone Number [place] [id number] [address] [phone] * VITAMIN D 25 HYDROXY (07/06/2010 11:30 AM EDT) Pathologist [facility] Vit D, 25-Hydroxy 45 30 - 80 ng/ml [facility] BLOOD SPECIMEN / Unknown 07/06/2010 11:30 AM EDT 07/06/2010 8:16 PM EDT Narrative [facility] - 07/08/2010 5:02 AM EDT FASTING-12 h REFERENCE INTERVAL: Vitamin D, 25-Hydroxy This assay accurately quantifies the sum of vitamin D3, 25-hydroxy and vitamin D2, 25-hydroxy. 0-17 years:.br Deficiency: less than 20 ng/mL Optimum level: greater than or equal to 20 ng/mL* *(Ramos CL et al. Pediatrics 2008; 122: 1128-38.) 18 years and older:.br Deficiency: Less than 20 ng/mL Insufficiency: 20-29 ng/mL Optimum Level: 30-80 ng/mL Possible Toxicity: Greater than 150 ng/mL Pineda Cheema MD CHEMISTRY ORDERABLES Performing Organization Address [facility] Co de Phone Number [facility] * (ABNORMAL) CBC WITH AUTO DIFFERENTIAL (07/06/2010 11:30 AM EDT) [facility] WBC 5.7 4.0 - 11.0 X 1000 [facility] RBC 4.42 4.0 - 5.2 X(10)6 [facility] Hemoglobin 14.4 12.0 - 16.0 gm/dl [facility] Hematocrit 41.5 36.0 - 48.0 % [facility] MCV 93.8 80 - 100 fl [facility] MCH 32.6 26 - 34 pg [facility] MCHC 34.8 31 - 36 gm/dl [facility] RDW 12.9 11.5 - 14.5 % [facility] Platelets 269 135 - 450 X(10)3 [facility] MPV 9.0 5.0 - 10.5 fl [facility] Segs Relative 68.2(H) 42.0 - 63.0 % [facility] Lymphocytes % 22.5(L) 25.0 - 40.0 % [facility] Monocytes % 7.1 SEE BELOW % [facility] Comment: 0.0-12.0 Effective 04/28/10 New ref range. Eosinophils % 2.0 0.0 - 5.0 % [facility] Basophils % 0.2 0.0 - 2.0 % [facility] Granulocyte Absolute Count 3.9 1.7 - 7.7 X(10)3 [facility] Lymphocytes Absolute 1.3 1.0 - 5.1 X(10)3 [facility] Monocytes Absolute 0.4 SEE BELOW X(10)3 [facility] Comment: 0.0-1.3 Effective 04/28/10 New ref range. Eosinophils Absolute 0.1 0.0 - 0.6 X(10)3 [facility] Basophils Absolute 0.0 0.0 - 0.2 X(10)3 [facility] Differential Type Auto-K [facility] BLOOD SPECIMEN / Unknown 07/06/2010 11:30 AM EDT 07/06/2010 8:16 PM EDT Narrative [facility] - 07/06/2010 9:55 PM EDT FASTING-12 h FASTING-12 h Pineda Cheema MD HEMATOLOGY ORDERABLE [place] [id number] [phone] * (ABNORMAL) LIPID PANEL (07/06/2010 11:30 AM EDT) Cholesterol, Total 199 <200 mg/dl [facility] Triglycerides 82 <150 mg/dl [facility] HDL 73(H) 40 - 60 mg/dl [facility] LDL Calculated 110(H) <100 mg/dl [facility] VLDL Cholesterol Calculated 16 Not Established mg/dl [facility] BLOOD SPECIMEN / Unknown 07/06/2010 11:30 AM EDT 07/06/2010 8:16 PM EDT Narrative [facility] - 07/06/2010 9:54 PM EDT FASTING-12 h FASTING-12 h Pineda Cheema MD CHEMISTRY ORDERABLES [facility] [address] [place] [address], [facility] [phone] * (ABNORMAL) COMPREHENSIVE METABOLIC PANEL (07/06/2010 11:30 AM EDT) Sodium 140 136 - 145 mEq/L [facility] Potassium 4.0 3.5 - 5.1 mEq/L [facility] Chloride 105 99 - 110 mEq/L [facility] CO2 32 21 - 32 mEq/L [facility] Glucose 83 70 - 99 mg/dl [facility] BUN 16 7 - 18 mg/dl [facility] Creatinine 0.9 0.6 - 1.1 mg/dl [facility] Total Protein 6.8 6.4 - 8.2 gm/dl [facility] Albumin 4.2 3.4 - 5.0 gm/dl [facility] Albumin/Globulin Ratio 1.7 1.1 - 2.2 [facility] Total Bilirubin 0.90 0.0 - 1.0 mg/dl [facility] Alkaline Phosphatase 44(L) SEE BELOW U/L [facility] Comment: 45-129 Effective 03/09/10 New Reference Range AST 20 15 - 37 U/L [facility] ALT 16 10 - 40 U/L [facility] Calcium 9.3 8.3 - 10.6 mg/dl [facility] Est, Glom Filt Rate >60 >60 mL/min/1.7 3m2 [facility] GFR Est, /Amer >60 SEE BELOW [facility] Comment: >60 mL/min/1.73m2 EGFR, calc. for ages 18 & older using the MDRD formula (not corrected for weight),is valid for stable renal function. BLOOD SPECIMEN / Unknown 07/06/2010 11:30 AM EDT 07/06/2010 8:16 PM EDT Narrative [facility] - 07/06/2010 10:01 PM EDT FASTING-12 h FASTING-12 h Pineda Cheema MD CHEMISTRY ORDERABLES [facility] [address] [place] [address] documented in this encounter Visit Diagnoses Not on filedocumented in this encounter Care Teams Brakeshoe Repairer Relationship Specialty Start Date End Date Pineda Cheema MD [address] [place] [address] PCP - General Family Medicine 06/30/10 10/03/12 documented as of this encounter
--- OUTSIDE RECORDS SUMMARY | 2024-08-21 07:08 | XMS_ITS | Encounter Summary ---
Author Organization Healthcare Address [address] [place] [address] Care Team Providers Care Ux Developer Name Role Phone Unavailable Primary Care Provider Unavailabl e Encounter Details Date Type Department Care Team (Late st Contact Info) Description 01/04/2023 1:10 PM EDT Ancillary Procedure [facility] [address] [facility] [address] [place] [address] Heart murmur Social History Tobacco Use Types Packs/Day Years [...] Procedure Name Priority Date/Time Associated Diagnosis Comments ADULT ECHO OUTSIDE READ Routine 01/04/2023 1:06 PM EDT Heart murmur documented in this encounter Results * ADULT ECHO OUTSIDE READ (01/04/2023 1:06 PM EDT) BSA 1.64 m2 [facility] Height 162.6 [facility] Weight 59.9 [facility] Baseline Systolic BP 116 [facility] Baseline Diastolic BP 68 [facility] Heart Rate 68 [facility] LVIDd 39 mm [facility] IVSd 7 mm [facility] LVPWd 7 mm [facility] LV MASS(C)D 76 g [facility] LV RWT 0.36 mm [facility] LVIDs 27 mm [facility] Ao Root Diam 26 mm [facility] TR Vmax 259.4 cm/s [facility] TR Max PG 27 mmHG [facility] RA MOD 4Ch 49 mL [facility] CARROL 30 mL/m2 [facility] LAV(MOD-4ch) 38 mL [facility] RV base 37 mm [facility] MV E Vmax 73.8 cm/s [facility] MV A Vmax 105.7 cm/s [facility] MV E/A 0.7 cm/s [facility] LV Sept e' Som 4.7 cm/s [facility] Sep E/e' 15.7 [facility] LV Lat e' Velocity 5.2 cm/s [facility] Lat E/e' 14.2 [facility] Avg E/e' 14.9 [facility] RV s' Som 16.4 cm/s [facility] TAPSE 25 mm [facility] LAV(MOD-bp) Indexed 27 mL/m2 [facility] LAV(MOD-2ch) 50 mL [facility] RVSP 30 mmHg [facility] RAP systole 3 mmHg [facility] Anatomical Region Laterality Modality Echocardiography Narrative 01/04/2023 3:14 PM EDT ?Left??Ventricle: The left ventricular systolic function is normal. The LVEF is visually estimated at 55 - 60%. The diastolic function is indeterminate. The left ventricular filling pressure is elevated. ?Right??Ventricle: The right ventricle is normal in size. ??The right ventricular systolic function is normal. Right ventricular systolic pressure is normal (<35mmHg). The estimated right ventricular systolic pressure is 30 mmHg. ?All cardiac valves were reasonably well visualized with 2D and/or color flow Doppler and there was no significant valve regurgitation or stenosis seen. ?Pericardium: No pericardial effusion. ?There is no recent study available for direct [id number] comparison. ?? Left Ventricle Based on the linear dimension and/or 2D volumes, the left ventricle is normal in size. There is normal left ventricular myocardial thickness and mass. The left ventricular systolic function is normal. The LVEF is visually estimated at 55 - 60%. The diastolic function is indeterminate. The left ventricular filling pressure is elevated. The left ventricular wall motion is normal. Right Ventricle The right ventricle is normal in size. The right ventricular basal diameter is normal (25-41 mm). The right ventricular systolic function is normal. The estimated global right ventricular systolic function based upon the tricuspid annular plane of systolic excursion (TAPSE) is normal (>=17 mm). The estimated global right ventricular systolic function based upon the TDI maximal systolic velocity is normal (>=9.5 cm/s). Right ventricular systolic pressure is normal (<35mmHg). The estimated right ventricular systolic pressure is 30 mmHg. Left Atrium The left atrial size is normal with an indexed volume of 16-34 mL/m2. The interatrial septum is intact with no evidence for an atrial septal defect. Right Atrium The right atrial volume index is normal (18-32mL/m2). IVC/SVC Based on the IVC size and respiratory variation, the estimated right atrial pressure is 3mmHg. Mitral Valve The mitral valve leaflets are normal in appearance with no evidence of mitral valve prolapse. There is mild mitral regurgitation. There is no mitral stenosis. Tricuspid Valve The tricuspid valve is normal in appearance. There is mild tricuspid regurgitation. There is no tricuspid stenosis. Aortic Valve The aortic valve appears grossly normal. There is no valvular regurgitation. There is no hemodynamically significant valvular aortic stenosis. Pulmonic Valve The pulmonic valve is grossly normal. There is mild pulmonic regurgitation. There is no pulmonic stenosis. Pericardium No pericardial effusion. Great Vessels The aortic root is normal in size. The sinus of Valsalva (aortic root) diameter is 26 mm by leading edge to leading edge method. The main pulmonary artery is not well visualized. Study Details A complete transthoracic echocardiogram using two-dimensional (2D), m-mode, color and spectral flow Doppler imaging was performed. This complete 2D, M-mode, and Doppler transthoracic echocardiogram was performed on site at [facility] ([place], [place]) and interpreted remotely by faculty at the [facility] ([place], [place]). During the study the apical, parasternal and subcostal view was captured. Overall the study quality was adequate. BP: 116/68 mmHg. Heart Rate: 68 bpm. Heart rate was normal. Height: 162.6 cm. Weight: 59.9 kg. BSA: 1.64 m2. The heart rhythm during this exam was most suggestive of a sinus rhythm. Study Recommendation All cardiac valves were reasonably well visualized with 2D and/or color flow Doppler and there was no significant valve regurgitation or stenosis seen. There is no recent study available for direct [id number] comparison. us Maria G Rosado APRN CV ECHO PROCEDURES Final Resul t documented in this encounter Visit Diagnoses Diagnosis Heart murmur Undiagnosed cardiac murmurs documented in this encounter
--- OUTSIDE RECORDS SUMMARY | 2024-08-21 07:08 | XMS_ITS | Encounter Summary ---
Author Organization [facility] Address [address] [place] [address] Care Team Providers Care Broadcast Systems Engineer Name Role Phone Pineda Cheema MD Primary Care Provider [phone] Reason for Referral * (Routine) Specialty Diagnoses / Procedures Referred By Contsheila t Referred To Contact Gastroenterology Pineda Cheema MD [address] [place] [id number] Referral ID Status Reason Start Date Expiration Date V isits Requested Visits Authorized Specialty Services Required Comments Dr. Hilton and Dr. Jenkins [phone] Typewriter Repairer Colonoscopy Reason for Visit * Reason Comments Establish Care Desirae Mayfield's Mo m Encounter Details Date Type Department Care Team (Late st Contact Info) Description 06/30/2010 10:30 AM EDT Office Visit [facility] [address] [place] [id number] Pineda Cheema MD [address] [place] [phone] Bronchiectasis (Primary Dx); Colon polyp; Rash; Well adult exam Social History Tobacco Use Types Packs/Day Years [...] Sign Reading Time Taken Comments Blood Pressure 154/75 06/30/2010 10:29 AM EDT Pulse 70 06/30/2010 10:29 AM EDT Temperature - - Respiratory Rate - - Oxygen Saturation 100% 06/30/2010 10:29 AM EDT Inhaled Oxygen Concentration - - Weight 58.6 kg (129 lb 3.2 oz) 06/30/2010 10:29 AM EDT Height - - Body Mass Index - - documented in this encounter Progress Notes * Pineda Cheema MD - 06/30/2010 11:17 AM EDT Karlie Love is a 60 y.o. female who presents today TBE on her chronic medical conditions as noted below. Pt here TBE with past hx of bronchiectisis dx's 4 years ago after pulmonary infection and had PFT'sdone then. She was on advair but now off medicine. She is coughing a little but no colored mucous. She has had a pneumonia vaccine and recently had flu shot. She is exercising and feels otherwise well. She has had a rash for a few months on her feet that started as a brown spot and now is red on both dorsal feet. She has no sx's with it. She saw a derm who was concerned about DMII. There is no problem list on file for this patient. Past Medical History Diagnosis Date ??? Bronchiectasis 2006 Current outpatient prescriptions Medication Sig Dispense Refill ??? Multiple Vitamin [...] items are noted in HPI. OBJECTIVE: BP 154/75 Pulse 70 Wt 129 lb 3.2 oz (58.605 kg) SpO2 100% General appearance: alert, appears stated age and cooperative Head: Normocephalic, without obvious abnormality, atraumatic Eyes: negative findings: lids and lashes normal, conjunctivae and sclerae normal and corneas clear Ears: normal TM's and external ear canals both ears Nose: Nares normal. Septum midline. Mucosa normal. No drainage or sinus tenderness. Throat: lips, mucosa, and tongue normal; teeth and gums normal Neck: no adenopathy, supple, symmetrical, trachea midline and thyroid not enlarged, symmetric, no tenderness/mass/nodules Lungs: clear to auscultation bilaterally Heart: regular rate and rhythm, S1, S2 normal, no murmur, click, rub or gallop Abdomen: soft, non-tender; bowel sounds normal; no masses, no organomegaly Extremities: extremities normal, atraumatic, no cyanosis or edema Pulses: 2+ and symmetric Skin: bilateral dorsal feet with blanchhing erythematous geographic patches ASSESSMENT: 1. Colon polyp (211.3L) AMB REFERRAL TO GASTROENTEROLOGY 2. Bronchiectasis (494.0E) FULL PFT STUDY WITH METHACHOLINE 3. Rash (782.1R) COMPREHENSIVE METABOLIC PANEL 4. Well adult exam (V70.0D) CBC WITH AUTO DIFFERENTIAL, COMPREHENSIVE METABOLIC PANEL, LIPID PANEL,TSH, VITAMIN D 25 HYDROXY Will follow up for punch bx of foot rash. Unclear cause. Check PFT and will likely start on flovent instead of Advair pennding results to avoid LABA. Check complete labs Refer for colonoscopy documented in this encounter Plan of Treatment Upcoming Encounters Date Type Department Care Team (Late st Contact Info) Description 04/01/2025 10:00 AM EDT Office Visit [facility] Pulmonary Critical Care and Sleep [address] [facility] [address] [place] [address] Salvador Woodard MD [address] [facility] [address] [place] [address] 1 YFU lungs 04/21/2025 9:30 AM EDT Office Visit [facility] [address] [place] [address] O'Rosalba, Vinicio Brown MD [address] [place] [address] awv Scheduled Orders Name Type Priority Associated Diagnoses Orde r Schedule FULL PFT STUDY WITH METHACHOLINE PFT Routine Bronchiectasis Ordered: 06/30/2010 CBC auto differential Lab Routine Well adult exam Ordered: 06/30/2010 Comprehensive metabolic panel Lab Routine Rash Well adult exam Ordered: 06/30/2010 Lipid panel Lab Routine Well adult exam Ordered: 06/30/2010 TSH Lab Routine Well adult exam Ordered: 06/30/2010 Vitamin D 25 hydroxy Lab Routine Well adult exam Ordered: 06/30/2010 Scheduled Referrals Name Type Priority Associated Diagnoses Order Schedule Ambulatory referral to Gastroenterology Outpatient Referral Routine Colon polyp Ordered: 06/30/2010 documented as of this encounter Visit Diagnoses Diagnosis Bronchiectasis (HCC)- Primary Bronchiectasis without acute exacerbation Colon polyp Benign neoplasm of colon Rash Rash and other nonspecific skin eruption Well adult exam Routine general medical examination at a health care facility documented in this encounter Care Teams Broadcast Systems Engineer Relationship Specialty Start Date End Date Pineda Cheema MD [address] [place] [address] PCP - General Family Medicine 06/30/10 10/03/12 documented as of this encounter
== END 2024-08-20 23:59 | disposition home or self-care (01) ==
LOC: SC 08-21 07:01
PROVIDERS: Visit Provider Dermatology
DX: Z00.00 Encounter for general adult medical examination without abnormal findings (principal)